=== PATIENT | male | born 1955 | race Caucasian/White ===

== ENCOUNTER 2018-02-20 18:46 | Inpatient (IN) | payer MEDICARE ==
[2018-02-20] MEDS ORDERED: PANTOPRAZOLE 40 MG/10 ML VIAL IVP STA (18:49)
[2018-02-20] MEDS ORDERED: MORPHINE SULFATE 4 MG/ML SYRINGE IV STA (18:49)
[2018-02-20] MEDS ORDERED: ONDANSETRON 4 MG/2 ML VIAL IVP STA (18:49)
[2018-02-20] MEDS ORDERED: SODIUM CHLORIDE 0.9% 1,000 ML IV STA ×2 (18:49)
--- NOTE | 2018-02-20 18:54 | ED ---
General Adult HPI - General Stated complaint: ABDOMINAL PAIN, NAUSEA, VOMITING Time Seen by Provider: 02/20/18 18:49 Source: RN notes reviewed, old records reviewed - History of Present Illness Initial comments: This is a 62-year-old male the ER for evasive nausea vomiting weakness, altered mental state. Patient states he has significant history of the same, history of severe colitis. Complaining of nausea vomiting diarrhea, generalized pain, body pain. No fevers or travel history no sick contacts. - Related Data Home Medications Medication Instructions Recorded Confirmed Lisinopril [Prinivil] 20 mg PO DAILY 10/02/14 07/18/16 L.acidoph,Paracasei, B.lactis 1 cap PO DAILY 06/24/16 07/18/16 [Probiotic] Mirtazapine 45 mg PO HS 06/24/16 07/18/16 Previous Rx's Medication Instructions Recorded Omeprazole [PriLOSEC] 40 mg PO DAILY #30 capsule. 07/07/16 Ondansetron [Zofran ODT] 8 mg PO Q8HR PRN #12 tab 07/07/16 traMADol HCl [Ultram] 50 - 100 mg PO Q6H PRN #15 tab 07/07/16 Allergies Allergy/AdvReac Type Severity Reaction Status Date / Time Penicillins Allergy Anaphylaxis Verified 02/20/18 18:59 Review of Systems ROS Statement: Those systems with pertinent positive or pertinent negative responses have been documented in the HPI. ROS Other: All systems not noted in ROS Statement are negative. Past Medical History Past Medical History: COPD, Hypertension Additional Past Medical History / Comment(s): diverticulitis, hypothyroidism, C- diff, brain aneurysm History of Any Multi-Drug Resistant Organisms: C-DIFF Date of last positivie culture/infection: 09/23/14 MDRO Source:: stool Past Surgical History: No Surgical Hx Reported Additional Past Surgical History / Comment(s): brain surgery 2004 Past Anesthesia/Blood Transfusion Reactions: No Reported Reaction Past Psychological History: No Psychological Hx Reported Smoking Status: Current every day smoker Past Alcohol Use History: None Reported Past Drug Use History: None Reported General Exam General appearance: alert, in no apparent distress, cachectic Head exam: Present: atraumatic, normocephalic, normal inspection Eye exam: Present: normal appearance, PERRL, EOMI. Absent: scleral icterus, conjunctival injection, periorbital swelling ENT exam: Present: normal exam, mucous membranes moist Neck exam: Present: normal inspection. Absent: tenderness, meningismus, lymphadenopathy Respiratory exam: Present: normal lung sounds bilaterally. Absent: respiratory distress, wheezes, rales, rhonchi, stridor Cardiovascular Exam: Present: regular rate, normal rhythm, normal heart sounds. Absent: systolic murmur, diastolic murmur, rubs, gallop, clicks GI/Abdominal exam: Present: soft, normal bowel sounds. Absent: distended, tenderness, guarding, rebound, rigid Extremities exam: Present: normal inspection, full ROM, normal capillary refill. Absent: tenderness, pedal edema, joint swelling, calf tenderness Back exam: Present: normal inspection Neurological exam: Present: alert, oriented X3, CN II-XII intact Psychiatric exam: Present: normal affect, normal mood Skin exam: Present: warm, dry, intact, normal color. Absent: rash Course Vital Signs 02/20/18 18:51 Temperature 97 F L Pulse Rate 105 H Respiratory 20 Rate Blood Pressure 97/58 O2 Sat by Pulse 95 Oximetry EKG Findings - EKG Comments: EKG Findings:: EKG shows normal sinus rhythm rate of 85, [place] 160, QRS 76, QTc 445 Medical Decision Making - Lab Data Result diagrams: 02/20/18 19:45 02/20/18 19:45 Lab Results 02/20/18 02/20/18 Range/Units 19:45 19:45 WBC 13.3 H (3.8-10.6) k/uL RBC 4.58 (4.30-5.90) m/uL Hgb 13.8 (13.0-17.5) gm/dL Hct 43.0 (39.0-53.0) % MCV 93.9 (80.0-100.0) fL MCH 30.1 (25.0-35.0) pg MCHC 32.0 (31.0-37.0) g/dL RDW 13.2 (11.5-15.5) % Plt Count 309 (150-450) k/uL Neutrophils % 82 % Lymphocytes % 8 % Monocytes % 7 % Eosinophils % 1 % Basophils % 0 % Neutrophils # 10.9 H (1.3-7.7) k/uL Lymphocytes # 1.1 (1.0-4.8) k/uL Monocytes # 0.9 (0-1.0) k/uL Eosinophils # 0.2 (0-0.7) k/uL Basophils # 0.0 (0-0.2) k/uL Sodium 145 (137-145) mmol/L Potassium 4.2 (3.5-5.1) mmol/L Chloride 108 H (98-107) mmol/L Carbon Dioxide 24 (22-30) mmol/L Anion Gap 13 mmol/L BUN 33 H (9-20) mg/dL Creatinine 0.80 (0.66-1.25) mg/dL Est GFR (CKD-EPI)AfAm >90 (>60 ml/min/1.73 sqM) Est GFR (CKD-EPI)NonAf >90 (>60 ml/min/1.73 sqM) Glucose 104 H (74-99) mg/dL Calcium 9.5 (8.4-10.2) mg/dL Total Bilirubin 0.1 L (0.2-1.3) mg/dL AST 21 (17-59) U/L ALT 22 (21-72) U/L Alkaline Phosphatase 106 (38-126) U/L Total Protein 6.1 L (6.3-8.2) g/dL Albumin 3.8 (3.5-5.0) g/dL Amylase 270 H (30-110) U/L Lipase 216 (23-300) U/L Disposition Clinical Impression: Abdominal pain, Dehydration, Intractable nausea and vomiting Disposition: ADMITTED IP TO THIS HOSP Condition: Fair Is patient prescribed a controlled substance at d/c from ED?: No Referrals: Sabrina Waters MD [Primary Care Provider] - 1-2 days
[2018-02-20 19:56] LABS: Basophils % (A) 0 %; Eosinophils # (A) 0.2 k/uL (0-0.7); Eosinophils % (A) 1 %; HGB 13.8 gm/dL (13.0-17.5); Lymphocytes # (A) 1.1 k/uL (1.0-4.8); Lymphocytes % (A) 8 %; MCH 30.1 pg (25.0-35.0); MCV 93.9 fL (80.0-100.0); Mean Platelet Volume 7.2; Monocytes # (A) 0.9 k/uL (0-1.0); Monocytes % (A) 7 %; Neutrophils # (A) 10.9 k/uL (1.3-7.7); Neutrophils % (A) 82 %; Platelet Count 309 k/uL (150-450); RBC 4.58 m/uL (4.30-5.90); RDW 13.2 % (11.5-15.5); WBC 13.3 k/uL (3.8-10.6)
[2018-02-20 20:20] LABS: ALT 22 U/L (21-72); AST 21 U/L (17-59); Albumin 3.8 g/dL (3.5-5.0); Alkaline Phosphatase 106 U/L (38-126); Amylase 270 U/L (30-110); Anion Gap 13 mmol/L; Blood Urea Nitrogen 33 mg/dL (9-20); Calcium 9.5 mg/dL (8.4-10.2); Carbon Dioxide 24 mmol/L (22-30); Chloride 108 mmol/L (98-107); Glucose 104 mg/dL (74-99); Lipase 216 U/L (23-300); Potassium 4.2 mmol/L (3.5-5.1); Sodium 145 mmol/L (137-145); Total Bilirubin 0.1 mg/dL (0.2-1.3); Total Protein 6.1 g/dL (6.3-8.2)
[2018-02-20] MEDS ORDERED: ONDANSETRON 4 MG/2 ML VIAL IVP PRN (20:29)
[2018-02-20 20:32] LABS: Creatine Kinase 59 U/L (55-170)
[2018-02-20 20:45] LABS: Creatine Kinase MB 1.2 ng/mL (0.0-2.4); Troponin I <0.012 ng/mL (0.000-0.034)
--- NOTE | 2018-02-20 21:48 | XR ---
EXAMINATION TYPE: XR abdomen acute w cxr DATE OF EXAM: 02/20/2018 COMPARISON: 07/07/2016 HISTORY: Pain TECHNIQUE: Acute abdominal series performed with a frontal chest upright and supine views of the abdo men. FINDINGS: There is hyperinflation and extensive emphysematous change present. No free air is under th e diaphragm. Nonspecific small bowel gas is present. There appears to be some colonic bowel gas in th e splenic flexure. IMPRESSION: 1. Nonspecific abdomen. Follow-up can be performed as clinically indicated. 2. Extensive emphysematous changes.
[2018-02-20] MEDS: MORPHINE SULFATE 4 MG/ML SYRINGE IVP PRN (22:33)
[2018-02-21 02:30] LABS: Appearance,Urine Clear (Clear); Bilirubin,Urine Negative (Negative); Blood,Urine Negative (Negative); Color,Urine Yellow; Glucose,Urine (UA) Negative (Negative); Ketones,Urine Negative (Negative); Leukocyte Esterase,Urine Negative (Negative); Nitrite,Urine Negative (Negative); Protein,Urine Negative (Negative); Specific Gravity,Urine 1.014 (1.001-1.035); Urobilinogen,Urine <2.0 mg/dL (<2.0)
[2018-02-21] MEDS: MORPHINE SULFATE 4 MG/ML SYRINGE IVP PRN ×5 (02:51→21:18)
[2018-02-21] MEDS ORDERED: ENOXAPARIN 40 MG/0.4 ML SYRINGE SQ SCH (09:00)
[2018-02-21 09:25] LABS: Basophils % (A) 0 %; Eosinophils % (A) 0 %; HCT 38.2 % (39.0-53.0); HGB 12.2 gm/dL (13.0-17.5); Lymphocytes # (A) 0.9 k/uL (1.0-4.8); Lymphocytes % (A) 9 %; MCH 30.1 pg (25.0-35.0); MCHC 31.9 g/dL (31.0-37.0); MCV 94.4 fL (80.0-100.0); Mean Platelet Volume 7.4; Monocytes # (A) 0.7 k/uL (0-1.0); Monocytes % (A) 7 %; Neutrophils # (A) 7.9 k/uL (1.3-7.7); Neutrophils % (A) 81 %; Platelet Count 238 k/uL (150-450); RBC 4.04 m/uL (4.30-5.90); RDW 13.2 % (11.5-15.5); WBC 9.7 k/uL (3.8-10.6)
[2018-02-21 09:43] LABS: ALT 21 U/L (21-72); AST 17 U/L (17-59); Albumin 3.3 g/dL (3.5-5.0); Alkaline Phosphatase 97 U/L (38-126); Anion Gap 10 mmol/L; Blood Urea Nitrogen 31 mg/dL (9-20); Calcium 8.5 mg/dL (8.4-10.2); Carbon Dioxide 26 mmol/L (22-30); Chloride 105 mmol/L (98-107); Glucose 145 mg/dL (74-99); Sodium 141 mmol/L (137-145); Total Bilirubin 0.3 mg/dL (0.2-1.3); Total Protein 5.2 g/dL (6.3-8.2)
[2018-02-21 10:18] VITALS: BMI 15.8
[2018-02-21] MEDS: PANTOPRAZOLE 40 MG/10 ML VIAL IVP SCH (10:38)
--- NOTE | 2018-02-21 11:00 | P.HPIM ---
History of Present Illness H&P Date: 02/21/18 Chief Complaint: Abdominal pain with vomiting and diarrhea This is a 62-year-old male with a known past medical history of ischemic colitis, C. diff, hypertension, COPD, brain aneurysm status post surgery and nicotine dependence. Patient presents to the emergency room with complaints of nausea, vomiting, diarrhea and abdominal pain. Patient reports that symptoms started suddenly around 6:00 last night. He had been feeling well earlier in the day and had been at a movie and eating popcorn. Patient reports when he came home later that evening is when the symptoms started. He reports multiple loose stools with blood present. He reports this is the same symptoms he always has. He's had previous hospitalizations at [facility] for the same symptoms. He's been treated for colitis. Patient reports he did have a syncopal episode after using the restroom and walking to the front room. He passed out for a few seconds. He did not injure herself. Family member was able to witness it. White count was 13.3 has normalized down to 9.7. Hemoglobin 13.8 his truck to 12.2. Nursing staff reporting very clear mucus-like stool this morning was pH. GI service has been consulted. Stool for occult blood and stool for C. diff has been ordered. Patient denies any fever, chills, sweats, shortness of breath. Denies any burning with urination. Patient did report some mild chest pain with the vomiting. Troponin on admission was normal and EKG shows a normal sinus rhythm. Abdominal and chest x -ray shows nonspecific abdomen. And extensive emphysematous changes. Patient reporting last colonoscopy done a year ago at [facility]. Report not available to me. However, patient reporting that it shows his usual colitis. Review of Systems Please refer to HPI otherwise unremarkable Past Medical History Past Medical History: COPD, Hypertension Additional Past Medical History / Comment(s): diverticulitis, hypothyroidism, C- diff, brain aneurysm History of Any Multi-Drug Resistant Organisms: C-DIFF Date of last positivie culture/infection: 09/23/14 MDRO Source:: stool Past Surgical History: No Surgical Hx Reported Additional Past Surgical History / Comment(s): brain surgery 2004 Past Anesthesia/Blood Transfusion Reactions: No Reported Reaction Past Psychological History: No Psychological Hx Reported Smoking Status: Current every day smoker Past Alcohol Use History: None Reported Additional Past Alcohol Use History / Comment(s): PT STATES HE USES A VAPE PEN INSTEAD OF SMOKING TRADITIONAL CIGARETTES AT THIS TIME. Past Drug Use History: None Reported - Past Family History Mother Additional Family Medical History / Comment(s): DIVERTICULITIS Medications and Allergies Home Medications Medication Instructions Recorded Confirmed Type Lisinopril [Prinivil] 20 mg PO DAILY 10/02/14 02/21/18 History Mirtazapine 45 mg PO HS 06/24/16 02/21/18 History Allergies Allergy/AdvReac Type Severity Reaction Status Date / Time Penicillins Allergy Anaphylaxis Verified 02/21/18 07:59 Physical Exam Vitals: Vital Signs Temp Pulse Pulse Resp BP BP Pulse Ox 02/21/18 06:55 98.5 F 86 16 106/72 95 02/20/18 22:10 97.8 F 88 16 105/72 99 02/20/18 21:33 80 20 93/55 98 02/20/18 20:00 84 20 91/61 98 02/20/18 18:51 97 F L 105 H 20 97/58 95 Intake and Output 02/20/18 02/21/18 02/21/18 22:59 06:59 14:59 Intake Total 1000 800 360 Balance 1000 800 360 Intake: Amount of Fluid Infused ( 1000 ml) Intake, IV Titration 800 Amount Sodium Chloride 0.9% 1, 800 000 ml @ 100 mls/hr IV . Q10H STA Rx#:[id number] Oral 360 Other: Voiding Method Toilet Toilet Weight 58.967 kg 58.967 kg Head normocephalic Neck supple Lungs clear to auscultation bilaterally no wheezing or crackles Heart regular rate and rhythm S1-S2, no rub or gallop Abdomen is soft nondistended positive bowel sounds lower abdominal tenderness with palpation Extremities no edema Neuro alert and orientated to 3 Results CBC & Chem 7: 02/21/18 09:07 02/21/18 09:07 Labs: Abnormal Lab Results - Last 24 Hours (Table) 02/20/18 02/20/18 02/21/18 Range/Units 19:45 19:45 09:07 WBC 13.3 H (3.8-10.6) k/uL RBC 4.04 L (4.30-5.90) m/uL Hgb 12.2 L (13.0-17.5) gm/dL Hct 38.2 L (39.0-53.0) % Neutrophils # 10.9 H 7.9 H (1.3-7.7) k/uL Lymphocytes # 0.9 L (1.0-4.8) k/uL Chloride 108 H (98-107) mmol/L BUN 33 H (9-20) mg/dL Glucose 104 H (74-99) mg/dL Total Bilirubin 0.1 L (0.2-1.3) mg/dL Total Protein 6.1 L (6.3-8.2) g/dL Albumin (3.5-5.0) g/dL Amylase 270 H (30-110) U/L 02/21/18 Range/Units 09:07 WBC (3.8-10.6) k/uL RBC (4.30-5.90) m/uL Hgb (13.0-17.5) gm/dL Hct (39.0-53.0) % Neutrophils # (1.3-7.7) k/uL Lymphocytes # (1.0-4.8) k/uL Chloride (98-107) mmol/L BUN 31 H (9-20) mg/dL Glucose 145 H (74-99) mg/dL Total Bilirubin (0.2-1.3) mg/dL Total Protein 5.2 L (6.3-8.2) g/dL Albumin 3.3 L (3.5-5.0) g/dL Amylase (30-110) U/L Microbiology - Last 24 Hours (Table) 02/21/18 02:20 Urine Culture - Preliminary Urine,Voided Thrombosis Risk Factor Assmnt - Choose All That Apply Any of the Below Risk Factors Present?: Yes Each Factor Represents 1 point: Abnormal pulmonary function (COPD), Age 41-60 years Other Risk Factors: No Other congenital or acquired thrombophilia - If yes, enter type in comment: No Thrombosis Risk Factor Assessment Total Risk Factor Score: 2 Thrombosis Risk Factor Assessment Level: Low Risk Assessment and Plan Assessment: 1. Abdominal pain with vomiting and bloody diarrhea: History of ischemic colitis and C. diff colitis. GI service consulted. Check stool for C. diff. Check stool for occult blood. He will come stable at 12.2. White count has normalized without antibiotics. Patient has received IV fluids continue morphine for pain control 2. Syncopal episode: Possibly a vasovagal response or orthostatic hypotension. Check orthostatic blood pressures. Continue with IV fluids. 3. Essential hypertension: Lisinopril currently on hold due to hypotension on admission. Continue IV fluids 4. History of COPD: Stable evidence of exacerbation 5. Nicotine dependence: Discussed smoking cessation for greater than 3 minutes. Patient is currently Vaps at home. 6. History of brain aneurysm requiring surgical intervention GI prophylaxis Protonix and DVT prophylaxis SCDs Time with Patient: Greater than 30 (Greater than 50% of the total time spent in counseling and coordination of care.I performed an examination of the patient and discussed their management with the physician Business Solutions Analyst. I have reviewed the Physician Business Solutions Analyst's notes and agree with the documented findings and plan of care)
[2018-02-21] MEDS ORDERED: RX INFO: IV CONTRAST WAS GIVEN 1 EACH MISC MISCELLANE PRN (14:10)
[2018-02-21] MEDS: IOPAMIDOL-300 CONTRAST 30 ML VIAL (ORAL USE) PO PRN ×2 (14:52→16:04)
--- NOTE | 2018-02-21 15:37 | CONS ---
CONSULTATION REQUESTING PHYSICIAN: Dr. Sabrina Waters. REASON FOR CONSULTATION: Intermittent episodes of nausea, vomiting, and diarrhea. HISTORY OF PRESENT ILLNESS: The patient is a 62-year-old pleasant white male who was admitted to the hospital with acute onset of abdominal pain associated with nausea, vomiting, diarrhea of 2 days duration. He has been having intermittent episodes requiring hospitalization for the last 3 days. It all started with multiple episodes of C diff colitis that was diagnosed 3 years ago. He was hospitalized and treated with antibiotics and finally the C diff colitis had resolved. However, since then he has been having these episodes when he presents with acute onset of abdominal pain followed by nausea, vomiting, diarrhea, night sweats that start suddenly and usually lasts for 2-3 days and resolve. In between episodes he is asymptomatic. The last episode was in November of 2017 and was admitted to [facility]. He was investigated by Dr. Rodríguez and he had an upper endoscopy as well as colonoscopy done by him in June of 2016, which was unremarkable. There was some questionable history of ischemic colitis in the past. He is feeling much better now. He is on a regular diet tolerating well. No further episodes of nausea, vomiting, or abdominal pain. He feels very weak and tired. PAST MEDICAL HISTORY: Significant for recurrent episodes of C diff colitis 3 years ago, history of COPD, hypertension, hypothyroidism. PAST SURGICAL HISTORY: Some kind of a brain surgery. MEDICATIONS: At home include Prinivil, mirtazapine. ALLERGIES: To PENICILLIN. SOCIAL HISTORY: Chronic smoker but no alcohol use. FAMILY HISTORY: Mother has diverticulosis. REVIEW OF SYSTEMS: CARDIOPULMONARY: No chest pain, shortness of breath. GENITOURINARY: No dysuria or hematuria. MUSCULOSKELETAL: Unremarkable. SKIN: Unremarkable. ENDOCRINE: Unremarkable. PSYCHIATRIC: Unremarkable. NEUROLOGY: Unremarkable. ENT/VISION: Unremarkable. CONSTITUTIONAL: No recent weight loss. No fever, chills, or night sweats. PHYSICAL EXAMINATION: Blood pressure is 105/72, pulse 88, temperature 98.7. HEENT examination is unremarkable. Conjunctivae pink. Sclerae anicteric. Oral cavity, no lesions. Chest was clear to auscultation. HEART: Regular rate and rhythm. ABDOMEN: Soft. Bowel sounds are positive. No organomegaly. EXTREMITIES: No pedal edema. SKIN: No rashes. NEUROLOGIC: Alert and oriented x3. No focal deficits. LAB: Done at the time of admission hospital: WBC 13.3, hemoglobin and platelets are normal. Basic metabolic panel is within normal limits. BUN was 33, creatinine 0.8. This morning, BUN is 31, creatinine 0.7. ALT, AST, T bilirubin, alkaline phosphatase are normal. Amylase was 270, lipase is 216. Abdominal x-rays were unremarkable. IMPRESSION: This is a patient who presents with intermittent episodes of abdominal pain associated with nausea, vomiting, diarrhea that happens once every 6 months for the last 3 years. This was preceded by recurrent episodes of C diff colitis 3 years ago, which was successfully treated with antibiotics at that time. 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 He did have an EGD and colonoscopy by Dr. Rodríguez in June of 2016, which was unremarkable. RECOMMENDATIONS: 1. Continue with symptomatic and supportive care. 2. Advance diet as tolerated. 3. Antiemetics as needed. 4. Once his symptoms improve, he can be discharged home with outpatient follow up in 2- 3 weeks. Thank you for this consultation. MMJYOTIL / RETAN: [id number] /
--- NOTE | 2018-02-21 18:24 | CT ---
EXAMINATION TYPE: CT abdomen pelvis w con DATE OF EXAM: 02/21/2018 COMPARISON: NONE HISTORY: Blood in stool CT DLP: 399.5 mGycm Automated exposure control for dose reduction was used. TECHNIQUE: Helical acquisition of images was performed from the lung bases through the pelvis. CONTRAST: Performed with Oral Contrast and with IV Contrast, patient injected with 100 mL of Isovue 300. FINDINGS: There is some patchy infiltrate at the right lung base. There is pulmonary emphysema. Heart size is n ormal. There is no pleural effusion. Liver shows no focal defect. Bile ducts are not dilated. Spleen appears normal. There is no evidence of a pancreatic mass. Gallbladder appears normal. There is no adrenal mass. The kidneys show satisfactory contrast opacification. There is no hydroneph rosis. There is a 2.5 cm right renal parapelvic cyst. Ureters are not dilated. Abdominal aorta is ath eromatous. There is no retroperitoneal adenopathy. There is no ascites. Small bowel appears normal. T here is lack of large bowel contrast. I see no intestinal wall thickening. There are no dilated loops . Bladder distends smoothly. Prostate is enlarged and measures almost 6 cm. Appendix is not seen. The re is no sign of appendicitis. There is no evidence of free air. I see no bony destructive process. IMPRESSION: THERE IS RIGHT RENAL PARAPELVIC CYST THAT IS SLIGHTLY INCREASED COMPARED TO OLD EXAM. LARGE BOWEL ALYSON LUATION IS LIMITED SOMEWHAT BY LACK OF CONTRAST AND INTRAPERITONEAL FAT. I DO NOT SEE A CAUSE FOR REC DAYANA BLEEDING. ENLARGED PROSTATE. EMPHYSEMA. THERE IS CHRONIC INFILTRATE AT THE RIGHT POSTERIOR LUNG BASE THAT IS INCREASED SLIGHTLY CO MPARED TO OLD EXAM..
[2018-02-21] MEDS: MIRTAZAPINE 45 MG TABLET PO SCH (21:19)
[2018-02-22] MEDS: MORPHINE SULFATE 4 MG/ML SYRINGE IVP PRN ×2 (02:57→07:44)
[2018-02-22 07:30] LABS: Basophils % (A) 1 %; Eosinophils # (A) 0.2 k/uL (0-0.7); Eosinophils % (A) 3 %; HCT 32.8 % (39.0-53.0); HGB 10.8 gm/dL (13.0-17.5); Lymphocytes # (A) 0.9 k/uL (1.0-4.8); Lymphocytes % (A) 14 %; MCH 30.5 pg (25.0-35.0); MCV 92.5 fL (80.0-100.0); Monocytes # (A) 0.5 k/uL (0-1.0); Monocytes % (A) 8 %; Neutrophils # (A) 4.7 k/uL (1.3-7.7); Neutrophils % (A) 71 %; Platelet Count 196 k/uL (150-450); RBC 3.55 m/uL (4.30-5.90); WBC 6.7 k/uL (3.8-10.6)
[2018-02-22] MEDS: PANTOPRAZOLE 40 MG/10 ML VIAL IVP SCH (07:44)
[2018-02-22 08:06] LABS: ALT 22 U/L (21-72); AST 16 U/L (17-59); Albumin 2.7 g/dL (3.5-5.0); Alkaline Phosphatase 90 U/L (38-126); Anion Gap 7 mmol/L; Blood Urea Nitrogen 23 mg/dL (9-20); Calcium 8.1 mg/dL (8.4-10.2); Carbon Dioxide 27 mmol/L (22-30); Chloride 106 mmol/L (98-107); Glucose 76 mg/dL (74-99); Potassium 4.2 mmol/L (3.5-5.1); Sodium 140 mmol/L (137-145); Total Bilirubin 0.3 mg/dL (0.2-1.3); Total Protein 4.5 g/dL (6.3-8.2)
--- NOTE | 2018-02-22 09:44 | P.PN ---
Subjective Progress Note Date: 02/22/18 Principal diagnosis: Nausea vomiting diarrhea CT yesterday afternoon reported no cause for rectal bleeding. Still reports intermittent abdominal pain. No nausea or vomiting. No bloody bowel movements today. Hemoglobin 10.8. White count 6.7. Objective - Vital Signs Vital signs: Vital Signs Temp 97.3 F L 02/22/18 00:25 Pulse 58 L 02/22/18 00:25 Resp 15 02/22/18 00:25 BP 133/75 02/22/18 00:25 Pulse Ox 92 L 02/22/18 00:25 Intake & Output 02/21/18 02/22/18 02/22/18 18:59 06:59 18:59 Intake Total 1400 1270 Balance 1400 1270 Weight 58.967 kg Intake: IV 800 250 Sodium Chloride 0.9% 1, 800 250 000 ml @ 100 mls/hr IV . Q10H STA Rx#:[id number] Oral 600 1020 Other: Voiding Method Toilet # Voids 2 - Exam General appearance: The patient is alert, oriented, in no acute distress. HET: Head is normocephalic and atraumatic. Pupils are equal and reactive. Oropharynx is clear without lesions. Neck: Supple without lymphadenopathy. Trachea midline. Heart: S1 S2. Regular rate and rhythm. Lungs: No crackles or wheezes are heard. Abdomen: Soft, area mild generalized mid abdominal pain, nondistended with bowel sounds. No peritoneal signs. No palpable organomegaly or masses. Extremities: Normal skin color and turgor. No cyanosis, rash, ulceration, clubbing, or edema. Radial and pedal pulses are 2/4 bilaterally. Neurological: No focal deficits. Strength and sensation are grossly intact. - Labs CBC & Chem 7: 02/22/18 06:48 02/22/18 06:48 Labs: Abnormal Lab Results - Last 24 Hours (Table) 02/21/18 02/21/18 Range/Units 09:07 09:07 RBC 4.04 L (4.30-5.90) m/uL Hgb 12.2 L (13.0-17.5) gm/dL Hct 38.2 L (39.0-53.0) % Neutrophils # 7.9 H (1.3-7.7) k/uL Lymphocytes # 0.9 L (1.0-4.8) k/uL BUN 31 H (9-20) mg/dL Glucose 145 H (74-99) mg/dL Total Protein 5.2 L (6.3-8.2) g/dL Albumin 3.3 L (3.5-5.0) g/dL Microbiology - Last 24 Hours (Table) 02/21/18 02:20 Urine Culture - Preliminary Urine,Voided Assessment and Plan (1) Abdominal pain Current Visit: Yes Status: Acute Code(s): R10.9 - UNSPECIFIED ABDOMINAL PAIN SNOMED Code(s): 22032954 (2) Rectal bleeding Narrative/Plan: Component of acute blood loss anemia Current Visit: Yes Status: Acute Code(s): K62.5 - HEMORRHAGE OF ANUS AND RECTUM SNOMED Code(s): 65325403 (3) Intractable nausea and vomiting Current Visit: Yes Status: Acute Code(s): R11.2 - NAUSEA WITH VOMITING, UNSPECIFIED SNOMED Code(s): 273203365 (4) Cigarette nicotine dependence Current Visit: No Status: Acute Code(s): F17.210 - NICOTINE DEPENDENCE, CIGARETTES, UNCOMPLICATED SNOMED Code(s): 24432071 (5) Colitis Current Visit: No Status: Acute Code(s): K52.9 - NONINFECTIVE GASTROENTERITIS AND COLITIS, UNSPECIFIED SNOMED Code(s): 561492113 Plan: 1. Patient has reported multiple episodes of abdominal pain with intermittent rectal bleeding colitis type features over the last few years with a history of Clostridium difficile colitis and possible ischemic colitis. Patient reports additional history this morning that prior to the onset of his symptoms his blood pressure will decrease followed by intractable nausea vomiting intermittent blood tinged bowel movements that resolved within 1-3 days. EGD colonoscopy 2016 unremarkable. Etiology of his symptoms could be post infectious IBS related an underlying intermittent ischemic colitis also cannot be entirely excluded. 2. Continue with supportive measures soft diet. Discharge per medicine. Follow up in GI office in 2-3 weeks for reevaluation. Assessment and plan a care discussed with Dr. Rodriguez
--- NOTE | 2018-02-22 11:41 | P.PN ---
Subjective Progress Note Date: 02/22/18 This is a 62-year-old male with a known past medical history of ischemic colitis, C. diff, hypertension, COPD, brain aneurysm status post surgery and nicotine dependence. Patient presents to the emergency room with complaints of nausea, vomiting, diarrhea and abdominal pain. Patient reports that symptoms started suddenly around 6:00 last night. He had been feeling well earlier in the day and had been at a movie and eating popcorn. Patient reports when he came home later that evening is when the symptoms started. He reports multiple loose stools with blood present. He reports this is the same symptoms he always has. He's had previous hospitalizations at [facility] for the same symptoms. He's been treated for colitis. Patient reports he did have a syncopal episode after using the restroom and walking to the front room. He passed out for a few seconds. He did not injure herself. Family member was able to witness it. White count was 13.3 has normalized down to 9.7. Hemoglobin 13.8 his truck to 12.2. Nursing staff reporting very clear mucus-like stool this morning was pH. GI service has been consulted. Stool for occult blood and stool for C. diff has been ordered. Patient denies any fever, chills, sweats, shortness of breath. Denies any burning with urination. Patient did report some mild chest pain with the vomiting. Troponin on admission was normal and EKG shows a normal sinus rhythm. Abdominal and chest x -ray shows nonspecific abdomen. And extensive emphysematous changes. Patient reporting last colonoscopy done a year ago at [facility]. Report not available to me. However, patient reporting that it shows his usual colitis. 02/22/2018 patient did have a bloody BM yesterday evening. No further BMs this morning. No further vomiting. Some improvement in his abdominal pain. Patient does not feel ready for discharge yet. Hemoglobin has dropped from 12.2 -10.8. Stool for C. diff was negative. Patient denies any chest pain or shortness of breath. Denies any burning with urination. Patient is still been using IV morphine. Objective - Vital Signs Vital signs: Vital Signs Temp 97.7 F 02/22/18 07:00 Pulse 66 02/22/18 07:00 Resp 16 02/22/18 07:00 BP 109/59 02/22/18 07:00 Pulse Ox 92 L 02/22/18 07:00 Intake & Output 02/21/18 02/22/18 02/22/18 18:59 06:59 18:59 Intake Total 1400 1270 Balance 1400 1270 Weight 58.967 kg Intake: IV 800 250 Sodium Chloride 0.9% 1, 800 250 000 ml @ 100 mls/hr IV . Q10H STA Rx#:[id number] Oral 600 1020 Other: Voiding Method Toilet # Voids 2 - Exam Head normocephalic Neck supple Lungs clear to auscultation bilaterally no wheezing or crackles Heart regular rate and rhythm S1-S2, no rub or gallop Abdomen is soft mild tenderness of the lower abdomen nondistended positive bowel sounds no hepatosplenomegaly Extremities no edema Neuro alert and orientated to 3 - Labs CBC & Chem 7: 02/22/18 06:48 02/22/18 06:48 Labs: Abnormal Lab Results - Last 24 Hours (Table) 02/22/18 02/22/18 Range/Units 06:48 06:48 RBC 3.55 L (4.30-5.90) m/uL Hgb 10.8 L (13.0-17.5) gm/dL Hct 32.8 L (39.0-53.0) % Lymphocytes # 0.9 L (1.0-4.8) k/uL BUN 23 H (9-20) mg/dL Calcium 8.1 L (8.4-10.2) mg/dL AST 16 L (17-59) U/L Total Protein 4.5 L (6.3-8.2) g/dL Albumin 2.7 L (3.5-5.0) g/dL Microbiology - Last 24 Hours (Table) 02/21/18 02:20 Urine Culture - Preliminary Urine,Voided Assessment and Plan Assessment: 1. Abdominal pain with vomiting and bloody diarrhea: History of C. diff colitis and possible ischemic colitis. Stool for C. diff was negative. Computed tomography scan of the abdomen and pelvis did not reveal any cause for rectal bleeding. GI services recommending follow-up in office in 2-3 weeks for further workup. 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 Continue diet. Discontinue IV morphine and place patient on [place]. Continue to monitor hemoglobin. Hemoglobin is down to 10.8 2. Syncopal episode: Possibly a vasovagal response or orthostatic hypotension. Check orthostatic blood pressures. Continue with IV fluids. 3. Essential hypertension: Lisinopril currently on hold due to hypotension on admission. Continue IV fluids 4. History of COPD: Stable evidence of exacerbation 5. Nicotine dependence: Discussed smoking cessation for greater than 3 minutes. Patient is currently Vaps at home. 6. History of brain aneurysm requiring surgical intervention 7. Mild protein calorie malnutrition and underweight: BMI 15.8. Continue protein supplements GI prophylaxis Protonix and DVT prophylaxis SCDs Anticipate discharge possibly tomorrow I performed an examination of the patient and discussed their management with the physician Automatic Riveting Machine Operator. I have reviewed the Physician Automatic Riveting Machine Operator's notes and agree with the documented findings and plan of care
[2018-02-22] MEDS: HYDROcodone/APAP 5-325MG 1 EACH TAB PO PRN ×3 (13:11→23:01)
--- NOTE | 2018-02-22 16:19 | XR ---
EXAMINATION TYPE: XR chest 2V DATE OF EXAM: 02/20/2018 COMPARISON: 06/24/2016 TECHNIQUE: PA and lateral views submitted. HISTORY: Abnormal x-ray FINDINGS: The lungs are clear and there is no pneumothorax, pleural effusion, or focal pneumonia. Diffuse emph ysematous changes are noted. Curvature the spine with multilevel degenerative disc disease. IMPRESSION: 1. No acute process. Severe emphysema.
[2018-02-22] MEDS: MIRTAZAPINE 45 MG TABLET PO SCH (20:03)
[2018-02-23] MEDS: HYDROcodone/APAP 5-325MG 1 EACH TAB PO PRN ×2 (06:54→11:28)
[2018-02-23 07:39] LABS: ALT 25 U/L (21-72); AST 22 U/L (17-59); Albumin 3.3 g/dL (3.5-5.0); Alkaline Phosphatase 105 U/L (38-126); Anion Gap 10 mmol/L; Blood Urea Nitrogen 21 mg/dL (9-20); Calcium 8.7 mg/dL (8.4-10.2); Carbon Dioxide 25 mmol/L (22-30); Chloride 107 mmol/L (98-107); Glucose 77 mg/dL (74-99); Potassium 4.2 mmol/L (3.5-5.1); Sodium 142 mmol/L (137-145); Total Bilirubin 0.2 mg/dL (0.2-1.3); Total Protein 5.5 g/dL (6.3-8.2)
[2018-02-23] MEDS: PANTOPRAZOLE 40 MG/10 ML VIAL IVP SCH (07:44)
[2018-02-23 07:45] LABS: Basophils % (A) 1 %; Eosinophils # (A) 0.2 k/uL (0-0.7); Eosinophils % (A) 4 %; HGB 12.3 gm/dL (13.0-17.5); Hypochromasia Slight; Lymphocytes # (A) 1.5 k/uL (1.0-4.8); Lymphocytes % (A) 25 %; MCH 30.7 pg (25.0-35.0); MCHC 31.5 g/dL (31.0-37.0); MCV 97.4 fL (80.0-100.0); Mean Platelet Volume 7.6; Monocytes # (A) 0.5 k/uL (0-1.0); Monocytes % (A) 8 %; Neutrophils # (A) 3.7 k/uL (1.3-7.7); Neutrophils % (A) 60 %; Platelet Count 202 k/uL (150-450); RDW 13.1 % (11.5-15.5); WBC 6.2 k/uL (3.8-10.6)
[2018-02-23 09:58] VITALS: BP 138/87; PULSE 60; RESP 18; TEMP 97.9
[2018-02-23] MEDS ORDERED: ALBUTEROL NEBULIZED 2.5 MG/3 ML INHALATION PRN (10:31)
--- NOTE | 2018-02-23 10:33 | P.CNPUL ---
History of Present Illness Consult date: 02/23/18 Requesting physician: Olivier Pineda Reason for consult: COPD Chief complaint: abdominal pain vomiting diarrhea History of present illness: This is a 62-year-old male patient being seen examined and evaluated for consultation. This patient came into the emergency room on 02/21/2018 with complaints of nausea vomiting diarrhea and abdominal cramping. The patient states he had been eating previously at the movie theater and having popcorn when the symptoms started. The patient has had multiple bouts of loose stools that were bloody. The patient states he has been hospitalized multiple times in the past for ischemic colitis and previous bouts of community-acquired C. diff. Patient was also noted to have an episode of syncope while using the restroom before coming in. Upon examination in the emergency room the patient was found to have an elevated white count of 13.3. Hemoglobin of 13.8. And he was noted to have some bloody mucus light stools. GI services has been consult as well. This patient's C. diff has been negative. He did have an occult blood that was positive. The patient denies any shortness of breath cough or congestion at this time. We will put on consult initially after a CT of the abdomen and pelvis was obtained and did show COPD with chronic right lung base infiltrate that is slightly increased. Patient states he has known he has had this infiltrate/scarring in the right lung base for years. He states he has been told he has COPD in the past and was a 1 pack per day smoker for over 40 years. The patient quit smoking cigarettes 6 months ago increased resorted to date cigarettes. He does have a nebulizer at home which she uses albuterol and also has a Ventolin inhaler. He does have a past history of a pneumothorax approximately 10 years ago that did require a chest tube. Patient states he followed with a horticultural worker female many years ago however has not followed up with her stents. Patient states he would like to follow with someone local. Patient reports that he does wake up occasionally wheezing in the morning and has had a chronic cough. He denies any previous history of ALLERGIES. He has worked in the [employer] for many years and he also worked at [employer] and [employer]. He has a dog in the home. Upon examination patient is afebrile no further complaints. Review of Systems 14 point review of systems was completed and is negative unless noted in the HPI. Past Medical History Past Medical History: COPD, Hypertension Additional Past Medical History / Comment(s): diverticulitis, hypothyroidism, C- diff, brain aneurysm History of Any Multi-Drug Resistant Organisms: C-DIFF Date of last positivie culture/infection: 09/23/14 MDRO Source:: stool Past Surgical History: No Surgical Hx Reported Additional Past Surgical History / Comment(s): brain surgery 2004 Past Anesthesia/Blood Transfusion Reactions: No Reported Reaction Past Psychological History: No Psychological Hx Reported Smoking Status: Current every day smoker Past Alcohol Use History: None Reported Additional Past Alcohol Use History / Comment(s): PT STATES HE USES A VAPE PEN INSTEAD OF SMOKING TRADITIONAL CIGARETTES AT THIS TIME. Past Drug Use History: None Reported - Past Family History Mother Additional Family Medical History / Comment(s): DIVERTICULITIS Medications and Allergies Home Medications Medication Instructions Recorded Confirmed Type Lisinopril [Prinivil] 20 mg PO DAILY 10/02/14 02/21/18 History Mirtazapine 45 mg PO HS 06/24/16 02/21/18 History Allergies Allergy/AdvReac Type Severity Reaction Status Date / Time Penicillins Allergy Anaphylaxis Verified 02/21/18 07:59 Physical Exam Vitals: Vital Signs Temp Pulse Resp BP Pulse Ox 02/23/18 07:44 97.9 F 60 18 138/87 96 02/23/18 00:47 97.8 F 69 16 117/69 92 L 02/22/18 20:15 97.7 F 53 L 15 125/72 92 L 02/22/18 19:52 16 02/22/18 14:53 98.4 F 61 16 118/73 94 L Intake and Output 02/22/18 02/23/18 02/23/18 22:59 06:59 14:59 Intake Total 118 1620 Balance 118 1620 Intake: Oral 118 1620 Other: # Voids 1 3 # Bowel Movements 1 GENERAL EXAM: Alert, active, comfortable in no apparent distress. HEAD: Normocephalic. EYES: Normal reaction of pupils, equal size. NOSE: Clear with pink turbinates. THROAT: No erythema or exudates. NECK: No masses, no JVD. CHEST: No chest wall deformity. LUNGS: Equal air entry with no crackles, wheeze, rhonchi or dullness. CVS: S1 and S2 normal with no audible mumurs, regular rhythm. ABDOMEN: No hepatosplenomegaly, normal bowel sounds, no guarding or rigidity. EXTREMITIES: No edema noted, pedal pulses palpable. CENTRAL NERVOUS SYSTEM: No focal deficits, tone is normal in all 4 extremities. Results - Laboratory Findings CBC and BMP: 02/23/18 07:07 02/23/18 07:07 Abnormal lab findings: Abnormal Labs 02/20/18 02/20/18 02/21/18 19:45 19:45 09:07 WBC 13.3 H RBC 4.04 L Hgb 12.2 L Hct 38.2 L Neutrophils # 10.9 H 7.9 H Lymphocytes # 0.9 L Chloride 108 H BUN 33 H Glucose 104 H Calcium Total Bilirubin 0.1 L AST Total Protein 6.1 L Albumin Amylase 270 H 02/21/18 02/22/18 02/22/18 09:07 06:48 06:48 WBC RBC 3.55 L Hgb 10.8 L Hct 32.8 L Neutrophils # Lymphocytes # 0.9 L Chloride BUN 31 H 23 H Glucose 145 H Calcium 8.1 L Total Bilirubin AST 16 L Total Protein 5.2 L 4.5 L Albumin 3.3 L 2.7 L Amylase 02/23/18 02/23/18 07:07 07:07 WBC RBC 4.00 L Hgb 12.3 L Hct Neutrophils # Lymphocytes # Chloride BUN 21 H Glucose Calcium Total Bilirubin AST Total Protein 5.5 L Albumin 3.3 L Amylase - Diagnostic Findings Chest x-ray: report reviewed, image reviewed Assessment and Plan Assessment: Assessment Bullous lung disease/emphysema COPD Basilar scarring in the right lung base slightly increased could be residual from his previous pneumothorax with chest tube. We will continue to follow this with serial CTs versus PET scan in the outpatient setting. Syncope Abdominal pain with vomiting and bloody diarrhea Essential hypertension Nicotine dependence History of brain aneurysm requiring surgical interventions Plan Patient could be cleared for discharge from pulmonary standpoint and follow up with us in the outpatient setting. Medications have been reviewed and will be continued as ordered. Patient denies any shortness of breath at this time. We will add albuterol as needed. We will check the patient for over 1 antitrypsin deficiency as well as ALLERGIES. Obtain IgE level. Patient educated on the need for possible serial CTs versus PET scan in the outpatient setting. Continue with pulmonary hygiene, coughing and deep breathing exercises, and supportive care. Supplemental oxygen to maintain oxygen saturations of 92% or better. Continue nebulizer treatments. GI and DVT prophylaxis. We will continue to monitor labs/results and adjust treatment as necessary. Further recommendations pending. I performed an examination of the patient and discussed their management with the nurse practitioner. I have reviewed the nurse practitioner's note and agree with the documented findings and plan of care.
--- NOTE | 2018-02-23 10:49 | P.DS ---
Providers Date of admission: 02/20/18 20:30 Expected date of discharge: 02/23/18 Attending physician: Olivier Pineda Consults: 02/22/18 14:19 Consult Physician Routine Consulting Provider: Namita Flores Consult Reason/Comments: change in size of chronic infiltrate in right lung Do you want consulting provider notified?: Yes [facility] care [facility] Course: Diagnoses on discharge: 1. Abdominal pain with vomiting and bloody diarrhea: History of C. diff colitis and possible ischemic colitis. Stool for C. diff was negative. Computed tomography scan of the abdomen and pelvis did not reveal any cause for rectal bleeding. GI services recommending follow-up in office in 2-3 weeks for further workup. 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 Continue diet. Discontinue IV morphine and place patient on [place]. Continue to monitor hemoglobin. Hemoglobin is down to 10.8 2. Syncopal episode: Possibly a vasovagal response or orthostatic hypotension. Check orthostatic blood pressures. Continue with IV fluids. 3. Essential hypertension: Lisinopril currently on hold due to hypotension on admission. Continue IV fluids 4. History of COPD: Stable evidence of exacerbation 5. Nicotine dependence: Discussed smoking cessation for greater than 3 minutes. Patient is currently Vaps at home. 6. History of brain aneurysm requiring surgical intervention 7. Mild protein calorie malnutrition and underweight: BMI 15.8. Continue protein supplements 8. Chronic infiltrate on CXR seen by pulmonary, will be followed as outpatient GI prophylaxis Protonix and DVT prophylaxis [facility]: This is a 62-year-old male with a known past medical history of ischemic colitis, C. diff, hypertension, COPD, brain aneurysm status post surgery and nicotine dependence. Patient presents to the emergency room with complaints of nausea, vomiting, diarrhea and abdominal pain. Patient reports that symptoms started suddenly around 6:00 last night. He had been feeling well earlier in the day and had been at a movie and eating popcorn. Patient reports when he came home later that evening is when the symptoms started. He reports multiple loose stools with blood present. He reports this is the same symptoms he always has. He's had previous hospitalizations at [facility] for the same symptoms. He's been treated for colitis. Patient reports he did have a syncopal episode after using the restroom and walking to the front room. He passed out for a few seconds. He did not injure herself. Family member was able to witness it. White count was 13.3 has normalized down to 9.7. Hemoglobin 13.8 his truck to 12.2. Nursing staff reporting very clear mucus-like stool this morning was pH. GI service has been consulted. Stool for occult blood and stool for C. diff has been ordered. Patient denies any fever, chills, sweats, shortness of breath. Denies any burning with urination. Patient did report some mild chest pain with the vomiting. Troponin on admission was normal and EKG shows a normal sinus rhythm. Abdominal and chest x -ray shows nonspecific abdomen. And extensive emphysematous changes. Patient reporting last colonoscopy done a year ago at [facility]. Report not available to me. However, patient reporting that it shows his usual colitis. 02/22/2018 patient did have a bloody BM yesterday evening. No further BMs this morning. No further vomiting. Some improvement in his abdominal pain. Patient does not feel ready for discharge yet. Hemoglobin has dropped from 12.2 -10.8. Stool for C. diff was negative. Patient denies any chest pain or shortness of breath. Denies any burning with urination. Patient is still been using IV morphine. On 02/23/2018 Patient is alert and oriented in no distress, abdominal pain improved, no new episodes of rectal bleeding, able to tolerate diet well. Patient Condition at Discharge: Fair Plan - Discharge Summary Discharge Rx Participant: No New Discharge Prescriptions: Continue Lisinopril [Prinivil] 20 mg PO DAILY Mirtazapine 45 mg PO HS Discharge Medication List Lisinopril [Prinivil] 20 mg PO DAILY 10/02/14 [History] Mirtazapine 45 mg PO HS 06/24/16 [History] Follow up Appointment(s)/Referral(s): Debby Rodriguez MD [STAFF PHYSICIAN] - 03/24/18 4:15 pm Namita Flores DO [Doctor of Osteopathic Medicine] - 1-2 Days Sabrina Waters MD [Primary Care Provider] - 1-2 days
[2018-02-24 12:49] LABS: Alt. alternata IgE Class CLASS 0; Alternaria alternata IgE <0.35 kU/L (<0.35); Asperg. fumagatus IgE <0.35 kU/L (<0.35); Asperg. fumagatus IgE Class CLASS 0; Bermuda Grass IgE <0.35 kU/L (<0.35); Birch(Com.Silvr) IgE <0.35 kU/L (<0.35); Birch(Com.Silvr) IgE Class CLASS 0; Cat Epith & Dander IgE <0.35 kU/L (<0.35); Cat Epith & Dander IgE Class CLASS 0; Clad herbarum IgE <0.35 kU/L (<0.35); Cockroach IgE <0.35 kU/L (<0.35); Cottonwood IgE <0.35 kU/L (<0.35); Dermato. Pteronyssinus IgE <0.35 kU/L (<0.35); Dermato. farinae IgE <0.35 kU/L (<0.35); Dermato. farinae IgE Class CLASS 0; Dog Dander IgE <0.35 kU/L (<0.35); Elm IgE <0.35 kU/L (<0.35); Maple (Box Elder) IgE <0.35 kU/L (<0.35); Maple (Box Elder) IgE Class CLASS 0; Mountain Cedar IgE <0.35 kU/L (<0.35); Mountain Cedar IgE Class CLASS 0; Mouse Urine IgE Class CLASS 0; Nettle IgE <0.35 kU/L (<0.35); Nettle IgE Class CLASS 0; Oak IgE <0.35 kU/L (<0.35); Penicillium notatum IgE Class CLASS 0; Rough Marshelder IgE <0.35 kU/L (<0.35); Rough Marshelder IgE Class CLASS 0; Timothy Grass IgE <0.35 kU/L (<0.35); White Ash IgE Class CLASS 0
[2018-02-24 12:54] LABS: Alpha 1 Anti-Trypsin 97 mg/dL (90 - 200); Alpha-1-Antitrypsin Phenotype SZ
== END 2018-02-23 13:28 | disposition home or self-care (01) | DRG 394 ==
LOC: EC 18:46 → 3SUR 20:30
PROVIDERS: ADMIT Internal Medicine; ATTEND Internal Medicine
DX: K55.9 Vascular disorder of intestine, unspecified (principal); D62 Acute posthemorrhagic anemia; E44.1 Mild protein-calorie malnutrition; Z68.1 Body mass index [BMI] 19.9 or less, adult; K58.9 Irritable bowel syndrome, unspecified; E03.9 Hypothyroidism, unspecified; E86.0 Dehydration; F17.210 Nicotine dependence, cigarettes, uncomplicated; F17.290 Nicotine dependence, other tobacco product, uncomplicated; I10 Essential (primary) hypertension; J43.9 Emphysema, unspecified; J98.4 Other disorders of lung; I67.1 Cerebral aneurysm, nonruptured; I95.9 Hypotension, unspecified; R07.9 Chest pain, unspecified; I95.1 Orthostatic hypotension; K57.90 Diverticulosis of intestine, part unspecified, without perforation or abscess without bleeding; Z79.899 Other long term (current) drug therapy; Z87.19 Personal history of other diseases of the digestive system; Z86.19 Personal history of other infectious and parasitic diseases; Z88.0 Allergy status to penicillin; Z83.79 Family history of other diseases of the digestive system
CPT/HCPCS: 36415; 71046; 74022; 74177; 80053; 81003; 82103; 82104; 82150; 82272; 82550; 82553; 82785; 83690; 84484; 85025; 86001; 86003; 86606; 86609; 87086; 87324; 93005; 96361; 96374; 96375; 99285

== ENCOUNTER 2020-06-14 16:52 | Inpatient (IN) | payer MEDICARE ==
[2020-06-14] MEDS ORDERED: SODIUM CHLORIDE 0.9% 500 ML 500 ML IV STA (17:02)
[2020-06-14] MEDS ORDERED: fentaNYL (PF) 50 MCG/ML 2 ML AMP IVP STA ×2 (17:30→19:54)
[2020-06-14] MEDS ORDERED: PANTOPRAZOLE 40 MG/10 ML VIAL IVP STA (17:30)
[2020-06-14] MEDS ORDERED: ONDANSETRON 4 MG/2 ML VIAL IVP STA (17:30)
[2020-06-14 17:36] LABS: Glucose,Whole Blood 116 mg/dL (75-99)
[2020-06-14 17:58] LABS: ALT 13 U/L (4-49); AST 28 U/L (17-59); African American GFR (CKD) >90 (>60 ml/min/1.73 sqM); Albumin 3.5 g/dL (3.5-5.0); Alkaline Phosphatase 251 U/L (38-126); Anion Gap 7 mmol/L; Blood Urea Nitrogen 55 mg/dL (9-20); Calcium 9.5 mg/dL (8.4-10.2); Carbon Dioxide 22 mmol/L (22-30); Chloride 108 mmol/L (98-107); Glucose 113 mg/dL (74-99); HCT 42.3 % (39.0-53.0); HGB 13.7 gm/dL (13.0-17.5); MCH 31.6 pg (25.0-35.0); MCHC 32.5 g/dL (31.0-37.0); MCV 97.1 fL (80.0-100.0); Magnesium 2.2 mg/dL (1.6-2.3); Mean Platelet Volume 7.9; Non-African American GFR(CKD) 85 (>60 ml/min/1.73 sqM); Platelet Count 198 k/uL (150-450); Potassium 4.9 mmol/L (3.5-5.1); RBC 4.35 m/uL (4.30-5.90); RDW 13.1 % (11.5-15.5); Sodium 137 mmol/L (137-145); Total Bilirubin 0.5 mg/dL (0.2-1.3); Total Protein 5.7 g/dL (6.3-8.2); WBC 19.7 k/uL (3.8-10.6)
[2020-06-14 18:03] LABS: INR 0.9 (<1.2); Prothrombin Time 9.5 sec (9.0-12.0)
[2020-06-14 18:14] LABS: Band Neutrophils % 17 %; Lymphocytes # (M) 0.99 k/uL (1.0-4.8); Metamyelocytes # (M) 0.39 k/uL (0); Metamyelocytes % 2 %; Monocytes # (M) 1.97 k/uL (0-1.0); Neutrophils % (M) 68 %; Nucleated Red Blood Cells 0 /100 WBC (0-0); Total Cells Counted 200
[2020-06-14] MEDS ORDERED: SODIUM CHLORIDE 0.9% 1,000 ML IV ONE (18:16)
[2020-06-14 18:19] LABS: Partial Thromboplastin Time 21.8 sec (22.0-30.0)
--- NOTE | 2020-06-14 18:48 | ED ---
Abdominal Pain HPI - General Chief Complaint: Abdominal Pain Stated Complaint: Abd pain Time Seen by Provider: 06/14/20 17:00 Source: patient Mode of arrival: ambulatory Limitations: no limitations - History of Present Illness Initial Comments: Patient is a 64-year-old male with past history of diverticulitis, hypothyroidism who presents to the emergency department with reported abdominal pain. Patient states the pain started yesterday. It was diffuse in nature and severe. He was having bright red blood per rectum. He followed up with [facility] yesterday. Laboratory studies and a CT were performed. The patient was told he is constipated. He was given an enema and sent home. Reports that his pain persisted today and his son talked him into going to the emergency room. Blood pressures were noted to be low by EMS. Continues to have bright red blood per rectum. He was given 50 g of fentanyl. Reports to nausea without vomiting. No history of rectal bleeding in the past. No ulcer disease. Denies alcohol use or NSAID use. No recent EGDs or colonoscopies. No other alleviating, precipitating or modifying factors - Related Data Home Medications Medication Instructions Recorded Confirmed Mirtazapine 45 mg PO HS 06/24/06/14/20 Albuterol Inhaler [Ventolin Hfa 2 puff INHALATION RT-Q6H PRN 06/14/20 06/14/20 Inhaler] Docusate [Colace] 100 mg PO DAILY 06/14/20 06/14/20 Previous Rx's Medication Instructions Recorded Ciprofloxacin HCl [Cipro] 500 mg PO BID 7 Days #14 tab 06/20/20 HYDROcodone/APAP 7.5-325MG [[place] 1 each PO Q6H PRN 7 Days #28 tab 06/20/20 7.5-325] lisinopriL [Zestril] 5 mg PO DAILY 30 Days #30 tab 06/20/20 metroNIDAZOLE [Flagyl] 500 mg PO QID 7 Days #28 tab 06/20/20 Allergies Allergy/AdvReac Type Severity Reaction Status Date / Time Penicillins Allergy Anaphylaxis Verified 06/14/20 17:44 Review of Systems ROS Statement: Those systems with pertinent positive or pertinent negative responses have been documented in the HPI. ROS Other: All systems not noted in ROS Statement are negative. Past Medical History Past Medical History: COPD, Hypertension Additional Past Medical History / Comment(s): diverticulitis, hypothyroidism, C- diff, brain aneurysm History of Any Multi-Drug Resistant Organisms: C-DIFF Date of last positivie culture/infection: 09/23/14 MDRO Source:: stool Past Surgical History: No Surgical Hx Reported Additional Past Surgical History / Comment(s): brain surgery 2004 Past Anesthesia/Blood Transfusion Reactions: No Reported Reaction Past Psychological History: No Psychological Hx Reported Smoking Status: Current every day smoker Past Alcohol Use History: None Reported Past Drug Use History: None Reported - Past Family History Mother Additional Family Medical History / Comment(s): DIVERTICULITIS General Exam Limitations: no limitations General appearance: alert, in distress Eye exam: Present: normal appearance, PERRL, EOMI. Absent: scleral icterus, conjunctival injection, periorbital swelling ENT exam: Present: mucous membranes dry Neck exam: Present: normal inspection. Absent: tenderness, meningismus, lymphadenopathy Respiratory exam: Present: normal lung sounds bilaterally Cardiovascular Exam: Present: regular rate, normal rhythm, normal heart sounds. Absent: systolic murmur, diastolic murmur, rubs, gallop, clicks GI/Abdominal exam: Present: tenderness, guarding (diffuse. pain appears out of proportion) Rectal exam: Present: normal inspection, heme (+) stool. Absent: black stool, bloody stool Extremities exam: Present: normal inspection, full ROM, normal capillary refill. Absent: tenderness, pedal edema, joint swelling, calf tenderness Back exam: Present: normal inspection Neurological exam: Present: alert, oriented X3, CN II-XII intact Psychiatric exam: Present: flat affect Skin exam: Present: diaphoretic, pallor Course Vital Signs 06/14/20 06/14/20 06/14/20 16:57 17:01 17:15 Temperature 97.6 F Pulse Rate 95 Respiratory 17 Rate Blood Pressure 81/58 79/58 68/46 O2 Sat by Pulse 98 95 Oximetry 06/14/20 06/14/20 06/14/20 17:18 17:35 17:43 Temperature Pulse Rate 98 102 H Respiratory 18 18 Rate Blood Pressure 59/36 110/73 92/70 O2 Sat by Pulse 98 96 Oximetry 06/14/20 06/14/20 06/14/20 18:20 19:15 20:03 Temperature Pulse Rate 114 H 105 H 92 Respiratory 18 18 18 Rate Blood Pressure 92/54 84/53 79/55 O2 Sat by Pulse 99 96 98 Oximetry 06/14/20 06/14/20 06/14/20 20:19 21:24 22:10 Temperature 97.8 F Pulse Rate 94 110 H 96 Respiratory 18 18 20 Rate Blood Pressure 100/59 103/68 108/70 O2 Sat by Pulse 96 97 99 Oximetry 06/14/20 06/14/20 23:00 23:41 Temperature 98.3 F Pulse Rate 96 72 Respiratory 18 18 Rate Blood Pressure 108/73 113/75 O2 Sat by Pulse 98 98 Oximetry Procedures - Central Line Placement Right IJ Consent Obtained: verbal consent, written consent Patient Placed on Monitor/Pulse Ox: Yes MD Prep: mask, gown, gloves Central Line Prep: Chlorhexidine scrub, sterile drapes applied Local Anesthesia Used: Lidocaine 1% Amount of Anesthesia Used (mls): 10 Ultrasound Used for Placement: Yes Bloods Obtained for Lab: No Central Line Position: good blood return, all ports aspirated, flushed, capped, sutured in place with nylon Dressing Applied: Tegaderm Post Procedure X-Ray: tip of catheter in good position Patient Tolerated Procedure: well, no complications Medical Decision Making - Medical Decision Making Upon arrival the patient is placed into room 19. A thorough history and physical exam is performed. Patient is notably hypotensive with a systolic of 50. Because of this the patient is immediately placed into the trauma bay. Labs are obtained. The patient was given a dose of Protonix and sent and all. Laboratory studies are remarkable for white count of 19.7. Lactic acid 3.4. Troponin 0.051. Fecal occult is positive. Patient went for a chest x-ray which demonstrates no definite acute bony process. Emphysematous changes. CT the abdomen and pelvis demonstrates dilated fluid-filled small bowel loops suggestive for small bowel obstruction. His only transitioned not identified. Thickening of the small bowel loops. The cultures were obtained and the patient was given a dose of Cipro and Flagyl. I discussed the case with Dr. Marrufo at 7:55 PM as I am concerned for ischemic colitis. The patient remains persistently hypotensive after 2 L of fluid and therefore central line is placed. I discussed the case with Dr. Nash at 8 PM who accepted patient in the ICU. I also discussed the case with Dr. Coombs at 8:05 PM who took the admission for the patient. Central line was placed by myself. Repeat chest x- ray demonstrates tip in the distal superior vena cava. No pneumothorax. Levothroid is ordered however patient's blood pressures do improve after line placement and therefore we will hold off on initiating them at this time. Patient is awaiting a bed in the ICU - Lab Data Result diagrams: 06/19/20 06:37 06/19/20 06:37 Lab Results 06/14/20 06/14/20 06/14/20 Range/Units 17:31 17:31 17:31 WBC 19.7 H (3.8-10.6) k/uL RBC 4.35 (4.30-5.90) m/uL Hgb 13.7 (13.0-17.5) gm/dL Hct 42.3 (39.0-53.0) % MCV 97.1 (80.0-100.0) fL MCH 31.6 (25.0-35.0) pg MCHC 32.5 (31.0-37.0) g/dL RDW 13.1 (11.5-15.5) % Plt Count 198 (150-450) k/uL Neutrophils % (Manual) 68 % Band Neutrophils % 17 % Lymphocytes % (Manual) 5 % Monocytes % (Manual) 10 % Metamyelocytes % 2 % Neutrophils # (Manual) 16.70 H (1.3-7.7) k/uL Lymphocytes # (Manual) 0.99 L (1.0-4.8) k/uL Monocytes # (Manual) 1.97 H (0-1.0) k/uL Metamyelocytes # (Man) 0.39 H (0) k/uL Nucleated RBCs 0 (0-0) /100 WBC Manual Slide Review Performed PT 9.5 (9.0-12.0) sec INR 0.9 (<1.2) APTT 21.8 L (22.0-30.0) sec Sodium 137 (137-145) mmol/L Potassium 4.9 (3.5-5.1) mmol/L Chloride 108 H (98-107) mmol/L Carbon Dioxide 22 (22-30) mmol/L Anion Gap 7 mmol/L BUN 55 H (9-20) mg/dL Creatinine 0.96 (0.66-1.25) mg/dL Est GFR (CKD-EPI)AfAm >90 (>60 ml/min/1.73 sqM) Est GFR (CKD-EPI)NonAf 85 (>60 ml/min/1.73 sqM) Glucose 113 H (74-99) mg/dL POC Glucose (mg/dL) (75-99) mg/dL POC Glu Senior Project Coordinator ID Lactic Ac Sepsis Rflx Plasma Lactic Acid Gamal (0.7-2.0) mmol/L Calcium 9.5 (8.4-10.2) mg/dL Magnesium 2.2 (1.6-2.3) mg/dL Total Bilirubin 0.5 (0.2-1.3) mg/dL AST 28 (17-59) U/L ALT 13 (4-49) U/L Alkaline Phosphatase 251 H (38-126) U/L Troponin I (0.000-0.034) ng/mL Total Protein 5.7 L (6.3-8.2) g/dL Albumin 3.5 (3.5-5.0) g/dL Lipase 13 L (23-300) U/L Urine Color Urine Appearance (Clear) Urine pH (5.0-8.0) Ur Specific [place] (1.001-1.035) Urine Protein (Negative) Urine Glucose (UA) (Negative) Urine Ketones (Negative) Urine Blood (Negative) Urine Nitrite (Negative) Urine Bilirubin (Negative) Urine Urobilinogen (<2.0) mg/dL Ur Leukocyte Esterase (Negative) Stool Occult Blood (Negative) Blood Type Blood Type Confirm Blood Type Recheck Bld Type Recheck Status Antibody Screen Spec Expiration Date 06/14/20 06/14/20 06/14/20 Range/Units 17:31 17:33 17:33 WBC (3.8-10.6) k/uL RBC (4.30-5.90) m/uL Hgb (13.0-17.5) gm/dL Hct (39.0-53.0) % MCV (80.0-100.0) fL MCH (25.0-35.0) pg MCHC (31.0-37.0) g/dL RDW (11.5-15.5) % Plt Count (150-450) k/uL Neutrophils % (Manual) % Band Neutrophils % % Lymphocytes % (Manual) % Monocytes % (Manual) % Metamyelocytes % % Neutrophils # (Manual) (1.3-7.7) k/uL Lymphocytes # (Manual) (1.0-4.8) k/uL Monocytes # (Manual) (0-1.0) k/uL Metamyelocytes # (Man) (0) k/uL Nucleated RBCs (0-0) /100 WBC Manual Slide Review PT (9.0-12.0) sec INR (<1.2) APTT (22.0-30.0) sec Sodium (137-145) mmol/L Potassium (3.5-5.1) mmol/L Chloride (98-107) mmol/L Carbon Dioxide (22-30) mmol/L Anion Gap mmol/L BUN (9-20) mg/dL Creatinine (0.66-1.25) mg/dL Est GFR (CKD-EPI)AfAm (>60 ml/min/1.73 sqM) Est GFR (CKD-EPI)NonAf (>60 ml/min/1.73 sqM) Glucose (74-99) mg/dL POC Glucose (mg/dL) (75-99) mg/dL POC Glu Senior Project Coordinator ID Lactic Ac Sepsis Rflx Plasma Lactic Acid Gamal 3.4 H* (0.7-2.0) mmol/L Calcium (8.4-10.2) mg/dL Magnesium (1.6-2.3) mg/dL Total Bilirubin (0.2-1.3) mg/dL AST (17-59) U/L ALT (4-49) U/L Alkaline Phosphatase (38-126) U/L Troponin I 0.051 H* (0.000-0.034) ng/mL Total Protein (6.3-8.2) g/dL Albumin (3.5-5.0) g/dL Lipase (23-300) U/L Urine Color Urine Appearance (Clear) Urine pH (5.0-8.0) Ur Specific [place] (1.001-1.035) Urine Protein (Negative) Urine Glucose (UA) (Negative) Urine Ketones (Negative) Urine Blood (Negative) Urine Nitrite (Negative) Urine Bilirubin (Negative) Urine Urobilinogen (<2.0) mg/dL Ur Leukocyte Esterase (Negative) Stool Occult Blood Positive (Negative) Blood Type Blood Type Confirm Blood Type Recheck Bld Type Recheck Status Antibody Screen Spec Expiration Date 06/14/20 06/14/20 06/14/20 Range/Units 17:33 17:34 18:11 WBC (3.8-10.6) k/uL RBC (4.30-5.90) m/uL Hgb (13.0-17.5) gm/dL Hct (39.0-53.0) % MCV (80.0-100.0) fL MCH (25.0-35.0) pg MCHC (31.0-37.0) g/dL RDW (11.5-15.5) % Plt Count (150-450) k/uL Neutrophils % (Manual) % Band Neutrophils % % Lymphocytes % (Manual) % Monocytes % (Manual) % Metamyelocytes % % Neutrophils # (Manual) (1.3-7.7) k/uL Lymphocytes # (Manual) (1.0-4.8) k/uL Monocytes # (Manual) (0-1.0) k/uL Metamyelocytes # (Man) (0) k/uL Nucleated RBCs (0-0) /100 WBC Manual Slide Review PT (9.0-12.0) sec INR (<1.2) APTT (22.0-30.0) sec Sodium (137-145) mmol/L Potassium (3.5-5.1) mmol/L Chloride (98-107) mmol/L Carbon Dioxide (22-30) mmol/L Anion Gap mmol/L BUN (9-20) mg/dL Creatinine (0.66-1.25) mg/dL Est GFR (CKD-EPI)AfAm (>60 ml/min/1.73 sqM) Est GFR (CKD-EPI)NonAf (>60 ml/min/1.73 sqM) Glucose (74-99) mg/dL POC Glucose (mg/dL) 116 H (75-99) mg/dL POC Glu Senior Project Coordinator ID Rui Cornejo Lactic Ac Sepsis Rflx Y Plasma Lactic Acid Gamal (0.7-2.0) mmol/L Calcium (8.4-10.2) mg/dL Magnesium (1.6-2.3) mg/dL Total Bilirubin (0.2-1.3) mg/dL AST (17-59) U/L ALT (4-49) U/L Alkaline Phosphatase (38-126) U/L Troponin I (0.000-0.034) ng/mL Total Protein (6.3-8.2) g/dL Albumin (3.5-5.0) g/dL Lipase (23-300) U/L Urine Color Urine Appearance (Clear) Urine pH (5.0-8.0) Ur Specific [place] (1.001-1.035) Urine Protein (Negative) Urine Glucose (UA) (Negative) Urine Ketones (Negative) Urine Blood (Negative) Urine Nitrite (Negative) Urine Bilirubin (Negative) Urine Urobilinogen (<2.0) mg/dL Ur Leukocyte Esterase (Negative) Stool Occult Blood (Negative) Blood Type B Positive Blood Type Confirm Blood Type Recheck No Previous Record Bld Type Recheck Status CABO Indicated Antibody Screen NEGATIVE Spec Expiration Date 06/17/2020 - 233206/14/20 06/14/20 Range/Units 18:21 19:33 WBC (3.8-10.6) k/uL RBC (4.30-5.90) m/uL Hgb (13.0-17.5) gm/dL Hct (39.0-53.0) % MCV (80.0-100.0) fL MCH (25.0-35.0) pg MCHC (31.0-37.0) g/dL RDW (11.5-15.5) % Plt Count (150-450) k/uL Neutrophils % (Manual) % Band Neutrophils % % Lymphocytes % (Manual) % Monocytes % (Manual) % Metamyelocytes % % Neutrophils # (Manual) (1.3-7.7) k/uL Lymphocytes # (Manual) (1.0-4.8) k/uL Monocytes # (Manual) (0-1.0) k/uL Metamyelocytes # (Man) (0) k/uL Nucleated RBCs (0-0) /100 WBC Manual Slide Review PT (9.0-12.0) sec INR (<1.2) APTT (22.0-30.0) sec Sodium (137-145) mmol/L Potassium (3.5-5.1) mmol/L Chloride (98-107) mmol/L Carbon Dioxide (22-30) mmol/L Anion Gap mmol/L BUN (9-20) mg/dL Creatinine (0.66-1.25) mg/dL Est GFR (CKD-EPI)AfAm (>60 ml/min/1.73 sqM) Est GFR (CKD-EPI)NonAf (>60 ml/min/1.73 sqM) Glucose (74-99) mg/dL POC Glucose (mg/dL) (75-99) mg/dL POC Glu Senior Project Coordinator ID Lactic Ac Sepsis Rflx Plasma Lactic Acid Gamal (0.7-2.0) mmol/L Calcium (8.4-10.2) mg/dL Magnesium (1.6-2.3) mg/dL Total Bilirubin (0.2-1.3) mg/dL AST (17-59) U/L ALT (4-49) U/L Alkaline Phosphatase (38-126) U/L Troponin I (0.000-0.034) ng/mL Total Protein (6.3-8.2) g/dL Albumin (3.5-5.0) g/dL Lipase (23-300) U/L Urine Color Yellow Urine Appearance Clear (Clear) Urine pH 5.5 (5.0-8.0) Ur Specific [place] 1.044 H (1.001-1.035) Urine Protein Trace H (Negative) Urine Glucose (UA) Negative (Negative) Urine Ketones Negative (Negative) Urine Blood Negative (Negative) Urine Nitrite Negative (Negative) Urine Bilirubin Negative (Negative) Urine Urobilinogen <2.0 (<2.0) mg/dL Ur Leukocyte Esterase Negative (Negative) Stool Occult Blood (Negative) Blood Type Blood Type Confirm B Positive Blood Type Recheck Bld Type Recheck Status Antibody Screen Spec Expiration Date - EKG Data EKG Comments: EKG demonstrates sinus tachycardia with a ventricular rate of 111. [place] interval 162. QRS 104. QTC of 456. Wandering baseline artifact. No acute ST segment elevations or depressions. Critical Care Time Critical Care Time: Yes Critical Care Time: 40 minutes Disposition Clinical Impression: Small bowel obstruction, Dehydration, Lower GI bleeding, Hypotension, Tachycardia Disposition: ADMITTED IP TO THIS HOSP Condition: Fair Is patient prescribed a controlled substance at d/c from ED?: No Decision to Admit Reason: Admit from EC Decision Date: 06/14/20 Decision Time: 19:51
--- NOTE | 2020-06-14 18:51 | XR ---
EXAMINATION TYPE: XR chest 2V DATE OF EXAM: 06/14/2020 COMPARISON: 02/22/2018 INDICATION: Chest pain TECHNIQUE: Frontal and lateral views of the chest are obtained. FINDINGS: The heart size is normal. The pulmonary vasculature is normal. There is advanced emphysematous changes present especially on the right. Slight increased lung markin gs may be at the lung bases. This is nonspecific and could be related to some prominence of pulmonary vascular markings from volume overload or some subtle developing atelectasis. No suspicious focal in filtrates are evident. Findings are similar to previous exam.. IMPRESSION: 1. No definite acute pulmonary process. Subtle increased lung markings at the lung bases could reflec t some volume changes or atelectasis. 2. There are advanced emphysematous changes
[2020-06-14] MEDS ORDERED: LEVOFLOXACIN 750MG-D5W PMX 750 MG in DEXTROSE/WATER 1 150ML.BAG IVPB STA (19:30)
[2020-06-14] MEDS ORDERED: metroNIDAZOLE-NS PMX 500 MG in SALINE 1 100ML.BAG IVPB STA (19:36)
--- NOTE | 2020-06-14 19:42 | CT ---
EXAMINATION TYPE: CT abdomen pelvis w con DATE OF EXAM: 06/14/2020 COMPARISON: 02/21/2018 INDICATION: Nausea, vomiting, rectal bleeding. DLP: 615.3 mGycm, Automated exposure control for dose reduction was used. CONTRAST: 100 mL of Isovue 300. Study performed without Oral Contrast TECHNIQUE: Axial images were obtained from above the diaphragm to the pubic rami in the axial plane a t 5 mm thick sections. Reconstructed images are reviewed on the computer in the coronal plane. FINDINGS: Limited CT sections are obtained the lung bases. The lung bases are clear. Emphysematous changes ar e evident. Some streak atelectasis is likely at the right lung base. CT ABDOMEN: Liver: Normal Spleen: Normal Pancreas: Normal Adrenal glands: The adrenal glands are normal. Gallbladder: Appears to be some secondary excretion of contrast through the gallbladder. Kidneys: No masses are evident. No hydronephrosis is present. Tiny cortical renal cysts present on the superior medial left kidney. Small anterior cortical renal cysts on the right kidney. Delayed im ages were obtained through the kidneys. Peripelvic cyst in the inferior pole right kidney is present Aorta: Vascular calcification is within the aorta. Inferior vena cava: Normal. CT PELVIS: There are multiple dilated small bowel loops containing fluid.: Where visualized appears decompressed . Small bowel obstruction may be present. This would extend to the distal pelvis. A zone of transitio n is not identified .Sstudy is without oral contrast limiting bowel evaluation. Appendix: Not identified Urinary bladder: Normal. Genitourinary structures: Prostate has slight prominence Osseous structures: No suspicious lytic or sclerotic lesions. Facet hypertrophy is present. IMPRESSIONS: 1. Dilated fluid-filled small bowel loops suggestive for small bowel obstruction. A zone of transiti on is not identified but appears to be distal small bowel. Small bowel obstruction is favored. Ileus could be considered. There are some thickened small bowel loops in the distal abdomen. Consider the p ossibility of ischemic change. Report was called to Dr. Wong by Dr. Disla by telephone at time of interpretation. Case was discussed.
[2020-06-14] MEDS ORDERED: NALOXONE 0.4 MG/ML 1 ML VIAL IV PRN (19:51)
[2020-06-14 20:01] LABS: Appearance,Urine Clear (Clear); Bilirubin,Urine Negative (Negative); Blood,Urine Negative (Negative); Color,Urine Yellow; Glucose,Urine (UA) Negative (Negative); Ketones,Urine Negative (Negative); Leukocyte Esterase,Urine Negative (Negative); Nitrite,Urine Negative (Negative); PH, Urine 5.5 (5.0-8.0); Protein,Urine Trace (Negative); Specific Gravity,Urine 1.044 (1.001-1.035); Urobilinogen,Urine <2.0 mg/dL (<2.0)
[2020-06-14] MEDS: SODIUM CHLORIDE 0.9% 1,000 ML IV SCH (20:18)
[2020-06-14] MEDS ORDERED: HYDROmorphone 1 MG/ML 1 ML SYRINGE IVP STA (21:18)
[2020-06-14] MEDS: NOREPINEPHRINE 32 MG in SODIUM CHLORIDE 0.9% 218 ML IV SCH (21:28)
--- NOTE | 2020-06-14 21:38 | P.HPIM ---
History of Present Illness H&P Date: 06/14/20 The patient is a 64-year-old male with a PMH of recurrent colitis (possibly ischemic), tobacco abuse, COPD, and hypertension who presented to the ED with complaints of 2 days of gradually worsening abdominal pain. The patient reports that his pain initially started on Wednesday morning, located in the lower abdomen, came on suddenly, was 10 out of 10, intermittent, sharp in nature, nonradiating. With the onset of pain, he also had bright red bloody stools without noticeable mucus. He reported that his pain would peak to 10 out of 10, after which he would have a bloody bowel movement with subsequent improvement in his pain to 4-5 out of 10. He reports that his episodes have become more fr equent over the past 2 days and now continues to be a 10 out of 10 constantly. He was seen at [facility] yesterday and notes that he was given an enema and was discharged home with a diagnosis of constipation. Reports that when he woke up this morning and tried to walk to the bathroom, he became lightheaded and had to sit down, after which his son advised him to come to the emergency room. At time of interview, he reported continued 10 out of 10 lower abdominal pain. Notes that it gets worse with any movement or if he lays on his back. Denied associated nausea or vomiting. Denied fever, chills, cough, chest pain, or shortness of breath. In the emergency room, most recent vitals were BPH 4/53, pulse 105, T 97.6, with SpO2 96% on [address] abdomen and pelvis revealed dilated fluid-filled small bowel loops suggestive for small bowel obstruction with no clear zone of transition identified with the possibility of ischemic changes. Laboratory evaluation revealed a lactate of 3.4, WBC count 19.7, troponin 0.051, stool occult blood positive, BUN 55, creatinine 0.96, chloride 108, alkaline phosphatase 251, with UA unremarkable. EKG revealed sinus tachycardia at 111 bpm with poor baseline and motion artifact. Chest x- ray revealed emphysematous changes with atelectasis. Review of Systems Pertinent positives and negatives as discussed in HPI, a complete review of systems was performed and all other systems are negative. Past Medical History Past Medical History: COPD, Hypertension Additional Past Medical History / Comment(s): diverticulitis, hypothyroidism, C-diff, brain aneurysm History of Any Multi-Drug Resistant Organisms: C-DIFF Date of last positivie culture/infection: 09/23/14 MDRO Source:: stool Past Surgical History: No Surgical Hx Reported Additional Past Surgical History / Comment(s): brain surgery 2004 Past Anesthesia/Blood Transfusion Reactions: No Reported Reaction Past Psychological History: No Psychological Hx Reported Smoking Status: Current every day smoker Past Alcohol Use History: None Reported Past Drug Use History: None Reported - Past Family History Mother Additional Family Medical History / Comment(s): DIVERTICULITIS Medications and Allergies Home Medications Medication Instructions Recorded Confirmed Type lisinopriL [Prinivil] 20 mg PO DAILY 10/02/14 06/14/20 History Mirtazapine 45 mg PO HS 06/24/16 06/14/20 History Albuterol Inhaler [Ventolin Hfa 2 puff INHALATION RT-Q6H PRN 06/14/20 06/14/20 History Inhaler] Docusate [Colace] 100 mg PO DAILY 06/14/20 06/14/20 History Allergies Allergy/AdvReac Type Severity Reaction Status Date / Time Penicillins Allergy Anaphylaxis Verified 06/14/20 17:44 Physical Exam Vitals: Vital Signs Temp Pulse Resp BP Pulse Ox 06/14/20 20:19 94 18 100/59 96 06/14/20 20:03 92 18 79/55 98 06/14/20 19:15 105 H 18 84/53 96 06/14/20 18:20 114 H 18 92/54 99 06/14/20 17:43 102 H 18 92/70 96 06/14/20 17:35 98 18 110/73 98 06/14/20 17:18 59/36 06/14/20 17:15 68/46 06/14/20 17:01 79/58 95 06/14/20 16:57 97.6 F 95 17 81/58 98 Intake and Output 06/14/20 06/14/20 06/14/20 06:59 14:59 22:59 Other: Weight 58.06 kg General: Ill-appearing thin male, in mild to moderate amount of distress from pain during the interview, appears at stated age Derm: no unusual rashes/lesions no unusual ecchymoses, warm, dry Head: atraumatic, normocephalic, symmetric Eyes: EOMI, no lid lag, anicteric sclera, pupils equal round reactive to light ENT: Nose and ears atraumatic, no thrush, no pharyngeal erythema Neck: No thyromegaly, no cervical lymphadenopathy, trachea midline, supple Mouth: no lip lesion, mucus membranes dry Cardiovascular: S1S2 reg, a cardiac, no murmur, positive posterior tibial pulse bilateral, no edema, capillary refill less than 2 seconds Lungs: CTA bilateral, no rhonchi, no rales , no accessory muscle use Abdominal: Diffuse tenderness to palpation with some guarding, no appreciable organomegaly Ext: no gross muscle atrophy, muscle strength 5 out of 5 in all 4 extremities grossly, no contractures, Neuro: CN II-XI grossly intact, light touch intact all 4 extremities, finger to nose within normal limits Psych: Alert, oriented, appropriate affect Results CBC & Chem 7: 06/14/20 17:31 06/14/20 17:31 Labs: Abnormal Lab Results - Last 24 Hours (Table) 06/14/20 06/14/20 06/14/20 Range/Units 17:31 17:31 17:31 WBC 19.7 H (3.8-10.6) k/uL Neutrophils # (Manual) 16.70 H (1.3-7.7) k/uL Lymphocytes # (Manual) 0.99 L (1.0-4.8) k/uL Monocytes # (Manual) 1.97 H (0-1.0) k/uL Metamyelocytes # (Man) 0.39 H (0) k/uL APTT 21.8 L (22.0-30.0) sec Chloride 108 H (98-107) mmol/L BUN 55 H (9-20) mg/dL Glucose 113 H (74-99) mg/dL POC Glucose (mg/dL) (75-99) mg/dL Plasma Lactic Acid Gamal (0.7-2.0) mmol/L Alkaline Phosphatase 251 H (38-126) U/L Troponin I (0.000-0.034) ng/mL Total Protein 5.7 L (6.3-8.2) g/dL Lipase 13 L (23-300) U/L Ur Specific [place] (1.001-1.035) Urine Protein (Negative) 06/14/20 06/14/20 06/14/20 Range/Units 17:31 17:33 17:34 WBC (3.8-10.6) k/uL Neutrophils # (Manual) (1.3-7.7) k/uL Lymphocytes # (Manual) (1.0-4.8) k/uL Monocytes # (Manual) (0-1.0) k/uL Metamyelocytes # (Man) (0) k/uL APTT (22.0-30.0) sec Chloride (98-107) mmol/L BUN (9-20) mg/dL Glucose (74-99) mg/dL POC Glucose (mg/dL) 116 H (75-99) mg/dL Plasma Lactic Acid Gamal 3.4 H* (0.7-2.0) mmol/L Alkaline Phosphatase (38-126) U/L Troponin I 0.051 H* (0.000-0.034) ng/mL Total Protein (6.3-8.2) g/dL Lipase (23-300) U/L Ur Specific [place] (1.001-1.035) Urine Protein (Negative) 06/14/20 Range/Units 19:33 WBC (3.8-10.6) k/uL Neutrophils # (Manual) (1.3-7.7) k/uL Lymphocytes # (Manual) (1.0-4.8) k/uL Monocytes # (Manual) (0-1.0) k/uL Metamyelocytes # (Man) (0) k/uL APTT (22.0-30.0) sec Chloride (98-107) mmol/L BUN (9-20) mg/dL Glucose (74-99) mg/dL POC Glucose (mg/dL) (75-99) mg/dL Plasma Lactic Acid Gamal (0.7-2.0) mmol/L Alkaline Phosphatase (38-126) U/L Troponin I (0.000-0.034) ng/mL Total Protein (6.3-8.2) g/dL Lipase (23-300) U/L Ur Specific [place] 1.044 H (1.001-1.035) Urine Protein Trace H (Negative) Assessment and Plan Plan: Abdominal pain with hematochezia, suspected ischemic colitis with partial SBO -Discussed the case in great detail with the radiologist Dr. Disla and surgeon Dr. Dozier -Dr. Disla notes that he does not see any obvious signs of a vaso-occlusive process. No hx of Afib noted -The patient's chart was reviewed in detail and noted multiple presentations with complaints of abdominal pain and bloody bowel movements -Patient had a colonoscopy in 2014 which revealed sigmoid colitis. Repeat colonoscopy in 2016 after presenting with above symptoms was unremarkable -Continue with pain control and broad-spectrum antibiotics -Continue with Protonix and IV fluids -Await further recommendations by GI and surgery services -Consider NGT for decompression -Nothing by mouth for now Lactic acidosis -Patient previously had increased lactate on similar presentations -Continue with IV fluids -Monitor to resolution Prerenal azotemia, due to dehydration -Monitor BMP Troponin elevation, likely demand ischemia from dehydration and hypotension -Trend troponin -Cardiac monitoring Chronic conditions: COPD, hypertension -DuoNeb's when necessary -Hold off on antihypertensives DVT prophylaxis -Heparin subq The patient is admitted with an anticipated greater than 2 midnight stay for evaluation of abdominal pain CODE STATUS: Full Code Discussed with: Patient Anticipated discharge date: 4-[address]: Home A total of 60 minutes was spent on the care of this complex patient more than 50% of the time was spent in counseling and care coordination.
--- NOTE | 2020-06-14 21:39 | XR ---
EXAMINATION TYPE: XR chest 1V confirm line [facility] DATE OF EXAM: 06/14/2020 COMPARISON: Earlier exam INDICATION: Line placement TECHNIQUE: Single frontal view of the chest is obtained upright view. FINDINGS: The heart size is normal. The pulmonary vasculature is normal. Extensive emphysematous changes are present. Small nodule may be in the right midlung. This could be a nipple shadow. There is placement of a right central venous catheter. The tip is in the region of the mid to distal superior vena cava. No pneumothorax is evident. IMPRESSION: 1. Right central venous catheter placement with the tip in the distal superior vena cava. No pneumoth orax is evident. 2. Extensive emphysematous changes.
[2020-06-14 23:44] LABS: Glucose,Whole Blood 96 mg/dL (75-99)
[2020-06-14] MEDS: HYDROmorphone 1 MG/ML 1 ML SYRINGE IVP PRN (23:47)
[2020-06-15] MEDS ORDERED: metroNIDAZOLE-NS PMX 500 MG in SALINE 1 100ML.BAG IVPB SCH
[2020-06-15 00:47] LABS: HCT 40.1 % (39.0-53.0); HGB 12.7 gm/dL (13.0-17.5); MCH 31.5 pg (25.0-35.0); MCHC 31.6 g/dL (31.0-37.0); MCV 99.5 fL (80.0-100.0); Mean Platelet Volume 8.1; Platelet Count 189 k/uL (150-450); RBC 4.03 m/uL (4.30-5.90); WBC 16.3 k/uL (3.8-10.6)
[2020-06-15 01:16] LABS: Band Neutrophils % 9 %; Monocytes # (M) 0.65 k/uL (0-1.0); Myelocytes # (M) 0.16 k/uL (0); Myelocytes % 1 %; Neutrophils % (M) 78 %; Nucleated Red Blood Cells 0 /100 WBC (0-0); Total Cells Counted 200
[2020-06-15] MEDS: HYDROmorphone 1 MG/ML 1 ML SYRINGE IVP PRN ×11 (02:05→23:06)
[2020-06-15] MEDS: NOREPINEPHRINE 32 MG in SODIUM CHLORIDE 0.9% 218 ML IV SCH (03:55)
[2020-06-15] MEDS: metroNIDAZOLE-NS PMX 500 MG in SALINE 1 100ML.BAG IVPB SCH ×3 (04:12→18:48)
[2020-06-15 06:00] LABS: Basophils % (A) 0 %; Eosinophils % (A) 0 %; HCT 37.3 % (39.0-53.0); HGB 11.8 gm/dL (13.0-17.5); Lymphocytes # (A) 0.4 k/uL (1.0-4.8); Lymphocytes % (A) 4 %; MCH 30.8 pg (25.0-35.0); MCHC 31.7 g/dL (31.0-37.0); Mean Platelet Volume 7.8; Monocytes # (A) 1.1 k/uL (0-1.0); Monocytes % (A) 9 %; Neutrophils # (A) 10.2 k/uL (1.3-7.7); Neutrophils % (A) 84 %; Platelet Count 177 k/uL (150-450); RBC 3.85 m/uL (4.30-5.90); WBC 12.1 k/uL (3.8-10.6)
[2020-06-15 06:07] LABS: African American GFR (CKD) >90 (>60 ml/min/1.73 sqM); Anion Gap 4 mmol/L; Blood Urea Nitrogen 43 mg/dL (9-20); Calcium 8.3 mg/dL (8.4-10.2); Carbon Dioxide 23 mmol/L (22-30); Chloride 112 mmol/L (98-107); Glucose 91 mg/dL (74-99); Non-African American GFR(CKD) >90 (>60 ml/min/1.73 sqM); Potassium 4.1 mmol/L (3.5-5.1); Sodium 139 mmol/L (137-145)
[2020-06-15] MEDS: SODIUM CHLORIDE 0.9% 1,000 ML IV SCH ×2 (10:22→23:56)
--- NOTE | 2020-06-15 11:12 | P.CNPUL ---
History of Present Illness Consult date: 06/15/20 Chief complaint: Abdominal pain, GI bleed History of present illness: 65-year-old male patient with history of recurrent abdominal pain that was worked up extensively over the past 5 years and this included several CAT scans of the abdomen and pelvis in addition to EGD and colonoscopy and there was no clear understanding of this patient intermittent abdominal pain. One possibility was intermittent ischemia or small bowel ischemia. Previous CAT scan of the abdomen showed extensive calcification of the eye workup. The patient states that he was doing well until yesterday when he started having some mid abdominal pain which gradually got worse and was 10 out of 10 severity without any significant radiation. He was nauseated and subsequently started having bright red blood stool without any mucus. No fever. No chills. No history of any atrial fibrillation. Most of alcoholism. No step pancreatitis. He did have around 4-5 bloody bowel movement and he continued to have abdominal pain for that reason he presented to the hospital for further evaluation. No reported shortness of breath. He was hypotensive the time of admission. He was given a total of 2 L of IV fluid in the triple-lumen catheter was established. Nevertheless the patient did not require any pressors. CAT scan of the abdomen and pelvis was done and showed dilated fluid filled small bowel loops suggestive of small bowel obstruction without any clear zone of transition and the possibility of ischemic changes involving the small bowel cannot be completely excluded. Initial lactic acid level was at 3.4 and improved and the patient's white cell count was at 19.7 and it improved and is down to 12.1. Hemoglobin was at 13.7 and dropped down to 11.8 and the patient did not require any blood transfusion. The troponins were slightly elevated at 0.053 respectively. UA was negative. Stool for occult blood was positive. Abdominal pain has subsided this morning and the patient will be seen by gastroenterology. Review of Systems Constitutional: Reports poor appetite, Reports weight loss Eyes: denies as per HPI, denies blurred vision, denies bulging eye, denies decreased vision, denies diplopia, denies discharge, denies dry eye, denies irritation, denies itching, denies pain, denies photophobia, denies loss of peripheral vision, denies loss of vision, denies tunnel vision/blind spots Ears: deny: decreased hearing, ear discharge, earache, tinnitus Breasts: absent: as per HPI, gynecomastia Cardiovascular: Reports dyspnea on exertion Respiratory: Reports dyspnea Gastrointestinal: Reports abdominal pain, Reports BRBPR, Reports loss of appetite, Reports nausea Genitourinary: Reports as per HPI Musculoskeletal: Reports as per HPI Musculoskeletal: absent: ankle pain, ankle stiffness, ankle swelling, as per HPI, elbow pain, elbow stiffness, elbow swelling, foot pain, foot stiffness, foot swelling, hand pain, hand stiffness, hand swelling, hip pain, hip stiffness, hip swelling, knee pain, knee stiffness, knee swelling, shoulder pain, shoulder stiffness, shoulder swelling, wrist pain, wrist stiffness, wrist swelling Integumentary: Reports as per HPI Neurological: Reports as per HPI Psychiatric: Reports as per HPI Hematologic/Lymphatic: Reports as per HPI Allergic/Immunologic: Reports as per HPI Past Medical History Past Medical History: COPD, Hypertension Additional Past Medical History / Comment(s): Diverticulosis, hypothyroidism, C- diff, brain aneurysm 2007 History of Any Multi-Drug Resistant Organisms: C-DIFF Date of last positivie culture/infection: 09/23/14 MDRO Source:: stool Past Surgical History: No Surgical Hx Reported Additional Past Surgical History / Comment(s): brain surgery 2005: stent, glass removed from stomach Past Anesthesia/Blood Transfusion Reactions: No Reported Reaction Past Psychological History: No Psychological Hx Reported Smoking Status: Current every day smoker Past Alcohol Use History: None Reported Past Drug Use History: None Reported - Past Family History Mother Additional Family Medical History / Comment(s): DIVERTICULITIS Medications and Allergies Home Medications Medication Instructions Recorded Confirmed Type lisinopriL [Prinivil] 20 mg PO DAILY 10/02/14 06/14/20 History Mirtazapine 45 mg PO HS 06/24/16 06/14/20 History Albuterol Inhaler [Ventolin Hfa 2 puff INHALATION RT-Q6H PRN 06/14/20 06/14/20 History Inhaler] Docusate [Colace] 100 mg PO DAILY 06/14/20 06/14/20 History Allergies Allergy/AdvReac Type Severity Reaction Status Date / Time Penicillins Allergy Anaphylaxis Verified 06/14/20 17:44 Physical Exam Vitals: Vital Signs Temp Pulse Resp BP Pulse Ox 06/15/20 10:00 82 14 114/81 95 06/15/20 09:00 86 15 119/79 94 L 06/15/20 08:00 98.3 F 86 14 99/78 95 06/15/20 07:00 82 15 108/76 94 L 06/15/20 06:00 82 15 113/75 93 L 06/15/20 05:00 90 15 119/75 94 L 06/15/20 04:00 99.6 F 88 19 109/74 96 06/15/20 03:00 96 18 112/73 95 06/15/20 02:00 97 15 116/85 95 06/15/20 01:00 91 16 116/77 95 06/15/20 00:00 93 15 120/80 97 06/14/20 23:41 72 18 113/75 98 06/14/20 23:00 98.3 F 96 18 108/73 98 06/14/20 22:10 96 20 108/70 99 06/14/20 21:24 97.8 F 110 H 18 103/68 97 06/14/20 20:19 94 18 100/59 96 06/14/20 20:03 92 18 79/55 98 06/14/20 19:15 105 H 18 84/53 96 06/14/20 18:20 114 H 18 92/54 99 06/14/20 17:43 102 H 18 92/70 96 06/14/20 17:35 98 18 110/73 98 06/14/20 17:18 59/36 06/14/20 17:15 68/46 06/14/20 17:01 79/58 95 06/14/20 16:57 97.6 F 95 17 81/58 98 Intake and Output 06/14/20 06/15/20 06/15/20 22:59 06:59 14:59 Intake Total 700 300 Output Total 910 365 Balance -210 Intake: IV 600 300 Sodium Chloride 0.9% 1, 600 300 000 ml @ 75 mls/hr IV . [id number] [id number] Rx#:[id number] Intake, IV Titration 100 Amount metroNIDAZOLE-NS PMX 500 100 mg In Saline 1 100ml.bag @ 100 mls/hr IVPB Q8H [facility] Rx#:[id number] Output: Urine 910 365 Other: Voiding Method Indwelling Catheter Indwelling Catheter Weight 58.06 kg 54.5 kg 54.5 kg The patient appeared well nourished and normally developed. Vital signs as documented. Head exam is unremarkable. No scleral icterus or corneal arcus noted. Neck is without jugular venous distension, thyromegaly, or carotid bruits. Carotid upstrokes are brisk bilaterally. Lungs are clear to auscultation and percussion. Cardiac exam reveals the PMI to be normally sized and situated. Rhythm is regular. First and second heart sounds normal. No murmurs, rubs or gallops. Abdominal exam reveals normal bowel sounds, no masses, no organomegaly and no aortic enlargement. Extremities are nonedematous and both femoral and pedal pulses are normal. Examination of the skin revealed no evidence of significant rashes, suspicious appearing nevi or other concerning lesions.Neurologically, the patient is awake and alert and the patient does not have any focal neurological deficit. Cranial nerves are essentially intact. Results - Laboratory Findings CBC and BMP: 06/15/20 05:25 06/15/20 05:25 PT/INR, D-dimer PT 9.5 sec (9.0-12.0) 06/14/20 17:31 INR 0.9 (<1.2) 06/14/20 17:31 Abnormal lab findings: Abnormal Labs 06/14/20 06/14/20 06/14/20 17:31 17:31 17:31 WBC 19.7 H RBC Hgb Hct Neutrophils # Neutrophils # (Manual) 16.70 H Lymphocytes # Lymphocytes # (Manual) 0.99 L Monocytes # Monocytes # (Manual) 1.97 H Metamyelocytes # (Man) 0.39 H Myelocytes # (Manual) APTT 21.8 L Chloride 108 H BUN 55 H Glucose 113 H POC Glucose (mg/dL) Plasma Lactic Acid Gamal Calcium Alkaline Phosphatase 251 H Troponin I Total Protein 5.7 L Lipase 13 L Ur Specific [place] Urine Protein 06/14/20 06/14/20 06/14/20 17:31 17:33 17:34 WBC RBC Hgb Hct Neutrophils # Neutrophils # (Manual) Lymphocytes # Lymphocytes # (Manual) Monocytes # Monocytes # (Manual) Metamyelocytes # (Man) Myelocytes # (Manual) APTT Chloride BUN Glucose POC Glucose (mg/dL) 116 H Plasma Lactic Acid Gamal 3.4 H* Calcium Alkaline Phosphatase Troponin I 0.051 H* Total Protein Lipase Ur Specific [place] Urine Protein 06/14/20 06/14/20 06/15/20 19:33 20:37 00:33 WBC RBC Hgb Hct Neutrophils # Neutrophils # (Manual) Lymphocytes # Lymphocytes # (Manual) Monocytes # Monocytes # (Manual) Metamyelocytes # (Man) Myelocytes # (Manual) APTT Chloride BUN Glucose POC Glucose (mg/dL) Plasma Lactic Acid Gamal Calcium Alkaline Phosphatase Troponin I 0.054 H* 0.051 H* Total Protein Lipase Ur Specific [place] 1.044 H Urine Protein Trace H 06/15/20 06/15/20 06/15/20 00:33 05:25 05:25 WBC 16.3 H 12.1 H RBC 4.03 L 3.85 L Hgb 12.7 L 11.8 L Hct 37.3 L Neutrophils # 10.2 H Neutrophils # (Manual) 14.10 H Lymphocytes # 0.4 L Lymphocytes # (Manual) Monocytes # 1.1 H Monocytes # (Manual) Metamyelocytes # (Man) Myelocytes # (Manual) 0.16 H APTT Chloride 112 H BUN 43 H Glucose POC Glucose (mg/dL) Plasma Lactic Acid Gamal Calcium 8.3 L Alkaline Phosphatase Troponin I Total Protein Lipase Ur Specific [place] Urine Protein Assessment and Plan Plan: 1 abdominal pain, acute onset with possibility of an ischemic bowel/ischemic small bowel with a possibility of a partial small bowel obstruction. 2 chronic abdominal pain has been worked up extensively the past without any clear diagnosis 3 remote history of C. 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 It's likely the patient may have an underlying chronic mesenteric ischemia. I worked and the iliacs on the CAT scan of the abdomen are heavily calcified. Adequate visualization of the mesenteric artery was not possible because of lack of contrast. This was discussed with general surgery. Patient's overall condition is stable for now. Monitor hemoglobin. Monitor hemodynamics. Keep nothing by mouth for another 24 hours.
[2020-06-15 11:50] LABS: Glucose,Whole Blood 88 mg/dL (75-99)
--- NOTE | 2020-06-15 12:00 | CT ---
EXAMINATION TYPE: CT angio abdomen DATE OF EXAM: 06/15/2020 COMPARISON: 06/14/2020 HISTORY: 64-year-old male Abdominal pain CT DLP: 707.4 mGycm, Automated Exposure Control for Dose Reduction was Utilized. CONTRAST: CT scan of the abdomen and pelvis is performed with oral and without and with IV Contrast, patient in jected with 100 ml mL of Isovue 370. Coronal and sagittal reconstructions performed. FINDINGS: Heart normal size without pericardial effusion. Emphysematous change in the visualized lower lungs wi th strandy areas of probable scarring or atelectasis. No pleural effusion. Arterial imaging of the liver, adrenal glands, left kidney, spleen, and pancreas show no gross abnorm ality. Limited assessment due to arterial phase imaging and some motion artifact as well. 3.1 cm parapelvic cyst right kidney. In the interval, there is been partial improvement in the degree of dilated small bowel loops. Scatte red air-filled small bowel loops measure up to 3.1 cm in caliber. Progressive disease moderate to severe circumferential wall thickening of the colon, severe at the di stal transverse colon and portions of the sigmoid colon and moderate along the descending and other p ortions of the sigmoid colon. The degree of inflammation seems to narrow the lumen within portions of the sigmoid colon. No free fluid or free air though there is prominent edematous change throughout the fat within the pe lvis. Moderate atherosclerotic calcifications throughout the infrarenal abdominal aorta and more moderate w ithin the iliac arteries. Severe stenosis at the origin of the right internal iliac artery and segmental moderate narrowing rig ht external iliac artery. Moderate to severe focal narrowing origin of the left external iliac artery. Celiac axis and SMA are patent. Bilateral renal arteries are patent. There appears to be mild narrowi ng of the origin of the inferior mesenteric artery. Aviles catheter within the bladder. Intraluminal bladder air likely from instrumentation. Prostate gla nd enlargement 6.0 cm wide. Bone: Degenerative changes of the hips. Grade 1 retrolisthesis from L1 through L5 levels with hypertr ophic facet arthropathy. IMPRESSION: 1. Mild atherosclerotic changes infrarenal abdominal aorta and moderate within the iliac arteries. Mo derate to severe stenoses at the origin of the right greater than left internal iliac arteries. Mild narrowing at the origin of the LUI. No visualized visceral artery occlusion. 2. Some improvement in the degree of small bowel dilatation. Small bowel loops show residual dilatati on of the 3.1 cm. 3. Progressive moderate to severe colonic wall thickening extending from the distal transverse colon down to the rectum. Correlate for a nonspecific moderate to severe colitis. No convincing findings of pneumatosis or free air.
--- NOTE | 2020-06-15 12:41 | P.GSCN ---
History of Present Illness Consult date: 06/15/20 History of present illness: CHIEF COMPLAINT: Abdominal pain HISTORY OF PRESENT ILLNESS: The patient is a 64 year old male seen and evaluated for abdominal pain. Medical records over 6+ years reviewed. Patient reports chronic intermittent abdominal pain for over 6+ years. Multiple GI work-up with EGDs and colonoscope done in the past by workforce management coordinator. He presents with 3- day history of acute on chronic abdominal pain. He also reports diffuse abdominal pain with eating solid foods. "I am very thirst." He has pre-existing peripheral vascular occlusive disease. He had presented with elevated lactate now improved. He presents with severe dehydration secondary to diarrhea and vomiting. After multiple boluses, lactic acid improved. Troponins are elevated. PAST MEDICAL HISTORY: See list and reviewed PAST SURGICAL HISTORY: See list and reviewed MEDICATIONS: See list and reviewed ALLERGIES: See list and reviewed SOCIAL HISTORY: See list and reviewed FAMILY HISTORY: See list and reviewed REVIEW OF ORGAN SYSTEMS: CONSTITUTIONAL: No fevers or chills. EYES: Denies any trouble with vision. No glasses. HEENT: No difficulties with hearing. No nosebleeds. No difficulty swallowing. RESPIRATORY: Has COPD. CARDIOVASCULAR: Denies any chest pain, palpitations, or recent heart attacks. GASTROINTESTINAL: Reports intolerance to normal fluid. Has change in bowel habits and gas bloat. Past history of C. diff colitis GENITOURINARY: Denies any blood in urine or increased urinary frequency. NEUROLOGICAL: Denies any numbness or tingling along the distal extremities. No seizure disorders or headaches. History of brain aneurysm MUSCULOSKELETAL: Denies any back pain, stiffness or joint arthritis. SKIN: No current skin cancer. No rash. PSYCHIATRIC: Denies current depression or suicidal thoughts. ENDOCRINE: Has thyroid disorders. Denies any blood sugar glucose intolerance. HEME/LYMPHATIC: Denies any lumps and bumps around the neck. No recent deep venous thrombosis. ALLERGY/IMMUNOLOGY: No immunoglobulin therapy. No immune deficiencies. BREAST: Denies current breast lumps, pain or nipple discharge. PHYSICAL EXAM: VITALS: Reviewed CONSTITUTIONAL: Well developed cachetic male and in mild distress. EYES: Conjuctivae without sclera icterus. Pupils are equally round and reactive to light. Extraocular movements grossly intact. HEAD, EARS, NOSE, THROAT: Moist buccal mucosa. Head is atraumatic, normocephalic. Hears conversational speech. No nasal drainage. NECK: Supple. No JV distention. No thyroidomegaly. RESPIRATORY: Non-labored respirations and equal bilateral excursions. No gross wheezes. Barrel chested. CARDIOVASCULAR: Palpable 2+ radial pulses. ABDOMEN: Generalized tenderness. No diffuse peritionitis. Scaphoid. LYMPH: No neck lymphadenopathy. MUSCULOSKELETAL: Nail and fingers with good capillary refill. Pulses palpable along popliteals bilateral 2+. Minimal hair along the lower extremities. SKIN: Warm and well perfused with good skin turgor. NEUROLOGIC: Cranial nerves II through XII grossly intact. Sensation upper and extremities intact. No focal or lateralizing signs. PSYCH: Appropriate affect. Alert and oriented to person, place and time. Displays appropriate insight. CLINCAL LABS: Reviewed and WBC improved from 19.7 on admission to 12.1. Lactate improved from 3.4-1.4. IMAGING: Independently reviewed. CT of abdomen and pelvis reviewed without free air. Discussion with hospitalist regarding patient's history done last night. RADIOLOGY: Report reviewed. CT of the abdomen demonstrated multiple dilated loops of small bowel with questionable transition point. RECORDS: previous old records reviewed ASSESSMENT: 1. Acute on chronic abdominal pain likely secondary to chronic ischemia with history of PVOD 2. Hypovolemic shock due to dehydration, severe PLAN: 1. Recommend vascular consultation for likely chronic intestinal ischemia 2. GI consultation as patient has pre-existing gastrointestinal disease 3. Continue supportive care 4. Continue IV antibiotics 4. May need abdominal angiogram to evaluate for chronic intestinal ischemia Thank you for this kind consultation. Past Medical History Past Medical History: COPD, Hypertension Additional Past Medical History / Comment(s): Diverticulosis, hypothyroidism, C- diff, brain aneurysm 2007 History of Any Multi-Drug Resistant Organisms: C-DIFF Year Discovered:: 09/23/14 MDRO Source:: stool Past Surgical History: No Surgical Hx Reported Additional Past Surgical History / Comment(s): brain surgery 2004: stent, glass removed from stomach Past Anesthesia/Blood Transfusion Reactions: No Reported Reaction Past Psychological History: No Psychological Hx Reported Smoking Status: Current every day smoker Past Alcohol Use History: None Reported Past Drug Use History: None Reported - Past Family History Mother Additional Family Medical History / Comment(s): DIVERTICULITIS Medications and Allergies Home Medications Medication Instructions Recorded Confirmed Type lisinopriL [Prinivil] 20 mg PO DAILY 10/02/14 06/14/20 History Mirtazapine 45 mg PO HS 06/24/16 06/14/20 History Albuterol Inhaler [Ventolin Hfa 2 puff INHALATION RT-Q6H PRN 06/14/20 06/14/20 History Inhaler] Docusate [Colace] 100 mg PO DAILY 06/14/20 06/14/20 History Allergies Allergy/AdvReac Type Severity Reaction Status Date / Time Penicillins Allergy Anaphylaxis Verified 06/14/20 17:44 Surgical - Exam Vital Signs Temp Pulse Resp BP Pulse Ox 97.6 F 95 17 81/58 98 06/14/20 16:57 06/14/20 16:57 06/14/20 16:57 06/14/20 16:57 06/14/20 16:57 Results - Labs 06/16/20 05:48 06/16/20 05:48 Abnormal Lab Results - Last 24 Hours (Table) 06/14/20 06/14/20 06/14/20 Range/Units 17:31 17:31 17:31 WBC 19.7 H (3.8-10.6) k/uL RBC (4.30-5.90) m/uL Hgb (13.0-17.5) gm/dL Hct (39.0-53.0) % Neutrophils # (1.3-7.7) k/uL Neutrophils # (Manual) 16.70 H (1.3-7.7) k/uL Lymphocytes # (1.0-4.8) k/uL Lymphocytes # (Manual) 0.99 L (1.0-4.8) k/uL Monocytes # (0-1.0) k/uL Monocytes # (Manual) 1.97 H (0-1.0) k/uL Metamyelocytes # (Man) 0.39 H (0) k/uL Myelocytes # (Manual) (0) k/uL APTT 21.8 L (22.0-30.0) sec Chloride 108 H (98-107) mmol/L BUN 55 H (9-20) mg/dL Glucose 113 H (74-99) mg/dL POC Glucose (mg/dL) (75-99) mg/dL Plasma Lactic Acid Gamal (0.7-2.0) mmol/L Calcium (8.4-10.2) mg/dL Alkaline Phosphatase 251 H (38-126) U/L Troponin I (0.000-0.034) ng/mL Total Protein 5.7 L (6.3-8.2) g/dL Lipase 13 L (23-300) U/L Ur Specific [place] (1.001-1.035) Urine Protein (Negative) 06/14/20 06/14/20 06/14/20 Range/Units 17:31 17:33 17:34 WBC (3.8-10.6) k/uL RBC (4.30-5.90) m/uL Hgb (13.0-17.5) gm/dL Hct (39.0-53.0) % Neutrophils # (1.3-7.7) k/uL Neutrophils # (Manual) (1.3-7.7) k/uL Lymphocytes # (1.0-4.8) k/uL Lymphocytes # (Manual) (1.0-4.8) k/uL Monocytes # (0-1.0) k/uL Monocytes # (Manual) (0-1.0) k/uL Metamyelocytes # (Man) (0) k/uL Myelocytes # (Manual) (0) k/uL APTT (22.0-30.0) sec Chloride (98-107) mmol/L BUN (9-20) mg/dL Glucose (74-99) mg/dL POC Glucose (mg/dL) 116 H (75-99) mg/dL Plasma Lactic Acid Gamal 3.4 H* (0.7-2.0) mmol/L Calcium (8.4-10.2) mg/dL Alkaline Phosphatase (38-126) U/L Troponin I 0.051 H* (0.000-0.034) ng/mL Total Protein (6.3-8.2) g/dL Lipase (23-300) U/L Ur Specific [place] (1.001-1.035) Urine Protein (Negative) 06/14/20 06/14/20 06/15/20 Range/Units 19:33 20:37 00:33 WBC (3.8-10.6) k/uL RBC (4.30-5.90) m/uL Hgb (13.0-17.5) gm/dL Hct (39.0-53.0) % Neutrophils # (1.3-7.7) k/uL Neutrophils # (Manual) (1.3-7.7) k/uL Lymphocytes # (1.0-4.8) k/uL Lymphocytes # (Manual) (1.0-4.8) k/uL Monocytes # (0-1.0) k/uL Monocytes # (Manual) (0-1.0) k/uL Metamyelocytes # (Man) (0) k/uL Myelocytes # (Manual) (0) k/uL APTT (22.0-30.0) sec Chloride (98-107) mmol/L BUN (9-20) mg/dL Glucose (74-99) mg/dL POC Glucose (mg/dL) (75-99) mg/dL Plasma Lactic Acid [place] (0.7-2.0) mmol/L Calcium (8.4-10.2) mg/dL Alkaline Phosphatase (38-126) U/L Troponin I 0.054 H* 0.051 H* (0.000-0.034) ng/mL Total Protein (6.3-8.2) g/dL Lipase (23-300) U/L Ur Specific [place] 1.044 H (1.001-1.035) Urine Protein Trace H (Negative) 06/15/20 06/15/20 06/15/20 Range/Units 00:33 05:25 05:25 WBC 16.3 H 12.1 H (3.8-10.6) k/uL RBC 4.03 L 3.85 L (4.30-5.90) m/uL Hgb 12.7 L 11.8 L (13.0-17.5) gm/dL Hct 37.3 L (39.0-53.0) % Neutrophils # 10.2 H (1.3-7.7) k/uL Neutrophils # (Manual) 14.10 H (1.3-7.7) k/uL Lymphocytes # 0.4 L (1.0-4.8) k/uL Lymphocytes # (Manual) (1.0-4.8) k/uL Monocytes # 1.1 H (0-1.0) k/uL Monocytes # (Manual) (0-1.0) k/uL Metamyelocytes # (Man) (0) k/uL Myelocytes # (Manual) 0.16 H (0) k/uL APTT (22.0-30.0) sec Chloride 112 H (98-107) mmol/L BUN 43 H (9-20) mg/dL Glucose (74-99) mg/dL POC Glucose (mg/dL) (75-99) mg/dL Plasma Lactic Acid [place] (0.7-2.0) mmol/L Calcium 8.3 L (8.4-10.2) mg/dL Alkaline Phosphatase (38-126) U/L Troponin I (0.000-0.034) ng/mL Total Protein (6.3-8.2) g/dL Lipase (23-300) U/L Ur Specific [place] (1.001-1.035) Urine Protein (Negative) Diabetes panel 06/14/20 06/15/20 Range/Units 17:31 05:25 Sodium 137 139 (137-145) mmol/L Potassium 4.9 4.1 (3.5-5.1) mmol/L Chloride 108 H 112 H (98-107) mmol/L Carbon Dioxide 22 23 (22-30) mmol/L BUN 55 H 43 H (9-20) mg/dL Creatinine 0.96 0.66 (0.66-1.25) mg/dL Glucose 113 H 91 (74-99) mg/dL Calcium 9.5 8.3 L (8.4-10.2) mg/dL AST 28 (17-59) U/L ALT 13 (4-49) U/L Alkaline Phosphatase 251 H (38-126) U/L Total Protein 5.7 L (6.3-8.2) g/dL Albumin 3.5 (3.5-5.0) g/dL Calcium panel 06/14/20 06/15/20 Range/Units 17:31 05:25 Calcium 9.5 8.3 L (8.4-10.2) mg/dL Albumin 3.5 (3.5-5.0) g/dL Pituitary panel 06/14/20 06/15/20 Range/Units 17:31 05:25 Sodium 137 139 (137-145) mmol/L Potassium 4.9 4.1 (3.5-5.1) mmol/L Chloride 108 H 112 H (98-107) mmol/L Carbon Dioxide 22 23 (22-30) mmol/L BUN 55 H 43 H (9-20) mg/dL Creatinine 0.96 0.66 (0.66-1.25) mg/dL Glucose 113 H 91 (74-99) mg/dL Calcium 9.5 8.3 L (8.4-10.2) mg/dL Adrenal panel 06/14/20 06/15/20 Range/Units 17:31 05:25 Sodium 137 139 (137-145) mmol/L Potassium 4.9 4.1 (3.5-5.1) mmol/L Chloride 108 H 112 H (98-107) mmol/L Carbon Dioxide 22 23 (22-30) mmol/L BUN 55 H 43 H (9-20) mg/dL Creatinine 0.96 0.66 (0.66-1.25) mg/dL Glucose 113 H 91 (74-99) mg/dL Calcium 9.5 8.3 L (8.4-10.2) mg/dL Total Bilirubin 0.5 (0.2-1.3) mg/dL AST 28 (17-59) U/L ALT 13 (4-49) U/L Alkaline Phosphatase 251 H (38-126) U/L Total Protein 5.7 L (6.3-8.2) g/dL Albumin 3.5 (3.5-5.0) g/dL Assessment and Plan (1) Hypovolemic shock Current Visit: Yes Status: Acute Code(s): R57.1 - HYPOVOLEMIC SHOCK SNOMED Code(s): 20159936 (2) Diarrhea Current Visit: Yes Status: Acute Code(s): R19.7 - DIARRHEA, UNSPECIFIED SNOMED Code(s): 31637544 (3) Underweight due to inadequate caloric intake Current Visit: Yes Status: Acute Code(s): R63.6 - UNDERWEIGHT SNOMED Code(s): 644297076 (4) Peripheral vascular disease Current Visit: Yes Status: Acute Code(s): I73.9 - PERIPHERAL VASCULAR DISEASE, UNSPECIFIED SNOMED Code(s): 642437580 (5) Dehydration Current Visit: Yes Status: Acute Code(s): E86.0 - DEHYDRATION SNOMED Code(s): 85699934 (6) Tachycardia Current Visit: Yes Status: Acute Code(s): R00.0 - TACHYCARDIA, UNSPECIFIED SNOMED Code(s): 3823144 (7) Abdominal pain Current Visit: No Status: Acute Code(s): R10.9 - UNSPECIFIED ABDOMINAL PAIN SNOMED Code(s): 44894640 (8) Intractable nausea and vomiting Current Visit: No Status: Acute Code(s): R11.2 - NAUSEA WITH VOMITING, UNSPECIFIED SNOMED Code(s): 613965801 (9) COPD (chronic obstructive pulmonary disease) Current Visit: Yes Status: Acute Code(s): J44.9 - CHRONIC OBSTRUCTIVE PULMONARY DISEASE, UNSPECIFIED SNOMED Code(s): 82212939
[2020-06-15] MEDS ORDERED: ALBUTEROL NEBULIZED 2.5 MG/3 ML INHALATION PRN (13:14)
[2020-06-15] MEDS ORDERED: ACETAMINOPHEN TAB 325 MG TAB PO PRN (13:14)
--- NOTE | 2020-06-15 13:22 | P.PN ---
Subjective Progress Note Date: 06/15/20 Principal diagnosis: abdominal pain Patient is a 64-year-old male with a history of recurrent colitis (possibly ischemic), tobacco abuse, COPD, and hypertension who presented with abdominal pain and hematochezia. In the ER he underwent an extensive evaluation. On arri isabella he was hypotensive with a blood pressure of 81/58. Initial laboratory analysis showed a white blood cell count of 19.7, hemoglobin 13.7, troponin of 0.054, urinalysis negative, fecal occult blood positive. He underwent a CT abdomen and pelvis which demonstrated dilated fluid-filled small bowel loops suggestive of obstruction with possible ileus, pneumatosis, intestinalis cannot be confirmed. He had a central line placed. He was started on IVF and admitted to the ICU. He was given Rocephin and flagly and kept NPO. He continued to have abdominal pain overnight, but did not have any adiditional episode of bright red blood in his stool or from his rectum. 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 GI and general surgery were consulted. Patient seen and examined at bedside. He reports continued abdominal pain which is severe, no nausea, vomiting, no additional bright red blood per rectum. He reports that he has not had any significant weight loss or weight gain. He reports no change in his diet or known precipitant factors. He states that he is no longer following with gastroenterology as they could not find out what was wrong with him. He denies any chest pain, shortness of breath. General: ill appearing, moderate distress, appears older stated age, cacexia, temporal wasting Derm: warm, dry Head: atraumatic, normocephalic, symmetric Eyes: EOMI, no lid lag, anicteric sclera Mouth: no lip lesion, mucus membranes moist Cardiovascular: S1S2 reg, no murmur, positive posterior tibial pulse bilateral, Lungs: CTA bilateral, no rhonchi, no rales , no accessory muscle use Abdominal: soft, +tender to palpation diffusely, no guarding, no appreciable organomegaly Ext: no gross muscle atrophy, no edema, no contractures Neuro: CN II-XI grossly intact, no focal neuro deficits Psych: Alert, oriented, appropriate affect Acute transvers and descending colon with sepsis - ischemic Vs infectious - flagyl and rocephin - IV fluids - NPO - Pain control - antiemetics - CTA abdomen and pelvis moderate atherosclerotic calcification infrarental aorta, severe stenosis right internal iliac, moderate right external, moderate to severe left external iliac artery - GI and gen surgery recs - Likely needs repeat Colonoscopy in 4-6 weeks:had Colonoscopy in 2014 and 2015 with path that was normal with no signs of colitis Acute blood loess anemia - follow CBC - Check Iron studies - no idications for transfusion at this time Elevated troponin - due to demand ischemia - flat and not reflective of acute coronary syndrome COPD without exacerabtion - prn bronchodilators Hx HTN - was hypotensive - hold lisinopril - follow blood presssures Severe cachexia BMI 14.6 - consult dietitation - supplements once able to eat PAD - vascular recs; likely outpatient follow-up DVT prophylaxis: SCDs Discussed with: Patient, nursing, Dr. Aviles Anticipated discharge: 3-[address]: home A total of 45 minutes was spent on the care of this complex patient more than 50% of the time was spent in counseling and care coordination. Objective - Vital Signs Vital signs: Vital Signs Temp 98.2 F 06/15/20 12:00 Pulse 66 06/15/20 12:00 Resp 13 06/15/20 12:00 BP 114/81 06/15/20 10:00 Pulse Ox 95 06/15/20 12:00 Intake & Output 06/14/20 06/15/20 06/15/20 18:59 06:59 18:59 Intake Total 700 450 Output Total 910 740 Balance -210 -290 Weight 58.06 kg 54.5 kg 54.5 kg Intake: IV 600 450 Sodium Chloride 0.9% 1, 600 450 000 ml @ 75 mls/hr IV . [id number] [facility] Rx#:[id number] Intake, IV Titration 100 Amount metroNIDAZOLE-NS PMX 500 100 mg In Saline 1 100ml.bag @ 100 mls/hr IVPB Q8H [facility] Rx#:[id number] Output: Urine 910 740 Other: Voiding Method Indwelling Catheter Indwelling Catheter - Labs CBC & Chem 7: 06/15/20 05:25 06/15/20 05:25 Labs: Abnormal Lab Results - Last 24 Hours (Table) 0806/14/20 06/14/20 Range/Units 17:31 17:31 17:31 WBC 19.7 H (3.8-10.6) k/uL RBC (4.30-5.90) m/uL Hgb (13.0-17.5) gm/dL Hct (39.0-53.0) % Neutrophils # (1.3-7.7) k/uL Neutrophils # (Manual) 16.70 H (1.3-7.7) k/uL Lymphocytes # (1.0-4.8) k/uL Lymphocytes # (Manual) 0.99 L (1.0-4.8) k/uL Monocytes # (0-1.0) k/uL Monocytes # (Manual) 1.97 H (0-1.0) k/uL Metamyelocytes # (Man) 0.39 H (0) k/uL Myelocytes # (Manual) (0) k/uL APTT 21.8 L (22.0-30.0) sec Chloride 108 H (98-107) mmol/L BUN 55 H (9-20) mg/dL Glucose 113 H (74-99) mg/dL POC Glucose (mg/dL) (75-99) mg/dL Plasma Lactic Acid [place] (0.7-2.0) mmol/L Calcium (8.4-10.2) mg/dL Alkaline Phosphatase 251 H (38-126) U/L Troponin I (0.000-0.034) ng/mL Total Protein 5.7 L (6.3-8.2) g/dL Lipase 13 L (23-300) U/L Ur Specific [place] (1.001-1.035) Urine Protein (Negative) 06/14/20 06/14/20 06/14/20 Range/Units 17:31 17:33 17:34 WBC (3.8-10.6) k/uL RBC (4.30-5.90) m/uL Hgb (13.0-17.5) gm/dL Hct (39.0-53.0) % Neutrophils # (1.3-7.7) k/uL Neutrophils # (Manual) (1.3-7.7) k/uL Lymphocytes # (1.0-4.8) k/uL Lymphocytes # (Manual) (1.0-4.8) k/uL Monocytes # (0-1.0) k/uL Monocytes # (Manual) (0-1.0) k/uL Metamyelocytes # (Man) (0) k/uL Myelocytes # (Manual) (0) k/uL APTT (22.0-30.0) sec Chloride (98-107) mmol/L BUN (9-20) mg/dL Glucose (74-99) mg/dL POC Glucose (mg/dL) 116 H (75-99) mg/dL Plasma Lactic Acid [place] 3.4 H* (0.7-2.0) mmol/L Calcium (8.4-10.2) mg/dL Alkaline Phosphatase (38-126) U/L Troponin I 0.051 H* (0.000-0.034) ng/mL Total Protein (6.3-8.2) g/dL Lipase (23-300) U/L Ur Specific [place] (1.001-1.035) Urine Protein (Negative) 06/14/20 06/14/20 06/15/20 Range/Units 19:33 20:37 00:33 WBC (3.8-10.6) k/uL RBC (4.30-5.90) m/uL Hgb (13.0-17.5) gm/dL Hct (39.0-53.0) % Neutrophils # (1.3-7.7) k/uL Neutrophils # (Manual) (1.3-7.7) k/uL Lymphocytes # (1.0-4.8) k/uL Lymphocytes # (Manual) (1.0-4.8) k/uL Monocytes # (0-1.0) k/uL Monocytes # (Manual) (0-1.0) k/uL Metamyelocytes # (Man) (0) k/uL Myelocytes # (Manual) (0) k/uL APTT (22.0-30.0) sec Chloride (98-107) mmol/L BUN (9-20) mg/dL Glucose (74-99) mg/dL POC Glucose (mg/dL) (75-99) mg/dL Plasma Lactic Acid [place] (0.7-2.0) mmol/L Calcium (8.4-10.2) mg/dL Alkaline Phosphatase (38-126) U/L Troponin I 0.054 H* 0.051 H* (0.000-0.034) ng/mL Total Protein (6.3-8.2) g/dL Lipase (23-300) U/L Ur Specific [place] 1.044 H (1.001-1.035) Urine Protein Trace H (Negative) 06/15/20 06/15/20 06/15/20 Range/Units 00:33 05:25 05:25 WBC 16.3 H 12.1 H (3.8-10.6) k/uL RBC 4.03 L 3.85 L (4.30-5.90) m/uL Hgb 12.7 L 11.8 L (13.0-17.5) gm/dL Hct 37.3 L (39.0-53.0) % Neutrophils # 10.2 H (1.3-7.7) k/uL Neutrophils # (Manual) 14.10 H (1.3-7.7) k/uL Lymphocytes # 0.4 L (1.0-4.8) k/uL Lymphocytes # (Manual) (1.0-4.8) k/uL Monocytes # 1.1 H (0-1.0) k/uL Monocytes # (Manual) (0-1.0) k/uL Metamyelocytes # (Man) (0) k/uL Myelocytes # (Manual) 0.16 H (0) k/uL APTT (22.0-30.0) sec Chloride 112 H (98-107) mmol/L BUN 43 H (9-20) mg/dL Glucose (74-99) mg/dL POC Glucose (mg/dL) (75-99) mg/dL Plasma Lactic Acid [place] (0.7-2.0) mmol/L Calcium 8.3 L (8.4-10.2) mg/dL Alkaline Phosphatase (38-126) U/L Troponin I (0.000-0.034) ng/mL Total Protein (6.3-8.2) g/dL Lipase (23-300) U/L Ur Specific [place] (1.001-1.035) Urine Protein (Negative)
[2020-06-15 17:16] LABS: Glucose,Whole Blood 100 mg/dL (75-99)
--- NOTE | 2020-06-15 19:26 | P.GSCN ---
History of Present Illness Consult date: 06/15/20 History of present illness: Uvaldo is a 64-year-old male with a previous history of COPD, tobacco abuse, hypertension and colitis who presented to the ER with complaints of worsening abdominal pain. He states that when it came on he began having nausea vomiting and diarrhea with a significant amount of pain. He had bright red blood per rectum at that time as well. In discussion with him, in looking back, he denies any postprandial pain. He denies any food fears. He denies any weight loss due to abdominal pains. He is a relatively thin guide states this is normal for him. He has not had any significant weight loss recently. He denies any chest pains, shortness of breath. He denies any arterial disease that he is aware of. He denies any claudication type symptoms or pain in his legs and he ambulates. Past Medical History Past Medical History: COPD, Hypertension Additional Past Medical History / Comment(s): Diverticulosis, hypothyroidism, C- diff, brain aneurysm 2007 History of Any Multi-Drug Resistant Organisms: C-DIFF Year Discovered:: 09/23/14 MDRO Source:: stool Past Surgical History: No Surgical Hx Reported Additional Past Surgical History / Comment(s): brain surgery 2004: stent, glass removed from stomach Past Anesthesia/Blood Transfusion Reactions: No Reported Reaction Past Psychological History: No Psychological Hx Reported Smoking Status: Current every day smoker Past Alcohol Use History: None Reported Past Drug Use History: None Reported - Past Family History Mother Additional Family Medical History / Comment(s): DIVERTICULITIS Medications and Allergies Home Medications Medication Instructions Recorded Confirmed Type lisinopriL [Prinivil] 20 mg PO DAILY 10/02/14 06/14/20 History Mirtazapine 45 mg PO HS 06/24/16 06/14/20 History Albuterol Inhaler [Ventolin Hfa 2 puff INHALATION RT-Q6H PRN 06/14/20 06/14/20 History Inhaler] Docusate [Colace] 100 mg PO DAILY 06/14/20 06/14/20 History Allergies Allergy/AdvReac Type Severity Reaction Status Date / Time Penicillins Allergy Anaphylaxis Verified 06/14/20 17:44 Surgical - Exam Vital Signs Temp Pulse Resp BP Pulse Ox 97.6 F 95 17 81/58 98 06/14/20 16:57 06/14/20 16:57 06/14/20 16:57 06/14/20 16:57 06/14/20 16:57 Genitals a pleasant cooperative male, cachectic. Obvious abdominal pain, controlled on his side HEENT is normocephalic, atraumatic, excellent motion intact. Heart regular in rate and rhythm at this time. Lungs are clear bi laterally. Abdomen is nondistended. Tender to palpation. He does some voluntary guarding. No rebound. Extremities no clubbing, cyanosis or edema. He has trouble radial, femoral, dorsalis pedis and posterior tibial pulses bilaterally. Normal mood and affect. Cranial nerves II through XII grossly intact. Results CT angiogram as well as computed tomography scan are reviewed. Mesenteric vessels appear widely patent without evidence of atherosclerotic disease. There is mild to moderate calcific disease of the external iliacs as well as the internal iliac arteries. - Labs 06/15/20 05:25 06/15/20 05:25 Abnormal Lab Results - Last 24 Hours (Table) 06/14/20 06/14/20 06/15/20 Range/Units 19:33 20:37 00:33 WBC (3.8-10.6) k/uL RBC (4.30-5.90) m/uL Hgb (13.0-17.5) gm/dL Hct (39.0-53.0) % Neutrophils # (1.3-7.7) k/uL Neutrophils # (Manual) (1.3-7.7) k/uL Lymphocytes # (1.0-4.8) k/uL Monocytes # (0-1.0) k/uL Myelocytes # (Manual) (0) k/uL Chloride (98-107) mmol/L BUN (9-20) mg/dL POC Glucose (mg/dL) (75-99) mg/dL Calcium (8.4-10.2) mg/dL Troponin I 0.054 H* 0.051 H* (0.000-0.034) ng/mL Ur Specific [place] 1.044 H (1.001-1.035) Urine Protein Trace H (Negative) 06/15/20 06/15/20 06/15/20 Range/Units 00:33 05:25 05:25 WBC 16.3 H 12.1 H (3.8-10.6) k/uL RBC 4.03 L 3.85 L (4.30-5.90) m/uL Hgb 12.7 L 11.8 L (13.0-17.5) gm/dL Hct 37.3 L (39.0-53.0) % Neutrophils # 10.2 H (1.3-7.7) k/uL Neutrophils # (Manual) 14.10 H (1.3-7.7) k/uL Lymphocytes # 0.4 L (1.0-4.8) k/uL Monocytes # 1.1 H (0-1.0) k/uL Myelocytes # (Manual) 0.16 H (0) k/uL Chloride 112 H (98-107) mmol/L BUN 43 H (9-20) mg/dL POC Glucose (mg/dL) (75-99) mg/dL Calcium 8.3 L (8.4-10.2) mg/dL Troponin I (0.000-0.034) ng/mL Ur Specific [place] (1.001-1.035) Urine Protein (Negative) 06/15/20 Range/Units 17:15 WBC (3.8-10.6) k/uL RBC (4.30-5.90) m/uL Hgb (13.0-17.5) gm/dL Hct (39.0-53.0) % Neutrophils # (1.3-7.7) k/uL Neutrophils # (Manual) (1.3-7.7) k/uL Lymphocytes # (1.0-4.8) k/uL Monocytes # (0-1.0) k/uL Myelocytes # (Manual) (0) k/uL Chloride (98-107) mmol/L BUN (9-20) mg/dL POC Glucose (mg/dL) 100 H (75-99) mg/dL Calcium (8.4-10.2) mg/dL Troponin I (0.000-0.034) ng/mL Ur Specific [place] (1.001-1.035) Urine Protein (Negative) Diabetes panel 06/15/20 Range/Units 05:25 Sodium 139 (137-145) mmol/L Potassium 4.1 (3.5-5.1) mmol/L Chloride 112 H (98-107) mmol/L Carbon Dioxide 23 (22-30) mmol/L BUN 43 H (9-20) mg/dL Creatinine 0.66 (0.66-1.25) mg/dL Glucose 91 (74-99) mg/dL Calcium 8.3 L (8.4-10.2) mg/dL Calcium panel 06/15/20 Range/Units 05:25 Calcium 8.3 L (8.4-10.2) mg/dL Pituitary panel 06/15/20 Range/Units 05:25 Sodium 139 (137-145) mmol/L Potassium 4.1 (3.5-5.1) mmol/L Chloride 112 H (98-107) mmol/L Carbon Dioxide 23 (22-30) mmol/L BUN 43 H (9-20) mg/dL Creatinine 0.66 (0.66-1.25) mg/dL Glucose 91 (74-99) mg/dL Calcium 8.3 L (8.4-10.2) mg/dL Adrenal panel 06/15/20 Range/Units 05:25 Sodium 139 (137-145) mmol/L Potassium 4.1 (3.5-5.1) mmol/L Chloride 112 H (98-107) mmol/L Carbon Dioxide 23 (22-30) mmol/L BUN 43 H (9-20) mg/dL Creatinine 0.66 (0.66-1.25) mg/dL Glucose 91 (74-99) mg/dL Calcium 8.3 L (8.4-10.2) mg/dL Assessment and Plan Assessment: #1 abdominal pain #2 colitis, likely ischemic #3 no evidence of mesenteric ischemia acute or chronic Plan: At this time along discussion was had with the patient regarding his findings on imaging. I do not believe he has any significant vascular compromise to his intestines from the mesenteric arteries. His celiac and superior mesenteric artery are widely patent. The direct origin of the inferior mesenteric artery is not visualized on the scan but there is adequate contrast flow through the proximal inferior mesenteric artery. There is some degree of iliac calcifications in both the external and internal iliacs, he does not have any issues with his lower extremities nor does he have any decrease in pulses in his lower extremities. At this time I do believe his hypotension and dehydration likely caused ischemic colitis in the watershed zone of the splenic flexure. Would defer to Gen. surgery and GI regarding further therapy and workup. I do not believe any further invasive imaging would benefit him given the adequate imaging are obtained.
[2020-06-15 20:29] LABS: Glucose,Whole Blood 97 mg/dL (75-99)
[2020-06-15] MEDS: MIRTAZAPINE 45 MG TABLET PO SCH (21:50)
[2020-06-16] MEDS: HYDROmorphone 1 MG/ML 1 ML SYRINGE IVP PRN ×5 (01:07→09:09)
[2020-06-16] MEDS: metroNIDAZOLE-NS PMX 500 MG in SALINE 1 100ML.BAG IVPB SCH ×3 (03:09→17:54)
[2020-06-16 06:11] LABS: HCT 33.3 % (39.0-53.0); HGB 10.9 gm/dL (13.0-17.5); MCH 31.3 pg (25.0-35.0); MCHC 32.7 g/dL (31.0-37.0); MCV 95.9 fL (80.0-100.0); Mean Platelet Volume 7.9; Platelet Count 149 k/uL (150-450); RBC 3.48 m/uL (4.30-5.90); WBC 10.3 k/uL (3.8-10.6)
[2020-06-16 06:21] LABS: ALT 12 U/L (4-49); AST 26 U/L (17-59); African American GFR (CKD) >90 (>60 ml/min/1.73 sqM); Albumin 2.6 g/dL (3.5-5.0); Alkaline Phosphatase 206 U/L (38-126); Anion Gap 3 mmol/L; Blood Urea Nitrogen 24 mg/dL (9-20); Calcium 7.9 mg/dL (8.4-10.2); Carbon Dioxide 26 mmol/L (22-30); Chloride 109 mmol/L (98-107); Cholesterol 70 mg/dL (<200); Glucose 88 mg/dL (74-99); HDL Cholesterol 29 mg/dL (40-60); LDL Cholesterol,Calculated 26 mg/dL (0-99); Non-African American GFR(CKD) >90 (>60 ml/min/1.73 sqM); Phosphorus 1.9 mg/dL (2.5-4.5); Potassium 3.5 mmol/L (3.5-5.1); Sodium 138 mmol/L (137-145); Total Bilirubin 0.4 mg/dL (0.2-1.3); Total Protein 4.6 g/dL (6.3-8.2); Triglycerides 77 mg/dL (<150)
[2020-06-16] MEDS: PANTOPRAZOLE 40 MG/10 ML VIAL IVP SCH (09:01)
--- NOTE | 2020-06-16 10:53 | P.PN ---
Subjective Progress Note Date: 06/16/20 Principal diagnosis: Abdominal pain, GI bleed 65-year-old male patient with history of recurrent abdominal pain that was worked up extensively over the past 5 years and this included several CAT scans of the abdomen and pelvis in addition to EGD and colonoscopy and there was no clear understanding of this patient intermittent abdominal pain. One possibility was intermittent ischemia or small bowel ischemia. Previous CAT scan of the abdomen showed extensive calcification of the eye workup. The patient states that he was doing well until yesterday when he started having s ome mid abdominal pain which gradually got worse and was 10 out of 10 severity without any significant radiation. He was nauseated and subsequently started having bright red blood stool without any mucus. No fever. No chills. No history of any atrial fibrillation. Most of alcoholism. No step pancreatitis. He did have around 4-5 bloody bowel movement and he continued to have abdominal pain for that reason he presented to the hospital for further evaluation. No reported shortness of breath. He was hypotensive the time of admission. He was given a total of 2 L of IV fluid in the triple-lumen catheter was established. Nevertheless the patient did not require any pressors. CAT scan of the abdomen and pelvis was done and showed dilated fluid filled small bowel loops suggestive of small bowel obstruction without any clear zone of transition and the possibility of ischemic changes involving the small bowel cannot be completely excluded. Initial lactic acid level was at 3.4 and improved and the patient's white cell count was at 19.7 and it improved and is down to 12.1. Hemoglobin was at 13.7 and dropped down to 11.8 and the patient did not require any blood transfusion. The troponins were slightly elevated at 0.053 respectively. UA was negative. Stool for occult blood was positive. Abdominal pain has subsided this morning and the patient will be seen by gastroenterology. The patient is seen today 06/16/2020 follow-up on the regular medical floor. He is awake and alert in no acute distress. Resting fairly comfortably in bed. Still having some ongoing abdominal discomfort. No shortness of breath, cough or congestion. Maintaining O2 saturations in the mid 90s on 2 L/m per nasal cannula. She's been afebrile. Hemodynamically stable. Blood culture reveals no growth to date. White count 10.3. Hemoglobin 10.9. Platelets 149. Sodium 1:30. Potassium 3.5. Creatinine 0.52. Alk phos 206. He is continued on antibiotics in form of ceftriaxone along with Flagyl. 0.9 normal saline at 75 ML's per hour. He remains on IV Protonix. CT angiogram revealed mild atherosclerotic changes and infrarenal abdominal aorta and moderate within the iliac arteries. Moderate to severe stenosis at the origin of the right greater than left internal iliac arteries. Mild narrowing at the origin of the LUI. No visualized visceral artery occlusion. Some improvement in the degree of small bowel dilatation. Small bowel loops show residual dilatation of 3.1 cm. Pro gressive moderate to severe colonic wall thickening extending from the distal transverse colon down to the rectum. Correlate for nonspecific moderate to severe colitis. No convincing findings of pneumatosis or free air. Objective - Vital Signs Vital signs: Vital Signs Temp 97.8 F 06/16/20 08:30 Pulse 65 06/16/20 08:30 Resp 18 06/16/20 08:30 BP 107/52 06/16/20 08:30 Pulse Ox 95 06/16/20 08:30 Intake & Output 06/15/20 06/16/20 06/16/20 18:59 06:59 18:59 Intake Total 870 600 Output Total 1015 1150 Balance -145 -550 Weight 54.5 kg 52 kg Intake: IV 750 Sodium Chloride 0.9% 1, 750 000 ml @ 75 mls/hr IV . [id number] [facility] Rx#:[id number] Oral 120 600 Output: Urine 1015 1150 Other: Voiding Method Indwelling Catheter Indwelling Catheter Indwelling Catheter # Bowel Movements 0 1 - Exam The patient is a 64-year-old gentleman, appears older than stated age, somewhat cachectic. Vital signs as documented. Head exam is unremarkable. No scleral icterus or corneal arcus noted. Neck is without jugular venous distension, thyromegaly, or carotid bruits. Carotid upstrokes are brisk bilaterally. Lungs are clear to auscultation and percussion. Cardiac exam reveals the PMI to be normally sized and situated. Rhythm is regular. First and second heart sounds normal. No murmurs, rubs or gallops. Abdominal exam reveals normal bowel sounds, no masses, no organomegaly and no aortic enlargement. Extremities are nonedematous and both femoral and pedal pulses are normal. Examination of the skin revealed no evidence of significant rashes, suspicious appearing nevi or other concerning lesions.Neurologically, the patient is awake and alert and the patient does not have any focal neurological deficit. Cranial nerves are essentially intact. - Labs CBC & Chem 7: 06/16/20 05:48 06/16/20 05:48 Labs: Abnormal Lab Results - Last 24 Hours (Table) 06/15/20 06/16/20 06/16/20 Range/Units 17:15 05:48 05:48 RBC 3.48 L (4.30-5.90) m/uL Hgb 10.9 L (13.0-17.5) gm/dL Hct 33.3 L (39.0-53.0) % Plt Count 149 L (150-450) k/uL Chloride 109 H (98-107) mmol/L BUN 24 H (9-20) mg/dL Creatinine 0.52 L (0.66-1.25) mg/dL POC Glucose (mg/dL) 100 H (75-99) mg/dL Calcium 7.9 L (8.4-10.2) mg/dL Phosphorus 1.9 L (2.5-4.5) mg/dL Alkaline Phosphatase 206 H (38-126) U/L Total Protein 4.6 L (6.3-8.2) g/dL Albumin 2.6 L (3.5-5.0) g/dL HDL Cholesterol 29 L (40-60) mg/dL Microbiology - Last 24 Hours (Table) 06/14/20 20:17 Blood Culture - Preliminary Blood No Growth after 24 hours Assessment and Plan Assessment: 1 abdominal pain, acute onset with possibility of an ischemic bowel/ischemic small bowel with a possibility of a partial small bowel obstruction. CT angio gram revealed mild atherosclerotic changes and infrarenal abdominal aorta and moderate within the iliac arteries. Moderate to severe stenosis at the origin of the right greater than left internal iliac arteries. Mild narrowing at the origin of the LUI. No visualized visceral artery occlusion. Some improvement in the degree of small bowel dilatation. Small bowel loops show residual dilatation of 3.1 cm. Progressive moderate to severe colonic wall thickening extending from the distal transverse colon down to the rectum. Correlate for nonspecific moderate to severe colitis. No convincing findings of pneumatosis or free air. 2 chronic abdominal pain has been worked up extensively the past without any clear diagnosis 3 remote history of C. diff colitis 4 acute lactic acidosis, improving 5 leukocytosis, improving 6 GI bleeding, likely secondary to ischemic bowel without any major drop in hemoglobin 7 hypovolemic shock, improved with fluid resuscitation and the patient has not r equired any pressors 8 minimal troponin leak 9 hypertension 10 COPD 11 history of diverticulosis 12 history of [employer] aneurysm post-coiling 13 history of hypothyroidism Plan The patient was seen and evaluated by Dr. Richard He is stable from the pulmonary standpoint CT angiogram of the abdomen reviewed We will continue to follow I, the cosigning physician, performed a history & physical examination of the patient. Lungs sounds are clear, diminished. Maintaining good O2 saturations in the 90s on 2 L/m per nasal cannula. I discussed the assessment and plan of care with my nurse practitioner, Chelsey Haddad. I attest to the above note as dictated by her.
--- NOTE | 2020-06-16 11:31 | P.CONS ---
History of Present Illness - Reason for Consult Consult date: 06/15/20 Abdominal pain, ischemic colitis Requesting physician: Gildardo Montemayor - Chief Complaint Abdominal pain - History of Present Illness 64-year-old male with a medical history significant for multiple episodes of colitis presumed to be ischemic in nature (however biopsies have been negative for findings consistent with ischemic colitis), tobacco abuse, COPD and hypertension who presented to the hospital due to complaints of abdominal pain. The patient reports severe abdominal pain, waxing and waning in nature and predominantly in the lower abdomen below the umbilicus and particularly on the left side of his abdomen. The pain started a few days prior to presentation con tinued. The patient reports some episodes of bright red blood with the episodes. Previously he is been seen for similar complaints in the past and underwent colonoscopy in 2014 with findings suggestive of possible sigmoid colitis, however biopsies were negative at that time. He also underwent col onoscopy in 06/29/2016 which was grossly normal and with biopsies of the terminal ileum and random colon also negative for any findings suggestive of ischemic colitis. Patient had a leukocytosis of 19.7 on presentation which trended to 12.1 with a hemoglobin of 11.8, platelet count 177,000, lactic acid of 3.4 with stool testing positive for occult blood. No nausea or vomiting reported. The patient was seen in the ICU where he was on antibiotic therapy and receiving supportive care. Computed tomography scan performed in evaluation was significant for a dilated fluid-filled small bowel with suggestion of possible ileus versus small bowel obstruction. Review of Systems REVIEW OF SYSTEMS: CONSTITUTIONAL: Denies any fevers, chills, weight change or fatigue. CARDIOVASCULAR: Denies any chest pain, palpitations high or low blood pressures RESPIRATORY: Denies any shortness of breath, hemoptysis or cough. GENITOURINARY: No dysuria or hematuria. MUSCULOSKELETAL: No weakness reported. SKIN: Denies any new rashes or lesions, jaundice or pallor. PSYCHIATRIC: Denies any depression or anxiety, tobacco abuse. NEUROLOGY: Denies headache, denies any new focal deficits. EARS/NOSE/THROAT: No recent hearing change, congestion, nasal discharge or sore throat. EYES: No pain in eyes, discharge or change in vision. GASTROINTESTINAL: As per HPI. Past Medical History Past Medical History: COPD, Hypertension Additional Past Medical History / Comment(s): diverticulitis, hypothyroidism, C- diff, brain aneurysm 2008 History of Any Multi-Drug Resistant Organisms: C-DIFF Year Discovered:: 09/23/14 MDRO Source:: stool Past Surgical History: No Surgical Hx Reported Additional Past Surgical History / Comment(s): brain surgery 2004: stent, glass removed from stomach Past Anesthesia/Blood Transfusion Reactions: No Reported Reaction Past Psychological History: No Psychological Hx Reported Smoking Status: Current every day smoker Past Alcohol Use History: None Reported Past Drug Use History: None Reported - Past Family History Mother Additional Family Medical History / Comment(s): DIVERTICULITIS Medications and Allergies Home Medications Medication Instructions Recorded Confirmed Type lisinopriL [Prinivil] 20 mg PO DAILY 10/02/14 06/14/20 History Mirtazapine 45 mg PO HS 06/24/16 06/14/20 History Albuterol Inhaler [Ventolin Hfa 2 puff INHALATION RT-Q6H PRN 06/14/20 06/14/20 History Inhaler] Docusate [Colace] 100 mg PO DAILY 06/14/20 06/14/20 History Allergies Allergy/AdvReac Type Severity Reaction Status Date / Time Penicillins Allergy Anaphylaxis Verified 06/14/20 17:44 Physical Exam Vitals: Vital Signs Temp Pulse Resp BP Pulse Ox 06/15/20 09:00 86 15 119/79 94 L 06/15/20 08:00 98.3 F 86 14 99/78 95 06/15/20 07:00 82 15 108/76 94 L 06/15/20 06:00 82 15 113/75 93 L 06/15/20 05:00 90 15 119/75 94 L 06/15/20 04:00 99.6 F 88 19 109/74 96 06/15/20 03:00 96 18 112/73 95 06/15/20 02:00 97 15 116/85 95 06/15/20 01:00 91 16 116/77 95 06/15/20 00:00 93 15 120/80 97 06/14/20 23:41 72 18 113/75 98 06/14/20 23:00 98.3 F 96 18 108/73 98 06/14/20 22:10 96 20 108/70 99 06/14/20 21:24 97.8 F 110 H 18 103/68 97 06/14/20 20:19 94 18 100/59 96 06/14/20 20:03 92 18 79/55 98 06/14/20 19:15 105 H 18 84/53 96 06/14/20 18:20 114 H 18 92/54 99 06/14/20 17:43 102 H 18 92/70 96 06/14/20 17:35 98 18 110/73 98 06/14/20 17:18 59/36 06/14/20 17:15 68/46 06/14/20 17:01 79/58 95 06/14/20 16:57 97.6 F 95 17 81/58 98 Intake and Output 06/14/20 06/15/20 06/15/20 22:59 06:59 14:59 Intake Total 700 225 Output Total 910 305 Balance -210 -80 Intake: IV 600 225 Sodium Chloride 0.9% 1, 600 225 000 ml @ 75 mls/hr IV . [id number] [facility] Rx#:[id number] Intake, IV Titration 100 Amount metroNIDAZOLE-NS PMX 500 100 mg In Saline 1 100ml.bag @ 100 mls/hr IVPB Q8H [facility] Rx#:[id number] Output: Urine 910 305 Other: Voiding Method Indwelling Catheter Weight 58.06 kg 54.5 kg On physical examination, patient appears comfortable in no apparent distress. HEAD: Normocephalic, atraumatic. EYES: No scleral icterus. No conjunctival injection. MOUTH: No lesions, tongue midline. NECK: Trachea midline, no gross abnormalities. CHEST: Clear to auscultation with no wheezing or rhonchi appreciated. HEART: Regular rate and rhythm. ABDOMEN: Soft, thin and moderately tender to palpation. Bowel sounds are positive. No organomegaly. No guarding or rigidity. EXTREMITIES: No pedal edema. SKIN: No rashes, no jaundice. NEUROLOGIC: Alert and oriented x3. No focal deficits. Results CBC & Chem 7: 06/16/20 05:48 06/16/20 05:48 Labs: Abnormal Lab Results - Last 24 Hours (Table) 06/14/20 06/14/20 06/14/20 Range/Units 17:31 17:31 17:31 WBC 19.7 H (3.8-10.6) k/uL RBC (4.30-5.90) m/uL Hgb (13.0-17.5) gm/dL Hct (39.0-53.0) % Neutrophils # (1.3-7.7) k/uL Neutrophils # (Manual) 16.70 H (1.3-7.7) k/uL Lymphocytes # (1.0-4.8) k/uL Lymphocytes # (Manual) 0.99 L (1.0-4.8) k/uL Monocytes # (0-1.0) k/uL Monocytes # (Manual) 1.97 H (0-1.0) k/uL Metamyelocytes # (Man) 0.39 H (0) k/uL Myelocytes # (Manual) (0) k/uL APTT 21.8 L (22.0-30.0) sec Chloride 108 H (98-107) mmol/L BUN 55 H (9-20) mg/dL Glucose 113 H (74-99) mg/dL POC Glucose (mg/dL) (75-99) mg/dL Plasma Lactic Acid Gamal (0.7-2.0) mmol/L Calcium (8.4-10.2) mg/dL Alkaline Phosphatase 251 H (38-126) U/L Troponin I (0.000-0.034) ng/mL Total Protein 5.7 L (6.3-8.2) g/dL Lipase 13 L (23-300) U/L Ur Specific Mazon (1.001-1.035) Urine Protein (Negative) 06/14/20 06/14/20 06/14/20 Range/Units 17:31 17:33 17:34 WBC (3.8-10.6) k/uL RBC (4.30-5.90) m/uL Hgb (13.0-17.5) gm/dL Hct (39.0-53.0) % Neutrophils # (1.3-7.7) k/uL Neutrophils # (Manual) (1.3-7.7) k/uL Lymphocytes # (1.0-4.8) k/uL Lymphocytes # (Manual) (1.0-4.8) k/uL Monocytes # (0-1.0) k/uL Monocytes # (Manual) (0-1.0) k/uL Metamyelocytes # (Man) (0) k/uL Myelocytes # (Manual) (0) k/uL APTT (22.0-30.0) sec Chloride (98-107) mmol/L BUN (9-20) mg/dL Glucose (74-99) mg/dL POC Glucose (mg/dL) 116 H (75-99) mg/dL Plasma Lactic Acid Gamal 3.4 H* (0.7-2.0) mmol/L Calcium (8.4-10.2) mg/dL Alkaline Phosphatase (38-126) U/L Troponin I 0.051 H* (0.000-0.034) ng/mL Total Protein (6.3-8.2) g/dL Lipase (23-300) U/L Ur Specific Mazon (1.001-1.035) Urine Protein (Negative) 06/14/20 06/14/20 06/15/20 Range/Units 19:33 20:37 00:33 WBC (3.8-10.6) k/uL RBC (4.30-5.90) m/uL Hgb (13.0-17.5) gm/dL Hct (39.0-53.0) % Neutrophils # (1.3-7.7) k/uL Neutrophils # (Manual) (1.3-7.7) k/uL Lymphocytes # (1.0-4.8) k/uL Lymphocytes # (Manual) (1.0-4.8) k/uL Monocytes # (0-1.0) k/uL Monocytes # (Manual) (0-1.0) k/uL Metamyelocytes # (Man) (0) k/uL Myelocytes # (Manual) (0) k/uL APTT (22.0-30.0) sec Chloride (98-107) mmol/L BUN (9-20) mg/dL Glucose (74-99) mg/dL POC Glucose (mg/dL) (75-99) mg/dL Plasma Lactic Acid Gamal (0.7-2.0) mmol/L Calcium (8.4-10.2) mg/dL Alkaline Phosphatase (38-126) U/L Troponin I 0.054 H* 0.051 H* (0.000-0.034) ng/mL Total Protein (6.3-8.2) g/dL Lipase (23-300) U/L Ur Specific Mazon 1.044 H (1.001-1.035) Urine Protein Trace H (Negative) 06/15/20 06/15/20 06/15/20 Range/Units 00:33 05:25 05:25 WBC 16.3 H 12.1 H (3.8-10.6) k/uL RBC 4.03 L 3.85 L (4.30-5.90) m/uL Hgb 12.7 L 11.8 L (13.0-17.5) gm/dL Hct 37.3 L (39.0-53.0) % Neutrophils # 10.2 H (1.3-7.7) k/uL Neutrophils # (Manual) 14.10 H (1.3-7.7) k/uL Lymphocytes # 0.4 L (1.0-4.8) k/uL Lymphocytes # (Manual) (1.0-4.8) k/uL Monocytes # 1.1 H (0-1.0) k/uL Monocytes # (Manual) (0-1.0) k/uL Metamyelocytes # (Man) (0) k/uL Myelocytes # (Manual) 0.16 H (0) k/uL APTT (22.0-30.0) sec Chloride 112 H (98-107) mmol/L BUN 43 H (9-20) mg/dL Glucose (74-99) mg/dL POC Glucose (mg/dL) (75-99) mg/dL Plasma Lactic Acid Gamal (0.7-2.0) mmol/L Calcium 8.3 L (8.4-10.2) mg/dL Alkaline Phosphatase (38-126) U/L Troponin I (0.000-0.034) ng/mL Total Protein (6.3-8.2) g/dL Lipase (23-300) U/L Ur Specific Mazon (1.001-1.035) Urine Protein (Negative) CT scan - abdomen: report reviewed (Computed tomography scan of the abdomen with findings of a dilated fluid-filled small bowel suggestive of possible ileus versus small bowel obstruction. ) Assessment and Plan (1) Lower GI bleeding Narrative/Plan: 64-year-old male with multiple medical comorbidities including recurrent episodes of abdominal pain with rectal bleeding treated for presumed ischemic colitis (although biopsies taken at those times negative for findings consistent with ischemic colitis) presented back to the hospital with abdominal pain in the lower abdomen and blood per rectum. Computed tomography scan performed in evaluation showed a dilated fluid-filled small bowel with suggestion of possible ileus versus small bowel obstruction. No nausea or vomiting at this time and the patient has been seen by the surgical service. Patient currently on antibiotic therapy and did have a leukocytosis of 19.7 on presentation with a lactic acidosis of 3.4. Stool testing was positive for occult blood. Evaluation of the colon in 2014 was suggestive of possible sigmoid colitis however biopsies were negative at that time, he had a further episode in 06/2016 with a normal-appearing colon and terminal ileum with biopsies also negative at that time. In spite of this, given patient's presentation and history of tobacco abuse concern is for ischemic colitis, currently patient may have ileus versus bowel obstruction secondary to the colitis and is being treated conservatively at this time. Current Visit: Yes Status: Acute Code(s): K92.2 - GASTROINTESTINAL HEMORRHAGE, UNSPECIFIED SNOMED Code(s): 86072175 (2) Small bowel obstruction Current Visit: Yes Status: Acute Code(s): K56.609 - UNSP INTESTNL OBST, UNSP TO PARTIAL VERSUS COMPLETE OBST SNOMED Code(s): 287493638 (3) Abdominal pain Current Visit: No Status: Acute Code(s): R10.9 - UNSPECIFIED ABDOMINAL PAIN SNOMED Code(s): 94341609 Plan: Supportive care Nothing by mouth Continue broad-spectrum antibiotic therapy Surgical service consult in If patient develops symptoms concerning for obstruction would recommend nasogastric tube on low intermittent suction at No plans for endoscopic evaluation at this time Continue optimization of blood pressure CT angiography of the abdomen ordered Extensive discussion with the patient and have recommended complete abstinence of tobacco products Thank you for allowing us to participate in the care of the patient we will continue to follow
[2020-06-16] MEDS: DEXTROSE 5%-0.45% NACL 1,000 ML IV SCH (12:06)
[2020-06-16] MEDS: HYDROmorphone PCA 10 MG/50 ML BAG IV PRN (12:28)
[2020-06-16] MEDS: SODIUM PHOSPHATE 10 MMOL in SODIUM CHLORIDE 0.9% 250 ML IVPB SCH ×2 (13:10→15:31)
--- NOTE | 2020-06-16 13:20 | P.PN ---
Subjective Progress Note Date: 06/16/20 CHIEF COMPLAINT: Abdominal pain HISTORY OF PRESENT ILLNESS: The patient is a 64 year old male admitted with diffuse abdominal pain including lactic acidosis and edges severe nausea and vomiting including diarrhea. He has history of intermittent chronic abdominal. Patient is transferred from ICU to floor. He reports moderate improvement of his abdominal pain. He is tolerating clear liquid diet. Additional studies obtained by vascular surgery and appreciated recommendations. Patient reports primarily lower abdominal pain. His nurse is at bedside and reports he has also been seen by GI. REVIEW OF ORGAN SYSTEMS: No fevers or chills. No vomiting. No productive sputum. PHYSICAL EXAM: VITALS: Reviewed CONSTITUTIONAL: Well developed cachetic male and in mild distress. EYES: Conjuctivae without sclera icterus. Pupils are equally round and reactive to light. Extraocular movements grossly intact. HEAD, EARS, NOSE, THROAT: Moist buccal mucosa. Head is atraumatic, normocephalic. Hears conversational speech. No nasal drainage. RESPIRATORY: Non-labored respirations and equal bilateral excursions. No gross wheezes. Barrel chested. CARDIOVASCULAR: Palpable 2+ radial pulses. ABDOMEN: No diffuse peritonitis. Lower abominal pain improved. Scaphoid. MUSCULOSKELETAL: Nail and fingers with good capillary refill. Pulses palpable along popliteals bilateral 2+. Minimal hair along the lower extremities. SKIN: Warm and well perfused with good skin turgor. NEUROLOGIC: Cranial nerves II through XII grossly intact. Sensation upper and extremities intact. No focal or lateralizing signs. PSYCH: Appropriate affect. Alert and oriented to person, place and time. Displays appropriate insight. CLINCAL LABS: Reviewed and WBC improved from 19.7 on admission to 10.3. Hgb down from 13.7 to 10.9 following multiple fluid boluses. RADIOLOGY: CTA results of abdomen demonstrates patent abdominal arterial vessels including SMA, celiac and tributaries of LUI. ASSESSMENT: 1. Acute on chronic abdominal pain likely secondary to chronic ischemia with history of PVOD 2. Hypovolemic shock due to dehydration, severe PLAN: 1. Continue conservative management 2. No acute surgical intervention needed at this time 3. Will differ any need for scopes to GI as patient has pre-existing relationship including scopes in past. 4. Advance diet as tolerated Objective - Vital Signs Vital signs: Vital Signs Temp 97.8 F 06/16/20 08:30 Pulse 65 06/16/20 08:30 Resp 18 06/16/20 08:30 BP 107/52 06/16/20 08:30 Pulse Ox 95 06/16/20 08:30 Intake & Output 06/15/20 06/16/20 06/16/20 18:59 06:59 18:59 Intake Total 870 600 Output Total 1015 1150 Balance -145 -550 Weight 54.5 kg 52 kg Intake: IV 750 Sodium Chloride 0.9% 1, 750 000 ml @ 75 mls/hr IV . [id number] [facility] Rx#:[id number] Oral 120 600 Output: Urine 1015 1150 Other: Voiding Method Indwelling Catheter Indwelling Catheter Indwelling Catheter # Bowel Movements 0 1 - Labs CBC & Chem 7: 06/16/20 05:48 06/16/20 05:48 Labs: Abnormal Lab Results - Last 24 Hours (Table) 06/15/20 06/16/20 06/16/20 Range/Units 17:15 05:48 05:48 RBC 3.48 L (4.30-5.90) m/uL Hgb 10.9 L (13.0-17.5) gm/dL Hct 33.3 L (39.0-53.0) % Plt Count 149 L (150-450) k/uL Chloride 109 H (98-107) mmol/L BUN 24 H (9-20) mg/dL Creatinine 0.52 L (0.66-1.25) mg/dL POC Glucose (mg/dL) 100 H (75-99) mg/dL Calcium 7.9 L (8.4-10.2) mg/dL Phosphorus 1.9 L (2.5-4.5) mg/dL Alkaline Phosphatase 206 H (38-126) U/L Total Protein 4.6 L (6.3-8.2) g/dL Albumin 2.6 L (3.5-5.0) g/dL HDL Cholesterol 29 L (40-60) mg/dL Microbiology - Last 24 Hours (Table) 06/14/20 20:17 Blood Culture - Preliminary Blood No Growth after 24 hours Assessment and Plan (1) COPD (chronic obstructive pulmonary disease) Current Visit: Yes Status: Acute Code(s): J44.9 - CHRONIC OBSTRUCTIVE PULMONARY DISEASE, UNSPECIFIED SNOMED Code(s): 86119312 (2) Dehydration Current Visit: Yes Status: Acute Code(s): E86.0 - DEHYDRATION SNOMED Code(s): 60828529 (3) Diarrhea Current Visit: Yes Status: Acute Code(s): R19.7 - DIARRHEA, UNSPECIFIED SNOMED Code(s): 90435832 (4) Hypovolemic shock Current Visit: Yes Status: Acute Code(s): R57.1 - HYPOVOLEMIC SHOCK SNOMED Code(s): 05414747 (5) Peripheral vascular disease Current Visit: Yes Status: Acute Code(s): I73.9 - PERIPHERAL VASCULAR DISEASE, UNSPECIFIED SNOMED Code(s): 664435089 (6) Underweight due to inadequate caloric intake Current Visit: Yes Status: Acute Code(s): R63.6 - UNDERWEIGHT SNOMED Code(s): 980762589 (7) Intractable nausea and vomiting Current Visit: No Status: Acute Code(s): R11.2 - NAUSEA WITH VOMITING, UNSPECIFIED SNOMED Code(s): 078993271
--- NOTE | 2020-06-16 15:02 | P.PN ---
Subjective Progress Note Date: 06/16/20 (delayed charting seen at 1200) Principal diagnosis: abdominal pain Patient is a 64-year-old male with a history of recurrent colitis (possibly ischemic), tobacco abuse, COPD, and hypertension who presented with abdominal pain and hematochezia. In the ER he underwent an extensive evaluation. On arrival he was hypotensive with a blood pressure of 81/58. Initial laboratory analysis showed a white blood cell count of 19.7, hemoglobin 13.7, troponin of 0.054, urinalysis negative, fecal occult blood positive. He underwent a CT abdomen and pelvis which demonstrated dilated fluid-filled small bowel loops suggestive of obstruction with possible ileus, pneumatosis, intestinalis cannot be confirmed. He had a central line placed. He was started on IVF and admitted to the ICU. He was given Rocephin and flagly and kept NPO. He continued to have abdominal pain overnight, but did not have any adiditional episode of bright red blood in his stool or from his rectum. 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 GI and general surgery were consulted. General surgery recommended IV antibiotics, supportive care, vascular consult. Vascular felt as though there was no need for urgent vascular intervention and this episode likely with combination of hypotension and dehydration. GI felt this was likely retail account representative of ischemic colitis and agreed with current plan of care. Patient seen and examined at bedside. He reports continued abdominal pain. He states that his pain hurts worse when he is eating and I asked him to not try to eat or drink as much. He denies any overt nausea until he takes a sip. No chest pain, shortness of breath. I asked about his buprenorphine prescription that I can review in [facility] which is prescribed by Dr. Shaikh. He reports that Dr. Waters is his primary physician but Dr. Shaikh provides buprenorphine for him. He has been using this for quite some time. He stopped using it last Wednesday secondary to his abdominal pain and inability to tolerate oral medications. He does state he was lightheaded and dizzy before his abdominal pain started. We discussed that he should not stop his buprenorphine quickly. We also discussed the importance of being honest with his treating physician team about buprenorphine use. Ideally I would've kept his buprenorphine going and added Dilaudid CARRIAGE FEEDER to tolerance during an acute pain episode as recommended by current pain literature. However he is now aware that he will likely have a precipitated withdrawal when he restarts his buprenorphine as he has had exposure to Dilaudid. I've asked him to have at least a 2 day washout before restarting his buprenorphine at home. General: ill appearing, moderate distress, appears older stated age, cacexia, temporal wasting Derm: warm, dry Head: atraumatic, normocephalic, symmetric Eyes: EOMI, no lid lag, anicteric sclera Mouth: no lip lesion, mucus membranes moist Cardiovascular: S1S2 reg, no murmur, positive posterior tibial pulse bilateral, Lungs: CTA bilateral, no rhonchi, no rales , no accessory muscle use Abdominal: soft, +tender to palpation diffusely, no guarding, no appreciable organomegaly Ext: no gross muscle atrophy, no edema, no contractures Neuro: CN II-XI grossly intact, no focal neuro deficits Psych: Alert, oriented, appropriate affect Acute transvers and descending colon likely ischemic with sepsis - flagyl and rocephin - IV fluids - clear liquids - Pain control, transition to CARRIAGE FEEDER to limit bolus dosing of dilaudid with hx of opiate dependency - antiemetics - CTA abdomen and pelvis moderate atherosclerotic calcification infrarental aorta, severe stenosis right internal iliac, moderate right external, moderate to severe left external iliac artery - GI and gen surgery recs appreciated - vascular recs appreciated - Likely needs repeat Colonoscopy in 4-6 weeks:had Colonoscopy in 2014 and 2016 with path that was normal with no signs of colitis Opiate dependency in recovery We discussed that he should not stop his buprenorphine quickly. We also discussed the importance of being honest with his treating physician team about buprenorphine use. Ideally I would've kept his buprenorphine going and added Dilaudid CARRIAGE FEEDER to tolerance during an acute pain episode as recommended by current pain literature. However he is now aware that he will likely have a precipitated withdrawal when he restarts his buprenorphine as he has had exposure to Dilaudid. I've asked him to have at least a 2 day washout before restarting his buprenorphine at home. Acute blood loess anemia - follow CBC - Check Iron studies - no indications for transfusion at this time Elevated troponin - due to demand ischemia - flat and not reflective of acute coronary syndrome COPD without exacerabtion - prn bronchodilators Hx HTN - was hypotensive - hold lisinopril - follow blood presssures Severe cachexia BMI 14.6 - consult dietitation - supplements once able to eat Mild PAD - vascular recs appreciated DVT prophylaxis: SCDs Discussed with: Patient, nursing, Dr. Aviles Anticipated discharge: 3-[address]: home A total of 45 minutes was spent on the care of this complex patient more than 50% of the time was spent in counseling and care coordination. Objective - Vital Signs Vital signs: Vital Signs Temp 97.8 F 06/16/20 08:30 Pulse 61 06/16/20 12:30 Resp 18 06/16/20 12:30 BP 126/76 06/16/20 12:30 Pulse Ox 94 L 06/16/20 12:30 Intake & Output 06/15/20 06/16/20 06/16/20 18:59 06:59 18:59 Intake Total 870 1080 Output Total 1015 1150 Balance -145 -70 Weight 54.5 kg 52 kg Intake: IV 750 Sodium Chloride 0.9% 1, 750 000 ml @ 75 mls/hr IV . [id number] [facility] Rx#:[id number] Oral 120 1080 Output: Urine 1015 1150 Other: Voiding Method Indwelling Catheter Indwelling Catheter Indwelling Catheter # Bowel Movements 0 1 - Labs CBC & Chem 7: 06/16/20 05:48 06/16/20 05:48 Labs: Abnormal Lab Results - Last 24 Hours (Table) 06/15/20 06/16/20 06/16/20 Range/Units 17:15 05:48 05:48 RBC 3.48 L (4.30-5.90) m/uL Hgb 10.9 L (13.0-17.5) gm/dL Hct 33.3 L (39.0-53.0) % Plt Count 149 L (150-450) k/uL Chloride 109 H (98-107) mmol/L BUN 24 H (9-20) mg/dL Creatinine 0.52 L (0.66-1.25) mg/dL POC Glucose (mg/dL) 100 H (75-99) mg/dL Calcium 7.9 L (8.4-10.2) mg/dL Phosphorus 1.9 L (2.5-4.5) mg/dL Alkaline Phosphatase 206 H (38-126) U/L Total Protein 4.6 L (6.3-8.2) g/dL Albumin 2.6 L (3.5-5.0) g/dL HDL Cholesterol 29 L (40-60) mg/dL Microbiology - Last 24 Hours (Table) 06/14/20 20:17 Blood Culture - Preliminary Blood No Growth after 24 hours
[2020-06-16] MEDS: MIRTAZAPINE 45 MG TABLET PO SCH (21:08)
[2020-06-16] MEDS: SENNOSIDES-DOCUSATE SODIUM 1 EACH TAB PO SCH (21:08)
--- NOTE | 2020-06-16 22:48 | P.PN ---
Subjective Progress Note Date: 06/16/20 Principal diagnosis: abdominal pain, colitis The patient seen lying in bed reporting some improvement in abdominal pain, however still present. Tolerating liquid diet. No nausea vomiting reported. Objective - Vital Signs Vital signs: Vital Signs Temp 97.8 F 06/16/20 08:30 Pulse 65 06/16/20 08:30 Resp 18 06/16/20 08:30 BP 107/52 06/16/20 08:30 Pulse Ox 95 06/16/20 08:30 Intake & Output 06/15/20 06/16/20 06/16/20 18:59 06:59 18:59 Intake Total 870 600 Output Total 1015 1150 Balance -145 -550 Weight 54.5 kg 52 kg Intake: IV 750 Sodium Chloride 0.9% 1, 750 000 ml @ 75 mls/hr IV . [id number] [facility] Rx#:[id number] Oral 120 600 Output: Urine 1015 1150 Other: Voiding Method Indwelling Catheter Indwelling Catheter Indwelling Catheter # Bowel Movements 0 1 - Exam On physical examination, patient appears comfortable in no apparent distress. HEAD: Normocephalic, atraumatic. EYES: No scleral icterus. No conjunctival injection. MOUTH: No lesions, tongue midline. NECK: Trachea midline, no gross abnormalities. ABDOMEN: Soft, thin, mildly tender to palpation. Bowel sounds are positive. No organomegaly. No guarding or rigidity. EXTREMITIES: No pedal edema. SKIN: No rashes, no jaundice. NEUROLOGIC: Alert and oriented x3. No focal deficits. - Labs CBC & Chem 7: 06/16/20 05:48 06/16/20 05:48 Labs: Abnormal Lab Results - Last 24 Hours (Table) 06/15/20 06/16/20 06/16/20 Range/Units 17:15 05:48 05:48 RBC 3.48 L (4.30-5.90) m/uL Hgb 10.9 L (13.0-17.5) gm/dL Hct 33.3 L (39.0-53.0) % Plt Count 149 L (150-450) k/uL Chloride 109 H (98-107) mmol/L BUN 24 H (9-20) mg/dL Creatinine 0.52 L (0.66-1.25) mg/dL POC Glucose (mg/dL) 100 H (75-99) mg/dL Calcium 7.9 L (8.4-10.2) mg/dL Phosphorus 1.9 L (2.5-4.5) mg/dL Alkaline Phosphatase 206 H (38-126) U/L Total Protein 4.6 L (6.3-8.2) g/dL Albumin 2.6 L (3.5-5.0) g/dL HDL Cholesterol 29 L (40-60) mg/dL Microbiology - Last 24 Hours (Table) 06/14/20 20:17 Blood Culture - Preliminary Blood No Growth after 24 hours Assessment and Plan (1) Lower GI bleeding Narrative/Plan: 64-year-old male with multiple medical comorbidities including recurrent episode s of abdominal pain with rectal bleeding treated for presumed ischemic colitis (although biopsies taken at those times negative for findings consistent with ischemic colitis) presented back to the hospital with abdominal pain in the lower abdomen and blood per rectum. Computed tomography scan performed in evaluation showed a dilated fluid-filled small bowel with suggestion of possible ileus versus small bowel obstruction. No nausea or vomiting at this time and the patient has been seen by the surgical service. Patient currently on antibiotic therapy and did have a leukocytosis of 19.7 on presentation with a lactic acidosis of 3.4. Stool testing was positive for occult blood. Evaluation of the colon in 2014 was suggestive of possible sigmoid colitis however biopsies were negative at that time, he had a further episode in 06/2016 with a normal-appearing colon and terminal ileum with biopsies also negative at that time. In spite of this, given patient's presentation and history of t obacco abuse concern is for ischemic colitis, currently patient may have ileus versus bowel obstruction secondary to the colitis and is being treated conservatively at this time. CT angiography of the abdomen significant for improving small bowel dilated dictation, mild to moderate atherosclerosisand colitis from the transverse to rectum Current Visit: Yes Status: Acute Code(s): K92.2 - GASTROINTESTINAL HEMORRHAGE, UNSPECIFIED SNOMED Code(s): 20467081 (2) Small bowel obstruction Current Visit: Yes Status: Acute Code(s): K56.609 - UNSP INTESTNL OBST, UNSP TO PARTIAL VERSUS COMPLETE OBST SNOMED Code(s): 120319069 (3) Abdominal pain Current Visit: No Status: Acute Code(s): R10.9 - UNSPECIFIED ABDOMINAL PAIN SNOMED Code(s): 70347434 Plan: Supportive care okay for liquid diet Continue broad-spectrum antibiotic therapy, currently on ceftriaxone and Flagyl Surgical service consulted vascular surgery has seen the patient with no plans for intervention at this time No plans for endoscopic evaluation at this time Continue optimization of blood pressure CT angiography of the abdomen reviewed Extensive discussion with the patient and have recommended complete abstinence of tobacco products Thank you for allowing us to participate in the care of the patient we will continue to follow
[2020-06-17] MEDS: metroNIDAZOLE-NS PMX 500 MG in SALINE 1 100ML.BAG IVPB SCH ×3 (02:39→20:30)
[2020-06-17] MEDS: HYDROmorphone PCA 10 MG/50 ML BAG IV PRN ×2 (02:40→09:44)
[2020-06-17] MEDS: DEXTROSE 5%-0.45% NACL 1,000 ML IV SCH ×2 (04:53→18:03)
[2020-06-17 07:40] LABS: HCT 34.5 % (39.0-53.0); HGB 11.4 gm/dL (13.0-17.5); MCH 31.5 pg (25.0-35.0); MCHC 32.9 g/dL (31.0-37.0); MCV 95.6 fL (80.0-100.0); Mean Platelet Volume 7.9; Platelet Count 179 k/uL (150-450); RBC 3.61 m/uL (4.30-5.90); RDW 12.9 % (11.5-15.5); WBC 9.7 k/uL (3.8-10.6)
[2020-06-17 07:46] LABS: ALT 12 U/L (4-49); AST 26 U/L (17-59); African American GFR (CKD) >90 (>60 ml/min/1.73 sqM); Albumin 2.6 g/dL (3.5-5.0); Alkaline Phosphatase 171 U/L (38-126); Anion Gap 4 mmol/L; Blood Urea Nitrogen 16 mg/dL (9-20); Calcium 7.6 mg/dL (8.4-10.2); Carbon Dioxide 29 mmol/L (22-30); Chloride 106 mmol/L (98-107); Glucose 101 mg/dL (74-99); Magnesium 2.2 mg/dL (1.6-2.3); Non-African American GFR(CKD) >90 (>60 ml/min/1.73 sqM); Phosphorus 1.6 mg/dL (2.5-4.5); Potassium 3.1 mmol/L (3.5-5.1); Sodium 139 mmol/L (137-145); Total Bilirubin 0.4 mg/dL (0.2-1.3); Total Protein 4.4 g/dL (6.3-8.2)
[2020-06-17] MEDS: POTASSIUM CHLORIDE ER 20 MEQ TAB.ER PO SCH ×2 (09:43→13:36)
[2020-06-17] MEDS: PANTOPRAZOLE 40 MG/10 ML VIAL IVP SCH (09:46)
--- NOTE | 2020-06-17 11:38 | P.PN ---
Subjective Progress Note Date: 06/17/20 Principal diagnosis: abdominal pain Patient is a 64-year-old male with a history of recurrent colitis (possibly ischemic), tobacco abuse, COPD, and hypertension who presented with abdominal pain and hematochezia. In the ER he underwent an extensive evaluation. On arri isabella he was hypotensive with a blood pressure of 81/58. Initial laboratory analysis showed a white blood cell count of 19.7, hemoglobin 13.7, troponin of 0.054, urinalysis negative, fecal occult blood positive. He underwent a CT abdomen and pelvis which demonstrated dilated fluid-filled small bowel loops suggestive of obstruction with possible ileus, pneumatosis, intestinalis cannot be confirmed. He had a central line placed. He was started on IVF and admitted to the ICU. He was given Rocephin and flagly and kept NPO. He continued to have abdominal pain overnight, but did not have any adiditional episode of bright red blood in his stool or from his rectum. 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 GI and general surgery were consulted. General surgery recommended IV antibiotics, supportive care, vascular consult. Vascular felt as though there was no need for urgent vascular intervention and this episode likely with combination of hypotension and dehydration. GI felt this was likely medical billing representative of ischemic colitis and agreed with current plan of care. He was continued on IVF, ABX, and NPO status. He was started on a dilaudid [employer] to help optimize pain control, he has been on buprenorphine at home but stopped 3 days prior to admission. Patient seen and examined at bedside. Pain is slightly better today, no nausea but does have some when he eats. had BM all liquid but no blood. No chest pain or shortness of breath. General: non toxic, mild distress, appears older stated age, cacexia, temporal wasting Derm: warm, dry Head: atraumatic, normocephalic, symmetric Eyes: EOMI, no lid lag, anicteric sclera Mouth: no lip lesion, mucus membranes moist Cardiovascular: S1S2 reg, no murmur, positive posterior tibial pulse bilateral, Lungs: CTA bilateral, no rhonchi, no rales , no accessory muscle use Abdominal: soft, +tender to palpation LLQ, no guarding, no appreciable organo megaly Ext: no gross muscle atrophy, no edema, no contractures Neuro: CN II-XI grossly intact, no focal neuro deficits Psych: Alert, oriented, appropriate affect Acute transvers and descending colon likely ischemic with sepsis - CTA abdomen and pelvis moderate atherosclerotic calcification infrarental aorta, severe stenosis right internal iliac, moderate right external, moderate to severe left external iliac artery - GI and gen surgery recs appreciated - vascular recs appreciated - flagyl and rocephin - IV fluids - clear liquids advance to full liquid as tolerated - Pain control, continue [employer] to limit bolus dosing of dilaudid with hx of opiate dependency - antiemetics - needs complete cessation of tobacco products 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 Acute blood loess anemia - follow CBC - Await Iron studies - no indications for transfusion at this time Elevated troponin - due to demand ischemia - flat and not reflective of acute coronary syndrome COPD without exacerabtion - prn bronchodilators Hx HTN - was hypotensive - hold lisinopril - follow blood presssures, had one elevated but all other low normal off meds Severe cachexia BMI 14.6 - dietitation recs - start ensure Mild PAD - vascular recs appreciated Hypokalemia and hypophosphatemia - replace and recheck in AM Tobacco abuse - cessation Lactic acidosis, resolved DVT prophylaxis: SCDs Discussed with: Patient, nursing, Anticipated discharge: 2-[address]: home A total of 45 minutes was spent on the care of this complex patient more than 50% of the time was spent in counseling and care coordination. Objective - Vital Signs Vital signs: Vital Signs Temp 97.6 F 06/17/20 08:00 Pulse 55 L 06/17/20 08:00 Resp 18 06/17/20 03:50 BP 151/78 06/17/20 08:00 Pulse Ox 96 06/17/20 08:00 Intake & Output 06/16/20 06/17/20 06/17/20 18:59 06:59 18:59 Intake Total 1925 650 50 Output Total 1550 200 Balance 375 450 50 Weight 54.4 kg Intake: Intake, IV Titration 995 650 50 Amount Dextrose 5%-0.45% NaCl 1, 300 450 000 ml @ 75 mls/hr IV . [id number] [facility] Rx#:[id number] Sodium Phosphate 10 mmol 125 In Sodium Chloride 0.9% 250 ml @ 125 mls/hr IVPB Q2H [facility] Rx#:[id number] cefTRIAXone 1 gm In 100 100 50 Sodium Chloride 0.9% 50 ml @ 100 mls/hr IVPB Q24HR [facility] Rx#:[id number] metroNIDAZOLE-NS PMX 500 100 100 mg In Saline 1 100ml.bag @ 100 mls/hr IVPB Q8H [facility] Rx#:[id number] Oral 1300 Output: Urine 1550 200 Other: Voiding Method Indwelling Catheter Urinal # Voids 1 # Bowel Movements 1 1 - Labs CBC & Chem 7: 06/17/20 05:52 06/17/20 05:52 Labs: Abnormal Lab Results - Last 24 Hours (Table) 06/17/20 06/17/20 Range/Units 05:52 05:52 RBC 3.61 L (4.30-5.90) m/uL Hgb 11.4 L (13.0-17.5) gm/dL Hct 34.5 L (39.0-53.0) % Potassium 3.1 L (3.5-5.1) mmol/L Creatinine 0.53 L (0.66-1.25) mg/dL Glucose 101 H (74-99) mg/dL Calcium 7.6 L (8.4-10.2) mg/dL Phosphorus 1.6 L (2.5-4.5) mg/dL Alkaline Phosphatase 171 H (38-126) U/L Total Protein 4.4 L (6.3-8.2) g/dL Albumin 2.6 L (3.5-5.0) g/dL Microbiology - Last 24 Hours (Table) 06/14/20 20:17 Blood Culture - Preliminary Blood No Growth after 48 hours
--- NOTE | 2020-06-17 12:29 | P.PN ---
Subjective Progress Note Date: 06/17/20 Principal diagnosis: Abdominal pain, colitis The patient was seen and examined at the bedside. He reports his pain has improved. Denies any chest pain or shortness of breathing. Denies any leg pain or difficulty with walking. Still having some nausea, but no vomiting. He did have a bowel movement today which he denies any blood in stool. He is tolerating small amounts of food. Objective - Vital Signs Vital signs: Vital Signs Temp 97.6 F 06/17/20 08:00 Pulse 55 L 06/17/20 08:00 Resp 18 06/17/20 03:50 BP 151/78 06/17/20 08:00 Pulse Ox 96 06/17/20 08:00 Intake & Output 06/16/20 06/17/20 06/17/20 18:59 06:59 18:59 Intake Total 1925 650 100 Output Total 1550 200 Balance 375 450 100 Weight 54.4 kg Intake: Intake, IV Titration 625 650 50 Amount Dextrose 5%-0.45% NaCl 1, 300 450 000 ml @ 75 mls/hr IV . [id number] [facility] Rx#:[id number] Sodium Phosphate 10 mmol 125 In Sodium Chloride 0.9% 250 ml @ 125 mls/hr IVPB Q2H [facility] Rx#:[id number] cefTRIAXone 1 gm In 100 100 50 Sodium Chloride 0.9% 50 ml @ 100 mls/hr IVPB Q24HR [facility] Rx#:[id number] metroNIDAZOLE-NS PMX 500 100 100 mg In Saline 1 100ml.bag @ 100 mls/hr IVPB Q8H [facility] Rx#:[id number] Oral 1300 50 Output: Urine 1550 200 Other: Voiding Method Indwelling Catheter Urinal # Voids 1 # Bowel Movements 1 1 - Exam General appearance: The patient is alert, oriented, in no acute distress. HET: Head is normocephalic and atraumatic. Neck: Supple without lymphadenopathy. Trachea midline. Heart: S1 S2. Regular rate and rhythm. Lungs: No crackles or wheezes are heard. Abdomen: Soft, nontender, nondistended with bowel sounds. No rigidity or guarding. Extremities: Normal skin color and turgor. No cyanosis, rash, ulceration, clubbing, or edema. Neurological: No focal deficits. Strength and sensation are grossly intact. - Labs CBC & Chem 7: 06/17/20 05:52 06/17/20 05:52 Labs: Abnormal Lab Results - Last 24 Hours (Table) 06/17/20 06/17/20 Range/Units 05:52 05:52 RBC 3.61 L (4.30-5.90) m/uL Hgb 11.4 L (13.0-17.5) gm/dL Hct 34.5 L (39.0-53.0) % Potassium 3.1 L (3.5-5.1) mmol/L Creatinine 0.53 L (0.66-1.25) mg/dL Glucose 101 H (74-99) mg/dL Calcium 7.6 L (8.4-10.2) mg/dL Phosphorus 1.6 L (2.5-4.5) mg/dL Alkaline Phosphatase 171 H (38-126) U/L Total Protein 4.4 L (6.3-8.2) g/dL Albumin 2.6 L (3.5-5.0) g/dL Microbiology - Last 24 Hours (Table) 06/14/20 20:17 Blood Culture - Preliminary Blood No Growth after 48 hours Assessment and Plan Assessment: #1 abdominal pain #2 colitis, likely ischemic #3 no evidence of mesenteric ischemia acute or chronic Plan: Given the likelihood that his hypotension and dehydration likely cause ischemic colitis, we will sign off at this time. There are no indications for any vascular surgical intervention at this time. Please don't hesitate to contact us with any questions. The above dictated assessment and findings were discussed with Dr. Aviles. The impression and plan of care have been directed as dictated.
[2020-06-17 12:46] LABS: Iron 32 ug/dL (65-175); Total Iron Binding Capacity 237 ug/dL (228-460)
[2020-06-17 12:54] LABS: Ferritin 123.6 ng/mL (22.0-322.0)
[2020-06-17] MEDS: SODIUM PHOSPHATE 10 MMOL in SODIUM CHLORIDE 0.9% 100 ML IVPB SCH ×3 (13:33→18:03)
--- NOTE | 2020-06-17 16:10 | P.PN ---
Subjective Progress Note Date: 06/17/20 Principal diagnosis: Abdominal pain, colitis Patient was seen and examined at bedside. He appears comfortable, denies any acute changes through the night. He states he had a bowel movement today without any blood, becoming more formed. He states his abdominal pain has improved however still having some nausea, no vomiting. Objective - Vital Signs Vital signs: Vital Signs Temp 97.6 F 06/17/20 08:00 Pulse 55 L 06/17/20 08:00 Resp 18 06/17/20 03:50 BP 151/78 06/17/20 08:00 Pulse Ox 96 06/17/20 08:00 Intake & Output 06/16/20 06/17/20 06/17/20 18:59 06:59 18:59 Intake Total 1925 650 100 Output Total 1550 200 Balance 375 450 100 Weight 54.4 kg Intake: Intake, IV Titration 625 650 50 Amount Dextrose 5%-0.45% NaCl 1, 300 450 000 ml @ 75 mls/hr IV . [id number] [facility] Rx#:[id number] Sodium Phosphate 10 mmol 125 In Sodium Chloride 0.9% 250 ml @ 125 mls/hr IVPB Q2H [facility] Rx#:[id number] cefTRIAXone 1 gm In 100 100 50 Sodium Chloride 0.9% 50 ml @ 100 mls/hr IVPB Q24HR [facility] Rx#:[id number] metroNIDAZOLE-NS PMX 500 100 100 mg In Saline 1 100ml.bag @ 100 mls/hr IVPB Q8H [facility] Rx#:[id number] Oral 1300 50 Output: Urine 1550 200 Other: Voiding Method Indwelling Catheter Urinal # Voids 1 # Bowel Movements 1 1 - Exam General appearance: The patient is alert, oriented, in no acute distress. HET: Head is normocephalic and atraumatic. Neck: Supple without lymphadenopathy. Trachea midline. Heart: S1 S2. Regular rate and rhythm. Lungs: No crackles or wheezes are heard. Abdomen: Soft, mild TTP, nondistended with bowel sounds. No rigidity or guarding. Extremities: Normal skin color and turgor. No cyanosis, rash, ulceration, clubbing, or edema. Neurological: No focal deficits. Strength and sensation are grossly intact. - Labs CBC & Chem 7: 06/17/20 05:52 06/17/20 05:52 Labs: Abnormal Lab Results - Last 24 Hours (Table) 06/17/20 06/17/20 Range/Units 05:52 05:52 RBC 3.61 L (4.30-5.90) m/uL Hgb 11.4 L (13.0-17.5) gm/dL Hct 34.5 L (39.0-53.0) % Potassium 3.1 L (3.5-5.1) mmol/L Creatinine 0.53 L (0.66-1.25) mg/dL Glucose 101 H (74-99) mg/dL Calcium 7.6 L (8.4-10.2) mg/dL Phosphorus 1.6 L (2.5-4.5) mg/dL Iron 32 L (65-175) ug/dL % Saturation 13.50 L (15.00-50.00) Alkaline Phosphatase 171 H (38-126) U/L Total Protein 4.4 L (6.3-8.2) g/dL Albumin 2.6 L (3.5-5.0) g/dL Microbiology - Last 24 Hours (Table) 06/14/20 20:17 Blood Culture - Preliminary Blood No Growth after 48 hours Assessment and Plan Assessment: (1) Lower GI bleeding Narrative/Plan: 64-year-old male with multiple medical comorbidities including recurrent episodes of abdominal pain with rectal bleeding treated for presumed ischemic colitis (although biopsies taken at those times negative for findings consistent with ischemic colitis) presented back to the hospital with abdominal pain in the lower abdomen and blood per rectum. Computed tomography scan performed in evaluation showed a dilated fluid-filled small bowel with suggestion of possible ileus versus small bowel obstruction. No nausea or vomiting at this time and the patient has been seen by the surgical service. Patient currently on antibiotic therapy and did have a leukocytosis of 19.7 on presentation with a lactic acidosis of 3.4. Stool testing was positive for occult blood. Evaluation of the colon in 2014 was suggestive of possible sigmoid colitis however biopsies were negative at that time, he had a further episode in 06/2016 with a normal-appearing colon and terminal ileum with biopsies also negative at that time. In spite of this, given patient's presentation and history of tobacco abuse concern is for ischemic colitis, currently patient may have ileus versus bowel obstruction secondary to the colitis and is being treated conservatively at this time. CT angiography of the abdomen significant for improving small bowel dilated dictation, mild to moderate atherosclerosisand colitis from the transverse to rectum Current Visit: Yes Status: Acute Code(s): K92.2 - GASTROINTESTINAL HEMORRHAGE, UNSPECIFIED SNOMED Code(s): 68680616 (2) Small bowel obstruction Current Visit: Yes Status: Acute Code(s): K56.609 - UNSP INTESTNL OBST, UNSP TO PARTIAL VERSUS COMPLETE OBST SNOMED Code(s): 838205554 (3) Abdominal pain Current Visit: No Status: Acute Code(s): R10.9 - UNSPECIFIED ABDOMINAL PAIN SNOMED Code(s): 49146362 Plan: Supportive care okay for liquid diet Continue broad-spectrum antibiotic therapy, currently on ceftriaxone and Flagyl Surgical service consulted vascular surgery has seen the patient with no plans for intervention at this time No plans for endoscopic evaluation at this time, will follow up outpatient and consider repeat colonoscopy Continue optimization of blood pressure CT angiography of the abdomen reviewed Extensive discussion with the patient and have recommended complete abstinence of tobacco products Thank you for allowing us to participate in the care of the patient we will continue to follow The impression and plan of care has been dictated as directed. Dr. Tita Rodriguez I performed a history and examination of this patient, discussed the same with the dictator. I agree with the dictator's note ,documented as a scribe. Any additional findings or plans will be noted.
[2020-06-17] MEDS: MIRTAZAPINE 45 MG TABLET PO SCH (20:30)
[2020-06-17] MEDS: SENNOSIDES-DOCUSATE SODIUM 1 EACH TAB PO SCH (20:31)
[2020-06-18] MEDS: metroNIDAZOLE-NS PMX 500 MG in SALINE 1 100ML.BAG IVPB SCH ×3 (03:26→19:57)
[2020-06-18] MEDS: DEXTROSE 5%-0.45% NACL 1,000 ML IV SCH ×2 (04:27→17:40)
[2020-06-18 07:07] LABS: HCT 34.6 % (39.0-53.0); HGB 11.4 gm/dL (13.0-17.5); MCH 31.6 pg (25.0-35.0); MCHC 32.9 g/dL (31.0-37.0); Mean Platelet Volume 8.1; Platelet Count 174 k/uL (150-450); RBC 3.61 m/uL (4.30-5.90); WBC 7.6 k/uL (3.8-10.6)
[2020-06-18 07:26] LABS: African American GFR (CKD) >90 (>60 ml/min/1.73 sqM); Anion Gap 3 mmol/L; Blood Urea Nitrogen 10 mg/dL (9-20); Calcium 7.5 mg/dL (8.4-10.2); Carbon Dioxide 31 mmol/L (22-30); Chloride 104 mmol/L (98-107); Glucose 100 mg/dL (74-99); Magnesium 2.1 mg/dL (1.6-2.3); Non-African American GFR(CKD) >90 (>60 ml/min/1.73 sqM); Phosphorus 2.2 mg/dL (2.5-4.5); Potassium 3.1 mmol/L (3.5-5.1); Sodium 138 mmol/L (137-145)
--- NOTE | 2020-06-18 09:07 | P.PN ---
Subjective Progress Note Date: 06/17/20 Principal diagnosis: Patient seen and evaluated. Abdominal pain improved. No acute surgical management. Recommendations per GI. Objective - Vital Signs Vital signs: Vital Signs Temp 97.9 F 06/18/20 04:00 Pulse 60 06/18/20 04:00 Resp 17 06/18/20 04:00 BP 119/78 06/18/20 04:00 Pulse Ox 98 06/18/20 07:35 Intake & Output 06/17/20 06/18/20 06/18/20 18:59 06:59 18:59 Intake Total 460 Output Total 400 Balance 460 -400 Intake: Intake, IV Titration 50 Amount cefTRIAXone 1 gm In 50 Sodium Chloride 0.9% 50 ml @ 100 mls/hr IVPB Q24HR [facility] Rx#:[id number] Oral 410 Output: Urine 400 Other: Voiding Method Urinal # Bowel Movements 3 - Labs CBC & Chem 7: 06/18/20 06:07 06/18/20 06:07 Labs: Abnormal Lab Results - Last 24 Hours (Table) 06/17/20 06/18/20 06/18/20 Range/Units 05:52 06:07 06:07 RBC 3.61 L (4.30-5.90) m/uL Hgb 11.4 L (13.0-17.5) gm/dL Hct 34.6 L (39.0-53.0) % Potassium 3.1 L (3.5-5.1) mmol/L Carbon Dioxide 31 H (22-30) mmol/L Creatinine 0.52 L (0.66-1.25) mg/dL Glucose 100 H (74-99) mg/dL Calcium 7.5 L (8.4-10.2) mg/dL Phosphorus 2.2 L (2.5-4.5) mg/dL Iron 32 L (65-175) ug/dL % Saturation 13.50 L (15.00-50.00) Microbiology - Last 24 Hours (Table) 06/14/20 20:17 Blood Culture - Preliminary Blood No Growth after 72 hours Assessment and Plan (1) COPD (chronic obstructive pulmonary disease) Current Visit: Yes Status: Acute Code(s): J44.9 - CHRONIC OBSTRUCTIVE PULMO NARY DISEASE, UNSPECIFIED SNOMED Code(s): 00057355 (2) Dehydration Current Visit: Yes Status: Acute Code(s): E86.0 - DEHYDRATION SNOMED Code(s): 44581704 (3) Diarrhea Current Visit: Yes Status: Acute Code(s): R19.7 - DIARRHEA, UNSPECIFIED SNOMED Code(s): 25272993 (4) Hypovolemic shock Current Visit: Yes Status: Acute Code(s): R57.1 - HYPOVOLEMIC SHOCK SNOMED Code(s): 32467325 (5) Peripheral vascular disease Current Visit: Yes Status: Acute Code(s): I73.9 - PERIPHERAL VASCULAR DISEASE, UNSPECIFIED SNOMED Code(s): 775862912 (6) Underweight due to inadequate caloric intake Current Visit: Yes Status: Acute Code(s): R63.6 - UNDERWEIGHT SNOMED Code(s): 848139203 (7) Intractable nausea and vomiting Current Visit: No Status: Acute Code(s): R11.2 - NAUSEA WITH VOMITING, UNSPECIFIED SNOMED Code(s): 468155495
--- NOTE | 2020-06-18 10:15 | XR ---
EXAMINATION TYPE: XR abdomen 1V DATE OF EXAM: 06/18/2020 10:08 AM CLINICAL HISTORY: Abdominal pain. TECHNIQUE: Two Upright KUB images of the abdomen are obtained. COMPARISON: CTA abdomen 3 days ago. FINDINGS: Persistent scattered gas prominent small and large bowel loops with scattered air-fluid lev els. In some nondistended gas-filled bowel loops in the left lower quadrant and pelvis redemonstrated . Lung bases remain clear. No pneumoperitoneum. Mild to moderate narrowing of both hip joints redemon strated. IMPRESSION: Overall nonspecific bowel gas pattern remains present. No significant interval change
[2020-06-18] MEDS: PANTOPRAZOLE 40 MG/10 ML VIAL IVP SCH (10:56)
[2020-06-18] MEDS: POTASSIUM CHLORIDE 10 MEQ in WATER FOR INJECTION 1 100ML.BAG IVPB SCH ×4 (10:57→17:41)
--- NOTE | 2020-06-18 13:52 | P.PN ---
Subjective Progress Note Date: 06/18/20 Principal diagnosis: Abdominal pain Patient seen and examined at chair side. She continues to have abdominal discomfort, nausea, and vomiting. Patient denies chest pain shortness of breath Patient is a 64-year-old male with a history of recurrent colitis (possibly i schemic), tobacco abuse, COPD, and hypertension who presented with abdominal pain and hematochezia. In the ER he underwent an extensive evaluation. On arrival he was hypotensive with a blood pressure of 81/58. Initial laboratory analysis showed a white blood cell count of 19.7, hemoglobin 13.7, troponin of 0.054, urinalysis negative, fecal occult blood positive. He underwent a CT abdomen and pelvis which demonstrated dilated fluid-filled small bowel loops suggestive of obstruction with possible ileus, pneumatosis, intestinalis cannot be confirmed. He had a central line placed. He was started on IVF and admitted to the ICU. He was given Rocephin and flagly and kept NPO. He continued to have abdominal pain overnight, but did not have any adiditional episode of bright red blood in his stool or from his rectum. 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 GI and general surgery were consulted. General surgery recommended IV antibiotics, supportive care, vascular consult. Vascular felt as though there was no need for urgent vascular intervention and this episode likely with combination of hypotension and dehydration. GI felt this was likely service support representative of ischemic colitis and agreed with current plan of care. He was continued on IVF, ABX, and NPO status. He was started on a dilaudid ENTRY SPECIALIST to help optimize pain control, he has been on buprenorphine at home but stopped 3 days prior to admission. Objective - Vital Signs Vital signs: Vital Signs Temp 98.0 F 06/18/20 08:00 Pulse 67 06/18/20 08:00 Resp 17 06/18/20 04:00 BP 144/91 06/18/20 08:00 Pulse Ox 97 06/18/20 08:00 Intake & Output 06/17/20 06/18/20 06/18/20 18:59 06:59 18:59 Intake Total 460 Output Total 400 Balance 460 -400 Intake: Intake, IV Titration 50 Amount cefTRIAXone 1 gm In 50 Sodium Chloride 0.9% 50 ml @ 100 mls/hr IVPB Q24HR [facility] Rx#:[id number] Oral 410 Output: Urine 400 Other: Voiding Method Urinal # Bowel Movements 3 - Exam General: [non toxic], [no distress], [appears at stated age] Derm: [warm], [dry] Head: [atraumatic], [normocephalic], [symmetric] Eyes: [EOMI], [no lid lag], [anicteric sclera] Mouth: [no lip lesion], [mucus membranes moist] Cardiovascular: [S1S2 reg], [no murmur], [positive posterior tibial pulse bilateral], Lungs: [CTA bilateral], [no rhonchi, no rales] , [no accessory muscle use] Abdominal: [soft], [ tender to palpation], [no guarding], [no appreciable organomegaly] Ext: [no gross muscle atrophy], [no edema], [no contractures] Neuro: [ CN II-XI grossly intact], [no focal neuro deficits] Psych: [Alert], [oriented], [appropriate affect] - Labs CBC & Chem 7: 06/18/20 06:07 06/18/20 06:07 Labs: Abnormal Lab Results - Last 24 Hours (Table) 06/18/20 06/18/20 Range/Units 06:07 06:07 RBC 3.61 L (4.30-5.90) m/uL Hgb 11.4 L (13.0-17.5) gm/dL Hct 34.6 L (39.0-53.0) % Potassium 3.1 L (3.5-5.1) mmol/L Carbon Dioxide 31 H (22-30) mmol/L Creatinine 0.52 L (0.66-1.25) mg/dL Glucose 100 H (74-99) mg/dL Calcium 7.5 L (8.4-10.2) mg/dL Phosphorus 2.2 L (2.5-4.5) mg/dL Microbiology - Last 24 Hours (Table) 06/14/20 20:17 Blood Culture - Preliminary Blood No Growth after 72 hours Assessment and Plan Assessment: Acute transverse and descending colon likely ischemic with sepsis - CTA abdomen and pelvis moderate atherosclerotic calcification infrarental aorta, severe stenosis right internal iliac, moderate right external, moderate to severe left external iliac artery - GI and gen surgery recs appreciated - vascular recs appreciated - flagyl and rocephin - IV fluids - clear liquids advance to full liquid as tolerated - Pain control, continue ENTRY SPECIALIST to limit bolus dosing of dilaudid with hx of opiate dependency - antiemetics - needs complete cessation of tobacco products Hypokalemia -KCl IV piggyback 40 mEq given Opiate dependency in recovery - continue ENTRY SPECIALIST for pain control - plan on resuming buprenorphine at home, is aware he will need a time period between dilaudid and restarting buprenorpine or he will have a participated withdrawal. Acute blood loess anemia - follow CBC - Await Iron studies - no indications for transfusion at this time Elevated troponin - due to demand ischemia - flat and not reflective of acute coronary syndrome COPD without exacerabtion - prn bronchodilators Hx HTN - was hypotensive - hold lisinopril - follow blood presssures, had one elevated but all other low normal off meds Severe cachexia BMI 14.6 - dietitation recs - start ensure Mild PAD - vascular recs appreciated Tobacco abuse - cessation Lactic acidosis, resolved A.m. labs DVT prophylaxis: SCDs Discussed with: Patient, nursing, Anticipated discharge: 2-[address]: home Time with Patient: Greater than 30
[2020-06-18] MEDS: lisinopriL 5 MG TAB PO SCH (14:48)
[2020-06-18 14:56] VITALS: BMI 32.9
--- NOTE | 2020-06-18 15:14 | P.PN ---
Subjective Progress Note Date: 06/18/20 CHIEF COMPLAINT: Abdominal pain HISTORY OF PRESENT ILLNESS: Patient seen and examined with Dr. Dozier. Patient is still reporting abdominal discomfort with nausea. He's currently on a clear liquid diet which will be advanced to full speed. He is still reporting diarrhea. Abdominal x-ray reviewed by Dr. Dozier. Abdominal x-ray report states overall nonspecific bowel gas pattern remains present. No significant interval change. Patient is afebrile. WBC 7.6 PHYSICAL EXAM: VITAL SIGNS: Reviewed GENERAL: Well-developed in no acute distress. HEENT: No sclera icterus. Extraocular movements grossly intact. Moist buccal mucosa. Head is atraumatic, normocephalic. Hears conversational speech. No nasal drainage. NECK: Supple without lymphadenopathy. CHEST: Non-labored respirations and equal bilateral excursions. CARDIOVASCULAR: Palpable 2+ radial pulses. ABDOMEN: Soft. Nondistended. MUSCULOSKELETAL: No clubbing or cyanosis. NEUROLOGIC: No focal or lateralizing signs. Cranial nerves II through XII grossly intact. PSYCH: Appropriate affect. Alert and oriented to person, place and time. SKIN: Well perfused. Good skin turgor. ASSESSMENT: 1. Acute on chronic abdominal pain likely secondary to chronic ischemia with history of PVOD 2. Hypovolemic shock due to dehydration, severe PLAN: 1. Continue conservative management 2. No acute surgical intervention needed at this time 3. Advance diet to full liquid diet and then as tolerated 4. Check COVID testing due to patient's diarrhea 5. Okay from surgical standpoint for discharge. 6. Recommend that patient follows up outpatient with GI service for outpatient management of abdominal pain Physician Accountant Bookkeeper note has been reviewed by physician. Signing provider agrees with the documented findings, assessment, and plan of care. Objective - Vital Signs Vital signs: Vital Signs Temp 98.0 F 06/18/20 08:00 Pulse 67 06/18/20 08:00 Resp 17 06/18/20 04:00 BP 144/91 06/18/20 08:00 Pulse Ox 97 06/18/20 08:00 Intake & Output 06/17/20 06/18/20 06/18/20 18:59 06:59 18:59 Intake Total 460 200 Output Total 400 Balance 460 -400 200 Weight 122.8 kg Intake: Intake, IV Titration 50 Amount cefTRIAXone 1 gm In 50 Sodium Chloride 0.9% 50 ml @ 100 mls/hr IVPB Q24HR [facility] Rx#:[id number] Oral 410 200 Output: Urine 400 Other: Voiding Method Urinal # Bowel Movements 3 - Labs CBC & Chem 7: 06/18/20 06:07 06/18/20 06:07 Labs: Abnormal Lab Results - Last 24 Hours (Table) 06/18/20 06/18/20 Range/Units 06:07 06:07 RBC 3.61 L (4.30-5.90) m/uL Hgb 11.4 L (13.0-17.5) gm/dL Hct 34.6 L (39.0-53.0) % Potassium 3.1 L (3.5-5.1) mmol/L Carbon Dioxide 31 H (22-30) mmol/L Creatinine 0.52 L (0.66-1.25) mg/dL Glucose 100 H (74-99) mg/dL Calcium 7.5 L (8.4-10.2) mg/dL Phosphorus 2.2 L (2.5-4.5) mg/dL Microbiology - Last 24 Hours (Table) 06/14/20 20:17 Blood Culture - Preliminary Blood No Growth after 72 hours
--- NOTE | 2020-06-18 15:41 | CDI ---
Documentation Clarification Form Date: 06/17/2020 01:40:00 PM From: Lillian Pino RN, CCDS Admit Date: 06/14/2020 07:51:00 PM Patient Name: Uvaldo Bone Visit Number: [id number] Discharge Date: ATTENTION: The Clinical Documentation Specialists (CDI) and [facility] Coding Staff appreciate your assistance in clarifying documentation. Please respond to the clarification below the line at the bottom and electronically sign. The CDI & [facility] Coding staff will review the response and follow-up if needed. Please note: Queries are made part of the Legal Health Record. If you have any questions, please contact the author of this message via ITS. Dr. Tita Hunter Severe cachexia BMI 14.6 is documented in the progress notes on 06/15 and continues in your subsequent progress notes. 06/15 Surgery progress note: Underweight due to inadequate calorie intake History/Risk Factors: Recurrent colitis, Hypertension, COPD, Current every day smoker Clinical Indicators: 38-[id number]-male who present on 06/14 with complaints of abdominal discomfort, nausea, and vomiting. He has a history of recurrent colitis (possibly ischemic) He had a CTA of abdomen and pelvis done on 06/15 which shows severe stenosis of the left internal iliac arteries, but no verified occlusion. Progressive moderate to severe colonic wall thickening consistent with moderate to severe colitis. General appearance: Well developed cachetic (severe per on going progress notes) Labs 06/17 Total Protein 4.4, Albumin 2.6, Calcium 7.6 Phosphorus 1.6, iron 32 Current BMI: 14.6 (<18.5 per dietary consult Insufficient energy intake: Poor 25-50 % likely weight loss associated with decreased caloric intake. 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 Mild Protein-Calorie Malnutrition Moderate Protein-Calorie Malnutrition Severe Protein-Calorie Malnutrition Other condition, please specify Unable to determine (Last Revision: April 2019) Other condition- low intake this hospital stay due to colitis, no recent weight loss or diet intolerance at home. MTDD
--- NOTE | 2020-06-18 16:38 | P.PN ---
Subjective Progress Note Date: 06/18/20 Principal diagnosis: Abdominal pain, colitis The patient seen and examined at the bedside. He is sitting up and appears comfortable. He states his abdominal pain is a little better today. His oral intake appears to be somewhat poor as the majority of his breakfast tray has be en untouched. Patient states he has a decreased appetite. He states he had another small bowel movement today and is passing flatus. He does state he still has some mild nausea, however no vomiting. Objective - Vital Signs Vital signs: Vital Signs Temp 97.9 F 06/18/20 04:00 Pulse 60 06/18/20 04:00 Resp 17 06/18/20 04:00 BP 119/78 06/18/20 04:00 Pulse Ox 98 06/18/20 07:35 Intake & Output 06/17/20 06/18/20 06/18/20 18:59 06:59 18:59 Intake Total 460 Output Total 400 Balance 460 -400 Intake: Intake, IV Titration 50 Amount cefTRIAXone 1 gm In 50 Sodium Chloride 0.9% 50 ml @ 100 mls/hr IVPB Q24HR [facility] Rx#:[id number] Oral 410 Output: Urine 400 Other: Voiding Method Urinal # Bowel Movements 3 - Exam General appearance: The patient is alert, oriented, in no acute distress. HET: Head is normocephalic and atraumatic. Neck: Supple without lymphadenopathy. Trachea midline. Heart: S1 S2. Regular rate and rhythm. Lungs: No crackles or wheezes are heard. Abdomen: Soft, mild TTP, nondistended with bowel sounds. No rigidity or guarding. Extremities: Normal skin color and turgor. No cyanosis, rash, ulceration, clubbing, or edema. Neurological: No focal deficits. Strength and sensation are grossly intact. - Labs CBC & Chem 7: 06/18/20 06:07 06/18/20 06:07 Labs: Abnormal Lab Results - Last 24 Hours (Table) 06/17/20 06/18/20 06/18/20 Range/Units 05:52 06:07 06:07 RBC 3.61 L (4.30-5.90) m/uL Hgb 11.4 L (13.0-17.5) gm/dL Hct 34.6 L (39.0-53.0) % Potassium 3.1 L (3.5-5.1) mmol/L Carbon Dioxide 31 H (22-30) mmol/L Creatinine 0.52 L (0.66-1.25) mg/dL Glucose 100 H (74-99) mg/dL Calcium 7.5 L (8.4-10.2) mg/dL Phosphorus 2.2 L (2.5-4.5) mg/dL Iron 32 L (65-175) ug/dL % Saturation 13.50 L (15.00-50.00) Microbiology - Last 24 Hours (Table) 06/14/20 20:17 Blood Culture - Preliminary Blood No Growth after 72 hours Assessment and Plan Assessment: (1) Lower GI bleeding Narrative/Plan: 64-year-old male with multiple medical comorbidities including recurrent episodes of abdominal pain with rectal bleeding treated for presumed ischemic colitis (although biopsies taken at those times negative for findings consistent with ischemic colitis) presented back to the hospital with abdominal pain in the lower abdomen and blood per rectum. Computed tomography scan performed in evaluation showed a dilated fluid-filled small bowel with suggestion of possible ileus versus small bowel obstruction. No nausea or vomiting at this time and the patient has been seen by the surgical service. Patient currently on antibiotic therapy and did have a leukocytosis of 19.7 on presentation with a lactic acidosis of 3.4. Stool testing was positive for occult blood. Evaluation of the colon in 2014 was suggestive of possible sigmoid colitis however biopsies were negative at that time, he had a further episode in 06/2016 with a normal-appearing colon and terminal ileum with biopsies also negative at that time. In spite of this, given patient's presentation and history of tobacco abuse concern is for ischemic colitis, currently patient may have ileus versus bowel obstruction secondary to the colitis and is being treated conservatively at this time. CT angiography of the abdomen significant for improving small bowel dilated dictation, mild to moderate atherosclerosisand colitis from the transverse to rectum Current Visit: Yes Status: Acute Code(s): K92.2 - GASTROINTESTINAL HEMORRHAGE, UNSPECIFIED SNOMED Code(s): 11360311 (2) Small bowel obstruction Current Visit: Yes Status: Acute Code(s): K56.609 - UNSP INTESTNL OBST, UNSP TO PARTIAL VERSUS COMPLETE OBST SNOMED Code(s): 339824116 (3) Abdominal pain Current Visit: No Status: Acute Code(s): R10.9 - UNSPECIFIED ABDOMINAL PAIN SNOMED Code(s): 47960722 Plan: Supportive care okay for liquid diet, consider advancing him to a full liquid diet if okay with surgical services Continue broad-spectrum antibiotic therapy, currently on ceftriaxone and Flagyl Surgical service consulted vascular surgery has seen the patient with no plans for intervention at this time No plans for endoscopic evaluation at this time, will follow up outpatient and consider repeat colonoscopy Continue optimization of blood pressure CT angiography of the abdomen reviewed Extensive discussion with the patient and have recommended complete abstinence of tobacco products Thank you for allowing us to participate in the care of the patient we will continue to follow The impression and plan of care has been dictated as directed. Dr. Tita Rodriguez I performed a history and examination of this patient, discussed the same with the dictator. I agree with the dictator's note ,documented as a scribe. Any additional findings or plans will be noted.
[2020-06-18 18:52] LABS: African American GFR (CKD) >90 (>60 ml/min/1.73 sqM); Anion Gap 4 mmol/L; Blood Urea Nitrogen 10 mg/dL (9-20); Calcium 7.5 mg/dL (8.4-10.2); Carbon Dioxide 29 mmol/L (22-30); Chloride 102 mmol/L (98-107); Glucose 118 mg/dL (74-99); Non-African American GFR(CKD) >90 (>60 ml/min/1.73 sqM); Potassium 2.8 mmol/L (3.5-5.1); Sodium 135 mmol/L (137-145)
[2020-06-18] MEDS: SENNOSIDES-DOCUSATE SODIUM 1 EACH TAB PO SCH (19:53)
[2020-06-18] MEDS: MIRTAZAPINE 45 MG TABLET PO SCH (19:57)
[2020-06-18] MEDS: POTASSIUM CHLORIDE ER 20 MEQ TAB.ER PO SCH ×2 (19:57→23:58)
[2020-06-18] MEDS: HYDROmorphone PCA 10 MG/50 ML BAG IV PRN (23:50)
[2020-06-19] MEDS: metroNIDAZOLE-NS PMX 500 MG in SALINE 1 100ML.BAG IVPB SCH ×3 (03:15→18:17)
[2020-06-19] MEDS: DEXTROSE 5%-0.45% NACL 1,000 ML IV SCH ×3 (06:55→18:25)
[2020-06-19 07:31] LABS: ALT 15 U/L (4-49); AST 34 U/L (17-59); African American GFR (CKD) >90 (>60 ml/min/1.73 sqM); Albumin 2.6 g/dL (3.5-5.0); Alkaline Phosphatase 138 U/L (38-126); Anion Gap 3 mmol/L; Blood Urea Nitrogen 7 mg/dL (9-20); Calcium 7.6 mg/dL (8.4-10.2); Carbon Dioxide 29 mmol/L (22-30); Chloride 105 mmol/L (98-107); Glucose 101 mg/dL (74-99); Magnesium 2.1 mg/dL (1.6-2.3); Non-African American GFR(CKD) >90 (>60 ml/min/1.73 sqM); Potassium 3.7 mmol/L (3.5-5.1); Sodium 137 mmol/L (137-145); Total Bilirubin 0.5 mg/dL (0.2-1.3); Total Protein 4.5 g/dL (6.3-8.2)
[2020-06-19 07:58] LABS: HCT 39.2 % (39.0-53.0); HGB 12.5 gm/dL (13.0-17.5); MCH 30.3 pg (25.0-35.0); MCHC 31.8 g/dL (31.0-37.0); MCV 95.2 fL (80.0-100.0); Platelet Count 207 k/uL (150-450); RBC 4.12 m/uL (4.30-5.90); RDW 12.9 % (11.5-15.5); WBC 10.6 k/uL (3.8-10.6)
[2020-06-19] MEDS ORDERED: POTASSIUM CHLORIDE 20 MEQ in WATER FOR INJECTION 1 100ML.BAG IVPB SCH (08:00)
[2020-06-19 08:49] LABS: Band Neutrophils % 1 %; Eosinophils # (M) 0.53 k/uL (0-0.7); Lymphocytes # (M) 0.85 k/uL (1.0-4.8); Monocytes # (M) 1.91 k/uL (0-1.0); Neutrophils % (M) 68 %; Nucleated Red Blood Cells 0 /100 WBC (0-0); Total Cells Counted 100
[2020-06-19 08:50] LABS: Anisocytosis (M) Present; Poikilocytosis (M) Present
[2020-06-19] MEDS: lisinopriL 5 MG TAB PO SCH (09:47)
[2020-06-19] MEDS: PANTOPRAZOLE 40 MG/10 ML VIAL IVP SCH (09:47)
--- NOTE | 2020-06-19 10:11 | P.PN ---
Subjective Progress Note Date: 06/19/20 Principal diagnosis: Abdominal pain Patient seen and examined at bedside. Patient's abdominal pain has improved but he admits it still feels sore. Patient is tolerating a soft diet. There will be no surgical intervention during hospital stay. Will plan for discharge once patient is transitioned to regular diet and pain is controlled on oral medications. Dilaudid pump will be discontinued today. Hemoglobin is stable at 12.5 white blood cell count 10.6 hematocrit 39.2 platelets 207 sodium 137 potassium 3.7 chloride 105 CO2 29 BUN 7 creatinine 0.45 Patient is a 64-year-old male with a history of recurrent colitis (possibly ischemic), tobacco abuse, COPD, and hypertension who presented with abdominal pain and hematochezia. In the ER he underwent an extensive evaluation. On arrival he was hypotensive with a blood pressure of 81/58. Initial laboratory a nalysis showed a white blood cell count of 19.7, hemoglobin 13.7, troponin of 0.054, urinalysis negative, fecal occult blood positive. He underwent a CT abdomen and pelvis which demonstrated dilated fluid-filled small bowel loops suggestive of obstruction with possible ileus, pneumatosis, intestinalis cannot be confirmed. He had a central line placed. He was started on IVF and admitted to the ICU. He was given Rocephin and flagly and kept NPO. He continued to have abdominal pain overnight, but did not have any adiditional episode of bright red blood in his stool or from his rectum. 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 GI and general surgery were consulted. General surgery recommended IV antibiotics, supportive care, vascular consult. Vascular felt as though there was no need for urgent vascular intervention and this episode likely with combination of hypotension and dehydration. GI felt this was likely representative phlebotomy services of ischemic colitis and agreed with current plan of care. He was continued on IVF, ABX, and NPO status. He was started on a dilaudid ELECTRIC GOLF CART REPAIRERS to help optimize pain control, he has been on buprenorphine at home but stopped 3 days prior to admission. Objective - Vital Signs Vital signs: Vital Signs Temp 98.4 F 06/19/20 04:00 Pulse 85 06/19/20 04:00 Resp 16 06/19/20 04:00 BP 143/94 06/19/20 04:00 Pulse Ox 93 L 06/19/20 04:00 Intake & Output 06/18/20 06/19/20 06/19/20 18:59 06:59 18:59 Intake Total 200 0 Output Total 800 Balance 200 -800 Weight 122.8 kg Intake: Oral 200 0 Output: Urine 800 Other: Voiding Method Urinal - Exam General: [non toxic], [no distress], [appears at stated age] Derm: [warm], [dry] Head: [atraumatic], [normocephalic], [symmetric] Eyes: [EOMI], [no lid lag], [anicteric sclera] Mouth: [no lip lesion], [mucus membranes moist] Cardiovascular: [S1S2 reg], [no murmur], [positive posterior tibial pulse bilateral], Lungs: [CTA bilateral], [no rhonchi, no rales] , [no accessory muscle use] Abdominal: [soft], [ tender to palpation], [no guarding], [no appreciable organomegaly] Ext: [no gross muscle atrophy], [no edema], [no contractures] Neuro: [ CN II-XI grossly intact], [no focal neuro deficits] Psych: [Alert], [oriented], [appropriate affect.] - Labs CBC & Chem 7: 06/19/20 06:37 06/19/20 06:37 Labs: Abnormal Lab Results - Last 24 Hours (Table) 06/18/20 06/19/20 06/19/20 Range/Units 18:09 06:37 06:37 RBC 4.12 L (4.30-5.90) m/uL Hgb 12.5 L (13.0-17.5) gm/dL Lymphocytes # (Manual) 0.85 L (1.0-4.8) k/uL Monocytes # (Manual) 1.91 H (0-1.0) k/uL Sodium 135 L (137-145) mmol/L Potassium 2.8 L (3.5-5.1) mmol/L BUN 7 L (9-20) mg/dL Creatinine 0.45 L 0.45 L (0.66-1.25) mg/dL Glucose 118 H 101 H (74-99) mg/dL Calcium 7.5 L 7.6 L (8.4-10.2) mg/dL Alkaline Phosphatase 138 H (38-126) U/L Total Protein 4.5 L (6.3-8.2) g/dL Albumin 2.6 L (3.5-5.0) g/dL Microbiology - Last 24 Hours (Table) 06/14/20 20:17 Blood Culture - Preliminary Blood No Growth after 96 hours Assessment and Plan Assessment: Acute transverse and descending colon likely ischemic with sepsis improving - CTA abdomen and pelvis moderate atherosclerotic calcification infrarental aorta, severe stenosis right internal iliac, moderate right external, moderate to severe left external iliac artery - GI and gen surgery recs appreciated: No surgical intervention at this time noted - vascular recs appreciated: No surgical intervention at this time noted - flagyl and rocephin - IV fluids - clear liquids advance to full liquid as tolerated - Pain control, discontinue ELECTRIC GOLF CART REPAIRERS will change to oral pain control - antiemetics - needs complete cessation of tobacco products Opiate dependency in recovery -Change to oral pain medication discontinue ELECTRIC GOLF CART REPAIRERS - plan on resuming buprenorphine at home, is aware he will need a time period between dilaudid and restarting buprenorpine or he will have a participated withdrawal. Acute blood loess anemia improved and stable - follow CBC Elevated troponin - due to demand ischemia - flat and not reflective of acute coronary syndrome COPD without exacerabtion - prn bronchodilators Hx HTN - Lisinopril 5 mg daily Severe cachexia BMI 14.6 - dietitation recs - start ensure Mild PAD - vascular recs appreciated Tobacco abuse - cessation Lactic acidosis, resolved DVT prophylaxis: SCDs Discussed with: Patient, nursing, Anticipated discharge: Today or tomorrow once tolerating regular diet and oral pain medications Anticipated discharge place: home
[2020-06-19] MEDS: HYDROcodone/APAP 7.5-325MG 1 EACH TAB PO PRN ×3 (12:56→23:41)
--- NOTE | 2020-06-19 14:03 | P.PN ---
Subjective Progress Note Date: 06/19/20 CHIEF COMPLAINT: Abdominal pain HISTORY OF PRESENT ILLNESS: Patient seen and examined with Dr. Dozier. Patient still having some abdominal discomfort. He is interested in eating more than a full liquid diet. He is afebrile. White count 10.6 PHYSICAL EXAM: VITAL SIGNS: Reviewed GENERAL: Well-developed in no acute distress. HEENT: No sclera icterus. Extraocular movements grossly intact. Moist buccal mucosa. Head is atraumatic, normocephalic. Hears conversational speech. No nasal drainage. NECK: Supple without lymphadenopathy. CHEST: Non-labored respirations and equal bilateral excursions. CARDIOVASCULAR: Palpable 2+ radial pulses. ABDOMEN: Soft. Nondistended. MUSCULOSKELETAL: No clubbing or cyanosis. NEUROLOGIC: No focal or lateralizing signs. Cranial nerves II through XII grossly intact. PSYCH: Appropriate affect. Alert and oriented to person, place and time. SKIN: Well perfused. Good skin turgor. ASSESSMENT: 1. Acute on chronic abdominal pain likely secondary to chronic ischemia with history of PVOD 2. Hypovolemic shock due to dehydration, severe PLAN: 1. Continue conservative management 2. No acute surgical intervention needed 3. Recommend regular diet 4. COVID testing ordered due to patient's diarrhea. Results are pending 5. Okay from surgical standpoint for discharge. 6. Recommend that patient follows up outpatient with GI service for outpatient management of abdominal pain Physician Table Games Floor Supervisor note has been reviewed by physician. Signing provider agrees with the documented findings, assessment, and plan of care. Objective - Vital Signs Vital signs: Vital Signs Temp 98.3 F 06/19/20 08:00 Pulse 92 06/19/20 08:00 Resp 18 06/19/20 08:00 BP 124/93 06/19/20 08:00 Pulse Ox 95 06/19/20 08:00 Intake & Output 06/18/20 06/19/20 06/19/20 18:59 06:59 18:59 Intake Total 200 0 440 Output Total 800 Balance 200 -800 440 Weight 122.8 kg Intake: Oral 200 0 440 Output: Urine 800 Other: Voiding Method Urinal Bedside Commode Urinal - Labs CBC & Chem 7: 06/19/20 06:37 06/19/20 06:37 Labs: Abnormal Lab Results - Last 24 Hours (Table) 06/18/20 06/19/2020 Range/Units 18:09 06:37 06:37 RBC 4.12 L (4.30-5.90) m/uL Hgb 12.5 L (13.0-17.5) gm/dL Lymphocytes # (Manual) 0.85 L (1.0-4.8) k/uL Monocytes # (Manual) 1.91 H (0-1.0) k/uL Sodium 135 L (137-145) mmol/L Potassium 2.8 L (3.5-5.1) mmol/L BUN 7 L (9-20) mg/dL Creatinine 0.45 L 0.45 L (0.66-1.25) mg/dL Glucose 118 H 101 H (74-99) mg/dL Calcium 7.5 L 7.6 L (8.4-10.2) mg/dL Alkaline Phosphatase 138 H (38-126) U/L Total Protein 4.5 L (6.3-8.2) g/dL Albumin 2.6 L (3.5-5.0) g/dL Microbiology - Last 24 Hours (Table) 06/14/20 20:17 Blood Culture - Preliminary Blood No Growth after 96 hours
[2020-06-19] MEDS: MORPHINE SULFATE 2 MG/ML SYRINGE IVP PRN ×2 (15:01→21:01)
--- NOTE | 2020-06-19 16:39 | P.PN ---
Subjective Progress Note Date: 06/19/20 Principal diagnosis: Abdominal pain, colitis The patient seen and examined at the bedside. He is sitting up and appears comfortable. He states his abdominal pain is a little better today. Patient states he has a decreased appetite. He states he had another small bowel moveme nt today and is passing flatus. He does state he still has some mild nausea, however no vomiting. Objective - Vital Signs Vital signs: Vital Signs Temp 98.3 F 06/19/20 08:00 Pulse 92 06/19/20 08:00 Resp 18 06/19/20 08:00 BP 124/93 06/19/20 08:00 Pulse Ox 95 06/19/20 08:00 Intake & Output 06/18/20 06/19/20 06/19/20 18:59 06:59 18:59 Intake Total 200 0 440 Output Total 800 Balance 200 -800 440 Weight 122.8 kg Intake: Oral 200 0 440 Output: Urine 800 Other: Voiding Method Urinal Bedside Commode Urinal - Exam General appearance: The patient is alert, oriented, in no acute distress. HET: Head is normocephalic and atraumatic. Neck: Supple without lymphadenopathy. Trachea midline. Heart: S1 S2. Regular rate and rhythm. Lungs: No crackles or wheezes are heard. Abdomen: Soft, mild TTP, nondistended with bowel sounds. No rigidity or guarding. Extremities: Normal skin color and turgor. No cyanosis, rash, ulceration, clubbing, or edema. Neurological: No focal deficits. Strength and sensation are grossly intact. - Labs CBC & Chem 7: 06/19/20 06:37 06/19/20 06:37 Labs: Abnormal Lab Results - Last 24 Hours (Table) 06/18/20 06/19/20 06/19/20 Range/Units 18:09 06:37 06:37 RBC 4.12 L (4.30-5.90) m/uL Hgb 12.5 L (13.0-17.5) gm/dL Lymphocytes # (Manual) 0.85 L (1.0-4.8) k/uL Monocytes # (Manual) 1.91 H (0-1.0) k/uL Sodium 135 L (137-145) mmol/L Potassium 2.8 L (3.5-5.1) mmol/L BUN 7 L (9-20) mg/dL Creatinine 0.45 L 0.45 L (0.66-1.25) mg/dL Glucose 118 H 101 H (74-99) mg/dL Calcium 7.5 L 7.6 L (8.4-10.2) mg/dL Alkaline Phosphatase 138 H (38-126) U/L Total Protein 4.5 L (6.3-8.2) g/dL Albumin 2.6 L (3.5-5.0) g/dL Microbiology - Last 24 Hours (Table) 06/14/20 20:17 Blood Culture - Preliminary Blood No Growth after 96 hours Assessment and Plan Assessment: (1) Lower GI bleeding Narrative/Plan: 64-year-old male with multiple medical comorbidities including recurrent episodes of abdominal pain with rectal bleeding treated for presumed ischemic colitis (although biopsies taken at those times negative for findings consistent with ischemic colitis) presented back to the hospital with abdominal pain in the lower abdomen and blood per rectum. Computed tomography scan performed in evaluation showed a dilated fluid-filled small bowel with suggestion of possible ileus versus small bowel obstruction. No nausea or vomiting at this time and the patient has been seen by the surgical service. Patient currently on an tibiotic therapy and did have a leukocytosis of 19.7 on presentation with a lactic acidosis of 3.4. Stool testing was positive for occult blood. Evaluation of the colon in 2014 was suggestive of possible sigmoid colitis however biopsies were negative at that time, he had a further episode in 06/2016 with a normal-appearing colon and terminal ileum with biopsies also negative at that time. In spite of this, given patient's presentation and history of tobacco abuse concern is for ischemic colitis, currently patient may have ileus versus bowel obstruction secondary to the colitis and is being treated conservatively at this time. CT angiography of the abdomen significant for improving small bowel dilated dictation, mild to moderate atherosclerosisand colitis from the transverse to rectum Current Visit: Yes Status: Acute Code(s): K92.2 - GASTROINTESTINAL HEMORRHAGE, UNSPECIFIED SNOMED Code(s): 24252152 (2) Small bowel obstruction Current Visit: Yes Status: Acute Code(s): K56.609 - UNSP INTESTNL OBST, UNSP TO PARTIAL VERSUS COMPLETE OBST SNOMED Code(s): 380762901 (3) Abdominal pain Current Visit: No Status: Acute Code(s): R10.9 - UNSPECIFIED ABDOMINAL PAIN SNOMED Code(s): 10980627 Plan: Supportive care Advance to a soft diet Continue broad-spectrum antibiotic therapy, currently on ceftriaxone and Flagyl Surgical service consulted vascular surgery has seen the patient with no plans for intervention at this time No plans for endoscopic evaluation at this time, will follow up outpatient and consider repeat colonoscopy Continue optimization of blood pressure CT angiography of the abdomen reviewed Extensive discussion with the patient and have recommended complete abstinence of tobacco products Thank you for allowing us to participate in the care of the patient we will continue to follow The impression and plan of care has been dictated as directed. Dr. Tita Rodriguez I performed a history and examination of this patient, discussed the same with the dictator. I agree with the dictator's note ,documented as a scribe. Any additional findings or plans will be noted.
[2020-06-19] MEDS: SENNOSIDES-DOCUSATE SODIUM 1 EACH TAB PO SCH (20:20)
[2020-06-19] MEDS: MIRTAZAPINE 45 MG TABLET PO SCH (20:20)
[2020-06-20] MEDS: metroNIDAZOLE-NS PMX 500 MG in SALINE 1 100ML.BAG IVPB SCH (03:06)
[2020-06-20] MEDS: MORPHINE SULFATE 2 MG/ML SYRINGE IVP PRN ×2 (03:08→09:39)
[2020-06-20 03:45] VITALS: RESP 18
[2020-06-20] MEDS: HYDROcodone/APAP 7.5-325MG 1 EACH TAB PO PRN (06:09)
--- NOTE | 2020-06-20 08:06 | P.DS ---
Providers Date of admission: 06/14/20 19:51 Expected date of discharge: 06/20/20 Attending physician: Gildardo Montemayor MD Consults: 06/14/20 21:31 Consult Physician Urgent Consulting Provider: Debby Rodriguez Consult Reason/Comments: SBO, suspected ischemic colitis Do you want consulting provider notified?: Yes 06/15/20 09:04 Consult Physician Stat Consulting Provider: Riki Richard Consult Reason/Comments: ICU management Do you want consulting provider notified?: Already Contacted Primary care physician: Sabrina Waters [facility] Course: Admitting diagnoses: Abdominal pain Hematochezia Ischemic colitis Partial small bowel obstruction Lactic acidosis Prerenal azotemia Elevated troponin COPD Hypertension Discharge diagnoses: Sepsis resolved Acute transverse and descending colitis likely ischemic stable no surgical intervention Moderate atherosclerotic calcification infrarenal aorta Severe stenosis right internal iliac Moderate right external moderate to severe left external iliac artery stenosis Opiate dependency and recovery Acute blood loss anemia improved Elevated troponin secondary to ischemic demand COPD without exacerbation Hypertension controlled Tobacco abuse Smoking cessation counseling Lactic acidosis resolved Patient seen and examined at bedside. Abdominal pain is improved. Patient is tolerating diet. Patient denies chest pain, shortness of breath, nausea, vomiting, shortness, fevers, or chills. Vitals: Temperature 98.7 orally heart rate 63 respiratory rate 18 blood pressure 124/75 oxygen saturation 92% on room air patient has COPD General: [non toxic], [no distress], [appears older than stated age] cachectic Derm: [warm], [dry] Head: [atraumatic], [normocephalic], [symmetric] Eyes: [EOMI], [no lid lag], [anicteric sclera] Mouth: [no lip lesion], [mucus membranes moist] Cardiovascular: [S1S2 reg], [no murmur], [positive posterior tibial pulse bilateral], Lungs: [CTA bilateral], [no rhonchi, no rales] , [no accessory muscle use] Abdominal: [soft], [ nontender to palpation], [no guarding], [no appreciable organomegaly] Ext: [no gross muscle atrophy], [no edema], [no contractures] Neuro: [ CN II-XI grossly intact], [no focal neuro deficits] Psych: [Alert], [oriented], [appropriate affect] Patient is a 64-year-old male with a history of recurrent colitis (possibly ischemic), tobacco abuse, COPD, and hypertension who presented with abdominal pain and hematochezia. In the ER he underwent an extensive evaluation. On arrival he was hypotensive with a blood pressure of 81/58. Initial laboratory analysis showed a white blood cell count of 19.7, hemoglobin 13.7, troponin of 0.054, urinalysis negative, fecal occult blood positive. He underwent a CT abdomen and pelvis which demonstrated dilated fluid-filled small bowel loops suggestive of obstruction with possible ileus, pneumatosis, intestinalis cannot be confirmed. He had a central line placed. He was started on IVF and admitted to the ICU. He was given Rocephin and flagly and kept NPO. He continued to have abdominal pain overnight, but did not have any adiditional episode of bright red blood in his stool or from his rectum. He had a CTA abdomen and pelvis done on 06/15 which showe severe stenosis of the left internal iliac arteris, but no verified occlusion, Progressive moderate to severe colonic wall thickening co nsistent with moderate to severe colitis. GI and general surgery were consulted. General surgery recommended IV antibiotics, supportive care, vascular consult. Vascular felt as though there was no need for urgent vascular intervention and this episode likely with combination of hypotension and dehydration. GI felt this was likely client support representative of ischemic colitis and agreed with current plan of care. He was continued on IVF, ABX, and NPO status. He was started on a dilaudid STAFF PSYCHOLOGIST to help optimize pain control, he has been on buprenorphine at home but stopped 3 days prior to admission. It was determined that there will be no surgical intervention during hospital stay. Patient is to follow-up with general surgery and vascular surgery as an outpatient. Smoking cessation was highly counseled by all specialists and primary care team. Patient will be transitioned to oral antibiotics short course of pain medication will be given. Follow-up with PCP in 2-7 days Follow-up with vascular surgery in 2-4 weeks Follow-up with GI in 1-2 weeks Condition fair Activity as tolerated Diet cardiac Smoking cessation counseling given Patient Condition at Discharge: Fair Plan - Discharge Summary New Discharge Prescriptions: New Ciprofloxacin HCl [Cipro] 500 mg PO BID 7 Days #14 tab metroNIDAZOLE [Flagyl] 500 mg PO QID 7 Days #28 tab HYDROcodone/APAP 7.5-325MG [[place] 7.5-325] 1 each PO Q6H PRN 7 Days #28 tab PRN Reason: Pain lisinopriL [Zestril] 5 mg PO DAILY 30 Days #30 tab Continue Docusate [Colace] 100 mg PO DAILY Albuterol Inhaler [Ventolin Hfa Inhaler] 2 puff INHALATION RT-Q6H PRN PRN Reason: Shortness Of Breath Discontinued lisinopriL [Prinivil] 20 mg PO DAILY No Action Mirtazapine 45 mg PO HS Discharge Medication List Mirtazapine 45 mg PO HS 06/24/16 [History] Albuterol Inhaler [Ventolin Hfa Inhaler] 2 puff INHALATION RT-Q6H PRN 06/14/20 [History] Docusate [Colace] 100 mg PO DAILY 06/14/20 [History] Ciprofloxacin HCl [Cipro] 500 mg PO BID 7 Days #14 tab 06/20/20 [Rx] HYDROcodone/APAP 7.5-325MG [[place] 7.5-325] 1 each PO Q6H PRN 7 Days #28 tab 06/20/20 [Rx] lisinopriL [Zestril] 5 mg PO DAILY 30 Days #30 tab 06/20/20 [Rx] metroNIDAZOLE [Flagyl] 500 mg PO QID 7 Days #28 tab 06/20/20 [Rx] Follow up Appointment(s)/Referral(s): Jenna Aviles DO [STAFF PHYSICIAN] - 2 Weeks Debby Rodriguez MD [STAFF PHYSICIAN] - 2 Weeks Discharge Disposition: HOME WITH HOME HEALTH SERVICES
[2020-06-20] MEDS ORDERED: metroNIDAZOLE 500 MG TAB PO SCH (09:00)
[2020-06-20] MEDS ORDERED: CIPROFLOXACIN HCL 500 MG TAB PO SCH (09:00)
[2020-06-20 09:10] VITALS: BP 126/76; PULSE 50; TEMP 97.6
[2020-06-20] MEDS: PANTOPRAZOLE 40 MG/10 ML VIAL IVP SCH (09:39)
[2020-06-20] MEDS: lisinopriL 5 MG TAB PO SCH (09:39)
== END 2020-06-20 11:26 | disposition home or self-care (01) | DRG 871 ==
LOC: EC 16:52 → 2SICU 19:51 → 3SCARD 06-15 16:41
PROVIDERS: ADMIT Internal Medicine; ATTEND Internal Medicine
PROC: 02HV33Z Insertion of Infusion Device into Superior Vena Cava, Percutaneous Approach (ICD-10-PCS; principal; 2020-06-14)
DX: A41.9 Sepsis, unspecified organism (principal); K55.039 Acute (reversible) ischemia of large intestine, extent unspecified; R57.1 Hypovolemic shock; K56.600 Partial intestinal obstruction, unspecified as to cause; E87.2 Acidosis; I24.8 Other forms of acute ischemic heart disease; J98.11 Atelectasis; R64 Cachexia; Z68.1 Body mass index [BMI] 19.9 or less, adult; D62 Acute posthemorrhagic anemia; E83.39 Other disorders of phosphorus metabolism; J44.9 Chronic obstructive pulmonary disease, unspecified; I73.9 Peripheral vascular disease, unspecified; F11.21 Opioid dependence, in remission; I70.0 Atherosclerosis of aorta; R63.6 Underweight; Z20.828 Contact with and (suspected) exposure to other viral communicable diseases; G89.29 Other chronic pain; E03.9 Hypothyroidism, unspecified; I70.8 Atherosclerosis of other arteries; I10 Essential (primary) hypertension; N40.0 Benign prostatic hyperplasia without lower urinary tract symptoms; E87.6 Hypokalemia; F17.200 Nicotine dependence, unspecified, uncomplicated; Z71.6 Tobacco abuse counseling; Z79.899 Other long term (current) drug therapy; Z86.19 Personal history of other infectious and parasitic diseases; Z86.79 Personal history of other diseases of the circulatory system; Z88.0 Allergy status to penicillin; Z83.79 Family history of other diseases of the digestive system
CPT/HCPCS: 36415; 36556; 71046; 74018; 74175; 74177; 80048; 80053; 80061; 81003; 82272; 82728; 82746; 83540; 83550; 83605; 83690; 83735; 84100; 84484; 85025; 85027; 85610; 85730; 86850; 86900; 86901; 87040; 93005; 94760; 96361; 96365; 96366; 96367; 96375; 96376; 99291

== ENCOUNTER 2021-06-22 03:31 | Inpatient (IN) | payer MEDICARE ==
[2021-06-22] MEDS ORDERED: SODIUM CHLORIDE 0.9% 1,000 ML IV STA ×2 (04:05)
[2021-06-22] MEDS ORDERED: IBUPROFEN IV 800 MG in SODIUM CHLORIDE 0.9% 250 ML IV ONE (04:05)
[2021-06-22] MEDS ORDERED: SODIUM CHLORIDE 0.9% 500 ML 500 ML IV STA (04:05)
[2021-06-22] MEDS ORDERED: ONDANSETRON 4 MG/2 ML VIAL IVP STA (04:06)
[2021-06-22] MEDS ORDERED: PANTOPRAZOLE 40 MG/10 ML VIAL IVP STA (04:06)
[2021-06-22] MEDS ORDERED: HYDROmorphone 1 MG/ML 1 ML SYRINGE IVP STA (04:06)
--- NOTE | 2021-06-22 04:06 | ED ---
Abdominal Pain HPI - General Chief Complaint: Abdominal Pain Stated Complaint: Upper Abd Pain, Vomiting Time Seen by Provider: 06/22/21 03:34 Source: patient, RN notes reviewed, old records reviewed Mode of arrival: wheelchair Limitations: no limitations - History of Present Illness MD Complaint: abdominal pain, other (chest pain) Location: epigastric Radiation: epigastric Migration to: epigastric Severity: moderate Severity scale (1-10): 6 Quality: cramping, aching Consistency: constant Improves With: nothing Worsens With: nothing Associated Symptoms: nausea Treatments Prior to Arrival: other (none) - Related Data Home Medications Medication Instructions Recorded Confirmed Mirtazapine 45 mg PO HS 06/24/16 06/14/20 Albuterol Inhaler [Ventolin Hfa 2 puff INHALATION RT-Q6H PRN 06/14/20 06/14/20 Inhaler] Docusate [Colace] 100 mg PO DAILY 06/14/20 06/14/20 Previous Rx's Medication Instructions Recorded Ciprofloxacin HCl [Cipro] 500 mg PO BID 7 Days #14 tab 06/20/20 HYDROcodone/APAP 7.5-325MG [[place] 1 each PO Q6H PRN 7 Days #28 tab 06/20/20 7.5-325] lisinopriL [Zestril] 5 mg PO DAILY 30 Days #30 tab 06/20/20 metroNIDAZOLE [Flagyl] 500 mg PO QID 7 Days #28 tab 06/20/20 Allergies Allergy/AdvReac Type Severity Reaction Status Date / Time Penicillins Allergy Anaphylaxis Verified 06/22/21 03:44 Review of Systems ROS Statement: Those systems with pertinent positive or pertinent negative responses have been documented in the HPI. ROS Other: All systems not noted in ROS Statement are negative. Past Medical History Past Medical History: COPD, Hypertension Additional Past Medical History / Comment(s): diverticulitis, hypothyroidism, C- diff, brain aneurysm History of Any Multi-Drug Resistant Organisms: C-DIFF Date of last positivie culture/infection: 09/23/14 MDRO Source:: stool Past Surgical History: No Surgical Hx Reported Additional Past Surgical History / Comment(s): brain surgery 2004 Past Anesthesia/Blood Transfusion Reactions: No Reported Reaction Past Psychological History: No Psychological Hx Reported Smoking Status: Current every day smoker Past Alcohol Use History: None Reported Past Drug Use History: None Reported - Past Family History Mother Additional Family Medical History / Comment(s): DIVERTICULITIS General Exam General appearance: alert, anxious, lethargic, in distress, cachectic Head exam: Present: atraumatic, normocephalic, normal inspection Eye exam: Present: normal appearance, PERRL, EOMI. Absent: scleral icterus, conjunctival injection, periorbital swelling ENT exam: Present: normal exam, mucous membranes moist Neck exam: Present: normal inspection. Absent: tenderness, meningismus, lymphadenopathy Respiratory exam: Present: normal lung sounds bilaterally. Absent: respiratory distress, wheezes, rales, rhonchi, stridor Cardiovascular Exam: Present: regular rate, normal rhythm, normal heart sounds. Absent: systolic murmur, diastolic murmur, rubs, gallop, clicks GI/Abdominal exam: Present: soft, normal bowel sounds. Absent: distended, tende rness, guarding, rebound, rigid Extremities exam: Present: normal inspection, full ROM, normal capillary refill. Absent: tenderness, pedal edema, joint swelling, calf tenderness Back exam: Present: normal inspection Neurological exam: Present: alert, oriented X3, CN II-XII intact Psychiatric exam: Present: normal affect, normal mood Skin exam: Present: warm, dry, intact, normal color. 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 ] Respiratory 16 20 Rate Blood Pressure 96/59 94/67 O2 Sat by Pulse 95 94 L Oximetry 06/22/21 04:30 Temperature Pulse Rate 124 H Pulse Rate [ Drilling Rig Operator ] Respiratory 18 Rate Blood Pressure 115/89 O2 Sat by Pulse 99 Oximetry Procedures - Sepsis Sepsis Focused Exam #1 Time Sepsis Criteria Met: 04:43 Sepsis Focused Exam Date: 06/22/21 Sepsis Focused Exam Time: 07:00 Sepsis Focused Exam Complete: Yes Vital Signs & RN Notes Reviewed: Yes Capillary Refill: < 2 Seconds: Fingers, Toes Peripheral Pulses: Normal: Radial (R), Radial (L), Posterior Tibialis (R), Posterior Tibialis (L), Dorsalis Pedis (R), Dorsalis Pedis (L) Skin Color: Normal for Patient Respiratory Exam: rhonchi, decreased breath sounds Cardiovascular Exam: regular rate Medical Decision Making - Lab Data Result diagrams: 06/22/21 04:10 06/22/21 04:10 Lab Results 06/22/21 06/22/21 06/22/21 Range/Units 04:10 04:10 04:10 WBC 23.3 H (3.8-10.6) k/uL RBC 4.56 (4.30-5.90) m/uL Hgb 14.7 (13.0-17.5) gm/dL Hct 43.7 (39.0-53.0) % MCV 95.9 (80.0-100.0) fL MCH 32.1 (25.0-35.0) pg MCHC 33.5 (31.0-37.0) g/dL RDW 13.0 (11.5-15.5) % Plt Count 410 (150-450) k/uL MPV 7.5 Neutrophils % 88 % Lymphocytes % 3 % Monocytes % 6 % Eosinophils % 0 % Basophils % 0 % Neutrophils # 20.5 H (1.3-7.7) k/uL Lymphocytes # 0.7 L (1.0-4.8) k/uL Monocytes # 1.3 H (0-1.0) k/uL Eosinophils # 0.0 (0-0.7) k/uL Basophils # 0.1 (0-0.2) k/uL Sodium 134 L (137-145) mmol/L Potassium 4.8 (3.5-5.1) mmol/L Chloride 99 (98-107) mmol/L Carbon Dioxide 24 (22-30) mmol/L Anion Gap 11 mmol/L BUN 40 H (9-20) mg/dL Creatinine 0.68 (0.66-1.25) mg/dL Est GFR (CKD-EPI)AfAm >90 (>60 ml/min/1.73 sqM) Est GFR (CKD-EPI)NonAf >90 (>60 ml/min/1.73 sqM) Glucose 142 H (74-99) mg/dL Plasma Lactic Acid [place] 3.4 H* (0.7-2.0) mmol/L Calcium 9.4 (8.4-10.2) mg/dL Magnesium 2.2 (1.6-2.3) mg/dL Total Bilirubin 0.7 (0.2-1.3) mg/dL AST 25 (17-59) U/L ALT 13 (4-49) U/L Alkaline Phosphatase 118 (38-126) U/L Lactate Dehydrogenase 727 H (313-618) U/L Total Protein 6.7 (6.3-8.2) g/dL Albumin 3.9 (3.5-5.0) g/dL - EKG Data -: EKG Interpreted by Me (EKG is sinus tach 1:30 MA 150 QRS 102 QTC 438) - Radiology Data Radiology results: report reviewed (CXR is positive for pneumonia), image reviewed Disposition Referrals: Sabrina Waters MD [Primary Care Provider] - 1-2 days
[2021-06-22 04:34] LABS: Basophils # (A) 0.1 k/uL (0-0.2); Basophils % (A) 0 %; Eosinophils % (A) 0 %; HCT 43.7 % (39.0-53.0); HGB 14.7 gm/dL (13.0-17.5); Lymphocytes # (A) 0.7 k/uL (1.0-4.8); Lymphocytes % (A) 3 %; MCH 32.1 pg (25.0-35.0); MCHC 33.5 g/dL (31.0-37.0); MCV 95.9 fL (80.0-100.0); Mean Platelet Volume 7.5; Monocytes # (A) 1.3 k/uL (0-1.0); Monocytes % (A) 6 %; Neutrophils # (A) 20.5 k/uL (1.3-7.7); Neutrophils % (A) 88 %; Platelet Count 410 k/uL (150-450); RBC 4.56 m/uL (4.30-5.90); WBC 23.3 k/uL (3.8-10.6)
[2021-06-22] MEDS: ACETAMINOPHEN SUPPOSITORY 650 MG SUPP RECTAL STA ×2 (04:36→04:37)
[2021-06-22 04:37] LABS: ALT 13 U/L (4-49); AST 25 U/L (17-59); African American GFR (CKD) >90 (>60 ml/min/1.73 sqM); Albumin 3.9 g/dL (3.5-5.0); Alkaline Phosphatase 118 U/L (38-126); Anion Gap 11 mmol/L; Blood Urea Nitrogen 40 mg/dL (9-20); Calcium 9.4 mg/dL (8.4-10.2); Carbon Dioxide 24 mmol/L (22-30); Chloride 99 mmol/L (98-107); Glucose 142 mg/dL (74-99); LDH 727 U/L (313-618); Magnesium 2.2 mg/dL (1.6-2.3); Non-African American GFR(CKD) >90 (>60 ml/min/1.73 sqM); Potassium 4.8 mmol/L (3.5-5.1); Sodium 134 mmol/L (137-145); Total Bilirubin 0.7 mg/dL (0.2-1.3); Total Protein 6.7 g/dL (6.3-8.2)
--- NOTE | 2021-06-22 04:37 | XR ---
EXAMINATION TYPE: XR chest 1V portable DATE OF EXAM: 06/22/2021 COMPARISON: 06/14/2020 HISTORY: Pneumonia. Chest pain TECHNIQUE: 2 views FINDINGS: 2 AP views portable obtained. There is some airspace infiltrate and atelectasis in both low er lung lyon. This is worse on the left side. There is emphysema. There is bullous disease in the u pper lobes. There is no gross heart failure. There is no pleural effusion. IMPRESSION: There is new left lower lobe pneumonia compared to old exam. There is stable density righ t lower lobe consistent with scarring and atelectasis. 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
[2021-06-22] MEDS ORDERED: IPRATROPIUM-ALBUTEROL 3 ML NEB INHALATION PRN (04:40)
[2021-06-22] MEDS ORDERED: PNEUMONIA PROTOCOL UTILIZED 1 EACH MISC PO PRN (04:40)
[2021-06-22] MEDS ORDERED: CEFEPIME 2 GM in SODIUM CHLORIDE 0.9% 100 ML IVPB STA (04:40)
[2021-06-22] MEDS ORDERED: MORPHINE SULFATE 4 MG/ML SYRINGE IV PRN (04:41)
[2021-06-22] MEDS ORDERED: NALOXONE 0.4 MG/ML 1 ML VIAL IV PRN (04:41)
[2021-06-22] MEDS ORDERED: ACETAMINOPHEN TAB 325 MG TAB PO PRN (04:41)
[2021-06-22] MEDS ORDERED: ONDANSETRON 4 MG/2 ML VIAL IVP PRN (04:41)
[2021-06-22] MEDS ORDERED: CEFEPIME 2 GM in SODIUM CHLORIDE 0.9% 100 ML IVPB ONE (04:45)
[2021-06-22 04:55] LABS: INR 0.9 (<1.2); Prothrombin Time 10.2 sec (9.0-12.0)
[2021-06-22] MEDS ORDERED: AZITHROMYCIN 500 MG in SODIUM CHLORIDE 0.9% 250 ML IVPB ONE ×2 (05:00→06:30)
[2021-06-22 05:24] LABS: C Reactive Protein 23.2 mg/dL (<1.0)
[2021-06-22] MEDS: PANTOPRAZOLE 40 MG/10 ML VIAL IV SCH (09:01)
[2021-06-22] MEDS: HYDROcodone/APAP 5-325MG 1 EACH TAB PO PRN ×3 (10:07→21:10)
[2021-06-22] MEDS ORDERED: CEFEPIME 2 GM in SODIUM CHLORIDE 0.9% 100 ML IVPB SCH (13:00)
[2021-06-22] MEDS ORDERED: methylPREDNISolone SOD SUCCI 125 MG/2 ML VIAL IV STA (14:17)
[2021-06-22] MEDS ORDERED: BENZONATATE 100 MG CAP PO PRN (14:25)
--- NOTE | 2021-06-22 14:27 | P.HPIM ---
<Hernán Sahu - Last Filed: 06/22/21 14:03> History of Present Illness H&P Date: 06/22/21 History of Presenting Illness: Patient is a very pleasant 65-year-old male with a past medical history of hypertension, COPD, and previous brain aneurysm with repair in 2004. Patient presented to the emergency department with a chief complaint of chest pain and productive cough. In the emergency department, an EKG was completed showing sinus tachycardia with frequent PVCs at 130 bpm. Chest x-ray significant for left lower lobe pneumonia accompanied by scarring and atelectasis resulting from pulmonary emphysema. Patient positive for sepsis with temp of 101.4F, heart rate 134, respiratory rate of 22, WBC count of 23.3, and lactate of 3.4. LDH elevated at 727 with CRP of 23.2. Covid 19 PCR was negative. Patient was given bolus of IV fluids along with IV antibiotics followed by admission under our services. Upon physical examination at bedside, patient reports his symptoms of chest pain and productive cough began on and have been accompanied by body aches, chills, fever, shortness of breath, epigastric pain, and nausea. Patient reports receiving his Covid 19 vaccinations and denies being on any home oxygen. Patient denies anyone else being sick in the home or being exposed to any known ill contacts. Patient denies having any headache, lightheadedness, dizziness, changes in vision or hearing, palpitations, episodes of vomiting, diarrhea, noted skin rashes, or experiencing any numbness/tingling/weakness/swelling in his extremities. Review of systems: Pertinent positives and negatives as discussed in HPI, a complete review of systems was performed and all other systems are negative. Physical exam: Vital signs reviewed and stable. General: Nontoxic, no distress and appears stated age. Thin build. Derm: Skin warm and dry, normal coloration for ethnicity. Head: Atraumatic, normocephalic and symmetric. Eyes: EOMs intact, no lid lag, and anicteric sclera Mouth: no lip lesions, mucus membranes moist Cardiovascular: regular rate and rhythm with normal S1S2, no murmur, positive posterior tibial pulses bilaterally, and cap refill < 2 seconds. Lungs: Respirations even, regular, and unlabored on 2 L O2 via nasal cannula. Lungs significantly diminished throughout with diffuse soft expiratory wheezes. No rhonchi or rales noted. Abdominal: soft, nontender to palpation, no guarding, no appreciable organomegaly Ext: ROM intact. No gross muscle atrophy, no edema, no contractures Neuro: Speech clear, face symmetrical and CN II-XII grossly intact with no noted focal neuro deficits Psych: Alert and oriented to person, place, time, and situation. Appropriate and pleasant affect. Assessment and Plan of Care: Left lower lobe pneumonia with severe sepsis -Chest x-ray significant for left lower lobe pneumonia accompanied by scarring and atelectasis resulting from pulmonary emphysema. -Patient positive for sepsis with temp of 101.4F, heart rate 134, respiratory rate of 22, WBC count of 23.3, and lactate of 3.4. Repeat lactate 1.1 status post sepsis bolus. -LDH elevated at 727 with CRP of 23.2. -Covid 19 PCR was negative. -Oxygenation to be continued and titrated as needed to maintain SPO2 equal to or greater than 92%, wean once patient tolerates. -Telemetry monitoring. -Duonebs scheduled and as needed for SOB and/or wheezing -Incentive Spirometry -Steroids: Prednisone 40 mg daily -Antibiotics: Rocephin and azithromycin -Continued hydration with IV fluids. -Symptomatic care and pain management. Tessalon Perles as needed for cough. Tylenol as needed for mild pain/fever. Hyponatremia -Hyponatremia with sodium of 134, likely secondary to dehydration. -Patient given bolus of IV fluids in the ED and we will continue hydration with IV fluids. -We will continue to monitor with repeat a.m. labs. Prerenal azotemia -BUN elevated to 48, likely secondary to dehydration. -Patient given bolus of IV fluids in the ED and we will continue hydration with IV fluids. -We will continue to monitor with repeat a.m. labs. The patient is admitted with an anticipated greater than 2 midnight stay for evaluation of lower lobe pneumonia with severe sepsis. CODE STATUS: Full code DVT prophylaxis: Heparin Discussed with: Patient and RN Anticipated discharge date: Clinical course to determine Anticipated discharge place: Home A total of 45 minutes was spent on the care of this complex patient more than 50% of the time was spent in counseling and care coordination. Past Medical History Past Medical History: COPD, Hypertension Additional Past Medical History / Comment(s): diverticulitis, hypothyroidism, C- diff, brain aneurysm History of Any Multi-Drug Resistant Organisms: C-DIFF Date of last positivie culture/infection: 09/23/14 MDRO Source:: stool Past Surgical History: No Surgical Hx Reported Additional Past Surgical History / Comment(s): brain surgery 2004 Past Anesthesia/Blood Transfusion Reactions: No Reported Reaction Past Psychological History: No Psychological Hx Reported Smoking Status: Former smoker Past Alcohol Use History: None Reported Additional Past Alcohol Use History / Comment(s): Pt states he quit smoking a year ago Past Drug Use History: None Reported - Past Family History Mother Additional Family Medical History / Comment(s): DIVERTICULITIS Medications and Allergies Home Medications Medication Instructions Recorded Confirmed Type Albuterol Inhaler [Ventolin Hfa 2 puff INHALATION QID 06/14/20 06/22/21 History Inhaler] Docusate [Colace] 100 mg PO DAILY 06/14/20 06/22/21 History L.acidoph,Paracasei, B.lactis 1 cap PO DAILY 06/22/21 06/22/21 History [Probiotic] Mirtazapine [Remeron] 15 mg PO HS 06/22/21 06/22/21 History buprenorphine HCL [Subutex] 8 mg SUBLINGUAL BID 06/22/21 06/22/21 History lisinopriL 20 mg PO DAILY 06/22/21 06/22/21 History Allergies Allergy/AdvReac Type Severity Reaction Status Date / Time Penicillins Allergy Anaphylaxis Verified 06/22/21 12:12 Physical Exam Vitals: Vital Signs Temp Pulse Pulse Resp BP BP Pulse Ox 06/22/21 05:40 98.4 F 103 H 22 110/68 94 L 06/22/21 05:14 98.6 F 86 16 06/22/21 04:40 120/87 06/22/21 04:30 124 H 18 115/89 99 06/22/21 04:02 134 H 06/22/21 03:59 101.4 F H 137 H 20 94/67 94 L 06/22/21 03:39 98.6 F 71 16 96/59 95 Intake and Output 06/21/21 06/22/21 06/22/21 22:59 06:59 14:59 Intake Total 0 Output Total 0 Balance 0 Intake: Oral 0 Output: Urine 0 Other: Voiding Method Urinal Weight 54.431 kg Results CBC & Chem 7: 06/22/21 04:10 06/22/21 04:10 Labs: Abnormal Lab Results - Last 24 Hours (Table) 06/22/21 06/22/21 06/22/21 Range/Units 04:10 04:10 04:10 WBC 23.3 H (3.8-10.6) k/uL Neutrophils # 20.5 H (1.3-7.7) k/uL Lymphocytes # 0.7 L (1.0-4.8) k/uL Monocytes # 1.3 H (0-1.0) k/uL Sodium 134 L (137-145) mmol/L BUN 40 H (9-20) mg/dL Glucose 142 H (74-99) mg/dL Plasma Lactic Acid Gamal 3.4 H* (0.7-2.0) mmol/L Lactate Dehydrogenase 727 H (313-618) U/L C-Reactive Protein 23.2 H (<1.0) mg/dL Thrombosis Risk Factor Assmnt - Choose All That Apply Each Factor Represents 1 point: Abnormal pulmonary function (COPD), Age 41-60 years Thrombosis Risk Factor Assessment Total Risk Factor Score: 2 Thrombosis Risk Factor Assessment Level: Low Risk <Tita Hunter - Last Filed: 06/22/21 17:18> Physical Exam Osteopathic Statement: *. No significant issues noted on an osteopathic structural exam other than those noted in the History and Physical/Consult. Vitals: Vital Signs Temp Pulse Pulse Resp BP BP Pulse Ox 06/22/21 16:00 97.5 F L 74 16 117/81 94 L 06/22/21 12:25 66 18 121/75 96 06/22/21 08:59 97.8 F 69 16 96/58 94 L 06/22/21 05:40 98.4 F 103 H 22 110/68 94 L 06/22/21 05:14 98.6 F 86 16 06/22/21 04:40 120/87 06/22/21 04:30 124 H 18 115/89 99 06/22/21 04:02 134 H 06/22/21 03:59 101.4 F H 137 H 20 94/67 94 L 06/22/21 03:39 98.6 F 71 16 96/59 95 Intake and Output 06/22/21 06/22/21 06/22/21 06:59 14:59 22:59 Intake Total 0 600 Output Total 0 Balance 0 600 Intake: IV 360 Sodium Chloride 0.9% 1, 260 000 ml @ 130 mls/hr IV . Q7H42M [facility] Rx#:[id number] cefTRIAXone 1 gm In 100 Sodium Chloride 0.9% 50 ml @ 100 mls/hr IVPB Q24HR [facility] Rx#:[id number] Oral 0 240 Output: Urine 0 Other: Voiding Method Urinal # Voids 1 # Bowel Movements 1 Weight 54.431 kg Results CBC & Chem 7: 06/22/21 04:10 06/22/21 04:10 Labs: Abnormal Lab Results - Last 24 Hours (Table) 06/22/21 06/22/21 06/22/21 Range/Units 04:10 04:10 04:10 WBC 23.3 H (3.8-10.6) k/uL Neutrophils # 20.5 H (1.3-7.7) k/uL Lymphocytes # 0.7 L (1.0-4.8) k/uL Monocytes # 1.3 H (0-1.0) k/uL Sodium 134 L (137-145) mmol/L BUN 40 H (9-20) mg/dL Glucose 142 H (74-99) mg/dL Plasma Lactic Acid Gamal 3.4 H* (0.7-2.0) mmol/L Lactate Dehydrogenase 727 H (313-618) U/L C-Reactive Protein 23.2 H (<1.0) mg/dL Assessment and Plan Assessment: Patient seen and examined independently. Patient was also seen by Hernán Sahu NP and case was discussed. I am in agreement with subjective, physical exam, assessment and plan as written above and amended below. No chest pain, Mild shortness of breath, no nausea General: non toxic, no distress, appears at stated age Derm: warm, dry Head: atraumatic, normocephalic, symmetric Eyes: EOMI, no lid lag, anicteric sclera Mouth: no lip lesion, mucus membranes moist Cardiovascular: S1S2 reg, no murmur, positive posterior tibial pulse bilateral, Lungs: diffuse wheezing bilateral, no accessory muscle use Abdominal: soft, nontender to palpation, no guarding, no appreciable o rganomegaly Ext: no gross muscle atrophy, no edema, no contractures Neuro: CN II-XI grossly intact, no focal neuro deficits Psych: Alert, oriented, appropriate affect
[2021-06-22] MEDS: HEPARIN SODIUM,PORCINE/PF 5,000 UNIT/0.5 ML SYRINGE SQ SCH ×2 (16:05→23:40)
[2021-06-22] MEDS: IPRATROPIUM-ALBUTEROL 3 ML NEB INHALATION SCH ×3 (16:25→23:55)
[2021-06-22] MEDS: MIRTAZAPINE 15 MG TAB PO SCH (21:11)
[2021-06-23] MEDS: HYDROcodone/APAP 5-325MG 1 EACH TAB PO PRN ×4 (03:44→21:31)
[2021-06-23] MEDS: IPRATROPIUM-ALBUTEROL 3 ML NEB INHALATION SCH ×5 (03:48→20:11)
[2021-06-23 07:45] LABS: ALT 10 U/L (4-49); AST 20 U/L (17-59); African American GFR (CKD) >90 (>60 ml/min/1.73 sqM); Albumin 2.6 g/dL (3.5-5.0); Alkaline Phosphatase 98 U/L (38-126); Anion Gap 5 mmol/L; Blood Urea Nitrogen 36 mg/dL (9-20); Calcium 8.4 mg/dL (8.4-10.2); Carbon Dioxide 24 mmol/L (22-30); Chloride 107 mmol/L (98-107); Glucose 119 mg/dL (74-99); Lipase 72 U/L (23-300); Magnesium 2.4 mg/dL (1.6-2.3); Non-African American GFR(CKD) >90 (>60 ml/min/1.73 sqM); Phosphorus 2.6 mg/dL (2.5-4.5); Potassium 4.3 mmol/L (3.5-5.1); Sodium 136 mmol/L (137-145); Total Bilirubin 0.2 mg/dL (0.2-1.3); Total Protein 5.1 g/dL (6.3-8.2)
--- NOTE | 2021-06-23 07:45 | XR ---
EXAMINATION TYPE: XR chest 1V DATE OF EXAM: 06/23/2021 COMPARISON: 06/22/2021 INDICATION: Pneumonia TECHNIQUE: Single frontal view of the chest is obtained. FINDINGS: The heart size is normal. The pulmonary vasculature is normal. There is hyperinflation compatible severe COPD. Consolidation is in the left mid lung. Some mild righ t lower lobe infiltrate may be present. This could be related to atelectasis. There is a suggestion o f a pleural margin along the lateral right lung base suggesting an underlying pneumothorax. This may be small, however accurate evaluation of the size is difficult due to the extensive COPD on the right , since CT could better evaluate the extent of the pneumothorax. IMPRESSION: 1. There appears to be interval development of a small right-sided pneumothorax. Pneumothorax size is somewhat difficult to ascertain given the extensive COPD on the right. CT may be more accurate for s ize evaluation. 2. Left infrahilar infiltrate suspicious for pneumonia. 3. Some minimal atelectasis or early pneumonia may be at the right infrahilar region. A Red level critical message alert has been initiated for Unruly Louie MD via the [employer] Critical Results System on 06/23/2021 7:42 AM. This message alert has been sent to Unruly Louie MD via the preferences provided by the clinician for the receipt of Radiology Critical Findings. [facility] ID [id number].
[2021-06-23 07:49] LABS: Basophils % (A) 0 %; Eosinophils % (A) 0 %; HCT 36.1 % (39.0-53.0); HGB 11.9 gm/dL (13.0-17.5); Lymphocytes # (A) 0.7 k/uL (1.0-4.8); Lymphocytes % (A) 5 %; MCH 32.1 pg (25.0-35.0); MCV 97.4 fL (80.0-100.0); Mean Platelet Volume 7.1; Monocytes # (A) 0.5 k/uL (0-1.0); Monocytes % (A) 4 %; Neutrophils # (A) 12.1 k/uL (1.3-7.7); Neutrophils % (A) 90 %; Platelet Count 328 k/uL (150-450); RDW 13.1 % (11.5-15.5); WBC 13.5 k/uL (3.8-10.6)
--- NOTE | 2021-06-23 08:23 | P.PN ---
<Hernán Sahu - Last Filed: 06/23/21 08:06> Subjective Progress Note Date: 06/23/21 History of Presenting Illness: Patient is a very pleasant 65-year-old male with a past medical history of hypertension, COPD, previous pneumothorax and brain aneurysm with repair in 2004. Patient presented to the emergency department with a chief complaint of chest pain and productive cough. He reports his symptoms of chest pain and productive cough began on and have been accompanied by body aches, chills, fever, shortness of breath, epigastric pain, and nausea. Patient reports receiving his Covid 19 vaccinations and denies being on any home oxygen. In the emergency department, an EKG was completed showing sinus tachycardia with frequent PVCs at 130 bpm. Chest x-ray significant for left lower lobe pneumonia accompanied by scarring and atelectasis resulting from pulmonary emphysema. Patient positive for sepsis with temp of 101.4F, heart rate 134, respiratory rate of 22, WBC count of 23.3, and lactate of 3.4. LDH elevated at 727 with CRP of 23.2. Covid 19 PCR was negative. Patient was given bolus of IV fluids along with IV antibiotics followed by admission under our services. 06/23/21: Received critical message stating that morning CXR is concerning for development of small right-sided pneumothorax with left infrahilar infiltrate suspicious for pneumonia, right infrahilar atelectasis or early pneumonia and significant hyperinflation compatible with severe COPD. Went to bedside to assess, patient resting comfortably on 2L O2. He reports mild chest pain/tightness with shortness of breath continues but states he feels much better than yesterday. Called and notified Dr. [facility] of critical report and pt's stable condition at this time. Dr. Gruber to review imaging and further evaluate, consult order placed. Pt's condition is currently stable. His lungs significantly diminished throughout/very tight with diffuse soft expiratory wheezes. oral prednisone discontinued and pt placed on IV Solu-Medrol at this time. Patient to continue scheduled to go labs along with as needed for shortness of breath and wheezing. He remains on IV antibiotics azithromycin and Rocephin. Patient denies having any headache, lightheadedness, dizziness, palpitations, abdominal pain, nausea, vomiting, or experiencing any numbness/tingling/weakness in his extremities. Patient was able to eat most of his breakfast. Morning labs revealed leukocytosis with WBC count of 13.5 and normocytic normochromic anemia with hemoglobin of 11.9. Troponins were trended resulting in less then 0.0122 draws. Patient did have reported episode of arrhythmia overnight with brief episodes of idioventricular rhythm during sleep, this was concerning for possible 3rd degree AV block and cardiology was consult ed. Physical exam: Vital signs reviewed and stable. General: Nontoxic, no distress and appears stated age. Thin build. Derm: Skin warm and dry, normal coloration for ethnicity. Head: Atraumatic, normocephalic and symmetric. Eyes: EOMs intact, no lid lag, and anicteric sclera Mouth: no lip lesions, mucus membranes moist Cardiovascular: regular rate and rhythm with normal S1S2, no murmur, positive posterior tibial pulses bilaterally, and cap refill < 2 seconds. Lungs: Respirations even, regular, and unlabored on 2 L O2 via nasal cannula. Lungs significantly diminished throughout/very tight with diffuse soft expiratory wheezes. No rhonchi or rales noted. Abdominal: soft, nontender to palpation, no guarding, no appreciable organomegaly Ext: ROM intact. No gross muscle atrophy, no edema, no contractures Neuro: Speech clear, face symmetrical and CN II-XII grossly intact with no noted focal neuro deficits Psych: Alert and oriented to person, place, time, and situation. Appropriate and pleasant affect. Assessment and Plan of Care: Left lower lobe pneumonia with severe sepsis -Chest x-ray significant for left lower lobe pneumonia accompanied by scarring and atelectasis resulting from pulmonary emphysema. -Patient positive for sepsis with temp of 101.4F, heart rate 134, respiratory rate of 22, WBC count of 23.3, and lactate of 3.4. Repeat lactate 1.1 status post sepsis bolus. -LDH elevated at 727 with CRP of 23.2. -Covid 19 PCR was negative. -Oxygenation to be continued and titrated as needed to maintain SPO2 equal to or greater than 92%, wean once patient tolerates. -Telemetry monitoring. -Duonebs scheduled and as needed for SOB and/or wheezing -Incentive Spirometry -Steroids: Solu-Medrol -Antibiotics: Rocephin and azithromycin -Symptomatic care and pain management. Tessalon Perles as needed for cough. Tylenol as needed for mild pain/fever. Hyponatremia, resolved after fluids -We will continue to monitor with repeat a.m. labs. Prerenal azotemia, improving -BUN initially elevated to 48, likely secondary to dehydration. Repeat morning labs reveal BUN of 36. -Patient given bolus of IV fluids in the ED and we will continue hydration with IV fluids. -We will continue to monitor with repeat a.m. labs. Hypertension -Monitor vital signs and continue daily medication regimen with lisinopril. CODE STATUS: Full code DVT prophylaxis: Heparin Discussed with: Patient and RN Anticipated discharge date: Clinical course to determine Anticipated discharge place: Home A total of 45 minutes was spent on the care of this complex patient more than 50% of the time was spent in counseling and care coordination. Objective - Vital Signs Vital signs: Vital Signs Temp 97.5 F L 06/23/21 03:55 Pulse 50 L 06/23/21 03:55 Resp 16 06/23/21 03:55 BP 138/91 06/23/21 03:55 Pulse Ox 95 06/23/21 03:55 Intake & Output 06/22/21 06/23/21 06/23/21 18:59 06:59 18:59 Intake Total 780 10 Output Total 550 Balance 780 10 -550 Weight 55 kg Intake: IV 360 10 Invasive Line 2 10 Sodium Chloride 0.9% 1, 260 000 ml @ 130 mls/hr IV . Q7H42M [facility] Rx#:[id number] cefTRIAXone 1 gm In 100 Sodium Chloride 0.9% 50 ml @ 100 mls/hr IVPB Q24HR [facility] Rx#:[id number] Oral 420 Output: Urine 550 Other: Voiding Method Urinal # Voids 0 1 # Bowel Movements 0 - Labs CBC & Chem 7: 06/23/21 06:57 06/23/21 06:57 Labs: Abnormal Lab Results - Last 24 Hours (Table) 06/23/21 06/23/21 Range/Units 06:57 06:57 WBC 13.5 H (3.8-10.6) k/uL RBC 3.70 L (4.30-5.90) m/uL Hgb 11.9 L (13.0-17.5) gm/dL Hct 36.1 L (39.0-53.0) % Neutrophils # 12.1 H (1.3-7.7) k/uL Lymphocytes # 0.7 L (1.0-4.8) k/uL Sodium 136 L (137-145) mmol/L BUN 36 H (9-20) mg/dL Creatinine 0.54 L (0.66-1.25) mg/dL Glucose 119 H (74-99) mg/dL Magnesium 2.4 H (1.6-2.3) mg/dL Total Protein 5.1 L (6.3-8.2) g/dL Albumin 2.6 L (3.5-5.0) g/dL Microbiology - Last 24 Hours (Table) 06/22/21 05:00 Blood Culture - Preliminary Blood No Growth after 24 hours 06/22/21 04:45 Blood Culture - Preliminary Blood No Growth after 24 hours <Tita Hunter - Last Filed: 06/23/21 15:37> Subjective Patient seen and examined independently. Patient was also seen by Hernán Sahu NP and case was discussed. I am in agreement with subjective, physical exam, assessment and plan as written above and amended below. General: non toxic, no distress, appears older than stated age, cachectic, temporal and buccal wasting Derm: warm, dry Head: atraumatic, normocephalic, symmetric Eyes: EOMI, no lid lag, anicteric sclera Mouth: no lip lesion, mucus membranes moist Cardiovascular: S1S2 reg, no murmur, positive posterior tibial pulse bilateral, Lungs: Decreased bs bilateral , no accessory muscle use Ext: no gross muscle atrophy, no edema, no contractures Neuro: CN II-XI grossly intact, no focal neuro deficits Psych: Alert, oriented, appropriate affect Additional diagnosis: Acute exacerbation of COPD patient is on steroids and bronchodilators. Pneumothorax ruled out with CT with no evidence of pneumothorax. Objective - Vital Signs Vital signs: Vital Signs Temp 97.6 F 06/23/21 08:00 Pulse 74 06/23/21 14:00 Resp 20 06/23/21 14:00 BP 134/87 06/23/21 12:00 Pulse Ox 98 06/23/21 12:00 Intake & Output 06/22/21 06/23/21 06/23/21 18:59 06:59 18:59 Intake Total 780 10 420 Output Total 550 Balance 780 10 -130 Weight 55 kg 55 kg Intake: IV 360 10 Invasive Line 2 10 Sodium Chloride 0.9% 1, 260 000 ml @ 130 mls/hr IV . Q7H42M [facility] Rx#:[id number] cefTRIAXone 1 gm In 100 Sodium Chloride 0.9% 50 ml @ 100 mls/hr IVPB Q24HR [facility] Rx#:[id number] Oral 420 420 Output: Urine 550 Other: Voiding Method Urinal Urinal # Voids 0 1 # Bowel Movements 0 - Labs CBC & Chem 7: 06/23/21 06:57 06/23/21 06:57 Labs: Abnormal Lab Results - Last 24 Hours (Table) 06/23/21 06/23/21 Range/Units 06:57 06:57 WBC 13.5 H (3.8-10.6) k/uL RBC 3.70 L (4.30-5.90) m/uL Hgb 11.9 L (13.0-17.5) gm/dL Hct 36.1 L (39.0-53.0) % Neutrophils # 12.1 H (1.3-7.7) k/uL Lymphocytes # 0.7 L (1.0-4.8) k/uL Sodium 136 L (137-145) mmol/L BUN 36 H (9-20) mg/dL Creatinine 0.54 L (0.66-1.25) mg/dL Glucose 119 H (74-99) mg/dL Magnesium 2.4 H (1.6-2.3) mg/dL Total Protein 5.1 L (6.3-8.2) g/dL Albumin 2.6 L (3.5-5.0) g/dL Microbiology - Last 24 Hours (Table) 06/23/21 09:07 Sputum Culture - Preliminary Sputum 06/22/21 05:00 Blood Culture - Preliminary Blood No Growth after 24 hours 06/22/21 04:45 Blood Culture - Preliminary Blood No Growth after 24 hours
[2021-06-23] MEDS: lisinopriL 20 MG TAB PO SCH (08:50)
[2021-06-23] MEDS: HEPARIN SODIUM,PORCINE/PF 5,000 UNIT/0.5 ML SYRINGE SQ SCH ×2 (08:51→16:53)
[2021-06-23] MEDS: PANTOPRAZOLE 40 MG/10 ML VIAL IV SCH (08:52)
[2021-06-23] MEDS: AZITHROMYCIN 500 MG in SODIUM CHLORIDE 0.9% 250 ML IVPB SCH (08:52)
[2021-06-23] MEDS ORDERED: methylPREDNISolone SOD SUCCI 40 MG/ML 1 ML VIAL IV SCH (09:00)
[2021-06-23] MEDS ORDERED: predniSONE 20 MG TAB PO SCH (09:00)
--- NOTE | 2021-06-23 09:05 | P.CRDCN ---
History of Present Illness Consult date: 06/23/21 Chief complaint: Shortness of breath History of present illness: This is a very pleasant 64-year-old gentleman who requested to see as a consult for further evaluation of cardiac arrhythmia. The patient does have history of chronic obstructive pulmonary disease as well as history of hypertension and prior history of smoking and also history of intracranial and. He presented to the hospital complaining of fever associated with cough productive of sputum. He was diagnosed with a pneumonia. The chest x-ray showed findings consistent with pneumonia as well as chronic obstructive pulmonary disease. As a matter of fact temperature was 104 Fahrenheit. WBC was 23,000 when he came in. The patient subsequently was admitted to the hospital and started on IV antibiotic. We consulted to see the patient mailing because of cardiac arrhythmia. The patient did have multiple episodes of narrow complex tachycardia seems to be consistent with atrial tachycardia with a differential diagnosis of multifocal atrial tachycardia versus atrial fibrillation but these episodes are of short duration. Beside that he did have an episode only one time off wide-complex tachycardia consistent with idioventricular rhythm. During these episodes the patient is completely asymptomatic. No prior history of cardiac arrhythmia. No history of coronary artery disease or congestive heart failure. The patient never seen any applications packager before. He denies any symptoms of chest pain or chest discomfort. Before he was diagnosed with pneumonia he does have chronic shortness of breath likely related to chronic obstructive pulmonary disease. He denies any dizziness or lightheadedness or any presyncope or syncope. Past Medical History Past Medical History: COPD, Hypertension Additional Past Medical History / Comment(s): diverticulitis, hypothyroidism, C- diff, brain aneurysm History of Any Multi-Drug Resistant Organisms: C-DIFF Date of last positivie culture/infection: 09/23/14 MDRO Source:: stool Past Surgical History: No Surgical Hx Reported Additional Past Surgical History / Comment(s): brain surgery 2004 Past Anesthesia/Blood Transfusion Reactions: No Reported Reaction Past Psychological History: No Psychological Hx Reported Smoking Status: Former smoker Past Alcohol Use History: None Reported Additional Past Alcohol Use History / Comment(s): Pt states he quit smoking a year ago Past Drug Use History: None Reported - Past Family History Mother Additional Family Medical History / Comment(s): DIVERTICULITIS Medications and Allergies Home Medications Medication Instructions Recorded Confirmed Type Albuterol Inhaler [Ventolin Hfa 2 puff INHALATION QID 06/14/20 06/22/21 History Inhaler] Docusate [Colace] 100 mg PO DAILY 06/14/20 06/22/21 History L.acidoph,Paracasei, B.lactis 1 cap PO DAILY 06/22/21 06/22/21 History [Probiotic] Mirtazapine [Remeron] 15 mg PO HS 06/22/21 06/22/21 History buprenorphine HCL [Subutex] 8 mg SUBLINGUAL BID 06/22/21 06/22/21 History lisinopriL 20 mg PO DAILY 06/22/21 06/22/21 History Allergies Allergy/AdvReac Type Severity Reaction Status Date / Time Penicillins Allergy Anaphylaxis Verified 06/22/21 12:12 Physical Exam Vitals: Vital Signs Temp Pulse Pulse Resp BP Pulse Ox 06/23/21 03:55 97.5 F L 50 L 16 138/91 95 06/23/21 03:11 95 06/22/21 23:50 97.7 F 64 16 108/64 93 L 06/22/21 20:00 97.6 F 64 16 105/66 95 06/22/21 16:00 97.5 F L 74 16 117/81 94 L 06/22/21 12:25 66 18 121/75 96 Intake and Output 06/22/21 06/23/21 06/23/21 22:59 06:59 14:59 Intake Total 190 240 Output Total 550 Balance 190 -310 Intake: IV 10 Invasive Line 2 10 Oral 180 240 Output: Urine 550 Other: Voiding Method Urinal Urinal # Voids 0 1 # Bowel Movements 0 Weight 55 kg - Constitutional General appearance: no acute distress - Respiratory Respiratory: bilateral: rales - Cardiovascular Rhythm: regular Heart sounds: normal: S1 Results 06/23/21 06:57 06/23/21 06:57 Cardiac Enzymes 06/23/21 06/23/21 06/23/21 Range/Units 03:32 06:57 06:57 AST 20 (17-59) U/L Troponin I <0.012 <0.012 (0.000-0.034) ng/mL CBC 06/23/21 Range/Units 06:57 WBC 13.5 H (3.8-10.6) k/uL RBC 3.70 L (4.30-5.90) m/uL Hgb 11.9 L (13.0-17.5) gm/dL Hct 36.1 L (39.0-53.0) % Plt Count 328 (150-450) k/uL Comprehensive Metabolic Panel 06/23/21 Range/Units 06:57 Sodium 136 L (137-145) mmol/L Potassium 4.3 (3.5-5.1) mmol/L Chloride 107 (98-107) mmol/L Carbon Dioxide 24 (22-30) mmol/L BUN 36 H (9-20) mg/dL Creatinine 0.54 L (0.66-1.25) mg/dL Glucose 119 H (74-99) mg/dL Calcium 8.4 (8.4-10.2) mg/dL AST 20 (17-59) U/L ALT 10 (4-49) U/L Alkaline Phosphatase 98 (38-126) U/L Total Protein 5.1 L (6.3-8.2) g/dL Albumin 2.6 L (3.5-5.0) g/dL Current Medications Generic Name Dose Route Start Last Admin Trade Name Freq PRN Reason Stop Dose Admin Acetaminophen 650 mg 06/22/21 04:41 Acetaminophen Tab 325 Mg Tab PO Q6HR PRN Mild Pain or Fever > 100.5 Hydrocodone Bitart/Acetaminophen 1 each 06/22/21 09:25 06/23/21 08:50 Hydrocodone/Apap 5-325mg 1 Each Tab PO 1 each Q4HR PRN Administration Moderate Pain Albuterol/Ipratropium 3 ml 06/22/21 04:40 Ipratropium-Albuterol 3 Ml Neb INHALATION RT-Q4H PRN shortness of breath Albuterol/Ipratropium 3 ml 06/22/21 16:00 06/23/21 03:48 Ipratropium-Albuterol 3 Ml Neb INHALATION Not Given RT-Q4H SAFIA Benzonatate 200 mg 06/22/21 14:25 Benzonatate 100 Mg Cap PO TID PRN Cough Heparin Sodium (Porcine) 5,000 unit 06/22/21 16:00 06/23/21 08:51 Heparin Sodium,Porcine/Pf 5,000 Unit/0.5 Ml Syringe SQ 5,000 unit Q8HR SAFIA Administration Azithromycin 500 mg/ Sodium 250 mls @ 250 mls/hr 06/23/21 09:00 06/23/21 08:52 Chloride IVPB 06/27/21 09:01 250 mls/hr DAILY SAFIA Administration Ceftriaxone Sodium 1 gm/ 50 mls @ 100 mls/hr 06/22/21 13:00 06/23/21 08:51 Sodium Chloride IVPB 100 mls/hr Q24HR SAFIA Administration Lisinopril 20 mg 06/23/21 09:00 06/23/21 08:50 Lisinopril 20 Mg Tab PO 20 mg DAILY SAFIA Administration Methylprednisolone Sodium Succinate 40 mg 06/23/21 09:00 06/23/21 08:51 Methylprednisolone Sod Succi 40 Mg/Ml 1 Ml Vial IV 40 mg Q12HR SAFIA Administration Mirtazapine 15 mg 06/22/21 21:00 06/22/21 21:11 Mirtazapine 15 Mg Tab PO 15 mg HS SAFIA Administration Miscellaneous Information 1 each 06/22/21 04:40 Pneumonia Protocol Utilized 1 Each Misc PO ONCE PRN Per Protocol Morphine Sulfate 4 mg 06/22/21 04:41 Morphine Sulfate 4 Mg/Ml Syringe IV Q4HR PRN Severe Pain Naloxone HCl 0.2 mg 06/22/21 04:41 Naloxone 0.4 Mg/Ml 1 Ml Vial IV Q2M PRN Opioid Reversal Ondansetron HCl 4 mg 06/22/21 04:41 Ondansetron 4 Mg/2 Ml Vial IVP Q8HR PRN Nausea And Vomiting Pantoprazole Sodium 40 mg 06/22/21 09:00 06/23/21 08:52 Pantoprazole 40 Mg/10 Ml Vial IV 40 mg DAILY SAFIA Administration Intake and Output 06/22/21 06/23/21 06/23/21 22:59 06:59 14:59 Intake Total 190 240 Output Total 550 Balance 190 -310 Intake: IV 10 Invasive Line 2 10 Oral 180 240 Output: Urine 550 Other: Voiding Method Urinal Urinal # Voids 0 1 # Bowel Movements 0 Weight 55 kg 06/23/21 06:57 06/23/21 06:57 Assessment and Plan Assessment: Assessment #1 pneumonia #2 cardiac arrhythmia #3 intermittent episodes of narrow complex tachycardia #4 one episode of idioventricular rhythm #5 hypertension Plan #1 the patient was asymptomatic during these episodes #2 continue monitor the heart rhythm at this point. Rule out atrial fibrillation #3 obtain a TSH and free T4 #4 obtain an echocardiogram was Doppler #5 follow-up with the patient
[2021-06-23] MEDS ORDERED: RX INFO: IV CONTRAST WAS GIVEN 1 EACH MISC MISCELLANE PRN (10:19)
[2021-06-23 10:20] LABS: T4, Free (Free Thyroxine) 1.17 ng/dL (0.78-2.19)
--- NOTE | 2021-06-23 11:18 | CT ---
EXAMINATION TYPE: CT chest w con DATE OF EXAM: 06/23/2021 COMPARISON: 11/15/2010 HISTORY: Left pneumothorax, pneumonia CT DLP: 266 mGycm Automated exposure control for dose reduction was used. CONTRAST: CT scan of the chest is performed with IV Contrast, patient injected with 100 ml mL of Isovue 300. FINDINGS: LUNGS: Severe changes of emphysema noted greatest within the upper lobes particularly on the right. T here is no evidence for sizable pneumothorax at this time. There is airspace consolidation with early cavitation seen in the region of the lingula. Nodule left lower lobe image 59 measures 9 mm. Basilar parenchymal scarring noted bilaterally. MEDIASTINUM: There are no greater than 1 cm hilar or mediastinal lymph nodes. No pericardial effusi on is seen. Thoracic aorta is of normal caliber. The heart is not enlarged. UPPER ABDOMEN: No significant abnormality appreciated. OTHER: No additional significant abnormality is seen. IMPRESSION: 1. Severe changes of emphysema is noted. No evidence for pneumothorax at this time. 2. Lingular infiltrate with early cavitation suggested. 3. 9 mm nodule left lower lobe requires follow-up in 3-4 months.
--- NOTE | 2021-06-23 12:17 | P.CNPUL ---
History of Present Illness Consult date: 06/23/21 Requesting physician: Unruly Louie Reason for consult: dyspnea, cough, COPD, hypoxemia, pneumothorax, pulmonary hypertension, abnormal CXR/CT Chief complaint: Shortness of breath. History of present illness: Pulmonary consult dated 06/23/2021. 65-year-old male who presents to the hospital with complaints of abdominal pain, vomiting, and shortness of breath. The patient has a history of smoking for about 50 years. Based on his chest x-ray, it appears that he has pretty significant emphysema. In addition to COPD, the patient apparently carries with him a diagnosis of hypertension, hypothyroidism, reticular disease, brain aneurysm, and C. difficile colitis. The patient was smoking up until the time he came into the hospital. The patient complains of shortness of breath, cough which is mostly nonproductive, and tightness in his chest. He was no fever or chills. There was no chest pain or chest discomfort. A subsequent x-ray may show a small right-sided pneumothorax. A CAT scan was ordered. His home medications included mirtazapine, albuterol inhaler, Colace, Cipro, [place], lisinopril, and Flagyl. White count is 13.5, hemoglobin 0.9, hematocrit 36.1, platelet count 328,000. Sodium 136, potassium 4.3, chlorides 107, CO2 24, anion gap 5, BUN 36, and creatinine 0.54. Albumin is 2.6. Lipase 72. TSH was normal. The most recent x-ray suggests a small right-sided pneumothorax. In addition, the patient has a infiltrate in the left infrahilar region. There is either atelectasis or pneumonia at the right lung base as well. Computed tomography scan showed changes of severe emphysema. There is a lingular infiltrate with early cavitation, and a 9 mm nodule in the left lower lobe. Review of Systems REVIEW OF SYSTEMS: CONSTITUTIONAL: [Negative.] NEUROLOGIC: [ Negative.] HEENT: [ Negative.] CARDIAC: [Negative.] PULMONARY: Shortness of breath and dry cough. GI: Nausea, vomiting, and abdominal pain. : [Negative.] RHEUMATOLOGIC: [ Negative.] IMMUNOLOGIC: [ Negative.] ENDOCRINE: [Negative. ] DERMATOLOGIC: [Negative.] Past Medical History Past Medical History: COPD, Hypertension Additional Past Medical History / Comment(s): diverticulitis, hypothyroidism, C- diff, brain aneurysm History of Any Multi-Drug Resistant Organisms: C-DIFF Date of last positivie culture/infection: 09/23/14 MDRO Source:: stool Past Surgical History: No Surgical Hx Reported Additional Past Surgical History / Comment(s): brain surgery 2004 Past Anesthesia/Blood Transfusion Reactions: No Reported Reaction Past Psychological History: No Psychological Hx Reported Smoking Status: Former smoker Past Alcohol Use History: None Reported Additional Past Alcohol Use History / Comment(s): Pt states he quit smoking a year ago Past Drug Use History: None Reported - Past Family History Mother Additional Family Medical History / Comment(s): DIVERTICULITIS Medications and Allergies Home Medications Medication Instructions Recorded Confirmed Type Albuterol Inhaler [Ventolin Hfa 2 puff INHALATION QID 06/14/20 06/22/21 History Inhaler] Docusate [Colace] 100 mg PO DAILY 06/14/20 06/22/21 History L.acidoph,Paracasei, B.lactis 1 cap PO DAILY 06/22/21 06/22/21 History [Probiotic] Mirtazapine [Remeron] 15 mg PO HS 06/22/21 06/22/21 History buprenorphine HCL [Subutex] 8 mg SUBLINGUAL BID 06/22/21 06/22/21 History lisinopriL 20 mg PO DAILY 06/22/21 06/22/21 History Allergies Allergy/AdvReac Type Severity Reaction Status Date / Time Penicillins Allergy Anaphylaxis Verified 06/22/21 12:12 Physical Exam Osteopathic Statement: *. No significant issues noted on an osteopathic structural exam other than those noted in the History and Physical/Consult. Vitals: Vital Signs Temp Pulse Pulse Resp BP Pulse Ox 06/23/21 08:00 97.6 F 76 16 115/77 92 L 06/23/21 03:55 97.5 F L 50 L 16 138/91 95 06/23/21 03:11 95 06/22/21 23:50 97.7 F 64 16 108/64 93 L 06/22/21 20:00 97.6 F 64 16 105/66 95 06/22/21 16:00 97.5 F L 74 16 117/81 94 L 06/22/21 12:25 66 18 121/75 96 Intake and Output 06/22/21 06/23/21 06/23/21 22:59 06:59 14:59 Intake Total 190 240 Output Total 550 Balance 190 -310 Intake: IV 10 Invasive Line 2 10 Oral 180 240 Output: Urine 550 Other: Voiding Method Urinal Urinal Urinal # Voids 0 1 # Bowel Movements 0 Weight 55 kg No acute distress, oriented 3. No audible wheezing or use of accessory muscles. His 2 L saturations 95%. HEENT examination is grossly unremarkable. Neck supple. Full range of motion. No adenopathy thyromegaly or neck vein distention. Cardiovascular examination reveals regular rhythm rate. S1-S2 normal. No S3 or S4. No discernible murmur noted. Heart sounds are distant. Heart rate 76 bpm. Lungs reveal severely diminished breath sounds bilaterally. Mild high-pitched expiratory wheezes are noted. Few scattered rhonchi are noted. There are no crackles. Abdomen soft bowel sounds are heard. No masses or tenderness. Extremities are intact. No cyanosis clubbing or edema. Skin is without rash or lesion. Neurologic examination is brief but nonfocal. Results - Laboratory Findings CBC and BMP: 06/23/21 06:57 06/23/21 06:57 PT/INR, D-dimer PT 10.2 sec (9.0-12.0) 06/22/21 04:10 INR 0.9 (<1.2) 06/22/21 04:10 Abnormal lab findings: Abnormal Labs 06/22/21 06/22/21 06/22/21 04:10 04:10 04:10 WBC 23.3 H RBC Hgb Hct Neutrophils # 20.5 H Lymphocytes # 0.7 L Monocytes # 1.3 H Sodium 134 L BUN 40 H Creatinine Glucose 142 H Plasma Lactic Acid Gamal 3.4 H* Magnesium Lactate Dehydrogenase 727 H C-Reactive Protein 23.2 H Total Protein Albumin 06/23/21 06/23/21 06:57 06:57 WBC 13.5 H RBC 3.70 L Hgb 11.9 L Hct 36.1 L Neutrophils # 12.1 H Lymphocytes # 0.7 L Monocytes # Sodium 136 L BUN 36 H Creatinine 0.54 L Glucose 119 H Plasma Lactic Acid Gamal Magnesium 2.4 H Lactate Dehydrogenase C-Reactive Protein Total Protein 5.1 L Albumin 2.6 L - Diagnostic Findings Chest x-ray: image reviewed CT scan - chest: image reviewed Assessment and Plan Assessment: Acute exacerbation of severe emphysema. History of ongoing tobacco use and nicotine addiction for about 50 years. No evidence of pneumothorax on CT scan. Bilateral pneumonia, left greater than right. History of diverticular disease. History of hypertension. History of C. difficile colitis. History of brain aneurysm, status post surgery, 2004. History of hypothyroidism. Plan: Plan dated 06/23/2021. The patient is currently on Rocephin and Zithromax. We also the patient on albuterol sulfate and ipratropium bromide, as well as Solu-Medrol. In addition, we added Pulmicort, and formoterol. No evidence of pneumothorax on computed tomography scan. Additional recommendations and suggestions are forthcoming. T he patient is counseled about the importance of smoking cessation. Time with Patient: Greater than 30
[2021-06-23 12:57] VITALS: BMI 14.7
[2021-06-23] MEDS ORDERED: ALBUTEROL NEBULIZED 2.5 MG/3 ML INHALATION PRN (15:05)
[2021-06-23 16:36] LABS: Glucose,Whole Blood 121 mg/dL (75-99)
[2021-06-23] MEDS: methylPREDNISolone SOD SUCCI 40 MG/ML 1 ML VIAL IV SCH ×2 (16:51→21:30)
[2021-06-23] MEDS: FORMOTEROL FUMARATE 20 MCG/2 ML NEBU INHALATION SCH (20:10)
[2021-06-23] MEDS: BUDESONIDE 1 MG/2 ML NEBU INHALATION SCH (20:10)
[2021-06-23 20:30] LABS: Glucose,Whole Blood 132 mg/dL (75-99)
[2021-06-23] MEDS: MIRTAZAPINE 15 MG TAB PO SCH (21:31)
[2021-06-24] MEDS: HEPARIN SODIUM,PORCINE/PF 5,000 UNIT/0.5 ML SYRINGE SQ SCH ×4 (00:27→20:03)
[2021-06-24] MEDS: HYDROcodone/APAP 5-325MG 1 EACH TAB PO PRN ×4 (03:01→20:03)
[2021-06-24] MEDS: methylPREDNISolone SOD SUCCI 40 MG/ML 1 ML VIAL IV SCH ×4 (03:02→20:04)
[2021-06-24 03:21] VITALS: RESP 18
[2021-06-24 06:13] LABS: Glucose,Whole Blood 119 mg/dL (75-99)
[2021-06-24] MEDS: FORMOTEROL FUMARATE 20 MCG/2 ML NEBU INHALATION SCH ×2 (07:55→19:56)
[2021-06-24] MEDS: IPRATROPIUM-ALBUTEROL 3 ML NEB INHALATION SCH ×4 (07:55→19:56)
[2021-06-24] MEDS: BUDESONIDE 1 MG/2 ML NEBU INHALATION SCH ×2 (07:55→19:55)
[2021-06-24] MEDS: PANTOPRAZOLE 40 MG TABLET PO SCH (08:42)
[2021-06-24] MEDS: lisinopriL 20 MG TAB PO SCH (08:42)
[2021-06-24] MEDS: AZITHROMYCIN 500 MG in SODIUM CHLORIDE 0.9% 250 ML IVPB SCH (08:43)
[2021-06-24 09:10] LABS: HCT 35.5 % (39.0-53.0); HGB 11.8 gm/dL (13.0-17.5); MCH 32.9 pg (25.0-35.0); MCHC 33.2 g/dL (31.0-37.0); MCV 99.2 fL (80.0-100.0); Mean Platelet Volume 7.2; Platelet Count 360 k/uL (150-450); RBC 3.58 m/uL (4.30-5.90); RDW 13.2 % (11.5-15.5); WBC 13.9 k/uL (3.8-10.6)
[2021-06-24 09:28] LABS: African American GFR (CKD) >90 (>60 ml/min/1.73 sqM); Anion Gap 6 mmol/L; Blood Urea Nitrogen 37 mg/dL (9-20); Calcium 8.7 mg/dL (8.4-10.2); Carbon Dioxide 26 mmol/L (22-30); Chloride 105 mmol/L (98-107); Glucose 134 mg/dL (74-99); Magnesium 2.5 mg/dL (1.6-2.3); Non-African American GFR(CKD) >90 (>60 ml/min/1.73 sqM); Potassium 4.4 mmol/L (3.5-5.1); Sodium 137 mmol/L (137-145)
--- NOTE | 2021-06-24 10:31 | P.PN ---
Subjective This is a pleasant 65-year-old male past medical history significant for COPD, chronic nicotine dependence and hypertension. 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 He is seen and examined resting comfortably lying flat in bed in no acute distress. He continues to complain of cough with chest discomfort across his upper chest when he coughs. He denies any worsening shortness of breath. Blood pressure 111/64 heart rate 58 afebrile maintaining oxygen saturation on room air. Laboratory data reviewed, WBC 13.9, hemoglobin 11.8, platelets 137, sodium 4.4, creatinine 0.68 and magnesium 2.5. Currently maintained on IV antibiotics and lisinopril 20 mg daily. Telemetry tracings reviewed. He continues to have intermittent episodes of intraventricular conduction delay. GENERAL: Well-appearing, well-nourished and in no acute distress. Frail. NECK: Supple without JVD or thyromegaly. LUNGS: Breath sounds clear to auscultation bilaterally. Respiration equal and unlabored. No wheezes, rales or rhonchi. Diminished bilaterally. HEART: Regular rate and rhythm without murmurs, rubs or gallops. S1 and S2 heard. EXTREMITIES: Normal range of motion, no edema. No clubbing or cyanosis. Peripheral pulses intact. ASSESSMENT Pneumonia Leukocytosis COPD Intermittent episodes of narrow complex tachycardia with idioventricular rhythm Hypertension Chronic nicotine dependence, quit last year PLAN Echocardiogram has been obtained and will be reviewed. No evidence of atrial fibrillation on telemetry tracings. Intraventricular conduction delay likely related to underlying pulmonary disease. Ongoing medical management and treatment of underlying pneumonia. Follow-up upon discharge with Dr. Lacey. Nurse Practitioner note has been reviewed, I agree with a documented findings and plan of care. Patient was seen and examined. Objective - Vital Signs Vital signs: Vital Signs Temp 97.6 F 06/24/21 03:20 Pulse 50 L 06/24/21 03:20 Resp 18 06/24/21 03:20 BP 111/64 06/24/21 03:20 Pulse Ox 91 L 06/24/21 03:20 Intake & Output 06/23/21 06/24/21 06/24/21 18:59 06:59 18:59 Intake Total 840 240 Output Total 550 Balance 290 240 Weight 55 kg 55.2 kg Intake: Oral 840 240 Output: Urine 550 Other: Voiding Method Urinal Toilet Urinal # Voids 1 2 - Labs CBC & Chem 7: 06/24/21 08:48 06/24/21 08:48 Labs: Abnormal Lab Results - Last 24 Hours (Table) 06/23/21 06/23/21 06/24/21 Range/Units 16:31 20:00 05:55 WBC (3.8-10.6) k/uL RBC (4.30-5.90) m/uL Hgb (13.0-17.5) gm/dL Hct (39.0-53.0) % BUN (9-20) mg/dL Glucose (74-99) mg/dL POC Glucose (mg/dL) 121 H 132 H 119 H (75-99) mg/dL Magnesium (1.6-2.3) mg/dL 06/24/21 06/24/21 Range/Units 08:48 08:48 WBC 13.9 H (3.8-10.6) k/uL RBC 3.58 L (4.30-5.90) m/uL Hgb 11.8 L (13.0-17.5) gm/dL Hct 35.5 L (39.0-53.0) % BUN 37 H (9-20) mg/dL Glucose 134 H (74-99) mg/dL POC Glucose (mg/dL) (75-99) mg/dL Magnesium 2.5 H (1.6-2.3) mg/dL Microbiology - Last 24 Hours (Table) 06/23/21 09:07 Gram Stain - Preliminary Sputum Sputum Culture - Preliminary 06/22/21 05:00 Blood Culture - Preliminary Blood No Growth after 48 hours 06/22/21 04:45 Blood Culture - Preliminary Blood No Growth after 48 hours
--- NOTE | 2021-06-24 11:08 | P.PN ---
Subjective Progress Note Date: 06/24/21 History of Presenting Illness: Patient is a very pleasant 65-year-old male with a past medical history of hypertension, COPD, previous pneumothorax and brain aneurysm with repair in 2004. Patient presented to the emergency department with a chief complaint of chest pain and productive cough. He reports his symptoms of chest pain and productive cough began on and have been accompanied by body aches, chills, fever, shortness of breath, epigastric pain, and nausea. Patient reports receiving his Covid 19 vaccinations and denies being on any home oxygen. In the emergency department, an EKG was completed showing sinus tachycardia with frequent PVCs at 130 bpm. Chest x-ray significant for left lower lobe pneumonia accompanied by scarring and atelectasis resulting from pulmonary emphysema. Patient positive for sepsis with temp of 101.4F, heart rate 134, respiratory rate of 22, WBC count of 23.3, and lactate of 3.4. LDH elevated at 727 with CRP of 23.2. Covid 19 PCR was negative. Patient was given bolus of IV fluids along with IV antibiotics followed by admission under our services. 06/23/21: Received critical message stating that morning CXR is concerning for development of small right-sided pneumothorax with left infrahilar infiltrate suspicious for pneumonia, right infrahilar atelectasis or early pneumonia and significant hyperinflation compatible with severe COPD. Went to bedside to assess, patient resting comfortably on 2L O2. He reports mild chest pain/tightness with shortness of breath continues but states he feels much better than yesterday. Called and notified Dr. Gruber-Forensic Manager of critical report and pt's stable condition at this time. Dr. Gruber to review imaging and further evaluate, consult order placed. Pt's condition is currently stable. His lungs significantly diminished throughout/very tight with diffuse soft expiratory wheezes. oral prednisone discontinued and pt placed on IV Solu-Medrol at this time. Patient to continue scheduled to go labs along with as needed for shortness of breath and wheezing. He remains on IV antibiotics azithromycin and Rocephin. Patient denies having any headache, lightheadedness, dizziness, palpitations, abdominal pain, nausea, vomiting, or experiencing any numbness/tingling/weakness in his extremities. Patient was able to eat most of his breakfast. Morning labs revealed leukocytosis with WBC count of 13.5 and normocytic normochromic anemia with hemoglobin of 11.9. Troponins were trended resulting in less then 0.0122 draws. Patient did have reported episode of arrhythmia overnight with brief episodes of idioventricular rhythm during sleep, this was concerning for possible 3rd degree AV block and cardiology was consulted. 06/24/21: Patient seen and evaluated at bedside this morning. He appears to be doing well. Patient reports that he continues to have slight tightness in his chest along with significant dyspnea with exertion, but states his breathing is definitely improved at rest and this only increases with exertion. Morning labs revealed leukocytosis with WBC count of 13.9 and normocytic normochromic anemia with hemoglobin of 11.8 otherwise showing no significant abnormalities. TSH 3.260 and free T4 was 1.17. CT ruled out pneumothorax and revealed severe changes of emphysema with lingular infiltrate with early cavitation suggested in the 9 mm nodule in left lower lobe. RN reports patient has not had further episodes reported by telemetry with runs of idioventricular rhythms, patient has had episodes of bradycardia with heart rate of 50. Awaiting completion of echocardiogram and further recommendations by cardiology. Patient to continue receiving antibiotics azithromycin and Rocephin, scheduled DuoNeb's along with w hen necessary for shortness of breath/wheezing, Solu-Medrol for treatment of pneumonia with COPD exacerbation. Pulmonology also placed patient on formoterol and Pulmicort. Will obtain a home oxygen evaluation as there is a strong possibility patient may need oxygen upon discharge secondary to severe COPD. Physical exam: Vital signs reviewed and stable. General: Nontoxic, no distress and appears stated age. Thin build. Derm: Skin warm and dry, normal coloration for ethnicity. Head: Atraumatic, normocephalic and symmetric. Eyes: EOMs intact, no lid lag, and anicteric sclera Mouth: no lip lesions, mucus membranes moist Cardiovascular: regular rate and rhythm with normal S1S2, no murmur, positive posterior tibial pulses bilaterally, and cap refill < 2 seconds. Lungs: Respirations even, regular, and unlabored on 3 L O2 via nasal cannula with SPO2 95%. Lungs significantly diminished throughout/very tight this morning. No wheezes rhonchi or rales noted. Abdominal: soft, nontender to palpation, no guarding, no appreciable organomegaly Ext: ROM intact. No gross muscle atrophy, no edema, no contractures Neuro: Speech clear, face symmetrical and CN II-XII grossly intact with no noted focal neuro deficits Psych: Alert and oriented to person, place, time, and situation. Appropriate and pleasant affect. Assessment and Plan of Care: Left lower lobe pneumonia with severe sepsis -Chest x-ray significant for left lower lobe pneumonia accompanied by scarring and atelectasis resulting from pulmonary emphysema. CT ruled out pneumothorax and revealed severe changes of emphysema with lingular infiltrate with early cavitation suggested in the 9 mm nodule in left lower lobe -Covid 19 PCR was negative. -Oxygenation to be continued and titrated as needed to maintain SPO2 equal to or greater than 92%, wean once patient tolerates. -Telemetry monitoring. -Duonebs scheduled and as needed for SOB and/or wheezing -Incentive Spirometry -Steroids: Solu-Medrol -Antibiotics: Rocephin and azithromycin -Symptomatic care and pain management. Tessalon Perles as needed for cough. Tylenol as needed for mild pain/fever. -Continue formoterol and Pulmicort. -Home O2 eval to be completed Hyponatremia, resolved after fluids -We will continue to monitor with repeat a.m. labs. Prerenal azotemia -Patient given bolus of IV fluids in the ED and we will continue hydration with IV fluids. -We will continue to monitor with repeat a.m. labs. Hypertension -Monitor vital signs and continue daily medication regimen with lisinopril. Incidental finding on imaging, 9 mm lung nodule left lower lobe -Patient will need follow-up imaging in 3-4 months CODE STATUS: Full code DVT prophylaxis: Heparin Discussed with: Patient and RN Anticipated discharge date: Clinical course to determine Anticipated discharge place: Home A total of 45 minutes was spent on the care of this complex patient more than 5 0% of the time was spent in counseling and care coordination. Objective - Vital Signs Vital signs: Vital Signs Temp 97.6 F 06/24/21 03:20 Pulse 50 L 06/24/21 03:20 Resp 18 06/24/21 03:20 BP 111/64 06/24/21 03:20 Pulse Ox 91 L 06/24/21 03:20 Intake & Output 06/23/21 06/24/21 06/24/21 18:59 06:59 18:59 Intake Total 840 Output Total 550 Balance 290 Weight 55 kg 55.2 kg Intake: Oral 840 Output: Urine 550 Other: Voiding Method Urinal Toilet Urinal # Voids 1 2 - Labs CBC & Chem 7: 06/24/21 08:48 06/24/21 08:48 Labs: Abnormal Lab Results - Last 24 Hours (Table) 06/23/21 06/23/21 06/24/21 Range/Units 16:31 20:00 05:55 POC Glucose (mg/dL) 121 H 132 H 119 H (75-99) mg/dL Microbiology - Last 24 Hours (Table) 06/22/21 05:00 Blood Culture - Preliminary Blood No Growth after 48 hours 06/22/21 04:45 Blood Culture - Preliminary Blood No Growth after 48 hours 06/23/21 09:07 Sputum Culture - Preliminary Sputum
--- NOTE | 2021-06-24 11:17 | ECHOF ---
Referral Reason:idioventricular rhythm, evaluate EF MEASUREMENTS -------- HEIGHT: 193.0 cm WEIGHT: 54.9 kg BP: 111/64 RVIDd: 3.8 cm (< 3.3) IVSd: 1.0 cm (0.6 - 1.1) LVIDd: 4.6 cm (3.9 - 5.3) LVPWd: 1.0 cm (0.6 - 1.1) IVSs: 1.7 cm LVIDs: 2.7 cm LVPWs: 1.7 cm LA Diam: 3.5 cm (2.7 - 3.8) Ao Diam: 4.1 cm (2.0 - 3.7) AV Cusp: 2.8 cm (1.5 - 2.6) MV EXCURSION: 22.907 mm (> 18.000) MV EF SLOPE: 57 mm/s (70 - 150) EPSS: 0.3 cm MV E Cliff: 0.69 m/s MV DecT: 265 ms MV A Cliff: 0.77 m/s MV E/A Ratio: 0.89 RAP: 5.00 mmHg RVSP: 24.79 mmHg FINDINGS -------- Sinus rhythm. This was a technically adequate study. The left ventricular size is normal. Left ventricular wall thickness is normal. Overall left vent ricular systolic function is low-normal with, an EF between 50 - 55 %. The right ventricle is mild to moderately enlarged. The left atrium is normal in size. The right atrium is normal in size. Interatrial and interventricular septum intact. The aortic valve is trileaflet, and appears structurally normal. No aortic stenosis or regurgitation. The mitral valve is normal. Mild tricuspid regurgitation present. Right ventricular systolic pressure is normal at < 35 mmHg. Trace/mild (physiologic) pulmonic regurgitation. The aortic root is dilated measuring 4.1cm. Normal inferior vena cava with normal inspiratory collapse consistent with estimated right atrial pre ssure of 5 mmHg. There is no pericardial effusion. CONCLUSIONS -------- 1. The left ventricular size is normal. 2. Left ventricular wall thickness is normal. 3. Overall left ventricular systolic function is low-normal with, an EF between 50 - 55 %. 4. The right ventricle is mild to moderately enlarged. 5. The aortic valve is trileaflet, and appears structurally normal. No aortic stenosis or regurgitati on. 6. Mild tricuspid regurgitation present. 7. Trace/mild (physiologic) pulmonic regurgitation. 8. The aortic root is dilated measuring 4.1cm. 9. There is no pericardial effusion. SILK WEAVER: Hillary Chen RDCS
[2021-06-24 11:37] LABS: Glucose,Whole Blood 163 mg/dL (75-99)
--- NOTE | 2021-06-24 14:13 | P.PN ---
Subjective Progress Note Date: 06/24/21 Principal diagnosis: shortness of breath, pneumonia 65-year-old male who presents to the hospital with complaints of abdominal pain, vomiting, and shortness of breath. The patient has a history of smoking for about 50 years. Based on his chest x-ray, it appears that he has pretty significant emphysema. In addition to COPD, the patient apparently carries with him a diagnosis of hypertension, hypothyroidism, reticular disease, brain aneurysm, and C. difficile colitis. The patient was smoking up until the time he came into the hospital. The patient complains of shortness of breath, cough which is mostly nonproductive, and tightness in his chest. He was no fever or chills. There was no chest pain or chest discomfort. A subsequent x-ray may show a small right-sided pneumothorax. A CAT scan was ordered. His home medications included mirtazapine, albuterol inhaler, Colace, Cipro, [place], lisinopril, and Flagyl. White count is 13.5, hemoglobin 0.9, hematocrit 36.1, platelet count 328,000. Sodium 136, potassium 4.3, chlorides 107, CO2 24, anion gap 5, BUN 36, and creatinine 0.54. Albumin is 2.6. Lipase 72. TSH was normal. The most recent x-ray suggests a small right-sided pneumothorax. In addition, the patient has a infiltrate in the left infrahilar region. There is either atelectasis or pneumonia at the right lung base as well. Computed tomography scan showed changes of severe emphysema. There is a lingular infiltrate with early cavitation, and a 9 mm nodule in the left lower lobe. On 06/24/2021 patient seen in follow-up on selective care unit, he states he is feeling better today, he is still coughing, at times he is able to produce phlegm, sputum culture is pending, preliminary Gram stain is showing many PMNs, rare gram-positive cocci, rare gram-positive bacilli. Final culture is pending, patient is currently on a combination of azithromycin and Rocephin, he continues on IV Solu-Medrol and nebulized bronchodilators. No fever or chills overnight, he is currently on 3 L of oxygen pulse ox is 96%, lung sounds are diminished. Denies any hemoptysis, denies any chest discomfort. Patient is tolerating ambulation in the room. His labs have been reviewed, white blood cell count of 13.9, hemoglobin is 11.8, electrolytes are within normal limits, B1 is 37 creatinine 0.68. Objective - Vital Signs Vital signs: Vital Signs Temp 97.6 F 06/24/21 03:20 Pulse 74 06/24/21 08:00 Resp 18 06/24/21 08:00 BP 124/81 06/24/21 08:00 Pulse Ox 96 06/24/21 08:00 Intake & Output 06/23/21 06/24/21 06/24/21 18:59 06:59 18:59 Intake Total 840 480 Output Total 550 Balance 290 480 Weight 55 kg 55.2 kg Intake: Oral 840 480 Output: Urine 550 Other: Voiding Method Urinal Toilet Toilet Urinal Urinal # Voids 1 2 1 - Exam GENERAL EXAM: Alert, very pleasant, 65-year-old cachectic looking white male, on 3 L of oxygen with pulse ox of 96%, comfortable in no apparent distress. HEAD: Normocephalic/atraumatic. EYES: Normal reaction of pupils, equal size. Conjunctiva pink, sclera white. NOSE: Clear with pink turbinates. THROAT: No erythema or exudates. NECK: No masses, no JVD, no thyroid enlargement, no adenopathy. CHEST: No chest wall deformity. Symmetrical expansion. LUNGS: Equal air entry with no crackles, wheeze, rhonchi or dullness. CVS: Regular rate and rhythm, normal S1 and S2, no gallops, no murmurs, no rubs ABDOMEN: Soft, nontender. No hepatosplenomegaly, normal bowel sounds, no guarding or rigidity. EXTREMITIES: No clubbing, no edema, no cyanosis, 2+ pulses and upper and lower extremities. MUSCULOSKELETAL: Muscle strength and tone normal. SPINE: No scoliosis or deformity SKIN: No rashes CENTRAL NERVOUS SYSTEM: Alert and oriented -3. No focal deficits, tone is normal in all 4 extremities. PSYCHIATRIC: Alert and oriented -3. Appropriate affect. Intact judgment and insight. - Labs CBC & Chem 7: 06/24/21 08:48 06/24/21 08:48 Labs: Abnormal Lab Results - Last 24 Hours (Table) 06/23/21 06/23/21 06/24/21 Range/Units 16:31 20:00 05:55 WBC (3.8-10.6) k/uL RBC (4.30-5.90) m/uL Hgb (13.0-17.5) gm/dL Hct (39.0-53.0) % BUN (9-20) mg/dL Glucose (74-99) mg/dL POC Glucose (mg/dL) 121 H 132 H 119 H (75-99) mg/dL Magnesium (1.6-2.3) mg/dL 06/24/21 06/24/21 06/24/21 Range/Units 08:48 08:48 11:35 WBC 13.9 H (3.8-10.6) k/uL RBC 3.58 L (4.30-5.90) m/uL Hgb 11.8 L (13.0-17.5) gm/dL Hct 35.5 L (39.0-53.0) % BUN 37 H (9-20) mg/dL Glucose 134 H (74-99) mg/dL POC Glucose (mg/dL) 163 H (75-99) mg/dL Magnesium 2.5 H (1.6-2.3) mg/dL Microbiology - Last 24 Hours (Table) 06/23/21 09:07 Gram Stain - Preliminary Sputum Sputum Culture - Preliminary 06/22/21 05:00 Blood Culture - Preliminary Blood No Growth after 48 hours 06/22/21 04:45 Blood Culture - Preliminary Blood No Growth after 48 hours Assessment and Plan Plan: Assessment: #1. Acute hypoxic respiratory failure related to bilateral pneumonia, left greater than right. 19 PCR was negative #2. Acute exacerbation of severe emphysema #3. History of ongoing tobacco use and nicotine addiction for about 50 years #4. History of diverticular disease #5. History of hypertension #6. History of brain aneurysm status post surgery in 2004 #7. History of hypothyroidism Plan: Continue current antibiotics Continue breathing treatments and IV steroids Patient is feeling better, stable overnight, vital signs are stable Patient is likely to require home oxygen to go home on We'll obtain home oxygen assessment before discharge If remains stable continues to improve possible discharge in next 24 hours I performed a history & physical examination of the patient and discussed their management with my nurse practitioner, Smita Ding. I reviewed the nurse practitioner's note and agree with the documented findings and plan of care. Lung sounds are positive for diminished breath sounds throughout the lung lyon. The findings and the impression was discussed with the patient. I attest to the documentation by the nurse practitioner. Time with Patient: Less than 30
[2021-06-24] MEDS: SODIUM CHLORIDE 0.9% 1,000 ML IV SCH (15:52)
[2021-06-24 16:44] LABS: Glucose,Whole Blood 147 mg/dL (75-99)
[2021-06-24] MEDS: MIRTAZAPINE 15 MG TAB PO SCH (20:03)
[2021-06-24 20:15] LABS: Glucose,Whole Blood 103 mg/dL (75-99)
[2021-06-25] MEDS: HYDROcodone/APAP 5-325MG 1 EACH TAB PO PRN ×2 (03:39→07:51)
[2021-06-25] MEDS: methylPREDNISolone SOD SUCCI 40 MG/ML 1 ML VIAL IV SCH ×2 (03:40→07:42)
[2021-06-25] MEDS: SODIUM CHLORIDE 0.9% 1,000 ML IV SCH ×2 (03:40→07:41)
[2021-06-25 06:17] LABS: Glucose,Whole Blood 113 mg/dL (75-99)
[2021-06-25] MEDS: PANTOPRAZOLE 40 MG TABLET PO SCH (07:42)
[2021-06-25] MEDS: lisinopriL 20 MG TAB PO SCH (07:42)
[2021-06-25] MEDS: HEPARIN SODIUM,PORCINE/PF 5,000 UNIT/0.5 ML SYRINGE SQ SCH (07:43)
[2021-06-25] MEDS: FORMOTEROL FUMARATE 20 MCG/2 ML NEBU INHALATION SCH (08:44)
[2021-06-25] MEDS: IPRATROPIUM-ALBUTEROL 3 ML NEB INHALATION SCH (08:44)
[2021-06-25] MEDS: BUDESONIDE 1 MG/2 ML NEBU INHALATION SCH (08:44)
[2021-06-25 08:49] LABS: HCT 34.2 % (39.0-53.0); HGB 11.1 gm/dL (13.0-17.5); MCH 32.2 pg (25.0-35.0); MCHC 32.6 g/dL (31.0-37.0); MCV 98.8 fL (80.0-100.0); Mean Platelet Volume 8.1; Platelet Count 326 k/uL (150-450); RBC 3.46 m/uL (4.30-5.90); RDW 12.7 % (11.5-15.5); WBC 13.1 k/uL (3.8-10.6)
[2021-06-25] MEDS ORDERED: AZITHROMYCIN 500 MG TAB PO SCH (09:00)
[2021-06-25 09:02] LABS: African American GFR (CKD) >90 (>60 ml/min/1.73 sqM); Anion Gap 5 mmol/L; Blood Urea Nitrogen 33 mg/dL (9-20); Carbon Dioxide 25 mmol/L (22-30); Chloride 108 mmol/L (98-107); Glucose 98 mg/dL (74-99); Magnesium 2.5 mg/dL (1.6-2.3); Non-African American GFR(CKD) >90 (>60 ml/min/1.73 sqM); Potassium 4.7 mmol/L (3.5-5.1); Sodium 138 mmol/L (137-145)
--- NOTE | 2021-06-25 09:41 | P.PN ---
Subjective Progress Note Date: 06/25/21 Principal diagnosis: shortness of breath, pneumonia 65-year-old male who presents to the hospital with complaints of abdominal pain, vomiting, and shortness of breath. The patient has a history of smoking for about 50 years. Based on his chest x-ray, it appears that he has pretty significant emphysema. In addition to COPD, the patient apparently carries with him a diagnosis of hypertension, hypothyroidism, reticular disease, brain aneurysm, and C. difficile colitis. The patient was smoking up until the time he came into the hospital. The patient complains of shortness of breath, cough which is mostly nonproductive, and tightness in his chest. He was no fever or chills. There was no chest pain or chest discomfort. A subsequent x-ray may show a small right-sided pneumothorax. A CAT scan was ordered. His home medications included mirtazapine, albuterol inhaler, Colace, Cipro, [place], lisinopril, and Flagyl. White count is 13.5, hemoglobin 0.9, hematocrit 36.1, platelet count 328,000. Sodium 136, potassium 4.3, chlorides 107, CO2 24, anion gap 5, BUN 36, and creatinine 0.54. Albumin is 2.6. Lipase 72. TSH was normal. The most recent x-ray suggests a small right-sided pneumothorax. In addition, the patient has a infiltrate in the left infrahilar region. There is either atelectasis or pneumonia at the right lung base as well. Computed tomography scan showed changes of severe emphysema. There is a lingular infiltrate with early cavitation, and a 9 mm nodule in the left lower lobe. On 06/24/2021 patient seen in follow-up on selective care unit, he states he is feeling better today, he is still coughing, at times he is able to produce phlegm, sputum culture is pending, preliminary Gram stain is showing many PMNs, rare gram-positive cocci, rare gram-positive bacilli. Final culture is pending, patient is currently on a combination of azithromycin and Rocephin, he continues on IV Solu-Medrol and nebulized bronchodilators. No fever or chills overnight, he is currently on 3 L of oxygen pulse ox is 96%, lung sounds are diminished. Denies any hemoptysis, denies any chest discomfort. Patient is tolerating ambulation in the room. His labs have been reviewed, white blood cell count of 13.9, hemoglobin is 11.8, electrolytes are within normal limits, B1 is 37 creatinine 0.68. On today's evaluation of June 2021 patient seen in follow-up on selective care unit, he is awake and alert, oriented 3, breathing comfortably, no fever or chills, vital signs have been stable, patient is on 2 L of oxygen, with pulse ox of 94%, lung sounds are diminished, no rhonchi or wheezing, his cough is nonproductive, it has improved since admission, no hemoptysis, no chest discomfort, patient remains on examination of Rocephin and azithromycin. His blood and sputum cultures have shown no growth. His labs have been noted. Objective - Vital Signs Vital signs: Vital Signs Temp 97.8 F 06/25/21 07:40 Pulse 59 L 06/25/21 07:40 Resp 18 06/25/21 07:51 BP 131/60 06/25/21 07:40 Pulse Ox 94 L 06/25/21 07:51 Intake & Output 06/24/21 06/25/21 06/25/21 18:59 06:59 18:59 Intake Total 720 600 180 Output Total 400 Balance 720 200 180 Weight 57.4 kg Intake: Oral 720 600 180 Output: Urine 400 Other: Voiding Method Toilet Toilet Urinal Urinal # Voids 1 # Bowel Movements 0 - Exam GENERAL EXAM: Alert, very pleasant, 65-year-old cachectic looking white male, on 3 L of oxygen with pulse ox of 96%, comfortable in no apparent distress. HEAD: Normocephalic/atraumatic. EYES: Normal reaction of pupils, equal size. Conjunctiva pink, sclera white. NOSE: Clear with pink turbinates. THROAT: No erythema or exudates. NECK: No masses, no JVD, no thyroid enlargement, no adenopathy. CHEST: No chest wall deformity. Symmetrical expansion. LUNGS: Equal air entry with no crackles, wheeze, rhonchi or dullness. CVS: Regular rate and rhythm, normal S1 and S2, no gallops, no murmurs, no rubs ABDOMEN: Soft, nontender. No hepatosplenomegaly, normal bowel sounds, no guar ding or rigidity. EXTREMITIES: No clubbing, no edema, no cyanosis, 2+ pulses and upper and lower extremities. MUSCULOSKELETAL: Muscle strength and tone normal. SPINE: No scoliosis or deformity SKIN: No rashes CENTRAL NERVOUS SYSTEM: Alert and oriented -3. No focal deficits, tone is normal in all 4 extremities. PSYCHIATRIC: Alert and oriented -3. Appropriate affect. Intact judgment and insight. - Labs CBC & Chem 7: 06/25/21 06:55 06/25/21 06:55 Labs: Abnormal Lab Results - Last 24 Hours (Table) 06/24/21 06/24/21 06/24/21 Range/Units 11:35 16:42 20:07 WBC (3.8-10.6) k/uL RBC (4.30-5.90) m/uL Hgb (13.0-17.5) gm/dL Hct (39.0-53.0) % Chloride (98-107) mmol/L BUN (9-20) mg/dL POC Glucose (mg/dL) 163 H 147 H 103 H (75-99) mg/dL Calcium (8.4-10.2) mg/dL Magnesium (1.6-2.3) mg/dL 06/25/21 06/25/21 06/25/21 Range/Units 06:01 06:55 06:55 WBC 13.1 H (3.8-10.6) k/uL RBC 3.46 L (4.30-5.90) m/uL Hgb 11.1 L (13.0-17.5) gm/dL Hct 34.2 L (39.0-53.0) % Chloride 108 H (98-107) mmol/L BUN 33 H (9-20) mg/dL POC Glucose (mg/dL) 113 H (75-99) mg/dL Calcium 8.0 L (8.4-10.2) mg/dL Magnesium 2.5 H (1.6-2.3) mg/dL Microbiology - Last 24 Hours (Table) 06/23/21 09:07 Gram Stain - Final Sputum Sputum Culture - Final 06/22/21 05:00 Blood Culture - Preliminary Blood No Growth after 72 hours 06/22/21 04:45 Blood Culture - Preliminary Blood No Growth after 72 hours Assessment and Plan Plan: Assessment: #1. Acute hypoxic respiratory failure related to bilateral pneumonia, left greater than right. COVID 19 PCR was negative #2. Acute exacerbation of severe emphysema #3. History of ongoing tobacco use and nicotine addiction for about 50 years #4. History of diverticular disease #5. History of hypertension #6. History of brain aneurysm status post surgery in 2004 #7. History of hypothyroidism Plan: Patient is feeling better, stable overnight, vital signs are stable Patient is likely to require home oxygen to go home on We'll obtain home oxygen assessment The nebulizer machine which is quite old, and may need to be replaced, he states he has updraft medications and the rescue inhaler His labs have been reviewed, vital signs have been reviewed, patient was examined From pulmonary stable for discharge home today to complete a seven-day course of Levaquin 500 mg daily, and a prednisone taper. If remains stable continues to improve possible discharge in next 24 hours I performed a history & physical examination of the patient and discussed their management with my nurse practitioner, Smita Ding. I reviewed the nurse practitioner's note and agree with the documented findings and plan of care. Lung sounds are positive for diminished breath sounds throughout the lung lyon. The findings and the impression was discussed with the patient. I attest to the documentation by the nurse practitioner. Time with Patient: Less than 30
--- NOTE | 2021-06-25 11:18 | P.PN ---
Subjective This is a pleasant 65-year-old male past medical history significant for COPD, chronic nicotine dependence and hypertension. 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 He is seen and examined resting comfortably lying flat in bed in no acute distress. He continues to complain of cough with chest discomfort across his upper chest when he coughs. He denies any worsening shortness of breath. Blood pressure 111/64 heart rate 58 afebrile maintaining oxygen saturation on room air. Laboratory data reviewed, WBC 13.9, hemoglobin 11.8, platelets 137, sodium 4.4, creatinine 0.68 and magnesium 2.5. Currently maintained on IV antibiotics and lisinopril 20 mg daily. Telemetry tracings reviewed. He continues to have intermittent episodes of intraventricular conduction delay. 06/25/2021 Patient seen and examined sitting up at the edge of the bed in no acute distress. He continues to complain of shortness of breath and cough. He continues to have chest discomfort when he coughs. Telemetry tracings reveal sinus mechanism with sinus bradycardia overnight. Blood pressure 131/60 heart rate 59 afebrile maintaining oxygen saturation on nasal cannula. Laboratory data reviewed, WBC 13, hemoglobin 11, platelets 326, sodium 138, potassium 4.7, creatinine 0.66 and magnesium 2.5. Echocardiogram obtained reveals preserved LV systolic function with ejection fraction 50-55% with mild to moderate enlargement of the right ventricle. GENERAL: Well-appearing, well-nourished and in no acute distress. Frail. NECK: Supple without JVD or thyromegaly. LUNGS: Breath sounds clear to auscultation bilaterally. Respiration equal and unlabored. No wheezes, rales or rhonchi. Diminished bilaterally. HEART: Regular rate and rhythm without murmurs, rubs or gallops. S1 and S2 heard. EXTREMITIES: Normal range of motion, no edema. No clubbing or cyanosis. Peripheral pulses intact. ASSESSMENT Pneumonia Leukocytosis COPD Intermittent episodes of narrow complex tachycardia with idioventricular rhythm Hypertension Chronic nicotine dependence, quit last year PLAN No evidence of atrial fibrillation on telemetry tracings. Intraventricular conduction delay likely related to underlying pulmonary disease. Ongoing medical management and treatment of underlying pneumonia. Recommend outpatient sleep study, discussed with patient. We will follow along as needed. Follow-up upon discharge with Dr. Lacey. Nurse Practitioner note has been reviewed, I agree with a documented findings and plan of care. Patient was seen and examined. Objective - Vital Signs Vital signs: Vital Signs Temp 97.8 F 06/25/21 07:40 Pulse 59 L 06/25/21 07:40 Resp 18 06/25/21 07:51 BP 131/60 06/25/21 07:40 Pulse Ox 94 L 06/25/21 07:51 Intake & Output 06/24/21 06/25/21 06/25/21 18:59 06:59 18:59 Intake Total 720 600 180 Output Total 400 Balance 720 200 180 Weight 57.4 kg Intake: Oral 720 600 180 Output: Urine 400 Other: Voiding Method Toilet Toilet Urinal Urinal # Voids 1 # Bowel Movements 0 - Labs CBC & Chem 7: 06/25/21 06:55 06/25/21 06:55 Labs: Abnormal Lab Results - Last 24 Hours (Table) 06/24/21 06/24/21 06/24/21 Range/Units 11:35 16:42 20:07 WBC (3.8-10.6) k/uL RBC (4.30-5.90) m/uL Hgb (13.0-17.5) gm/dL Hct (39.0-53.0) % Chloride (98-107) mmol/L BUN (9-20) mg/dL POC Glucose (mg/dL) 163 H 147 H 103 H (75-99) mg/dL Calcium (8.4-10.2) mg/dL Magnesium (1.6-2.3) mg/dL 06/25/21 06/25/21 06/25/21 Range/Units 06:01 06:55 06:55 WBC 13.1 H (3.8-10.6) k/uL RBC 3.46 L (4.30-5.90) m/uL Hgb 11.1 L (13.0-17.5) gm/dL Hct 34.2 L (39.0-53.0) % Chloride 108 H (98-107) mmol/L BUN 33 H (9-20) mg/dL POC Glucose (mg/dL) 113 H (75-99) mg/dL Calcium 8.0 L (8.4-10.2) mg/dL Magnesium 2.5 H (1.6-2.3) mg/dL Microbiology - Last 24 Hours (Table) 06/23/21 09:07 Gram Stain - Final Sputum Sputum Culture - Final 06/22/21 05:00 Blood Culture - Preliminary Blood No Growth after 72 hours 06/22/21 04:45 Blood Culture - Preliminary Blood No Growth after 72 hours
[2021-06-25 11:40] LABS: Glucose,Whole Blood 108 mg/dL (75-99)
--- NOTE | 2021-06-25 12:35 | P.DS ---
Providers Date of admission: 06/22/21 04:40 Expected date of discharge: 06/25/21 Attending physician: Unruly Louie MD Consults: 06/23/21 03:11 Consult Physician Routine Consulting Provider: Steve Lacey Consult Reason/Comments: brief episodes of idioventricular rhythm during sleep ?3rd degree AVB Do you want consulting provider notified?: Yes, Notify in am 06/23/21 08:04 Consult Physician Routine Consulting Provider: Michael Gruber Consult Reason/Comments: x-ray showing small right side pneumothorax, pt reports hx of pneumothorax Do you want consulting provider notified?: Already Contacted Primary care physician: Sabrina Waters [facility] Course: HPI: Patient is a very pleasant 65-year-old male with a past medical history of hypertension, COPD, and previous brain aneurysm with repair in 2004. Patient presented to the emergency department with a chief complaint of chest pain and productive cough. In the emergency department, an EKG was completed showing sinus tachycardia with frequent PVCs at 130 bpm. Chest x-ray significant for left lower lobe pneumonia accompanied by scarring and atelectasis resulting from pulmonary emphysema. Patient positive for sepsis with temp of 101.4F, heart rate 134, respiratory rate of 22, WBC count of 23.3, and lactate of 3.4. LDH elevated at 727 with CRP of 23.2. Covid 19 PCR was negative. Patient was given bolus of IV fluids along with IV antibiotics followed by admission under our services. Upon physical examination at bedside, patient reports his symptoms of chest pain and productive cough began on and have been accompanied by body aches, chills, fever, shortness of breath, epigastric pain, and nausea. Patient reports receiving his Covid 19 vaccinations and denies being on any home oxygen. Patient denies anyone else being sick in the home or being exposed to any known ill contacts. Patient denies having any headache, lightheadedness, dizziness, changes in vision or hearing, palpitations, episodes of vomiting, diarrhea, noted skin rashes, or experiencing any numbness/tingling/w eakness/swelling in his extremities. Hospital course and treatment: Patient was admitted to the hospital with COPD exacerbation with shortness of breath. He was evaluated by pulmonology. He was also evaluated by cardiology for cardiac arrhythmia with narrow complex tachycardia. 2-D echo was obtained and was consistent with EF 50-55%. CT chest was negative for pulmonary embolism. Patient was found to have severe emphysema with attended pneumonia and was requiring 3-4 L of oxygen. He was treated with bronchodilators steroids and antibiotics. He has gradually improved and was cleared for discharge by neurology. He will be discharged home on home oxygen. Patient Condition at Discharge: Fair Plan - Discharge Summary Discharge Rx Participant: No New Discharge Prescriptions: New Levofloxacin [Levaquin] 500 mg PO DAILY 7 Days #1 tab Ipratropium-Albuterol Nebulize [Duoneb 0.5 mg-3 mg/3 ml Soln] 3 ml INHALATION QID 30 Days #5 pack predniSONE 0 mg PO DIRECTED 16 Days #40 tab Continue Docusate [Colace] 100 mg PO DAILY Albuterol Inhaler [Ventolin Hfa Inhaler] 2 puff INHALATION QID lisinopriL 20 mg PO DAILY buprenorphine HCL [Subutex] 8 mg SUBLINGUAL BID Mirtazapine [Remeron] 15 mg PO HS L.acidoph,Paracasei, B.lactis [Probiotic] 1 cap PO DAILY Discharge Medication List Albuterol Inhaler [Ventolin Hfa Inhaler] 2 puff INHALATION QID 06/14/20 [History] Docusate [Colace] 100 mg PO DAILY 06/14/20 [History] L.acidoph,Paracasei, B.lactis [Probiotic] 1 cap PO DAILY 06/22/21 [History] Mirtazapine [Remeron] 15 mg PO HS 06/22/21 [History] buprenorphine HCL [Subutex] 8 mg SUBLINGUAL BID 06/22/21 [History] lisinopriL 20 mg PO DAILY 06/22/21 [History] Ipratropium-Albuterol Nebulize [Duoneb 0.5 mg-3 mg/3 ml Soln] 3 ml INHALATION QID 30 Days #5 pack 06/25/21 [Rx] Levofloxacin [Levaquin] 500 mg PO DAILY 7 Days #1 tab 06/25/21 [Rx] predniSONE 0 mg PO DIRECTED 16 Days #40 tab 06/25/21 [Rx] Follow up Appointment(s)/Referral(s): Steve Lacey MD [STAFF PHYSICIAN] - 2 Weeks [facility],Equipment [NON-STAFF] - Michael Gruber DO [Doctor of Osteopathic Medicine] - 1 Week Sabrina Waters MD [Primary Care Provider] - 1-2 days Activity/Diet/Wound Care/Special Instructions: Patient requires home oxygen and nebulizer at discharge to manage COPD Discharge Disposition: HOME SELF-CARE
[2021-06-25 13:54] VITALS: BP 110/62; PULSE 76; TEMP 98.2
== END 2021-06-25 15:30 | disposition home or self-care (01) | DRG 871 ==
LOC: EC 03:31 → 3SCARD 04:40
PROVIDERS: ADMIT Internal Medicine; ATTEND Internal Medicine
PROC: 3E0F7SF Introduction of Other Gas into Respiratory Tract, Via Natural or Artificial Opening (ICD-10-PCS; principal; 2021-06-22)
DX: A41.9 Sepsis, unspecified organism (principal); J18.9 Pneumonia, unspecified organism; J96.01 Acute respiratory failure with hypoxia; K57.92 Diverticulitis of intestine, part unspecified, without perforation or abscess without bleeding; A04.72 Enterocolitis due to Clostridium difficile, not specified as recurrent; J98.11 Atelectasis; I44.2 Atrioventricular block, complete; J43.9 Emphysema, unspecified; D64.9 Anemia, unspecified; R00.1 Bradycardia, unspecified; I27.20 Pulmonary hypertension, unspecified; I45.9 Conduction disorder, unspecified; F17.210 Nicotine dependence, cigarettes, uncomplicated; R00.0 Tachycardia, unspecified; R65.20 Severe sepsis without septic shock; I10 Essential (primary) hypertension; E03.9 Hypothyroidism, unspecified; I67.1 Cerebral aneurysm, nonruptured; Z20.822 Contact with and (suspected) exposure to COVID-19; Z88.1 Allergy status to other antibiotic agents; Z79.899 Other long term (current) drug therapy; Z86.19 Personal history of other infectious and parasitic diseases; Z86.79 Personal history of other diseases of the circulatory system
CPT/HCPCS: 36415; 71045; 71260; 80048; 80053; 83605; 83615; 83690; 83735; 84100; 84439; 84443; 84484; 85025; 85027; 85610; 85730; 86140; 87040; 87070; 87205; 87635; 93005; 93306; 96361; 96365; 96367; 96375; 99285

== ENCOUNTER 2022-04-05 15:23 | Inpatient (IN) | payer MEDICARE ==
[2022-04-05] MEDS ORDERED: SODIUM CHLORIDE 0.9% 1,000 ML IV STA (16:02)
[2022-04-05] MEDS ORDERED: ONDANSETRON 4 MG/2 ML VIAL IVP STA (16:04)
[2022-04-05] MEDS ORDERED: KETOROLAC 15 MG/ML 1 ML VIAL IVP STA (16:24)
[2022-04-05 16:38] LABS: Basophils # (A) 0.1 k/uL (0-0.2); Basophils % (A) 1 %; Eosinophils % (A) 0 %; HCT 40.9 % (39.0-53.0); HGB 13.5 gm/dL (13.0-17.5); Lymphocytes # (A) 0.5 k/uL (1.0-4.8); Lymphocytes % (A) 3 %; MCH 32.3 pg (25.0-35.0); MCV 97.9 fL (80.0-100.0); Mean Platelet Volume 7.5; Monocytes # (A) 1.4 k/uL (0-1.0); Monocytes % (A) 8 %; Neutrophils # (A) 15.9 k/uL (1.3-7.7); Neutrophils % (A) 87 %; Platelet Count 259 k/uL (150-450); RBC 4.18 m/uL (4.30-5.90); RDW 12.7 % (11.5-15.5); WBC 18.4 k/uL (3.8-10.6)
--- NOTE | 2022-04-05 16:41 | XR ---
EXAMINATION TYPE: XR chest 2V DATE OF EXAM: 04/05/2022 COMPARISON: 06/23/2021 HISTORY: Difficulty breathing TECHNIQUE: 4 views FINDINGS: There is some patchy interstitial and airspace infiltrate in the left mid and upper lung fi eld. Right lung is fairly clear. Heart size is normal. There is pulmonary hyperinflation and flatteni ng of the diaphragm. There is lower thoracic kyphotic deformity. Mediastinum is normal. IMPRESSION: There is some infiltrate in the left upper lobe which is showing a changing pattern comp ared to old exam. Infiltrate on today's exam is more diffuse than old exam. Moderate emphysema.
[2022-04-05 16:48] LABS: ALT 14 U/L (4-49); AST 21 U/L (17-59); African American GFR (CKD) >90 (>60 ml/min/1.73 sqM); Albumin 3.8 g/dL (3.5-5.0); Alkaline Phosphatase 110 U/L (38-126); Anion Gap 9 mmol/L; Blood Urea Nitrogen 32 mg/dL (9-20); Calcium 8.7 mg/dL (8.4-10.2); Carbon Dioxide 26 mmol/L (22-30); Chloride 104 mmol/L (98-107); Glucose 114 mg/dL (74-99); Non-African American GFR(CKD) >90 (>60 ml/min/1.73 sqM); Potassium 3.8 mmol/L (3.5-5.1); Sodium 139 mmol/L (137-145); Total Bilirubin 0.4 mg/dL (0.2-1.3); Total Protein 6.5 g/dL (6.3-8.2)
[2022-04-05 16:53] LABS: Prothrombin Time 10.4 sec (9.0-12.0)
[2022-04-05] MEDS ORDERED: AZITHROMYCIN 250 MG TAB PO STA (16:56)
[2022-04-05] MEDS ORDERED: IPRATROPIUM-ALBUTEROL 3 ML NEB INHALATION STA (16:57)
[2022-04-05 17:01] LABS: Partial Thromboplastin Time 21.2 sec (22.0-30.0)
--- NOTE | 2022-04-05 17:11 | ED ---
General Adult HPI - General Chief complaint: Shortness of Breath Stated complaint: SOB Time Seen by Provider: 04/05/22 15:53 Source: patient, EMS Mode of arrival: EMS Limitations: no limitations - History of Present Illness Initial comments: Patient is a 66 year old male with a past medical history significant for COPD, hypertension, and pneumonia with sepsis who presents to the emergency department with a chief complaint of chest pain and shortness of breath. Patient states the symptoms started 5 days ago with worsening over the weekend. Describes the chest pain as left-sided with radiation to the left ribs, worse with inspiration. Patient states he feels very short of breath even at rest. States he sometimes uses 2 L of supplemental oxygen at home when he feels short of breath for due to his COPD. Also endorses wet cough, chills, and nausea. Denies back pain, abdominal pain, and vomiting. Cardiac history includes hypertension. Family history of cardiac disease includes his parents and 2 brothers who have hypertension. Patient states he quit smoking this past June. He previously smoked a pack a day for 50 years. - Related Data Home Medications Medication Instructions Recorded Confirmed Albuterol Inhaler [Ventolin Hfa 2 puff INHALATION QID 06/14/20 06/22/21 Inhaler] Docusate [Colace] 100 mg PO DAILY 06/14/20 06/22/21 L.acidoph,Paracasei, B.lactis 1 cap PO DAILY 06/22/21 06/22/21 [Probiotic] Mirtazapine [Remeron] 45 mg PO HS 04/05/22 04/05/22 buprenorphine HCL [Subutex] 8 mg SUBLINGUAL BID 04/05/22 04/05/22 lisinopriL [Zestril] 10 mg PO DAILY 04/05/22 04/05/22 Allergies Allergy/AdvReac Type Severity Reaction Status Date / Time Penicillins Allergy Anaphylaxis Verified 04/05/22 17:29 Review of Systems ROS Statement: Those systems with pertinent positive or pertinent negative responses have been documented in the HPI. ROS Other: All systems not noted in ROS Statement are negative. Past Medical History Past Medical History: COPD, Hypertension Additional Past Medical History / Comment(s): diverticulitis, hypothyroidism, C- diff, brain aneurysm History of Any Multi-Drug Resistant Organisms: C-DIFF Date of last positivie culture/infection: 09/23/14 MDRO Source:: stool Past Surgical History: No Surgical Hx Reported Additional Past Surgical History / Comment(s): brain surgery 2005 Past Anesthesia/Blood Transfusion Reactions: No Reported Reaction Past Psychological History: No Psychological Hx Reported Smoking Status: Current every day smoker Past Alcohol Use History: None Reported Past Drug Use History: None Reported - Past Family History Mother Additional Family Medical History / Comment(s): DIVERTICULITIS General Exam Limitations: no limitations General appearance: alert, in no apparent distress, cachectic Head exam: Present: atraumatic, normocephalic, normal inspection Eye exam: Present: normal appearance, PERRL, EOMI. Absent: scleral icterus, conjunctival injection, periorbital swelling Respiratory exam: Present: normal lung sounds bilaterally, rales (upper, left sided ), decreased breath sounds (left sided ). Absent: respiratory distress, wheezes, rhonchi, stridor, chest wall tenderness, accessory muscle use Cardiovascular Exam: Present: normal rhythm, tachycardia, normal heart sounds. Absent: systolic murmur, diastolic murmur, rubs, gallop, clicks GI/Abdominal exam: Present: soft, normal bowel sounds. Absent: distended, tenderness, guarding, rebound, rigid Neurological exam: Present: alert, oriented X3, CN II-XII intact Psychiatric exam: Present: normal affect, normal mood Skin exam: Present: warm, dry, intact, normal color. Absent: rash Course Vital Signs 04/05/22 04/05/22 04/05/22 15:31 15:41 15:54 Temperature 98.4 F Pulse Rate 99 Respiratory 18 Rate Blood Pressure 131/99 O2 Sat by Pulse 94 L 96 Oximetry 04/05/22 04/05/22 18:11 18:28 Temperature Pulse Rate 78 80 Respiratory Rate Blood Pressure O2 Sat by Pulse Oximetry EKG Findings - EKG Comments: EKG Findings:: EKG taken at 15:40. Sinus tachycardia with occasional ectopic premature complexes. Ventricular rate 103. MN interval 174. QRS duration 108. QTC 397 Medical Decision Making - Medical Decision Making This is a 66-year-old male who presents for evaluation of left-sided chest pain and shortness of breath. Thorough history and examination were performed. Patient is afebrile. Hypoxemic at 90% room air. He was put on 2 L of supplemental oxygen with good response. Patient has history of COPD and pneumonia with sepsis. He does appear sick. He is cachectic. States he has not had an appetite for the past week. Regular heart rhythm at tachycardic rate. No murmurs gallops or rubs are appreciated. Left-sided rales heard on lung auscultation. There is a suspicion for pneumonia. I will obtain laboratory studies and x-ray. Laboratory studies significant for elevated white blood cell count 18.4. Troponin is within normal limits. COVID-19 and influenza A/B are not detected. Chest x-ray shows infiltrate in the left upper lobe which is more diffuse compared to previous study. Also shows moderate emphysema. Blood cultures pending. Rocephin and Zithromax initiated. Patient received DuoNeb treatment. Case discussed with Teresa Camara NP. Patient will be admitted to her service with pulmonary consult for further evaluation and management of pneumonia with hypoxemia. Results discussed with patient. He verbalizes understanding and is agreeable to admission. Patient admitted in stable condition. Dr. Wong is my attending. - Lab Data Result diagrams: 04/05/22 16:17 04/05/22 16:17 Lab Results 04/05/22 04/05/22 04/05/22 Range/Units 16:17 16:17 16:17 WBC 18.4 H (3.8-10.6) k/uL RBC 4.18 L (4.30-5.90) m/uL Hgb 13.5 (13.0-17.5) gm/dL Hct 40.9 (39.0-53.0) % MCV 97.9 (80.0-100.0) fL MCH 32.3 (25.0-35.0) pg MCHC 33.0 (31.0-37.0) g/dL RDW 12.7 (11.5-15.5) % Plt Count 259 (150-450) k/uL MPV 7.5 Neutrophils % 87 % Lymphocytes % 3 % Monocytes % 8 % Eosinophils % 0 % Basophils % 1 % Neutrophils # 15.9 H (1.3-7.7) k/uL Lymphocytes # 0.5 L (1.0-4.8) k/uL Monocytes # 1.4 H (0-1.0) k/uL Eosinophils # 0.0 (0-0.7) k/uL Basophils # 0.1 (0-0.2) k/uL PT 10.4 (9.0-12.0) sec INR 1.0 (<1.2) APTT 21.2 L (22.0-30.0) sec Sodium 139 (137-145) mmol/L Potassium 3.8 (3.5-5.1) mmol/L Chloride 104 (98-107) mmol/L Carbon Dioxide 26 (22-30) mmol/L Anion Gap 9 mmol/L BUN 32 H (9-20) mg/dL Creatinine 0.77 (0.66-1.25) mg/dL Est GFR (CKD-EPI)AfAm >90 (>60 ml/min/1.73 sqM) Est GFR (CKD-EPI)NonAf >90 (>60 ml/min/1.73 sqM) Glucose 114 H (74-99) mg/dL Plasma Lactic Acid Gamal (0.7-2.0) mmol/L Calcium 8.7 (8.4-10.2) mg/dL Total Bilirubin 0.4 (0.2-1.3) mg/dL AST 21 (17-59) U/L ALT 14 (4-49) U/L Alkaline Phosphatase 110 (38-126) U/L Troponin I (0.000-0.034) ng/mL Total Protein 6.5 (6.3-8.2) g/dL Albumin 3.8 (3.5-5.0) g/dL Coronavirus (PCR) (Not Detectd) Influenza Type A RNA (Not Detectd) Influenza Type B (PCR) (Not Detectd) 04/05/22 04/05/22 04/05/22 Range/Units 16:17 16:17 16:17 WBC (3.8-10.6) k/uL RBC (4.30-5.90) m/uL Hgb (13.0-17.5) gm/dL Hct (39.0-53.0) % MCV (80.0-100.0) fL MCH (25.0-35.0) pg MCHC (31.0-37.0) g/dL RDW (11.5-15.5) % Plt Count (150-450) k/uL MPV Neutrophils % % Lymphocytes % % Monocytes % % Eosinophils % % Basophils % % Neutrophils # (1.3-7.7) k/uL Lymphocytes # (1.0-4.8) k/uL Monocytes # (0-1.0) k/uL Eosinophils # (0-0.7) k/uL Basophils # (0-0.2) k/uL PT (9.0-12.0) sec INR (<1.2) APTT (22.0-30.0) sec Sodium (137-145) mmol/L Potassium (3.5-5.1) mmol/L Chloride (98-107) mmol/L Carbon Dioxide (22-30) mmol/L Anion Gap mmol/L BUN (9-20) mg/dL Creatinine (0.66-1.25) mg/dL Est GFR (CKD-EPI)AfAm (>60 ml/min/1.73 sqM) Est GFR (CKD-EPI)NonAf (>60 ml/min/1.73 sqM) Glucose (74-99) mg/dL Plasma Lactic Acid Gamal 1.2 (0.7-2.0) mmol/L Calcium (8.4-10.2) mg/dL Total Bilirubin (0.2-1.3) mg/dL AST (17-59) U/L ALT (4-49) U/L Alkaline Phosphatase (38-126) U/L Troponin I <0.012 (0.000-0.034) ng/mL Total Protein (6.3-8.2) g/dL Albumin (3.5-5.0) g/dL Coronavirus (PCR) (Not Detectd) Influenza Type A RNA Not Detected (Not Detectd) Influenza Type B (PCR) Not Detected (Not Detectd) 04/05/22 Range/Units 16:17 WBC (3.8-10.6) k/uL RBC (4.30-5.90) m/uL Hgb (13.0-17.5) gm/dL Hct (39.0-53.0) % MCV (80.0-100.0) fL MCH (25.0-35.0) pg MCHC (31.0-37.0) g/dL RDW (11.5-15.5) % Plt Count (150-450) k/uL MPV Neutrophils % % Lymphocytes % % Monocytes % % Eosinophils % % Basophils % % Neutrophils # (1.3-7.7) k/uL Lymphocytes # (1.0-4.8) k/uL Monocytes # (0-1.0) k/uL Eosinophils # (0-0.7) k/uL Basophils # (0-0.2) k/uL PT (9.0-12.0) sec INR (<1.2) APTT (22.0-30.0) sec Sodium (137-145) mmol/L Potassium (3.5-5.1) mmol/L Chloride (98-107) mmol/L Carbon Dioxide (22-30) mmol/L Anion Gap mmol/L BUN (9-20) mg/dL Creatinine (0.66-1.25) mg/dL Est GFR (CKD-EPI)AfAm (>60 ml/min/1.73 sqM) Est GFR (CKD-EPI)NonAf (>60 ml/min/1.73 sqM) Glucose (74-99) mg/dL Plasma Lactic Acid Gamal (0.7-2.0) mmol/L Calcium (8.4-10.2) mg/dL Total Bilirubin (0.2-1.3) mg/dL AST (17-59) U/L ALT (4-49) U/L Alkaline Phosphatase (38-126) U/L Troponin I (0.000-0.034) ng/mL Total Protein (6.3-8.2) g/dL Albumin (3.5-5.0) g/dL Coronavirus (PCR) Not Detected (Not Detectd) Influenza Type A RNA (Not Detectd) Influenza Type B (PCR) (Not Detectd) Disposition Clinical Impression: Hypoxemia, COPD (chronic obstructive pulmonary disease), Pneumonia, Chest pain Disposition: ADMITTED IP TO THIS HOSP Condition: Fair Decision Time: 18:30
[2022-04-05] MEDS ORDERED: NALOXONE 0.4 MG/ML 1 ML VIAL IV PRN (17:12)
[2022-04-05] MEDS ORDERED: ONDANSETRON 4 MG/2 ML VIAL IVP PRN (17:12)
[2022-04-05] MEDS ORDERED: MORPHINE SULFATE 4 MG/ML SYRINGE IVP STA (18:20)
[2022-04-05] MEDS: SODIUM CHLORIDE 0.9% 1,000 ML IV SCH (18:58)
[2022-04-05] MEDS ORDERED: ALBUTEROL NEBULIZED 2.5 MG/3 ML INHALATION PRN (22:39)
[2022-04-05] MEDS ORDERED: CALCIUM CARBONATE 500 MG CHEWABLE PO PRN (23:04)
[2022-04-05] MEDS: DOCUSATE 100 MG CAP PO SCH (23:11)
[2022-04-05] MEDS: LACTOBACILLUS ACIDOPH & BULGAR 1 EACH PACKET PO SCH (23:11)
[2022-04-05] MEDS: MIRTAZAPINE 45 MG TABLET PO SCH (23:11)
[2022-04-06] MEDS: KETOROLAC 15 MG/ML 1 ML VIAL IVP PRN ×2 (02:13→07:28)
[2022-04-06] MEDS: LACTOBACILLUS ACIDOPH & BULGAR 1 EACH PACKET PO SCH (07:31)
[2022-04-06] MEDS: lisinopriL 10 MG TAB PO SCH (07:31)
[2022-04-06] MEDS: PANTOPRAZOLE 40 MG TABLET PO SCH (07:31)
[2022-04-06] MEDS: DOCUSATE 100 MG CAP PO SCH ×2 (07:31→22:33)
[2022-04-06] MEDS ORDERED: RX INFO: IV CONTRAST WAS GIVEN 1 EACH MISC MISCELLANE PRN (08:02)
[2022-04-06] MEDS ORDERED: ACETAMINOPHEN TAB 325 MG TAB PO PRN (08:29)
--- NOTE | 2022-04-06 08:35 | P.HPIM ---
History of Present Illness his is a pleasant 66 years old male with past medical history of COPD, Hypertension, diverticulitis, hypothyroidism, C-diff, brain aneurysm, nicotine dependence quit last June. Presents because of left-sided lateral chest pain states that was severe pain going on for 5-6 days, nonradiating felt like sharp increase by coughing and deep inspiration associated with some dyspnea and coughing would like clamp also for 5-6 days. Also patient has been vomiting each time he eats no much of an appetite issue as he states. No abdominal pain or diarrhea. Last bowel movement was yesterday and was normal. He has history of stomach problems and used to see Tita Calvillo, last time was about a year ago. Versus that he has history of lower GI bleed and ileus. Vitals his stable and patient is saturating 95% on room air. He is also febrile Labs show leukocytosis of 18.4, his previous leukocyte count was around 13k on 06/2021, risks of CBC is unremarkable. INR is 1.0. BMP, liver enzymes are unremarkable. Troponin is negative less than 0.012. covid and influenza virsus are not detected EKG shows sinus tachycardia at [address]-T changes and QTC 397 chest x-ray: Moderate emphysema There is some infiltrated in the left upper lobe which is showing a change in pattern compared to old exam. Infiltrate on today's exam is more diffuse than old exam Review of Systems Review of systems CONSTITUTIONAL: No fever, no malaise, no fatigue. HEENT: No recent visual problems or hearing problems. Denied any sore throat. CARDIOVASCULAR: No orthopnea, PND, no palpitations, no syncope. PULMONARY: No sneezing or upper respiratory symptoms, no hemoptysis. GASTROINTESTINAL: No diarrhea, no nausea, no vomiting, no abdominal pain. Normoactive bowel sounds. NEUROLOGICAL: No headaches, no weakness, no numbness. HEMATOLOGICAL: Denies any bleeding or petechiae. GENITOURINARY: Denies any burning micturition, frequency, or urgency. MUSCULOSKELETAL/RHEUMATOLOGICAL: Denies any joint pain, swelling, or any muscle pain. ENDOCRINE: Denies any polyuria or polydipsia. Past Medical History Past Medical History: COPD, Hypertension Additional Past Medical History / Comment(s): diverticulitis, hypothyroidism, C- diff, brain aneurysm History of Any Multi-Drug Resistant Organisms: C-DIFF Date of last positivie culture/infection: 09/23/14 MDRO Source:: stool Past Surgical History: No Surgical Hx Reported Additional Past Surgical History / Comment(s): brain surgery 2004 Past Anesthesia/Blood Transfusion Reactions: No Reported Reaction Past Psychological History: No Psychological Hx Reported Smoking Status: Current every day smoker Past Alcohol Use History: None Reported Past Drug Use History: None Reported - Past Family History Mother Additional Family Medical History / Comment(s): DIVERTICULITIS Medications and Allergies Home Medications Medication Instructions Recorded Confirmed Type RX: Albuterol Inhaler [Ventolin 2 puff INHALATION RT-Q6H PRN 06/14/20 04/05/22 History Hfa Inhaler] RX: Docusate [Colace] 100 mg PO BID 06/14/20 04/05/22 History RX: L.acidoph,Paracasei, B.lactis 1 cap PO DAILY 06/22/21 04/05/22 History [Probiotic] Mirtazapine [Remeron] 45 mg PO HS 04/05/22 04/05/22 History RX: lisinopriL [Zestril] 10 mg PO DAILY 04/05/22 04/05/22 History buprenorphine HCL [Subutex] 8 mg SUBLINGUAL BID 04/05/22 04/05/22 History Allergies Allergy/AdvReac Type Severity Reaction Status Date / Time Penicillins Allergy Anaphylaxis Verified 04/05/22 17:29 Physical Exam Vitals: Vital Signs Temp Pulse Resp BP Pulse Ox 04/05/22 22:24 77 22 108/80 95 04/05/22 18:28 80 04/05/22 18:11 78 04/05/22 15:54 96 04/05/22 15:41 99 94 L 04/05/22 15:31 98.4 F 18 131/99 Intake and Output 04/05/22 04/05/22 04/06/22 14:59 22:59 06:59 Other: Weight 58.06 kg -GENERAL: The patient is alert and oriented x3, not in any acute distress. Thin built HEENT: Pupils are round and equally reacting to light. EOMI. No scleral icterus. No conjunctival pallor. Normocephalic, atraumatic. No pharyngeal erythema. No thyromegaly. -CARDIOVASCULAR: S1 and S2 present. No murmurs, rubs, or gallops. Distant heart sounds -PULMONARY: Chest is clear to auscultation, no wheezing or crackles. Buccal chest ABDOMEN: Soft, nontender, nondistended, normoactive bowel sounds. No palpable organomegaly. MUSCULOSKELETAL: No joint swelling or deformity. EXTREMITIES: No cyanosis, clubbing, or pedal edema. NEUROLOGICAL: Gross neurological examination did not reveal any focal deficits. SKIN: No rashes. no petechiae. Results CBC & Chem 7: 04/05/22 16:17 04/05/22 16:17 Labs: Abnormal Lab Results - Last 24 Hours (Table) 04/05/22 04/05/22 04/05/22 Range/Units 16:17 16:17 16:17 WBC 18.4 H (3.8-10.6) k/uL RBC 4.18 L (4.30-5.90) m/uL Neutrophils # 15.9 H (1.3-7.7) k/uL Lymphocytes # 0.5 L (1.0-4.8) k/uL Monocytes # 1.4 H (0-1.0) k/uL APTT 21.2 L (22.0-30.0) sec BUN 32 H (9-20) mg/dL Glucose 114 H (74-99) mg/dL Assessment and Plan Assessment: Left upper lobe infiltrate is suspected. Rule out pneumonia, To rule out pulmonary embolism and follow-up CT of the chest already ordered COPD, not exacerbation chronic leukocytosis, currently slightly worse moderate calories and protein malnutrition Hypertension Hypothyroidism History of diverticulitis History of brain aneurysm Nicotine dependence Plan: This is a pleasant 66 years old male who presents with pneumonia Follow-up procalcitonin Pulmonary consult follow-up CT of the chest already ordered continue with gentle hydration dietary consult Pain management, patient is already on buprenorphine which is a home medication. Patient is asking for more pain medication Labs and medication were reviewed.. Continue same treatment. Continue with symptomatic treatment. Resume home medication. Monitor lytes and vitals. DVT and GI prophylaxis. Further recommendations as per clinical course of the patient DVT prophylaxis: Subcutaneous heparin GI Prophylaxis: Ppi PT/OT: Pending Prognosis is guarded
--- NOTE | 2022-04-06 08:45 | XR ---
KUB HISTORY: Nausea and vomiting Frontal KUB correlated to prior abdomen 06/18/2020 There are distended loops of small bowel. Scattered calcifications within the pelvis may be vascular. Patient is rotated. Bone mineralization is reduced. No evident pneumoperitoneum. IMPRESSION: Correlate for possible bowel obstruction, ileus or enteritis A Red level critical message alert has been initiated for Seun Dunlap MD via the [facility] Critical Results System on 04/06/2022 8:43 AM. This message alert has been sent to Seun Dunlap MD via the preferences provided by the clinician for the receipt of Radiology Critical Findings. Message ID [id number].
[2022-04-06] MEDS: HEPARIN SODIUM,PORCINE/PF 5,000 UNIT/0.5 ML SYRINGE SQ SCH ×2 (09:34→22:40)
[2022-04-06] MEDS: guaiFENesin-DM 100-10MG/5ML 10 ML CUP PO SCH ×3 (09:35→22:40)
[2022-04-06] MEDS: LIDOCAINE 5% PATCH TOPICAL SCH (09:35)
[2022-04-06] MEDS: NON FORMULARY DRUG (Buprenorphine Hcl [Subutex] 8 MG Tablet) SUBLINGUAL SCH ×2 (09:39→22:33)
[2022-04-06] MEDS: IOPAMIDOL CONTRAST (ORAL USE) VIAL PO PRN ×2 (10:21→11:18)
--- NOTE | 2022-04-06 10:53 | P.CNPUL ---
History of Present Illness Consult date: 04/06/22 Requesting physician: Seun Dunlap Reason for consult: dyspnea, cough, COPD, hypoxemia, pneumonia, abnormal CXR/CT Chief complaint: Shortness of breath, cough, chest pain. History of present illness: Pulmonary consult dated 04/06/2022. 66-year-old male with a history of COPD, and hypertension, who presents to the emergency department with complaint of chest pain, shortness of breath, and co ugh. The patient hasn't been feeling well for about 5 days prior to admission. When he takes a deep breath, he complains of a sharp pain in the left chest area. Almost slight pleurisy. He denies any trauma. He denies any fever or chills. He is coughing up a small amount of phlegm. He denies any nausea, vomiting, or diarrhea. He also denies any abdominal pain, and any genitourinary complaints. His chest x-ray shows some infiltrates in the left midlung area. White count 18.4, hemoglobin 13.5, hematocrit 40.9, and platelet count 259,000. Sodium, potassium, chloride, and CO2 are all normal. BUN 32, with a creatinine 0.77. Testing for clements virus was negative. The patient is currently on ceftriaxone, and azithromycin. Review of Systems REVIEW OF SYSTEMS: CONSTITUTIONAL: [Negative.] NEUROLOGIC: [ Negative.] HEENT: [ Negative.] CARDIAC: Pleuritic-like chest pain, left chest. PULMONARY: 5 days worth of increasing shortness of breath, chest tightness, cough, wheezing, and minimal phlegm production. GI: [Negative.] : [Negative.] RHEUMATOLOGIC: [ Negative.] IMMUNOLOGIC: [ Negative.] ENDOCRINE: [Negative. ] DERMATOLOGIC: [Negative.] Past Medical History Past Medical History: COPD, Hypertension Additional Past Medical History / Comment(s): diverticulitis, hypothyroidism, C- diff, brain aneurysm History of Any Multi-Drug Resistant Organisms: C-DIFF Date of last positivie culture/infection: 09/23/14 MDRO Source:: stool Past Surgical History: No Surgical Hx Reported Additional Past Surgical History / Comment(s): brain surgery 2004 Past Anesthesia/Blood Transfusion Reactions: No Reported Reaction Past Psychological History: No Psychological Hx Reported Smoking Status: Current every day smoker Past Alcohol Use History: None Reported Past Drug Use History: None Reported - Past Family History Mother Additional Family Medical History / Comment(s): DIVERTICULITIS Medications and Allergies Home Medications Medication Instructions Recorded Confirmed Type Albuterol Inhaler [Ventolin Hfa 2 puff INHALATION RT-Q6H PRN 06/14/20 04/05/22 History Inhaler] Docusate [Colace] 100 mg PO BID 06/14/20 04/05/22 History L.acidoph,Paracasei, B.lactis 1 cap PO DAILY 06/22/21 04/05/22 History [Probiotic] Mirtazapine [Remeron] 45 mg PO HS 04/05/22 04/05/22 History buprenorphine HCL [Subutex] 8 mg SUBLINGUAL BID 04/05/22 04/05/22 History lisinopriL [Zestril] 10 mg PO DAILY 04/05/22 04/05/22 History Allergies Allergy/AdvReac Type Severity Reaction Status Date / Time Penicillins Allergy Anaphylaxis Verified 04/05/22 17:29 Physical Exam Osteopathic Statement: *. No significant issues noted on an osteopathic structural exam other than those noted in the History and Physical/Consult. Vitals: Vital Signs Temp Pulse Pulse Resp BP BP Pulse Ox 04/06/22 07:16 98.3 F 85 14 134/75 93 L 04/05/22 22:24 77 22 108/80 95 04/05/22 18:28 80 04/05/22 18:11 78 04/05/22 15:54 96 04/05/22 15:41 99 94 L 04/05/22 15:31 98.4 F 18 131/99 Intake and Output 04/05/22 04/06/22 04/06/22 22:59 06:59 14:59 Other: Weight 58.06 kg 58.06 kg No acute distress, oriented 3. Nasal O2 in place. The patient looks much older than his stated age. HEENT examination is grossly unremarkable. Neck supple. Full range of motion. No adenopathy thyromegaly or neck vein distention. Cardiovascular examination reveals regular rhythm rate. S1-S2 normal. No S3 or S4. No discernible murmur noted. Heart rate 77 bpm. Lungs reveal scattered bilateral rhonchi. The patient does not take deep breaths. He winces when he does take a deep breath. No crackles. Breath sounds equal bilaterally. Saturations are in the low 90s. Abdomen soft bowel sounds are heard. No masses or tenderness. Extremities are intact. No cyanosis clubbing or edema. Skin is without rash or lesion. Neurologic examination is brief but nonfocal. Results - Laboratory Findings CBC and BMP: 04/05/22 16:17 04/05/22 16:17 PT/INR, D-dimer PT 10.4 sec (9.0-12.0) 04/05/22 16:17 INR 1.0 (<1.2) 04/05/22 16:17 Abnormal lab findings: Abnormal Labs 04/05/22 04/05/22 04/05/22 16:17 16:17 16:17 WBC 18.4 H RBC 4.18 L Neutrophils # 15.9 H Lymphocytes # 0.5 L Monocytes # 1.4 H APTT 21.2 L BUN 32 H Glucose 114 H - Diagnostic Findings Chest x-ray: image reviewed Assessment and Plan Assessment: Acute COPD exacerbation, complicated by left-sided pneumonia, and pleurisy. History of underlying COPD from heavy tobacco use. History of hypertension. History of diverticular disease. History of hypothyroidism. History of C. difficile colitis. Status post previous brain surgery for aneurysm 2004. Plan: Plan 04/06/2022. The patient should continue on azithromycin and Rocephin. In addition, the patient should be getting doing nebs 4 times a day and when necessary. Additional recommendations and suggestions are forthcoming. We will continue to follow make recommendations where appropriate. Prognosis is guarded. The patient is counseled about the importance of smoking cessation. Time with Patient: Greater than 30
--- NOTE | 2022-04-06 12:53 | P.GSCN ---
History of Present Illness Consult date: 04/06/22 History of present illness: CHIEF COMPLAINT: Shortness of breath left-sided chest pain and cough HISTORY OF PRESENT ILLNESS: This is a 66-year-old male who presented to the hospital with complaints of left-sided chest pain shortness of breath and cough for the last 5 days. Patient reports he has pain across left side when taking a deep breath. He does spend seen by pulmonary service and is currently being treated for COPD exacerbation, pneumonia and pleurisy. They've ordered a CTA of the chest. Patient had an episode of nausea and vomiting and a KUB x-ray was completed that stated correlate for possible bulb suction, ileus or enteritis. Patient does have a past history of c. diff colitis. He reports that his bowel movements have been normal his last one was yesterday. He also reports having flatus. Denies any abdominal pain. Denies any blood in his stool. He does report decrease in appetite. Patient reports the episode of vomiting that occurred yesterday was after a significant amount of coughing. Denies any fever. Computed tomography scan of the abdomen and pelvis with contrast is pending. He did have elevated white count on admission lactic acid normal. Patient seen and examined with Dr. lou PAST MEDICAL HISTORY: COPD, hypertension, diverticulitis, hypothyroidism, C. diff colitis, brain aneurysm PAST SURGICAL HISTORY: Brain surgery 2004 MEDICATIONS: See list. ALLERGIES: See list. SOCIAL HISTORY: No illicit drug use. Positive smoker REVIEW OF SYSTEMS: CONSTITUTIONAL: Denies fever or chills. HEENT: Denies blurred vision, vision changes, or eye pain. Denies hemoptysis CARDIOVASCULAR: Denies chest pain or pressure. RESPIRATORY: No shortness of breath. GASTROINTESTINAL: See HPI for pertinent findings HEMATOLOGIC: Denies bleeding disorders. GENITOURINARY: Denies any blood in urine or increased urinary frequency. SKIN: Denies pruitis. Denies rash. PHYSICAL EXAM: VITAL SIGNS: Reviewed GENERAL: Well-developed in no acute distress. HEENT: No sclera icterus. Extraocular movements grossly intact. Moist buccal mucosa. Head is atraumatic, normocephalic. No nasal drainage. ABDOMEN: Soft. Nondistended. Nontender NEUROLOGIC: Alert and oriented. Cranial nerves II through XII grossly intact. LABORATORY DATA: WBC is 18.4 hemoglobin 13.5 plt 259 na 139 potassium 3.8 and 0.77 Lactic acid 1.2 LFTs normal Covid and influenza screening negative IMAGING: KUB as stated above Computed tomography scan of abdomen and pelvis and CT chest pending ASSESSMENT: 1. Possible bowel obstruction, ileus or enteritis noted on KUB x-ray. No abdominal pain and having BMs and flatus 2. COPD exacerbation, left-sided pneumonia and pleurisy followed by pulmonary service PLAN: -Follow up on computed tomography scan of chest, abdomen and pelvis with contrast -Further recommendations forthcoming per surgeon -Continue supportive care -Continue heart healthy diet Physician C[employer] Farmer note has been reviewed by physician. Signing provider agrees with the documented findings, assessment, and plan of care. Past Medical History Past Medical History: COPD, Hypertension Additional Past Medical History / Comment(s): diverticulitis, hypothyroidism, C- diff, brain aneurysm History of Any Multi-Drug Resistant Organisms: C-DIFF Year Discovered:: 09/23/14 MDRO Source:: stool Past Surgical History: No Surgical Hx Reported Additional Past Surgical History / Comment(s): brain surgery 2004 Past Anesthesia/Blood Transfusion Reactions: No Reported Reaction Past Psychological History: No Psychological Hx Reported Smoking Status: Current every day smoker Past Alcohol Use History: None Reported Past Drug Use History: None Reported - Past Family History Mother Additional Family Medical History / Comment(s): DIVERTICULITIS Medications and Allergies Home Medications Medication Instructions Recorded Confirmed Type Albuterol Inhaler [Ventolin Hfa 2 puff INHALATION RT-Q6H PRN 06/14/20 04/05/22 History Inhaler] Docusate [Colace] 100 mg PO BID 06/14/20 04/05/22 History L.acidoph,Paracasei, B.lactis 1 cap PO DAILY 06/22/21 04/05/22 History [Probiotic] Mirtazapine [Remeron] 45 mg PO HS 04/05/22 04/05/22 History buprenorphine HCL [Subutex] 8 mg SUBLINGUAL BID 04/05/22 04/05/22 History lisinopriL [Zestril] 10 mg PO DAILY 04/05/22 04/05/22 History Allergies Allergy/AdvReac Type Severity Reaction Status Date / Time Penicillins Allergy Anaphylaxis Verified 04/05/22 17:29 Surgical - Exam Vital Signs Temp Resp BP 98.4 F 18 131/99 04/05/22 15:31 04/05/22 15:31 04/05/22 15:31 Results - Labs 04/05/22 16:17 04/05/22 16:17 Abnormal Lab Results - Last 24 Hours (Table) 04/05/22 04/05/22 04/05/22 Range/Units 16:17 16:17 16:17 WBC 18.4 H (3.8-10.6) k/uL RBC 4.18 L (4.30-5.90) m/uL Neutrophils # 15.9 H (1.3-7.7) k/uL Lymphocytes # 0.5 L (1.0-4.8) k/uL Monocytes # 1.4 H (0-1.0) k/uL APTT 21.2 L (22.0-30.0) sec BUN 32 H (9-20) mg/dL Glucose 114 H (74-99) mg/dL Procalcitonin (0.02-0.09) ng/mL 04/05/22 Range/Units 16:17 WBC (3.8-10.6) k/uL RBC (4.30-5.90) m/uL Neutrophils # (1.3-7.7) k/uL Lymphocytes # (1.0-4.8) k/uL Monocytes # (0-1.0) k/uL APTT (22.0-30.0) sec BUN (9-20) mg/dL Glucose (74-99) mg/dL Procalcitonin 1.02 H (0.02-0.09) ng/mL Diabetes panel 04/05/22 Range/Units 16:17 Sodium 139 (137-145) mmol/L Potassium 3.8 (3.5-5.1) mmol/L Chloride 104 (98-107) mmol/L Carbon Dioxide 26 (22-30) mmol/L BUN 32 H (9-20) mg/dL Creatinine 0.77 (0.66-1.25) mg/dL Glucose 114 H (74-99) mg/dL Calcium 8.7 (8.4-10.2) mg/dL AST 21 (17-59) U/L ALT 14 (4-49) U/L Alkaline Phosphatase 110 (38-126) U/L Total Protein 6.5 (6.3-8.2) g/dL Albumin 3.8 (3.5-5.0) g/dL Calcium panel 04/05/22 Range/Units 16:17 Calcium 8.7 (8.4-10.2) mg/dL Albumin 3.8 (3.5-5.0) g/dL Pituitary panel 04/05/22 Range/Units 16:17 Sodium 139 (137-145) mmol/L Potassium 3.8 (3.5-5.1) mmol/L Chloride 104 (98-107) mmol/L Carbon Dioxide 26 (22-30) mmol/L BUN 32 H (9-20) mg/dL Creatinine 0.77 (0.66-1.25) mg/dL Glucose 114 H (74-99) mg/dL Calcium 8.7 (8.4-10.2) mg/dL Adrenal panel 04/05/22 Range/Units 16:17 Sodium 139 (137-145) mmol/L Potassium 3.8 (3.5-5.1) mmol/L Chloride 104 (98-107) mmol/L Carbon Dioxide 26 (22-30) mmol/L BUN 32 H (9-20) mg/dL Creatinine 0.77 (0.66-1.25) mg/dL Glucose 114 H (74-99) mg/dL Calcium 8.7 (8.4-10.2) mg/dL Total Bilirubin 0.4 (0.2-1.3) mg/dL AST 21 (17-59) U/L ALT 14 (4-49) U/L Alkaline Phosphatase 110 (38-126) U/L Total Protein 6.5 (6.3-8.2) g/dL Albumin 3.8 (3.5-5.0) g/dL
--- NOTE | 2022-04-06 12:57 | CT ---
EXAMINATION TYPE: CT ChestAbdPelvis w con DATE OF EXAM: 04/06/2022 COMPARISON: CT dated 06/23/2021 HISTORY: Abdominal distention and Chest mass. Positive smoker CT DLP: 681.9 mGycm Automated exposure control for dose reduction was used. CONTRAST: CT scan of the chest, abdomen and pelvis is performed with Oral Contrast and with IV Contrast, patien t injected with 100 ml mL of Isovue 300. FINDINGS: LUNGS: Thick consolidation/infiltration is seen in the posterior and central aspects of the left uppe r lobe, progressed compared to the previous and could be related to acute inflammatory/infectious pro cess. Recommend clinical correlation and follow-up to complete resolution after proper treatment. Sev ere extensive COPD changes with lung parenchymal destruction and multiple air bubble, mainly involvin g the upper lobes. Newly seen consolidation at the posterior aspect of the right lower lobe. Multiple cystic changes and traction bronchiectasis are noted. Patent trachea and main bronchi. Small pleural effusions. MEDIASTINUM: Small pericardial effusion. No gross cardiomegaly. Coronary and arterial atherosclerotic calcifications. Subcentimeter mediastinal and hilar lymph nodes. No pathologically enlarged lymph no maciej in the chest. OTHER: Exaggerated lower dorsal kyphosis. No aggressive bone lesion. Osteopenia. LIVER/GB: No significant abnormality is appreciated. PANCREAS: No significant abnormality is seen. SPLEEN: No significant abnormality is seen. ADRENALS: No significant abnormality is seen. KIDNEYS: Right parapelvic renal cyst with other suspected scattered smaller bilateral renal cysts. Du plex left kidney with suspected multiple ureters. BOWEL: Fluid is seen in the esophagus which could be due to gastroesophageal reflux. Mild wall thick ening of the esophagus, esophagitis cannot be excluded. The stomach is not distended. Suboptimal asse ssment of the small and large bowel due to paucity of intra-abdominal fat. No evidence of acute small bowel obstruction. Significant fecal loading of the rectum and colon suggestive of constipation. Sca ttered segments of mild colonic wall thickening, nonspecific. It is not possible to exclude small or large bowel lesion or mild acute abnormality by this CT scan. Colonoscopy can be considered if clinic ally required. REPRODUCTIVE ORGANS: No gross abnormality seen. LYMPH NODES: No greater than 1 cm abdominal or pelvic lymph nodes are appreciated. OSSEOUS STRUCTURES: Osteopenia. OTHER: Extensive arterial atherosclerotic calcifications. No sizable ascites. IMPRESSION: 1. Suspected the left pulmonary acute inflammatory/infectious process like pneumonia. Recommend clini arpit correlation and follow-up to complete resolution after proper treatment. Underlying lesion cannot be excluded. Severe COPD changes as detailed above. 2. No evidence of acute high-grade small bowel obstruction. Suspected constipation. Segments of nonsp ecific colonic wall thickening, for correlation with colonoscopy results. Other findings as described above.
[2022-04-06 16:22] VITALS: BMI 15.5
[2022-04-06] MEDS ORDERED: PROMETHAZINE 25 MG TAB PO PRN (19:04)
[2022-04-06] MEDS: SODIUM CHLORIDE 0.9% 1,000 ML IV SCH (19:17)
[2022-04-07] MEDS: AZITHROMYCIN 500 MG in SODIUM CHLORIDE 0.9% 250 ML IVPB SCH ×2 (00:11→21:48)
[2022-04-07] MEDS: MIRTAZAPINE 45 MG TABLET PO SCH ×2 (00:30→20:17)
[2022-04-07] MEDS: guaiFENesin-DM 100-10MG/5ML 10 ML CUP PO SCH ×4 (03:13→20:16)
[2022-04-07] MEDS: SODIUM CHLORIDE 0.9% 1,000 ML IV SCH ×2 (03:14→08:00)
[2022-04-07] MEDS: PANTOPRAZOLE 40 MG TABLET PO SCH (07:46)
[2022-04-07] MEDS: HYDROcodone/APAP 7.5-325MG 1 EACH TAB PO PRN ×3 (08:04→20:26)
[2022-04-07 09:37] LABS: Basophils # (A) 0.02 X 10*3/uL (0.00-0.10); Basophils % (A) 0.2 %; Eosinophils # (A) 0.04 X 10*3/uL (0.04-0.35); Eosinophils % (A) 0.3 %; HCT 37.2 % (39.6-50.0); HGB 11.5 g/dL (13.0-17.0); Immature Grans, Automated 0.6 %; Lymphocytes # (A) 0.61 X 10*3/uL (0.90-5.00); MCH 29.9 pg (27.0-32.0); MCHC 30.9 g/dL (32.0-37.0); MCV 96.6 fL (80.0-97.0); Mean Platelet Volume 10.1 fL (9.5-12.2); Monocytes % (A) 10.6 %; NRBC Per 100 WBC 0 /100 WBCS (0.0-0.0); Neutrophils # (A) 10.22 X 10*3/uL (1.80-7.70); Neutrophils % (A) 83.3 %; Platelet Count 290 X 10*3/uL (140-440); RBC 3.85 X 10*6/uL (4.40-5.60); WBC 12.26 X 10*3/uL (4.50-10.00)
[2022-04-07 09:43] LABS: African American GFR (CKD) 123.1 (60.0-200.0); Anion Gap 10.6 mmol/L (10.00-18.00); BUN/Creat Ratio 44.33 Ratio (12.00-20.00); Blood Urea Nitrogen 26.6 mg/dL (9.0-27.0); Calcium 7.9 mg/dL (8.7-10.3); Carbon Dioxide 24.4 mmol/L (20.0-27.5); Magnesium 2.3 mg/dL (1.5-2.4); Non-African American GFR(CKD) 106.3 (60.0-200.0); Potassium 3.8 mmol/L (3.5-5.5)
[2022-04-07] MEDS: LACTOBACILLUS ACIDOPH & BULGAR 1 EACH PACKET PO SCH (09:45)
[2022-04-07] MEDS: lisinopriL 10 MG TAB PO SCH (09:47)
[2022-04-07] MEDS: LIDOCAINE 5% PATCH TOPICAL SCH (09:48)
[2022-04-07] MEDS: NON FORMULARY DRUG (Buprenorphine Hcl [Subutex] 8 MG Tablet) SUBLINGUAL SCH ×2 (09:50→20:13)
[2022-04-07] MEDS: HEPARIN SODIUM,PORCINE/PF 5,000 UNIT/0.5 ML SYRINGE SQ SCH ×2 (09:50→20:16)
[2022-04-07] MEDS: DOCUSATE 100 MG CAP PO SCH ×2 (09:51→20:17)
[2022-04-07] MEDS ORDERED: IPRATROPIUM-ALBUTEROL 3 ML NEB INHALATION PRN (10:16)
--- NOTE | 2022-04-07 10:17 | P.PN ---
Subjective Progress Note Date: 04/07/22 Principal diagnosis: COPD exacerbation, pneumonia. Pulmonary consult dated 04/06/2022. 66-year-old male with a history of COPD, and hypertension, who presents to the emergency department with complaint of chest pain, shortness of breath, and cough. The patient hasn't been feeling well for about 5 days prior to admission. When he takes a deep breath, he complains of a sharp pain in the left chest area. Almost slight pleurisy. He denies any trauma. He denies any fever or chills. He is coughing up a small amount of phlegm. He denies any nausea, vomiting, or diarrhea. He also denies any abdominal pain, and any genitourinary complaints. His chest x-ray shows some infiltrates in the left midlung area. White count 18.4, hemoglobin 13.5, hematocrit 40.9, and platelet count 259,000. Sodium, potassium, chloride, and CO2 are all normal. BUN 32, with a creatinine 0.77. Testing for clements virus was negative. The patient is currently on ceftriaxone, and azithromycin. Progress note dated 04/07/2022. 66-year-old male with history of severe bullous emphysema, and hypertension. He presented to the emergency department with complaints of chest pain, shortness of breath, and cough. He's currently on 3 L nasal cannula. He is getting saline at 75 mL an hour. The patient is feeling a bit better today. The computed tomography scan was reviewed. White count 12.6, hemoglobin 11.5, hematocrit 37.2, with a normal platelet count. Sodium 139, potassium 3.8, chl orides 104,, anion gap 11, BUN 27, and creatinine 0.6. The patient's pro- calcitonin level was elevated at 2.66. Testing for coronavirus was negative. Objective - Vital Signs Vital signs: Vital Signs Temp 98.3 F 04/07/22 08:00 Pulse 84 04/07/22 08:00 Resp 15 04/07/22 08:00 BP 165/77 04/07/22 08:00 Pulse Ox 96 04/07/22 08:00 FiO2 Intake & Output 04/06/22 04/07/22 04/07/22 18:59 06:59 18:59 Weight 58.06 kg Other: # Voids 2 # Bowel Movements 1 - Exam No acute distress, oriented 3. Nasal O2 in place. The patient looks much older than his stated age. No respiratory distress. HEENT examination is grossly unremarkable. Neck supple. Full range of motion. No adenopathy thyromegaly or neck vein distention. Cardiovascular examination reveals regular rhythm rate. S1-S2 normal. No S3 or S4. No discernible murmur noted. Heart rate 84 bpm. Lungs reveal scattered bilateral rhonchi. The patient does not take deep breaths. He winces when he does take a deep breath. No crackles. Breath sounds equal bilaterally. Saturations are in the mid 90s. Abdomen soft bowel sounds are heard. No masses or tenderness. Extremities are intact. No cyanosis clubbing or edema. Skin is without rash or lesion. Neurologic examination is brief but nonfocal. - Labs CBC & Chem 7: 04/07/22 04:41 04/07/22 04:41 Labs: Abnormal Lab Results - Last 24 Hours (Table) 04/05/22 04/06/22 04/07/22 Range/Units 16:17 11:24 04:41 WBC 12.26 H (4.50-10.00) X 10*3/uL RBC 3.85 L (4.40-5.60) X 10*6/uL Hgb 11.5 L (13.0-17.0) g/dL Hct 37.2 L (39.6-50.0) % MCHC 30.9 L (32.0-37.0) g/dL Immature Gran # 0.07 H (0.00-0.04) X 10*3/uL Neutrophils # 10.22 H (1.80-7.70) X 10*3/uL Lymphocytes # 0.61 L (0.90-5.00) X 10*3/uL Monocytes # 1.30 H (0.20-1.00) X 10*3/uL BUN/Creatinine Ratio (12.00-20.00) Ratio Glucose (70-110) mg/dL Calcium (8.7-10.3) mg/dL Procalcitonin 1.02 H 2.66 H (0.02-0.09) ng/mL 04/07/22 Range/Units 04:41 WBC (4.50-10.00) X 10*3/uL RBC (4.40-5.60) X 10*6/uL Hgb (13.0-17.0) g/dL Hct (39.6-50.0) % MCHC (32.0-37.0) g/dL Immature Gran # (0.00-0.04) X 10*3/uL Neutrophils # (1.80-7.70) X 10*3/uL Lymphocytes # (0.90-5.00) X 10*3/uL Monocytes # (0.20-1.00) X 10*3/uL BUN/Creatinine Ratio 44.33 H (12.00-20.00) Ratio Glucose 114 H (70-110) mg/dL Calcium 7.9 L (8.7-10.3) mg/dL Procalcitonin (0.02-0.09) ng/mL Microbiology - Last 24 Hours (Table) 04/05/22 18:27 Blood Culture - Preliminary Blood No Growth after 24 hours 04/05/22 18:42 Blood Culture - Preliminary Blood No Growth after 24 hours Assessment and Plan Assessment: Acute COPD exacerbation, complicated by left-sided pneumonia, and pleurisy. History of underlying COPD from heavy tobacco use. History of hypertension. History of diverticular disease. History of hypothyroidism. History of C. difficile colitis. Status post previous brain surgery for aneurysm 2004. Plan: Plan 04/06/2022. The patient should continue on azithromycin and Rocephin. In addition, the patient should be getting doing nebs 4 times a day and when necessary. Additional recommendations and suggestions are forthcoming. We will continue to follow make recommendations where appropriate. Prognosis is guarded. The patient is counseled about the importance of smoking cessation. Plan dated 04/07/2022. Labs, x-rays, and medications are reviewed. The patient remains on Rocephin and azithromycin. The patient is also getting albuterol updrafts. We'll continue to follow. Prognosis is guarded. We will add DuoNeb, and Symbicort. Albuterol will be discontinued. Results of the CAT scan are shared with the patient. We will continue to follow and make recommendations. The patient is counseled a bout the importance of smoking cessation. Time with Patient: Less than 30
[2022-04-07] MEDS: IPRATROPIUM-ALBUTEROL 3 ML NEB INHALATION SCH ×3 (11:45→19:24)
--- NOTE | 2022-04-07 13:22 | P.PN ---
Subjective Progress Note Date: 04/07/22 CHIEF COMPLAINT: Shortness of breath, left-sided chest pain and cough HISTORY OF PRESENT ILLNESS: Surgical service is following regards to patient's constipation. Patient did have a loose bowel movement and flatus. Denies any nausea vomiting. Denies any abdominal pain. Computed tomography scan chest abdomen and pelvis no evidence of acute high-grade small bowel section. Suspected constipation. Segments of nonspecific colonic wall thickening. Suspected left pulmonary acute inflammatory/infectious process likely pneumonia. Patient reports to have a cough. Afebrile. WBC 18.4 down to 12.26 hemoglobin 11.5 platelets 290 sodium is 139 potassium is 3.8 creatinine 0.6. Last colonoscopy was in 2016 with normal colon. Patient seen and examined with Dr. lou PHYSICAL EXAM: VITAL SIGNS: Reviewed. GENERAL: Well-developed in no acute distress. HEENT: No sclera icterus. Extraocular movements grossly intact. Moist buccal mucosa. Head is atraumatic, normocephalic. ABDOMEN: Soft. Nondistended. Nontender. NEUROLOGIC: Alert and oriented. Cranial nerves II through XII grossly intact. ASSESSMENT: 1. Constipation no evidence of bowel obstruction on CAT scan 2. COPD exacerbation, left-sided pneumonia and pleurisy followed by pulmonary service PLAN: -Continue Colace -Start full liquid diet and advance as tolerated -Continue supportive care Physician [employer] note has been reviewed by physician. Signing provider agrees with the documented findings, assessment, and plan of care. Objective - Vital Signs Vital signs: Vital Signs Temp 98.3 F 04/07/22 08:00 Pulse 92 04/07/22 11:55 Resp 15 04/07/22 08:00 BP 165/77 04/07/22 08:00 Pulse Ox 96 04/07/22 08:00 FiO2 Intake & Output 04/06/22 04/07/22 04/07/22 18:59 06:59 18:59 Weight 58.06 kg Other: Voiding Method Toilet # Voids 2 # Bowel Movements 1 - Labs CBC & Chem 7: 04/07/22 04:41 04/07/22 04:41 Labs: Abnormal Lab Results - Last 24 Hours (Table) 04/06/22 04/07/22 04/07/22 Range/Units 11:24 04:41 04:41 WBC 12.26 H (4.50-10.00) X 10*3/uL RBC 3.85 L (4.40-5.60) X 10*6/uL Hgb 11.5 L (13.0-17.0) g/dL Hct 37.2 L (39.6-50.0) % MCHC 30.9 L (32.0-37.0) g/dL Immature Gran # 0.07 H (0.00-0.04) X 10*3/uL Neutrophils # 10.22 H (1.80-7.70) X 10*3/uL Lymphocytes # 0.61 L (0.90-5.00) X 10*3/uL Monocytes # 1.30 H (0.20-1.00) X 10*3/uL BUN/Creatinine Ratio 44.33 H (12.00-20.00) Ratio Glucose 114 H (70-110) mg/dL Calcium 7.9 L (8.7-10.3) mg/dL Procalcitonin 2.66 H (0.02-0.09) ng/mL Microbiology - Last 24 Hours (Table) 04/05/22 18:27 Blood Culture - Preliminary Blood No Growth after 24 hours 04/05/22 18:42 Blood Culture - Preliminary Blood No Growth after 24 hours
[2022-04-07] MEDS: SYMBICORT 160-4.5 MCG INHALER INHALATION SCH (19:24)
--- NOTE | 2022-04-07 19:28 | P.PN ---
Subjective this is a pleasant 66 years old male with past medical history of COPD, Hypertension, diverticulitis, hypothyroidism, C-diff, brain aneurysm, nicotine dependence quit last June. Presents because of left-sided lateral chest pain states that was severe pain going on for 5-6 days, nonradiating felt like sharp increase by coughing and deep inspiration associated with some dyspnea and coughing would like clamp also for 5-6 days. Also patient has been vomiting each time he eats no much of an appetite issue as he states. No abdominal pain or diarrhea. Last bowel movement was yesterday and was normal. He has history of stomach problems and used to see Tita Calvillo, last time was about a year ago. Versus that he has history of lower GI bleed and ileus. Vitals his stable and patient is saturating 95% on room air. He is also febrile Labs show leukocytosis of 18.4, his previous leukocyte count was around 13k on 06/2021, risks of CBC is unremarkable. INR is 1.0. BMP, liver enzymes are unremarkable. Troponin is negative less than 0.012. covid and influenza virsus are not detected EKG shows sinus tachycardia at [address]-T changes and QTC 397 chest x-ray: Moderate emphysema There is some infiltrated in the left upper lobe which is showing a change in pattern compared to old exam. Infiltrate on today's exam is more diffuse than old exam 04/07/2012 Patient remains treated for his pneumonia, he is breathing quietly addressed and he is saturating 93% on 3 L. He remains on ceftriaxone and Zithromax. Patient himself does not look in distress. We will add Robitussin for help with his cough and his pleuritic pain related to his pneumonia. CTA of the chest is negative for PE. Also patient looks like has constipation or rather than bowel obstruction per CAT scan of the abdomen and pelvis. Colace is added by surgery team. Patient states that he had colonoscopy and EGD with Dr. Rodriguez about 1-2 years ago. Patient was instructed to follow up with her upon discharge and he agrees. Dietitian recommended ensure and advance diet when appropriate. Objective - Vital Signs Vital signs: Vital Signs Temp 98.3 F 04/07/22 08:00 Pulse 84 04/07/22 08:00 Resp 15 04/07/22 08:00 BP 165/77 04/07/22 08:00 Pulse Ox 96 04/07/22 08:00 FiO2 Intake & Output 04/06/22 04/07/22 04/07/22 18:59 06:59 18:59 Weight 58.06 kg Other: # Voids 2 # Bowel Movements 1 - Exam -GENERAL: The patient is alert and oriented x3, not in any acute distress. Thin built HEENT: Pupils are round and equally reacting to light. EOMI. No scleral icterus. No conjunctival pallor. Normocephalic, atraumatic. No pharyngeal erythema. No thyromegaly. -CARDIOVASCULAR: S1 and S2 present. No murmurs, rubs, or gallops. Distant heart sounds -PULMONARY: Chest is clear to auscultation, no wheezing or crackles. Buccal chest ABDOMEN: Soft, nontender, nondistended, normoactive bowel sounds. No palpable organomegaly. MUSCULOSKELETAL: No joint swelling or deformity. EXTREMITIES: No cyanosis, clubbing, or pedal edema. NEUROLOGICAL: Gross neurological examination did not reveal any focal deficits. SKIN: No rashes. no petechiae. - Labs CBC & Chem 7: 04/07/22 04:41 04/07/22 04:41 Labs: Abnormal Lab Results - Last 24 Hours (Table) 04/05/22 04/06/22 04/07/22 Range/Units 16:17 11:24 04:41 WBC 12.26 H (4.50-10.00) X 10*3/uL RBC 3.85 L (4.40-5.60) X 10*6/uL Hgb 11.5 L (13.0-17.0) g/dL Hct 37.2 L (39.6-50.0) % MCHC 30.9 L (32.0-37.0) g/dL Immature Gran # 0.07 H (0.00-0.04) X 10*3/uL Neutrophils # 10.22 H (1.80-7.70) X 10*3/uL Lymphocytes # 0.61 L (0.90-5.00) X 10*3/uL Monocytes # 1.30 H (0.20-1.00) X 10*3/uL BUN/Creatinine Ratio (12.00-20.00) Ratio Glucose (70-110) mg/dL Calcium (8.7-10.3) mg/dL Procalcitonin 1.02 H 2.66 H (0.02-0.09) ng/mL 04/07/22 Range/Units 04:41 WBC (4.50-10.00) X 10*3/uL RBC (4.40-5.60) X 10*6/uL Hgb (13.0-17.0) g/dL Hct (39.6-50.0) % MCHC (32.0-37.0) g/dL Immature Gran # (0.00-0.04) X 10*3/uL Neutrophils # (1.80-7.70) X 10*3/uL Lymphocytes # (0.90-5.00) X 10*3/uL Monocytes # (0.20-1.00) X 10*3/uL BUN/Creatinine Ratio 44.33 H (12.00-20.00) Ratio Glucose 114 H (70-110) mg/dL Calcium 7.9 L (8.7-10.3) mg/dL Procalcitonin (0.02-0.09) ng/mL Microbiology - Last 24 Hours (Table) 04/05/22 18:27 Blood Culture - Preliminary Blood No Growth after 24 hours 04/05/22 18:42 Blood Culture - Preliminary Blood No Growth after 24 hours Assessment and Plan Assessment: Left upper lobe infiltrate is suspected. Rule out pneumonia, To rule out pulmonary embolism and follow-up CT of the chest already ordered COPD, not exacerbation chronic leukocytosis, currently slightly worse moderate calories and protein malnutrition , related to his poor appetite and recurrent vomiting for the last 5 days prior to admission. Hypertension Hypothyroidism History of diverticulitis History of brain aneurysm Nicotine dependence Plan: This is a pleasant 66 years old male who presents with pneumonia Follow-up procalcitonin Pulmonary consult follow-up CT of the chest already ordered continue with gentle hydration dietary consult Pain management, patient is already on buprenorphine which is a home medication. Patient is asking for more pain medication Labs and medication were reviewed.. Continue same treatment. Continue with symptomatic treatment. Resume home medication. Monitor lytes and vitals. DVT and GI prophylaxis. Further recommendations as per clinical course of the patient DVT prophylaxis: Subcutaneous heparin GI Prophylaxis: Ppi PT/OT: Pending Prognosis is guarded
[2022-04-08] MEDS: MORPHINE SULFATE 4 MG/ML SYRINGE IVP PRN ×2 (04:56→20:48)
[2022-04-08] MEDS: guaiFENesin-DM 100-10MG/5ML 10 ML CUP PO SCH ×2 (04:57→08:39)
[2022-04-08] MEDS: SODIUM CHLORIDE 0.9% 1,000 ML IV SCH ×2 (05:01→11:26)
[2022-04-08] MEDS: IPRATROPIUM-ALBUTEROL 3 ML NEB INHALATION SCH ×4 (07:47→20:21)
[2022-04-08] MEDS: SYMBICORT 160-4.5 MCG INHALER INHALATION SCH ×2 (07:47→20:21)
[2022-04-08] MEDS: PANTOPRAZOLE 40 MG TABLET PO SCH (08:39)
[2022-04-08] MEDS: DOCUSATE 100 MG CAP PO SCH ×2 (08:39→20:51)
[2022-04-08] MEDS: lisinopriL 10 MG TAB PO SCH (08:39)
[2022-04-08] MEDS: LACTOBACILLUS ACIDOPH & BULGAR 1 EACH PACKET PO SCH (08:39)
[2022-04-08] MEDS: LIDOCAINE 5% PATCH TOPICAL SCH (08:39)
[2022-04-08] MEDS: HEPARIN SODIUM,PORCINE/PF 5,000 UNIT/0.5 ML SYRINGE SQ SCH ×2 (08:41→20:48)
[2022-04-08] MEDS: NON FORMULARY DRUG (Buprenorphine Hcl [Subutex] 8 MG Tablet) SUBLINGUAL SCH ×2 (08:46→20:55)
--- NOTE | 2022-04-08 09:37 | XR ---
EXAMINATION TYPE: XR chest 1V DATE OF EXAM: 04/08/2022 COMPARISON: 04/05/2022 HISTORY: Shortness of breath TECHNIQUE: Single frontal view of the chest is obtained. FINDINGS: Diffuse hyperinflation. Left-sided increasing consolidation in the left lobe. No pleural e ffusion or pneumothorax. Heart size stable. Patient is rotated which limits IMPRESSION: COPD with increasing consolidation in the left upper lobe correlate for pneumonia. Follo w-up to resolution to exclude underlying neoplasm.
[2022-04-08] MEDS: PIPERACILLIN-TAZOBACTAM 3.375 GM in SODIUM CHLORIDE 0.9% 100 ML IVPB SCH ×2 (11:26→20:11)
--- NOTE | 2022-04-08 14:34 | P.PN ---
Subjective Progress Note Date: 04/08/22 CHIEF COMPLAINT: Shortness of breath, left-sided chest pain and cough HISTORY OF PRESENT ILLNESS: Surgical service is following regards to patient's constipation. Patient reports having bowel movements. Denies any nausea vomiting. Tolerating regular diet. Afebrile no new labs Patient seen and examined with Dr. lou PHYSICAL EXAM: VITAL SIGNS: Reviewed. GENERAL: Well-developed in no acute distress. HEENT: No sclera icterus. Extraocular movements grossly intact. Moist buccal mucosa. Head is atraumatic, normocephalic. ABDOMEN: Soft. Nondistended. Nontender. NEUROLOGIC: Alert and oriented. Cranial nerves II through XII grossly intact. ASSESSMENT: 1. Constipation no evidence of bowel obstruction on CAT scan 2. COPD exacerbation, left-sided pneumonia and pleurisy followed by pulmonary service PLAN: -Continue Colace -Continue regular diet -Continue supportive care -Encouraged patient to increase activity level Physician [employer] note has been reviewed by physician. Signing provider agrees with the documented findings, assessment, and plan of care. Objective - Vital Signs Vital signs: Vital Signs Temp 98.4 F 04/08/22 14:00 Pulse 86 04/08/22 14:00 Resp 22 04/08/22 14:00 BP 166/85 04/08/22 14:00 Pulse Ox 92 L 04/08/22 14:00 FiO2 Intake & Output 04/07/22 04/08/22 04/08/22 18:59 06:59 18:59 Intake Total 1200 Balance 1200 Intake: Intake, IV Titration 1200 Amount Azithromycin 500 mg In 250 Sodium Chloride 0.9% 250 ml @ 250 mls/hr IVPB [facility] Rx#:[id number] Sodium Chloride 0.9% 1, 900 000 ml @ 75 mls/hr IV . [id number] [facility] Rx#:[id number] cefTRIAXone 1 gm In 50 Sodium Chloride 0.9% 50 ml @ 100 mls/hr IVPB [facility] Rx#:[id number] Other: Voiding Method Toilet Toilet Urinal # Voids 2 - Labs CBC & Chem 7: 04/07/22 04:41 04/07/22 04:41 Labs: Microbiology - Last 24 Hours (Table) 04/05/22 18:42 Blood Culture - Preliminary Blood No Growth after 48 hours 04/05/22 18:27 Blood Culture - Preliminary Blood No Growth after 48 hours
--- NOTE | 2022-04-08 15:07 | P.PN ---
Subjective Progress Note Date: 04/08/22 66-year-old male with a history of COPD, and hypertension, who presents to the emergency department with complaint of chest pain, shortness of breath, and cough. The patient hasn't been feeling well for about 5 days prior to admission. When he takes a deep breath, he complains of a sharp pain in the lef t chest area. Almost slight pleurisy. He denies any trauma. He denies any fever or chills. He is coughing up a small amount of phlegm. He denies any nausea, vomiting, or diarrhea. He also denies any abdominal pain, and any genitourinary complaints. His chest x-ray shows some infiltrates in the left midlung area. White count 18.4, hemoglobin 13.5, hematocrit 40.9, and platelet count 259,000. Sodium, potassium, chloride, and CO2 are all normal. BUN 32, with a creatinine 0.77. Testing for clements virus was negative. The patient is currently on ceftriaxone, and azithromycin. Progress note dated 04/07/2022. 66-year-old male with history of severe bullous emphysema, and hypertension. He presented to the emergency department with complaints of chest pain, shortness of breath, and cough. He's currently on 3 L nasal cannula. He is getting saline at 75 mL an hour. The patient is feeling a bit better today. The computed tomography scan was reviewed. White count 12.6, hemoglobin 11.5, hematocrit 37.2, with a normal platelet count. Sodium 139, potassium 3.8, chlorides 104,, anion gap 11, BUN 27, and creatinine 0.6. The patient's pro- calcitonin level was elevated at 2.66. Testing for coronavirus was negative. The patient is seen today 04/08/2022 in follow-up on the regular medical floor. He is currently resting comfortably in bed. Awake and alert in no acute distress. He is maintaining O2 saturations in the low 90s on 4 L/m per nasal cannula. He is afebrile. Follow-up chest x-ray reveals evidence of COPD with increasing consolidation in the left upper lobe. Blood cultures reveal no growth. No new labs today. He is continued on Symbicort, DuoNeb inhalations, Zosyn. Objective - Vital Signs Vital signs: Vital Signs Temp 98.4 F 04/08/22 14:00 Pulse 86 04/08/22 14:00 Resp 22 04/08/22 14:00 BP 166/85 04/08/22 14:00 Pulse Ox 92 L 04/08/22 14:00 FiO2 Intake & Output 04/07/22 04/08/22 04/08/22 18:59 06:59 18:59 Intake Total 1200 Balance 1200 Intake: Intake, IV Titration 1200 Amount Azithromycin 500 mg In 250 Sodium Chloride 0.9% 250 ml @ 250 mls/hr IVPB [facility] Rx#:[id number] Sodium Chloride 0.9% 1, 900 000 ml @ 75 mls/hr IV . [id number] [facility] Rx#:[id number] cefTRIAXone 1 gm In 50 Sodium Chloride 0.9% 50 ml @ 100 mls/hr IVPB [facility] Rx#:[id number] Other: Voiding Method Toilet Toilet Urinal # Voids 2 - Exam GENERAL EXAM: Alert, pleasant, cachectic 66-year-old male, on 4 L nasal cannula, comfortable in no apparent distress. HEAD: Normocephalic. EYES: Normal reaction of pupils, equal size. NOSE: Clear with pink turbinates. THROAT: No erythema or exudates. NECK: No masses, no JVD. CHEST: No chest wall deformity. LUNGS: Equal air entry with bilateral scattered rhonchi more so on the left. CVS: S1 and S2 normal with no audible murmur, regular rhythm. ABDOMEN: No hepatosplenomegaly, normal bowel sounds, no guarding or rigidity. SPINE: No scoliosis or deformity SKIN: No rashes CENTRAL NERVOUS SYSTEM: No focal deficits, tone is normal in all 4 extremities. EXTREMITIES: There is no peripheral edema. No clubbing, no cyanosis. Peripheral pulses are intact. - Labs CBC & Chem 7: 04/07/22 04:41 04/07/22 04:41 Labs: Microbiology - Last 24 Hours (Table) 04/05/22 18:42 Blood Culture - Preliminary Blood No Growth after 48 hours 04/05/22 18:27 Blood Culture - Preliminary Blood No Growth after 48 hours Assessment and Plan Assessment: Acute COPD exacerbation, complicated by left-sided pneumonia, and pleurisy. History of underlying COPD from heavy tobacco use. History of hypertension. History of diverticular disease. History of hypothyroidism. History of C. difficile colitis. Status post previous brain surgery for aneurysm 2004. Plan: The patient was seen and evaluated Chest x-ray, medications reviewed No new labs today He is continued on Symbicort, DuoNeb inhalations Continued on antibiotics in the form of Zosyn I have personally seen and examined the patient, performed the documentation and the assessment and plan as written. Number of minutes spent on the visit: 10.
--- NOTE | 2022-04-08 18:39 | P.PN ---
Subjective this is a pleasant 66 years old male with past medical history of COPD, Hypertension, diverticulitis, hypothyroidism, C-diff, brain aneurysm, nicotine dependence quit last June. Presents because of left-sided lateral chest pain states that was severe pain going on for 5-6 days, nonradiating felt like sharp increase by coughing and deep inspiration associated with some dyspnea and coughing would like clamp also for 5-6 days. Also patient has been vomiting each time he eats no much of an appetite issue as he states. No abdominal pain or diarrhea. Last bowel movement was yesterday and was normal. He has history of stomach problems and used to see Tita Calvillo, last time was about a year ago. Versus that he has history of lower GI bleed and ileus. Vitals his stable and patient is saturating 95% on room air. He is also febrile Labs show leukocytosis of 18.4, his previous leukocyte count was around 13k on 06/2021, risks of CBC is unremarkable. INR is 1.0. BMP, liver enzymes are unremarkable. Troponin is negative less than 0.012. covid and influenza virsus are not detected EKG shows sinus tachycardia at [address]-T changes and QTC 397 chest x-ray: Moderate emphysema There is some infiltrated in the left upper lobe which is showing a change in pattern compared to old exam. Infiltrate on today's exam is more diffuse than old exam 04/07/2012 Patient remains treated for his pneumonia, he is breathing quietly addressed and he is saturating 93% on 3 L. He remains on ceftriaxone and Zithromax. Patient himself does not look in distress. We will add Robitussin for help with his cough and his pleuritic pain related to his pneumonia. CTA of the chest is negative for PE. Also patient looks like has constipation or rather than bowel obstruction per CAT scan of the abdomen and pelvis. Colace is added by surgery team. Patient states that he had colonoscopy and EGD with Dr. Rodriguez about 1-2 years ago. Patient was instructed to follow up with her upon discharge and he agrees. Dietitian recommended ensure and advance diet when appropriate. 04/08/2022 Patient dyspnea is worse especially with exertion. Chest x-ray is also worse. His oxygen requirements went up to 4 L/m. Most likely the patient had aspiration pneumonia secondary to recurrent vomiting of from ileus We change antibiotics to Zosyn Pulmonary team input is appreciated Objective - Vital Signs Vital signs: Vital Signs Temp 98.3 F 04/08/22 07:45 Pulse 85 04/08/22 07:59 Resp 22 04/08/22 07:45 BP 146/89 04/08/22 07:45 Pulse Ox 92 L 04/08/22 07:45 FiO2 Intake & Output 04/07/22 04/08/22 04/08/22 18:59 06:59 18:59 Intake Total 1200 Balance 1200 Intake: Intake, IV Titration 1200 Amount Azithromycin 500 mg In 250 Sodium Chloride 0.9% 250 ml @ 250 mls/hr IVPB [facility] Rx#:[id number] Sodium Chloride 0.9% 1, 900 000 ml @ 75 mls/hr IV . [id number] [facility] Rx#:[id number] cefTRIAXone 1 gm In 50 Sodium Chloride 0.9% 50 ml @ 100 mls/hr IVPB [facility] Rx#:[id number] Other: Voiding Method Toilet Toilet Urinal # Voids 2 - Exam -GENERAL: The patient is alert and oriented x3, not in any acute distress. Thin built HEENT: Pupils are round and equally reacting to light. EOMI. No scleral icterus. No conjunctival pallor. Normocephalic, atraumatic. No pharyngeal erythema. No thyromegaly. -CARDIOVASCULAR: S1 and S2 present. No murmurs, rubs, or gallops. Distant heart sounds -PULMONARY: Chest is clear to auscultation, no wheezing or crackles. Buccal chest ABDOMEN: Soft, nontender, nondistended, normoactive bowel sounds. No palpable organomegaly. MUSCULOSKELETAL: No joint swelling or deformity. EXTREMITIES: No cyanosis, clubbing, or pedal edema. NEUROLOGICAL: Gross neurological examination did not reveal any focal deficits. SKIN: No rashes. no petechiae. - Labs CBC & Chem 7: 04/07/22 04:41 04/07/22 04:41 Labs: Microbiology - Last 24 Hours (Table) 04/05/22 18:42 Blood Culture - Preliminary Blood No Growth after 48 hours 04/05/22 18:27 Blood Culture - Preliminary Blood No Growth after 48 hours Assessment and Plan Assessment: Left upper lobe infiltrate is suspected. Rule out pneumonia, To rule out pulmonary embolism and follow-up CT of the chest already ordered COPD, not exacerbation chronic leukocytosis, currently slightly worse moderate calories and protein malnutrition , related to his poor appetite and recurrent vomiting for the last 5 days prior to admission. Hypertension Hypothyroidism History of diverticulitis History of brain aneurysm Nicotine dependence Plan: This is a pleasant 66 years old male who presents with pneumonia Continue with Zosyn Pulmonary consult Advance diet dietary consult Pain management, patient is already on buprenorphine which is a home medication. Labs and medication were reviewed.. Continue same treatment. Continue with symptomatic treatment. Resume home medication. Monitor lytes and vitals. DVT and GI prophylaxis. Further recommendations as per clinical course of the patient DVT prophylaxis: Subcutaneous heparin GI Prophylaxis: Ppi PT/OT: Pending Prognosis is guarded
[2022-04-08] MEDS: MIRTAZAPINE 45 MG TABLET PO SCH (20:48)
[2022-04-09] MEDS: SODIUM CHLORIDE 0.9% 1,000 ML IV SCH ×2 (03:48→17:55)
[2022-04-09] MEDS: PIPERACILLIN-TAZOBACTAM 3.375 GM in SODIUM CHLORIDE 0.9% 100 ML IVPB SCH ×3 (03:48→18:12)
[2022-04-09 06:36] LABS: Basophils # (A) 0.1 k/uL (0-0.2); Basophils % (A) 1 %; Eosinophils # (A) 0.1 k/uL (0-0.7); Eosinophils % (A) 1 %; HCT 34.7 % (39.0-53.0); HGB 11.1 gm/dL (13.0-17.5); Hypochromasia Slight; Lymphocytes # (A) 0.4 k/uL (1.0-4.8); Lymphocytes % (A) 4 %; MCH 31.6 pg (25.0-35.0); MCV 98.8 fL (80.0-100.0); Mean Platelet Volume 7.2; Monocytes # (A) 0.8 k/uL (0-1.0); Monocytes % (A) 9 %; Neutrophils # (A) 7.9 k/uL (1.3-7.7); Neutrophils % (A) 83 %; Platelet Count 343 k/uL (150-450); RBC 3.51 m/uL (4.30-5.90); RDW 12.7 % (11.5-15.5); WBC 9.5 k/uL (3.8-10.6)
[2022-04-09 06:48] LABS: African American GFR (CKD) >90 (>60 ml/min/1.73 sqM); Anion Gap 6 mmol/L; Blood Urea Nitrogen 18 mg/dL (9-20); Calcium 7.3 mg/dL (8.4-10.2); Carbon Dioxide 27 mmol/L (22-30); Chloride 106 mmol/L (98-107); Glucose 91 mg/dL (74-99); Magnesium 2.6 mg/dL (1.6-2.3); Non-African American GFR(CKD) >90 (>60 ml/min/1.73 sqM); Potassium 3.6 mmol/L (3.5-5.1); Sodium 139 mmol/L (137-145)
[2022-04-09] MEDS: MORPHINE SULFATE 4 MG/ML SYRINGE IVP PRN ×2 (08:05→21:22)
[2022-04-09] MEDS: SYMBICORT 160-4.5 MCG INHALER INHALATION SCH ×2 (08:21→20:35)
[2022-04-09] MEDS: IPRATROPIUM-ALBUTEROL 3 ML NEB INHALATION SCH ×4 (08:21→20:35)
[2022-04-09] MEDS: PANTOPRAZOLE 40 MG TABLET PO SCH (10:44)
[2022-04-09] MEDS: DOCUSATE 100 MG CAP PO SCH ×2 (10:45→21:19)
[2022-04-09] MEDS: lisinopriL 10 MG TAB PO SCH (10:45)
[2022-04-09] MEDS: LIDOCAINE 5% PATCH TOPICAL SCH (10:46)
[2022-04-09] MEDS: LACTOBACILLUS ACIDOPH & BULGAR 1 EACH PACKET PO SCH (10:49)
[2022-04-09] MEDS: NON FORMULARY DRUG (Buprenorphine Hcl [Subutex] 8 MG Tablet) SUBLINGUAL SCH ×2 (10:50→21:20)
[2022-04-09] MEDS: HEPARIN SODIUM,PORCINE/PF 5,000 UNIT/0.5 ML SYRINGE SQ SCH ×2 (10:50→21:20)
--- NOTE | 2022-04-09 11:54 | P.PN ---
Subjective Progress Note Date: 04/09/22 66-year-old male with a history of COPD, and hypertension, who presents to the emergency department with complaint of chest pain, shortness of breath, and cough. The patient hasn't been feeling well for about 5 days prior to admission. When he takes a deep breath, he complains of a sharp pain in the lef t chest area. Almost slight pleurisy. He denies any trauma. He denies any fever or chills. He is coughing up a small amount of phlegm. He denies any nausea, vomiting, or diarrhea. He also denies any abdominal pain, and any genitourinary complaints. His chest x-ray shows some infiltrates in the left midlung area. White count 18.4, hemoglobin 13.5, hematocrit 40.9, and platelet count 259,000. Sodium, potassium, chloride, and CO2 are all normal. BUN 32, with a creatinine 0.77. Testing for clements virus was negative. The patient is currently on ceftriaxone, and azithromycin. Progress note dated 04/07/2022. 66-year-old male with history of severe bullous emphysema, and hypertension. He presented to the emergency department with complaints of chest pain, shortness of breath, and cough. He's currently on 3 L nasal cannula. He is getting saline at 75 mL an hour. The patient is feeling a bit better today. The computed tomography scan was reviewed. White count 12.6, hemoglobin 11.5, hematocrit 37.2, with a normal platelet count. Sodium 139, potassium 3.8, chlorides 104,, anion gap 11, BUN 27, and creatinine 0.6. The patient's pro- calcitonin level was elevated at 2.66. Testing for coronavirus was negative. The patient is seen today 04/08/2022 in follow-up on the regular medical floor. He is currently resting comfortably in bed. Awake and alert in no acute distress. He is maintaining O2 saturations in the low 90s on 4 L/m per nasal cannula. He is afebrile. Follow-up chest x-ray reveals evidence of COPD with increasing consolidation in the left upper lobe. Blood cultures reveal no growth. No new labs today. He is continued on Symbicort, DuoNeb inhalations, Zosyn. The patient is seen today 04/09/2022 in follow-up on the regular medical floor. He is currently resting comfortably in bed. No acute distress. Maintaining O2 saturations in the low 90s on 4 L/m per nasal cannula. He's been afebrile. Hemodynamically stable. Blood cultures revealed no growth. White count 9.5. Hemoglobin 11.1. Platelets 343. Sodium 139. Potassium 3.6. BUN 18. Creatinine 0.55. He is continued on Symbicort, DuoNeb inhalations, Zosyn. Heparin for DVT prophylaxis. Objective - Vital Signs Vital signs: Vital Signs Temp 98.5 F 04/09/22 08:21 Pulse 77 04/09/22 08:21 Resp 16 04/09/22 08:21 BP 136/85 04/09/22 08:21 Pulse Ox 93 L 04/09/22 08:21 FiO2 Intake & Output 04/08/22 04/09/22 04/09/22 18:59 06:59 18:59 Intake Total 1080 Balance 1080 Intake: Oral 1080 Other: Voiding Method Toilet Urinal # Voids 2 - Exam GENERAL EXAM: Cachectic 66-year-old male, on 4 L nasal cannula, comfortable in no apparent distress. HEAD: Normocephalic. EYES: Normal reaction of pupils, equal size. NOSE: Clear with pink turbinates. THROAT: No erythema or exudates. NECK: No masses, no JVD. CHEST: No chest wall deformity. LUNGS: Equal air entry with bilateral scattered rhonchi more so on the left. CVS: S1 and S2 normal with no audible murmur, regular rhythm. ABDOMEN: No hepatosplenomegaly, normal bowel sounds, no guarding or rigidity. SPINE: No scoliosis or deformity SKIN: No rashes CENTRAL NERVOUS SYSTEM: No focal deficits, tone is normal in all 4 extremities. EXTREMITIES: There is no peripheral edema. No clubbing, no cyanosis. Peripheral pulses are intact. - Labs CBC & Chem 7: 04/09/22 05:43 04/09/22 05:43 Labs: Abnormal Lab Results - Last 24 Hours (Table) 04/09/22 04/09/22 Range/Units 05:43 05:43 RBC 3.51 L (4.30-5.90) m/uL Hgb 11.1 L (13.0-17.5) gm/dL Hct 34.7 L (39.0-53.0) % Neutrophils # 7.9 H (1.3-7.7) k/uL Lymphocytes # 0.4 L (1.0-4.8) k/uL Creatinine 0.55 L (0.66-1.25) mg/dL Calcium 7.3 L (8.4-10.2) mg/dL Magnesium 2.6 H (1.6-2.3) mg/dL Microbiology - Last 24 Hours (Table) 04/05/22 18:42 Blood Culture - Preliminary Blood No Growth after 72 hours 04/05/22 18:27 Blood Culture - Preliminary Blood No Growth after 72 hours Assessment and Plan Assessment: Acute COPD exacerbation, complicated by left-sided pneumonia, and pleurisy. History of underlying COPD from heavy tobacco use. History of hypertension. History of diverticular disease. History of hypothyroidism. History of C. difficile colitis. Status post previous brain surgery for aneurysm 2004. Plan: The patient was seen and evaluated Labs and medications reviewed He is continued on Symbicort, DuoNeb inhalations Continued on antibiotics in the form of Zosyn Follow-up chest x-ray in the a.m. We will continue to follow I have personally seen and examined the patient, performed the documentation and the assessment and plan as written. Number of minutes spent on the visit: 10.
--- NOTE | 2022-04-09 13:23 | P.PN ---
Subjective Progress Note Date: 04/09/22 CHIEF COMPLAINT: Shortness of breath, left-sided chest pain and cough HISTORY OF PRESENT ILLNESS: Surgical service is following regards to patient's constipation. Patient reports having bowel movements. Denies any nausea vomiting. He denies any abdominal pain. Tolerating regular diet. Afebrile. WBC 9.5 Hgb 11.1 patient reports his cough and left-sided chest pain is improving. Patient seen and examined with Dr. lou PHYSICAL EXAM: VITAL SIGNS: Reviewed. GENERAL: Well-developed in no acute distress. HEENT: No sclera icterus. Extraocular movements grossly intact. Moist buccal mucosa. Head is atraumatic, normocephalic. ABDOMEN: Soft. Nondistended. Nontender. NEUROLOGIC: Alert and oriented. Cranial nerves II through XII grossly intact. ASSESSMENT: 1. Constipation no evidence of bowel obstruction on CAT scan 2. COPD exacerbation, left-sided pneumonia and pleurisy followed by pulmonary service PLAN: -Continue Colace -Continue regular diet -Continue supportive care -Encouraged patient to increase activity level Physician [employer] note has been reviewed by physician. Signing provider agrees with the documented findings, assessment, and plan of care. Objective - Vital Signs Vital signs: Vital Signs Temp 98.5 F 04/09/22 08:21 Pulse 77 04/09/22 08:21 Resp 16 04/09/22 08:21 BP 136/85 04/09/22 08:21 Pulse Ox 93 L 04/09/22 08:21 FiO2 Intake & Output 04/08/22 04/09/22 04/09/22 18:59 06:59 18:59 Intake Total 1080 Balance 1080 Weight 58.06 kg Intake: Oral 1080 Other: Voiding Method Toilet Urinal # Voids 2 - Labs CBC & Chem 7: 04/09/22 05:43 04/09/22 05:43 Labs: Abnormal Lab Results - Last 24 Hours (Table) 04/09/22 04/09/22 Range/Units 05:43 05:43 RBC 3.51 L (4.30-5.90) m/uL Hgb 11.1 L (13.0-17.5) gm/dL Hct 34.7 L (39.0-53.0) % Neutrophils # 7.9 H (1.3-7.7) k/uL Lymphocytes # 0.4 L (1.0-4.8) k/uL Creatinine 0.55 L (0.66-1.25) mg/dL Calcium 7.3 L (8.4-10.2) mg/dL Magnesium 2.6 H (1.6-2.3) mg/dL Microbiology - Last 24 Hours (Table) 04/05/22 18:42 Blood Culture - Preliminary Blood No Growth after 72 hours 04/05/22 18:27 Blood Culture - Preliminary Blood No Growth after 72 hours
--- NOTE | 2022-04-09 19:57 | P.PN ---
Subjective this is a pleasant 66 years old male with past medical history of COPD, Hypertension, diverticulitis, hypothyroidism, C-diff, brain aneurysm, nicotine dependence quit last June. Presents because of left-sided lateral chest pain states that was severe pain going on for 5-6 days, nonradiating felt like sharp increase by coughing and deep inspiration associated with some dyspnea and coughing would like clamp also for 5-6 days. Also patient has been vomiting each time he eats no much of an appetite issue as he states. No abdominal pain or diarrhea. Last bowel movement was yesterday and was normal. He has history of stomach problems and used to see Tita Calvillo, last time was about a year ago. Versus that he has history of lower GI bleed and ileus. Vitals his stable and patient is saturating 95% on room air. He is also febrile Labs show leukocytosis of 18.4, his previous leukocyte count was around 13k on 06/2021, risks of CBC is unremarkable. INR is 1.0. BMP, liver enzymes are unremarkable. Troponin is negative less than 0.012. covid and influenza virsus are not detected EKG shows sinus tachycardia at [address]-T changes and QTC 397 chest x-ray: Moderate emphysema There is some infiltrated in the left upper lobe which is showing a change in pattern compared to old exam. Infiltrate on today's exam is more diffuse than old exam 04/07/2012 Patient remains treated for his pneumonia, he is breathing quietly addressed and he is saturating 93% on 3 L. He remains on ceftriaxone and Zithromax. Patient himself does not look in distress. We will add Robitussin for help with his cough and his pleuritic pain related to his pneumonia. CTA of the chest is negative for PE. Also patient looks like has constipation or rather than bowel obstruction per CAT scan of the abdomen and pelvis. Colace is added by surgery team. Patient states that he had colonoscopy and EGD with Dr. Rodriguez about 1-2 years ago. Patient was instructed to follow up with her upon discharge and he agrees. Dietitian recommended ensure and advance diet when appropriate. 04/08/2022 Patient dyspnea is worse especially with exertion. Chest x-ray is also worse. His oxygen requirements went up to 4 L/m. Most likely the patient had aspiration pneumonia secondary to recurrent vomiting of from ileus We change antibiotics to Zosyn Pulmonary team input is appreciated 04/09/2022 Patient still complaining from some coughing and mild dyspnea. No respiratory distress at rest. His oxygen saturation is acceptable. He remains on Zosyn. Repeat chest x-ray and CBC in the morning We ask for PT/OT evaluation Objective - Vital Signs Vital signs: Vital Signs Temp 98.5 F 04/09/22 08:21 Pulse 77 04/09/22 08:21 Resp 16 04/09/22 08:21 BP 136/85 04/09/22 08:21 Pulse Ox 93 L 04/09/22 08:21 FiO2 Intake & Output 04/08/22 04/09/22 04/09/22 18:59 06:59 18:59 Intake Total 1080 Balance 1080 Intake: Oral 1080 Other: Voiding Method Toilet Urinal # Voids 2 - Exam -GENERAL: The patient is alert and oriented x3, not in any acute distress. Thin built HEENT: Pupils are round and equally reacting to light. EOMI. No scleral icterus. No conjunctival pallor. Normocephalic, atraumatic. No pharyngeal erythema. No thyromegaly. -CARDIOVASCULAR: S1 and S2 present. No murmurs, rubs, or gallops. Distant heart sounds -PULMONARY: Chest is clear to auscultation, no wheezing or crackles. Buccal chest ABDOMEN: Soft, nontender, nondistended, normoactive bowel sounds. No palpable organomegaly. MUSCULOSKELETAL: No joint swelling or deformity. EXTREMITIES: No cyanosis, clubbing, or pedal edema. NEUROLOGICAL: Gross neurological examination did not reveal any focal deficits. SKIN: No rashes. no petechiae. - Labs CBC & Chem 7: 04/09/22 05:43 04/09/22 05:43 Labs: Abnormal Lab Results - Last 24 Hours (Table) 04/09/22 04/09/22 Range/Units 05:43 05:43 RBC 3.51 L (4.30-5.90) m/uL Hgb 11.1 L (13.0-17.5) gm/dL Hct 34.7 L (39.0-53.0) % Neutrophils # 7.9 H (1.3-7.7) k/uL Lymphocytes # 0.4 L (1.0-4.8) k/uL Creatinine 0.55 L (0.66-1.25) mg/dL Calcium 7.3 L (8.4-10.2) mg/dL Magnesium 2.6 H (1.6-2.3) mg/dL Microbiology - Last 24 Hours (Table) 04/05/22 18:42 Blood Culture - Preliminary Blood No Growth after 72 hours 04/05/22 18:27 Blood Culture - Preliminary Blood No Growth after 72 hours Assessment and Plan Assessment: Left upper lobe infiltrate is suspected. Rule out pneumonia, To rule out pulmonary embolism and follow-up CT of the chest already ordered COPD, not exacerbation chronic leukocytosis, currently slightly worse moderate calories and protein malnutrition , related to his poor appetite and recurrent vomiting for the last 5 days prior to admission. Hypertension Hypothyroidism History of diverticulitis History of brain aneurysm Nicotine dependence Plan: This is a pleasant 66 years old male who presents with pneumonia Continue with Zosyn Pulmonary consult Advance diet dietary consult Pain management, patient is already on buprenorphine which is a home medication. Labs and medication were reviewed.. Continue same treatment. Continue with symptomatic treatment. Resume home medication. Monitor lytes and vitals. DVT and GI prophylaxis. Further recommendations as per clinical course of the aysha ent DVT prophylaxis: Subcutaneous heparin GI Prophylaxis: Ppi PT/OT: Pending Prognosis is guarded
[2022-04-09 20:50] LABS: Glucose,Whole Blood 89 mg/dL (70-110)
[2022-04-09] MEDS: MIRTAZAPINE 45 MG TABLET PO SCH (21:19)
[2022-04-09] MEDS: guaiFENesin-DM 100-10MG/5ML 10 ML CUP PO SCH (21:20)
[2022-04-10] MEDS: guaiFENesin-DM 100-10MG/5ML 10 ML CUP PO SCH ×4 (01:11→17:59)
[2022-04-10] MEDS: PIPERACILLIN-TAZOBACTAM 3.375 GM in SODIUM CHLORIDE 0.9% 100 ML IVPB SCH ×3 (03:46→17:59)
[2022-04-10] MEDS: SODIUM CHLORIDE 0.9% 1,000 ML IV SCH ×2 (03:47→18:54)
[2022-04-10 07:13] LABS: Glucose,Whole Blood 110 mg/dL (70-110)
[2022-04-10] MEDS: MORPHINE SULFATE 4 MG/ML SYRINGE IVP PRN ×4 (08:18→22:42)
[2022-04-10] MEDS: PANTOPRAZOLE 40 MG TABLET PO SCH (08:19)
[2022-04-10] MEDS: lisinopriL 10 MG TAB PO SCH (08:19)
[2022-04-10] MEDS: DOCUSATE 100 MG CAP PO SCH ×2 (08:19→20:57)
[2022-04-10] MEDS: LACTOBACILLUS ACIDOPH & BULGAR 1 EACH PACKET PO SCH (08:19)
[2022-04-10] MEDS: LIDOCAINE 5% PATCH TOPICAL SCH (08:20)
[2022-04-10] MEDS: HEPARIN SODIUM,PORCINE/PF 5,000 UNIT/0.5 ML SYRINGE SQ SCH ×2 (08:21→20:57)
--- NOTE | 2022-04-10 08:33 | XR ---
EXAMINATION TYPE: XR chest 1V DATE OF EXAM: 04/10/2022 COMPARISON: Chest x-ray 04/08/2022 HISTORY: Shortness of breath TECHNIQUE: frontal view of the chest is obtained on 2 images. FINDINGS: Underlying emphysematous changes, hyperinflation again noted. There is underlying bullous disease. Some of the airspace disease appears somewhat less confluent as compared to prior exam the l eft lung. No evident pneumothorax or sizable pleural effusion. Cardiac mediastinal silhouette is like ly stable. Patient is likely detected. Contrast material present within the bowel. IMPRESSION: Suspect some improvement in aeration.
[2022-04-10 09:06] LABS: Basophils # (A) 0.02 X 10*3/uL (0.00-0.10); Basophils % (A) 0.2 %; Eosinophils % (A) 1.1 %; HGB 11.1 g/dL (13.0-17.0); Immature Grans, Automated 0.6 %; Lymphocytes # (A) 0.73 X 10*3/uL (0.90-5.00); Lymphocytes % (A) 8.2 %; MCH 30.9 pg (27.0-32.0); MCHC 32.6 g/dL (32.0-37.0); MCV 94.7 fL (80.0-97.0); Mean Platelet Volume 9.5 fL (9.5-12.2); Monocytes # (A) 0.87 X 10*3/uL (0.20-1.00); Monocytes % (A) 9.8 %; NRBC Per 100 WBC 0 /100 WBCS (0.0-0.0); Neutrophils # (A) 7.11 X 10*3/uL (1.80-7.70); Neutrophils % (A) 80.1 %; Platelet Count 355 X 10*3/uL (140-440); RBC 3.59 X 10*6/uL (4.40-5.60); RDW 13.1 % (11.5-14.5); WBC 8.88 X 10*3/uL (4.50-10.00)
[2022-04-10] MEDS: SYMBICORT 160-4.5 MCG INHALER INHALATION SCH ×2 (09:15→19:31)
[2022-04-10] MEDS: IPRATROPIUM-ALBUTEROL 3 ML NEB INHALATION SCH ×4 (09:15→19:32)
[2022-04-10 11:15] LABS: Glucose,Whole Blood 92 mg/dL (70-110)
[2022-04-10] MEDS: NON FORMULARY DRUG (Buprenorphine Hcl [Subutex] 8 MG Tablet) SUBLINGUAL SCH ×2 (11:30→21:11)
[2022-04-10] MEDS: HYDROcodone/APAP 7.5-325MG 1 EACH TAB PO PRN ×2 (12:10→20:57)
--- NOTE | 2022-04-10 12:53 | P.PN ---
Subjective Progress Note Date: 04/10/22 66-year-old male with a history of COPD, and hypertension, who presents to the emergency department with complaint of chest pain, shortness of breath, and cough. The patient hasn't been feeling well for about 5 days prior to admission. When he takes a deep breath, he complains of a sharp pain in the lef t chest area. Almost slight pleurisy. He denies any trauma. He denies any fever or chills. He is coughing up a small amount of phlegm. He denies any nausea, vomiting, or diarrhea. He also denies any abdominal pain, and any genitourinary complaints. His chest x-ray shows some infiltrates in the left midlung area. White count 18.4, hemoglobin 13.5, hematocrit 40.9, and platelet count 259,000. Sodium, potassium, chloride, and CO2 are all normal. BUN 32, with a creatinine 0.77. Testing for clements virus was negative. The patient is currently on ceftriaxone, and azithromycin. Progress note dated 04/07/2022. 66-year-old male with history of severe bullous emphysema, and hypertension. He presented to the emergency department with complaints of chest pain, shortness of breath, and cough. He's currently on 3 L nasal cannula. He is getting saline at 75 mL an hour. The patient is feeling a bit better today. The computed tomography scan was reviewed. White count 12.6, hemoglobin 11.5, hematocrit 37.2, with a normal platelet count. Sodium 139, potassium 3.8, chlorides 104,, anion gap 11, BUN 27, and creatinine 0.6. The patient's pro- calcitonin level was elevated at 2.66. Testing for coronavirus was negative. The patient is seen today 04/08/2022 in follow-up on the regular medical floor. He is currently resting comfortably in bed. Awake and alert in no acute distress. He is maintaining O2 saturations in the low 90s on 4 L/m per nasal cannula. He is afebrile. Follow-up chest x-ray reveals evidence of COPD with increasing consolidation in the left upper lobe. Blood cultures reveal no growth. No new labs today. He is continued on Symbicort, DuoNeb inhalations, Zosyn. The patient is seen today 04/09/2022 in follow-up on the regular medical floor. He is currently resting comfortably in bed. No acute distress. Maintaining O2 saturations in the low 90s on 4 L/m per nasal cannula. He's been afebrile. Hemodynamically stable. Blood cultures revealed no growth. White count 9.5. Hemoglobin 11.1. Platelets 343. Sodium 139. Potassium 3.6. BUN 18. Creatinine 0.55. He is continued on Symbicort, DuoNeb inhalations, Zosyn. Heparin for DVT prophylaxis. The patient is seen today 04/10/2022 in follow-up on the regular medical floor. He is currently sitting up in a chair at the bedside. Awake and alert in no acute distress. He is still having significant cough and congestion. Still weak and fatigued. Chest x-ray showing improved aeration in the left lung. Significant emphysematous changes and hyperinflation again noted. Underlying bullous disease. He remains on Zosyn. Continued on Symbicort, DuoNeb inhalations. Heparin for DVT prophylaxis. Blood cultures reveal no growth. White count 8.8. Hemoglobin 11.1. Objective - Vital Signs Vital signs: Vital Signs Temp 98.1 F 04/10/22 07:58 Pulse 68 04/10/22 09:26 Resp 18 04/10/22 07:58 BP 136/86 04/10/22 07:58 Pulse Ox 92 L 04/10/22 07:58 FiO2 Intake & Output 04/09/22 04/10/22 04/10/22 18:59 06:59 18:59 Intake Total 750 1100 Balance 750 1100 Weight 58.06 kg Intake: Intake, IV Titration 750 1000 Amount Piperacillin-Tazobactam 3 100 .375 gm In Sodium Chloride 0.9% 100 ml @ 25 mls/hr IVPB Q8H [facility] Rx#: [id number] Sodium Chloride 0.9% 1, 750 900 000 ml @ 75 mls/hr IV . [id number] [facility] Rx#:[id number] Oral 100 Other: Voiding Method Toilet Urinal # Voids 2 # Bowel Movements 1 - Exam GENERAL EXAM: Alert, pleasant, cachectic 66-year-old male, on 4 L nasal cannula, comfortable in no apparent distress. HEAD: Normocephalic. EYES: Normal reaction of pupils, equal size. NOSE: Clear with pink turbinates. THROAT: No erythema or exudates. NECK: No masses, no JVD. CHEST: No chest wall deformity. LUNGS: Equal air entry with bilateral scattered rhonchi more so on the left. CVS: S1 and S2 normal with no audible murmur, regular rhythm. ABDOMEN: No hepatosplenomegaly, normal bowel sounds, no guarding or rigidity. SPINE: No scoliosis or deformity SKIN: No rashes CENTRAL NERVOUS SYSTEM: No focal deficits, tone is normal in all 4 extremities. EXTREMITIES: There is no peripheral edema. No clubbing, no cyanosis. Peripheral pulses are intact. - Labs CBC & Chem 7: 04/10/22 06:33 04/09/22 05:43 Labs: Abnormal Lab Results - Last 24 Hours (Table) 04/10/22 Range/Units 06:33 RBC 3.59 L (4.40-5.60) X 10*6/uL Hgb 11.1 L (13.0-17.0) g/dL Hct 34.0 L (39.6-50.0) % Immature Gran # 0.05 H (0.00-0.04) X 10*3/uL Lymphocytes # 0.73 L (0.90-5.00) X 10*3/uL Microbiology - Last 24 Hours (Table) 04/05/22 18:27 Blood Culture - Preliminary Blood No Growth after 96 hours 04/05/22 18:42 Blood Culture - Preliminary Blood No Growth after 96 hours Assessment and Plan Assessment: Acute COPD exacerbation, complicated by left-sided pneumonia, and pleurisy. Chest x-ray today showing some improved aeration of the left lung opacities. History of underlying COPD from heavy tobacco use. Severe bullous emphysema History of hypertension. History of diverticular disease. History of hypothyroidism. History of C. difficile colitis. Status post previous brain surgery for aneurysm 2004. Plan: The patient was seen and evaluated Follow-up chest x-ray, labs and medications reviewed He is continued on Symbicort, DuoNeb inhalations Continued on antibiotics in the form of Zosyn Initiated on oral prednisone 30 mg daily Titrate down the FiO2 as tolerated We will continue to follow I have personally seen and examined the patient, performed the documentation and the assessment and plan as written. Number of minutes spent on the visit: 10.
--- NOTE | 2022-04-10 13:56 | P.PN ---
Subjective Progress Note Date: 04/10/22 CHIEF COMPLAINT: Shortness of breath, left-sided chest pain and cough HISTORY OF PRESENT ILLNESS: Surgical service is following regards to patient's constipation. Patient reports having bowel movements. Denies any nausea vomiting. He denies any abdominal pain. Tolerating regular diet. Patient complaining of shortness of breath and not feeling well today. On 4 L satting at 92%. Followed by pulmonary service. Sitting up at bedside chair. Afebrile. WBC 8.8HB 11.1 Patient seen and examined with Dr. lou PHYSICAL EXAM: VITAL SIGNS: Reviewed. GENERAL: Well-developed in no acute distress. HEENT: No sclera icterus. Extraocular movements grossly intact. Moist buccal mucosa. Head is atraumatic, normocephalic. ABDOMEN: Soft. Nondistended. Nontender. NEUROLOGIC: Alert and oriented. Cranial nerves II through XII grossly intact. ASSESSMENT: 1. Constipation no evidence of bowel obstruction on CAT scan 2. COPD exacerbation, left-sided pneumonia and pleurisy followed by pulmonary service PLAN: -Continue Colace -Continue regular diet -Continue supportive care -Encouraged patient to increase activity level Physician Voucher Examiner note has been reviewed by physician. Signing provider agrees with the documented findings, assessment, and plan of care. Objective - Vital Signs Vital signs: Vital Signs Temp 98.1 F 04/10/22 07:58 Pulse 68 04/10/22 09:26 Resp 18 04/10/22 07:58 BP 136/86 04/10/22 07:58 Pulse Ox 92 L 04/10/22 07:58 FiO2 Intake & Output 04/09/22 04/10/22 04/10/22 18:59 06:59 18:59 Intake Total 750 1100 Balance 750 1100 Weight 58.06 kg Intake: Intake, IV Titration 750 1000 Amount Piperacillin-Tazobactam 3 100 .375 gm In Sodium Chloride 0.9% 100 ml @ 25 mls/hr IVPB Q8H [facility] Rx#: [id number] Sodium Chloride 0.9% 1, 750 900 000 ml @ 75 mls/hr IV . [id number] [facility] Rx#:[id number] Oral 100 Other: Voiding Method Toilet Urinal # Voids 2 # Bowel Movements 1 - Labs CBC & Chem 7: 04/10/22 06:33 04/09/22 05:43 Labs: Abnormal Lab Results - Last 24 Hours (Table) 04/10/22 Range/Units 06:33 RBC 3.59 L (4.40-5.60) X 10*6/uL Hgb 11.1 L (13.0-17.0) g/dL Hct 34.0 L (39.6-50.0) % Immature Gran # 0.05 H (0.00-0.04) X 10*3/uL Lymphocytes # 0.73 L (0.90-5.00) X 10*3/uL Microbiology - Last 24 Hours (Table) 04/05/22 18:27 Blood Culture - Preliminary Blood No Growth after 96 hours 04/05/22 18:42 Blood Culture - Preliminary Blood No Growth after 96 hours
[2022-04-10] MEDS: predniSONE 10 MG TAB PO SCH (15:34)
[2022-04-10 16:23] LABS: Glucose,Whole Blood 111 mg/dL (70-110)
--- NOTE | 2022-04-10 19:15 | P.PN ---
Subjective this is a pleasant 66 years old male with past medical history of COPD, Hypertension, diverticulitis, hypothyroidism, C-diff, brain aneurysm, nicotine dependence quit last June. Presents because of left-sided lateral chest pain states that was severe pain going on for 5-6 days, nonradiating felt like sharp increase by coughing and deep inspiration associated with some dyspnea and coughing would like clamp also for 5-6 days. Also patient has been vomiting each time he eats no much of an appetite issue as he states. No abdominal pain or diarrhea. Last bowel movement was yesterday and was normal. He has history of stomach problems and used to see Tita Calvillo, last time was about a year ago. Versus that he has history of lower GI bleed and ileus. Vitals his stable and patient is saturating 95% on room air. He is also febrile Labs show leukocytosis of 18.4, his previous leukocyte count was around 13k on 06/2021, risks of CBC is unremarkable. INR is 1.0. BMP, liver enzymes are unremarkable. Troponin is negative less than 0.012. covid and influenza virsus are not detected EKG shows sinus tachycardia at [address]-T changes and QTC 397 chest x-ray: Moderate emphysema There is some infiltrated in the left upper lobe which is showing a change in pattern compared to old exam. Infiltrate on today's exam is more diffuse than old exam 04/07/2012 Patient remains treated for his pneumonia, he is breathing quietly addressed and he is saturating 93% on 3 L. He remains on ceftriaxone and Zithromax. Patient himself does not look in distress. We will add Robitussin for help with his cough and his pleuritic pain related to his pneumonia. CTA of the chest is negative for PE. Also patient looks like has constipation or rather than bowel obstruction per CAT scan of the abdomen and pelvis. Colace is added by surgery team. Patient states that he had colonoscopy and EGD with Dr. Rodriguez about 1-2 years ago. Patient was instructed to follow up with her upon discharge and he agrees. Dietitian recommended ensure and advance diet when appropriate. 04/08/2022 Patient dyspnea is worse especially with exertion. Chest x-ray is also worse. His oxygen requirements went up to 4 L/m. Most likely the patient had aspiration pneumonia secondary to recurrent vomiting of from ileus We change antibiotics to Zosyn Pulmonary team input is appreciated 04/09/2022 Patient still complaining from some coughing and mild dyspnea. No respiratory distress at rest. His oxygen saturation is acceptable. He remains on Zosyn. Repeat chest x-ray and CBC in the morning We ask for PT/OT evaluation 04/10/2022 Patient states he is receiving however as per meters are improving. His oxygen saturation improved to 96% on 4 L. He is less tachycardic with a rate around 68-70. He is not tachypneic and rate at 18-19. Per minute. Also his chest x-ray showed some improvement. He remains on Zosyn and IV fluid. Also he was started on a prednisone 30 mg today Objective - Vital Signs Vital signs: Vital Signs Temp 98.5 F 04/10/22 14:00 Pulse 56 L 04/10/22 14:00 Resp 19 04/10/22 14:00 BP 124/79 04/10/22 14:00 Pulse Ox 96 04/10/22 14:00 FiO2 Intake & Output 04/09/22 04/10/22 04/10/22 18:59 06:59 18:59 Intake Total 750 1100 Balance 750 1100 Weight 58.06 kg Intake: Intake, IV Titration 750 1000 Amount Piperacillin-Tazobactam 3 100 .375 gm In Sodium Chloride 0.9% 100 ml @ 25 mls/hr IVPB Q8H [facility] Rx#: [id number] Sodium Chloride 0.9% 1, 750 900 000 ml @ 75 mls/hr IV . [id number] [facility] Rx#:[id number] Oral 100 Other: Voiding Method Toilet Urinal # Voids 2 # Bowel Movements 1 - Exam -GENERAL: The patient is alert and oriented x3, not in any acute distress. Thin built HEENT: Pupils are round and equally reacting to light. EOMI. No scleral icterus. No conjunctival pallor. Normocephalic, atraumatic. No pharyngeal erythema. No thyromegaly. -CARDIOVASCULAR: S1 and S2 present. No murmurs, rubs, or gallops. Distant heart sounds -PULMONARY: Chest is clear to auscultation, no wheezing or crackles. Buccal chest ABDOMEN: Soft, nontender, nondistended, normoactive bowel sounds. No palpable organomegaly. MUSCULOSKELETAL: No joint swelling or deformity. EXTREMITIES: No cyanosis, clubbing, or pedal edema. NEUROLOGICAL: Gross neurological examination did not reveal any focal deficits. SKIN: No rashes. no petechiae. - Labs CBC & Chem 7: 04/10/22 06:33 04/09/22 05:43 Labs: Abnormal Lab Results - Last 24 Hours (Table) 04/10/22 04/10/22 Range/Units 06:33 16:21 RBC 3.59 L (4.40-5.60) X 10*6/uL Hgb 11.1 L (13.0-17.0) g/dL Hct 34.0 L (39.6-50.0) % Immature Gran # 0.05 H (0.00-0.04) X 10*3/uL Lymphocytes # 0.73 L (0.90-5.00) X 10*3/uL POC Glucose (mg/dL) 111 H (70-110) mg/dL Microbiology - Last 24 Hours (Table) 04/05/22 18:27 Blood Culture - Preliminary Blood No Growth after 96 hours 04/05/22 18:42 Blood Culture - Preliminary Blood No Growth after 96 hours Assessment and Plan Assessment: Left upper lobe infiltrate is suspected. Rule out pneumonia, To rule out pulmonary embolism and follow-up CT of the chest already ordered COPD, mild acute exacerbation chronic leukocytosis, currently slightly worse moderate calories and protein malnutrition , related to his poor appetite and recurrent vomiting for the last 5 days prior to admission. Hypertension Hypothyroidism History of diverticulitis History of brain aneurysm Nicotine dependence Plan: This is a pleasant 66 years old male who presents with pneumonia Continue with Zosyn Pulmonary consult prednisone Advance diet dietary consult Pain management, patient is already on buprenorphine which is a home medication. Labs and medication were reviewed.. Continue same treatment. Continue with symptomatic treatment. Resume home medication. Monitor lytes and vitals. DVT and GI prophylaxis. Further recommendations as per clinical course of the patient DVT prophylaxis: Subcutaneous heparin GI Prophylaxis: Ppi PT/OT: Pending Prognosis is guarded
[2022-04-10] MEDS: MIRTAZAPINE 45 MG TABLET PO SCH (20:57)
[2022-04-11] MEDS: guaiFENesin-DM 100-10MG/5ML 10 ML CUP PO SCH ×4 (01:25→17:19)
[2022-04-11] MEDS: PIPERACILLIN-TAZOBACTAM 3.375 GM in SODIUM CHLORIDE 0.9% 100 ML IVPB SCH ×3 (04:25→20:27)
[2022-04-11] MEDS: SODIUM CHLORIDE 0.9% 1,000 ML IV SCH ×2 (04:26→20:33)
[2022-04-11] MEDS: MORPHINE SULFATE 4 MG/ML SYRINGE IVP PRN ×4 (06:26→20:27)
[2022-04-11] MEDS: PANTOPRAZOLE 40 MG TABLET PO SCH (07:55)
[2022-04-11] MEDS: DOCUSATE 100 MG CAP PO SCH ×2 (07:55→20:28)
[2022-04-11] MEDS: lisinopriL 10 MG TAB PO SCH (07:55)
[2022-04-11] MEDS: predniSONE 10 MG TAB PO SCH (07:55)
[2022-04-11] MEDS: HEPARIN SODIUM,PORCINE/PF 5,000 UNIT/0.5 ML SYRINGE SQ SCH ×2 (07:56→20:27)
[2022-04-11] MEDS: IPRATROPIUM-ALBUTEROL 3 ML NEB INHALATION SCH ×4 (08:11→19:30)
[2022-04-11] MEDS: SYMBICORT 160-4.5 MCG INHALER INHALATION SCH ×2 (08:11→19:30)
[2022-04-11] MEDS: NON FORMULARY DRUG (Buprenorphine Hcl [Subutex] 8 MG Tablet) SUBLINGUAL SCH ×2 (10:15→20:28)
--- NOTE | 2022-04-11 10:37 | P.PN ---
Progress Note - Text Progress Note Date: 04/11/22 Patient's tolerating diet. On exam vital signs are stable. Abdomen soft. Resolving ileus. Patient will continue supportive care.
[2022-04-11] MEDS: LACTOBACILLUS ACIDOPH & BULGAR 1 EACH PACKET PO SCH (10:46)
[2022-04-11] MEDS: LIDOCAINE 5% PATCH TOPICAL SCH (10:46)
--- NOTE | 2022-04-11 12:59 | P.PN ---
Subjective Progress Note Date: 04/11/22 66-year-old male with a history of COPD, and hypertension, who presents to the emergency department with complaint of chest pain, shortness of breath, and cough. The patient hasn't been feeling well for about 5 days prior to admission. When he takes a deep breath, he complains of a sharp pain in the lef t chest area. Almost slight pleurisy. He denies any trauma. He denies any fever or chills. He is coughing up a small amount of phlegm. He denies any nausea, vomiting, or diarrhea. He also denies any abdominal pain, and any genitourinary complaints. His chest x-ray shows some infiltrates in the left midlung area. White count 18.4, hemoglobin 13.5, hematocrit 40.9, and platelet count 259,000. Sodium, potassium, chloride, and CO2 are all normal. BUN 32, with a creatinine 0.77. Testing for clements virus was negative. The patient is currently on ceftriaxone, and azithromycin. Progress note dated 04/07/2022. 66-year-old male with history of severe bullous emphysema, and hypertension. He presented to the emergency department with complaints of chest pain, shortness of breath, and cough. He's currently on 3 L nasal cannula. He is getting saline at 75 mL an hour. The patient is feeling a bit better today. The computed tomography scan was reviewed. White count 12.6, hemoglobin 11.5, hematocrit 37.2, with a normal platelet count. Sodium 139, potassium 3.8, chlorides 104,, anion gap 11, BUN 27, and creatinine 0.6. The patient's pro- calcitonin level was elevated at 2.66. Testing for coronavirus was negative. The patient is seen today 04/08/2022 in follow-up on the regular medical floor. He is currently resting comfortably in bed. Awake and alert in no acute distress. He is maintaining O2 saturations in the low 90s on 4 L/m per nasal cannula. He is afebrile. Follow-up chest x-ray reveals evidence of COPD with increasing consolidation in the left upper lobe. Blood cultures reveal no growth. No new labs today. He is continued on Symbicort, DuoNeb inhalations, Zosyn. The patient is seen today 04/09/2022 in follow-up on the regular medical floor. He is currently resting comfortably in bed. No acute distress. Maintaining O2 saturations in the low 90s on 4 L/m per nasal cannula. He's been afebrile. Hemodynamically stable. Blood cultures revealed no growth. White count 9.5. Hemoglobin 11.1. Platelets 343. Sodium 139. Potassium 3.6. BUN 18. Creatinine 0.55. He is continued on Symbicort, DuoNeb inhalations, Zosyn. Heparin for DVT prophylaxis. The patient is seen today 04/10/2022 in follow-up on the regular medical floor. He is currently sitting up in a chair at the bedside. Awake and alert in no acute distress. He is still having significant cough and congestion. Still weak and fatigued. Chest x-ray showing improved aeration in the left lung. Significant emphysematous changes and hyperinflation again noted. Underlying bullous disease. He remains on Zosyn. Continued on Symbicort, DuoNeb inhalations. Heparin for DVT prophylaxis. Blood cultures reveal no growth. White count 8.8. Hemoglobin 11.1. The patient is seen today 04/11/2022 in follow-up on the regular medical floor. Awake and alert in no acute distress. Sitting up in a chair at the bedside. Improving daily but slowly. He is still on 4 L nasal cannula to maintain O2 saturations in the 90s. Still with a loose nonproductive cough. No fever chills. Blood cultures revealed no growth. He remains on Zosyn, prednisone, Symbicort and bronchodilators. Heparin for DVT prophylaxis. Objective - Vital Signs Vital signs: Vital Signs Temp 97.9 F 04/11/22 08:00 Pulse 60 04/11/22 11:55 Resp 18 04/11/22 08:00 BP 155/83 04/11/22 08:00 Pulse Ox 93 L 04/11/22 08:00 FiO2 Intake & Output 04/10/22 04/11/22 04/11/22 18:59 06:59 18:59 Intake Total 2490 Output Total 725 Balance 1765 Intake: Intake, IV Titration 1100 Amount Piperacillin-Tazobactam 3 200 .375 gm In Sodium Chloride 0.9% 100 ml @ 25 mls/hr IVPB Q8H [facility] Rx#: [id number] Sodium Chloride 0.9% 1, 900 000 ml @ 75 mls/hr IV . [id number] [facility] Rx#:[id number] Oral 1390 Output: Urine 725 Other: # Voids 4 - Exam GENERAL EXAM: Alert, cachectic 66-year-old male, on 4 L nasal cannula, comfortable in no apparent distress. HEAD: Normocephalic. EYES: Normal reaction of pupils, equal size. NOSE: Clear with pink turbinates. THROAT: No erythema or exudates. NECK: No masses, no JVD. CHEST: No chest wall deformity. LUNGS: Equal air entry with bilateral scattered rhonchi more so on the left. CVS: S1 and S2 normal with no audible murmur, regular rhythm. ABDOMEN: No hepatosplenomegaly, normal bowel sounds, no guarding or rigidity. SPINE: No scoliosis or deformity SKIN: No rashes CENTRAL NERVOUS SYSTEM: No focal deficits, tone is normal in all 4 extremities. EXTREMITIES: There is no peripheral edema. No clubbing, no cyanosis. Peripheral pulses are intact. - Labs CBC & Chem 7: 04/10/22 06:33 04/09/22 05:43 Labs: Abnormal Lab Results - Last 24 Hours (Table) 04/10/22 Range/Units 16:21 POC Glucose (mg/dL) 111 H (70-110) mg/dL Microbiology - Last 24 Hours (Table) 04/05/22 18:42 Blood Culture - Preliminary Blood No Growth after 120 hours 04/05/22 18:27 Blood Culture - Preliminary Blood No Growth after 120 hours Assessment and Plan Assessment: Acute COPD exacerbation, complicated by left-sided pneumonia, and pleurisy. Chest x-ray today showing some improved aeration of the left lung opacities. History of underlying COPD from heavy tobacco use. Severe bullous emphysema History of hypertension. History of diverticular disease. History of hypothyroidism. History of C. difficile colitis. Status post previous brain surgery for aneurysm 2004. Plan: The patient was seen and evaluated Slow to progress but feeling better today He is continued on Symbicort, prednisone, DuoNeb inhalations Continued on antibiotics in the form of Zosyn Titrate down the FiO2 as tolerated Follow-up chest x-ray in a.m. We will continue to follow I have personally seen and examined the patient, performed the documentation and the assessment and plan as written. Number of minutes spent on the visit: 10.
[2022-04-11] MEDS: HYDROcodone/APAP 7.5-325MG 1 EACH TAB PO PRN ×2 (14:23→22:16)
[2022-04-11] MEDS: MIRTAZAPINE 45 MG TABLET PO SCH (20:32)
--- NOTE | 2022-04-11 22:23 | P.PN ---
Subjective this is a pleasant 66 years old male with past medical history of COPD, Hypertension, diverticulitis, hypothyroidism, C-diff, brain aneurysm, nicotine dependence quit last June. Presents because of left-sided lateral chest pain states that was severe pain going on for 5-6 days, nonradiating felt like sharp increase by coughing and deep inspiration associated with some dyspnea and coughing would like clamp also for 5-6 days. Also patient has been vomiting each time he eats no much of an appetite issue as he states. No abdominal pain or diarrhea. Last bowel movement was yesterday and was normal. He has history of stomach problems and used to see Tita Calvillo, last time was about a year ago. Versus that he has history of lower GI bleed and ileus. Vitals his stable and patient is saturating 95% on room air. He is also febrile Labs show leukocytosis of 18.4, his previous leukocyte count was around 13k on 06/2021, risks of CBC is unremarkable. INR is 1.0. BMP, liver enzymes are unremarkable. Troponin is negative less than 0.012. covid and influenza virsus are not detected EKG shows sinus tachycardia at [address]-T changes and QTC 397 chest x-ray: Moderate emphysema There is some infiltrated in the left upper lobe which is showing a change in pattern compared to old exam. Infiltrate on today's exam is more diffuse than old exam 04/07/2012 Patient remains treated for his pneumonia, he is breathing quietly addressed and he is saturating 93% on 3 L. He remains on ceftriaxone and Zithromax. Patient himself does not look in distress. We will add Robitussin for help with his cough and his pleuritic pain related to his pneumonia. CTA of the chest is negative for PE. Also patient looks like has constipation or rather than bowel obstruction per CAT scan of the abdomen and pelvis. Colace is added by surgery team. Patient states that he had colonoscopy and EGD with Dr. Rodriguez about 1-2 years ago. Patient was instructed to follow up with her upon discharge and he agrees. Dietitian recommended ensure and advance diet when appropriate. 04/08/2022 Patient dyspnea is worse especially with exertion. Chest x-ray is also worse. His oxygen requirements went up to 4 L/m. Most likely the patient had aspiration pneumonia secondary to recurrent vomiting of from ileus We change antibiotics to Zosyn Pulmonary team input is appreciated 04/09/2022 Patient still complaining from some coughing and mild dyspnea. No respiratory distress at rest. His oxygen saturation is acceptable. He remains on Zosyn. Repeat chest x-ray and CBC in the morning We ask for PT/OT evaluation 04/10/2022 Patient states he is receiving however as per meters are improving. His oxygen saturation improved to 96% on 4 L. He is less tachycardic with a rate around 68-70. He is not tachypneic and rate at 18-19. Per minute. Also his chest x-ray showed some improvement. He remains on Zosyn and IV fluid. Also he was started on a prednisone 30 mg today 04/11/2022 Patient start improving although address is still somewhat tachypneic at a rate of 20, however saturation and tachycardia are all improving. Extremities on prednisone on Zosyn Repeat chest x-ray in the morning Objective - Vital Signs Vital signs: Vital Signs Temp 97.9 F 04/11/22 08:00 Pulse 60 04/11/22 11:55 Resp 18 04/11/22 08:00 BP 155/83 04/11/22 08:00 Pulse Ox 93 L 04/11/22 08:00 FiO2 Intake & Output 04/10/22 04/11/22 04/11/22 18:59 06:59 18:59 Intake Total 2490 Output Total 725 Balance 1765 Intake: Intake, IV Titration 1100 Amount Piperacillin-Tazobactam 3 200 .375 gm In Sodium Chloride 0.9% 100 ml @ 25 mls/hr IVPB Q8H [facility] Rx#: [id number] Sodium Chloride 0.9% 1, 900 000 ml @ 75 mls/hr IV . [id number] [facility] Rx#:[id number] Oral 1390 Output: Urine 725 Other: # Voids 4 - Exam -GENERAL: The patient is alert and oriented x3, not in any acute distress. Thin built HEENT: Pupils are round and equally reacting to light. EOMI. No scleral icterus. No conjunctival pallor. Normocephalic, atraumatic. No pharyngeal erythema. No thyromegaly. -CARDIOVASCULAR: S1 and S2 present. No murmurs, rubs, or gallops. Distant heart sounds -PULMONARY: Chest is clear to auscultation, no wheezing or crackles. Buccal chest ABDOMEN: Soft, nontender, nondistended, normoactive bowel sounds. No palpable organomegaly. MUSCULOSKELETAL: No joint swelling or deformity. EXTREMITIES: No cyanosis, clubbing, or pedal edema. NEUROLOGICAL: Gross neurological examination did not reveal any focal deficits. SKIN: No rashes. no petechiae. - Labs CBC & Chem 7: 04/10/22 06:33 04/09/22 05:43 Labs: Abnormal Lab Results - Last 24 Hours (Table) 04/10/22 Range/Units 16:21 POC Glucose (mg/dL) 111 H (70-110) mg/dL Microbiology - Last 24 Hours (Table) 04/05/22 18:42 Blood Culture - Preliminary Blood No Growth after 120 hours 04/05/22 18:27 Blood Culture - Preliminary Blood No Growth after 120 hours Assessment and Plan Assessment: Left upper lobe infiltrate is suspected. Rule out pneumonia, To rule out pulmonary embolism and follow-up CT of the chest already ordered COPD, mild acute exacerbation chronic leukocytosis, currently slightly worse moderate calories and protein malnutrition , related to his poor appetite and recurrent vomiting for the last 5 days prior to admission. Hypertension Hypothyroidism History of diverticulitis History of brain aneurysm Nicotine dependence Plan: This is a pleasant 66 years old male who presents with pneumonia Continue with Zosyn Pulmonary consult prednisone Advance diet dietary consult Pain management, patient is already on buprenorphine which is a home medication. Labs and medication were reviewed.. Continue same treatment. Continue with symptomatic treatment. Resume home medication. Monitor lytes and vitals. DVT and GI prophylaxis. Further recommendations as per clinical course of the patient DVT prophylaxis: Subcutaneous heparin GI Prophylaxis: Ppi PT/OT: Pending Prognosis is guarded
[2022-04-12] MEDS: guaiFENesin-DM 100-10MG/5ML 10 ML CUP PO SCH ×4 (00:20→18:05)
[2022-04-12] MEDS: MORPHINE SULFATE 4 MG/ML SYRINGE IVP PRN ×5 (01:43→21:21)
[2022-04-12] MEDS: PIPERACILLIN-TAZOBACTAM 3.375 GM in SODIUM CHLORIDE 0.9% 100 ML IVPB SCH ×3 (03:49→18:05)
--- NOTE | 2022-04-12 07:39 | XR ---
EXAMINATION TYPE: XR chest 2V DATE OF EXAM: 04/12/2022 COMPARISON: 04/10/2022 HISTORY: Shortness of breath TECHNIQUE: Frontal and lateral views of the chest are obtained. FINDINGS: Scattered senescent parenchymal changes noted. Hyperinflation compatible with COPD. Left perihilar and left basilar infiltrate persists although appears to be slightly improved. Additio nal infiltrate right medial lung base. Heart size is stable. Mediastinal structures are stable and grossly unremarkable. No evidence for hilar prominence. Degenerative changes dorsal spine. IMPRESSION: 1. Left perihilar and left basilar infiltrate persists although appears to be slightly improved. Ab tional infiltrate right medial lung base.
[2022-04-12] MEDS: NON FORMULARY DRUG (Buprenorphine Hcl [Subutex] 8 MG Tablet) SUBLINGUAL SCH ×2 (08:14→19:18)
[2022-04-12] MEDS: LACTOBACILLUS ACIDOPH & BULGAR 1 EACH PACKET PO SCH (08:15)
[2022-04-12] MEDS: LIDOCAINE 5% PATCH TOPICAL SCH (08:15)
[2022-04-12] MEDS: predniSONE 10 MG TAB PO SCH (08:20)
[2022-04-12] MEDS: DOCUSATE 100 MG CAP PO SCH ×2 (08:20→19:18)
[2022-04-12] MEDS: HEPARIN SODIUM,PORCINE/PF 5,000 UNIT/0.5 ML SYRINGE SQ SCH ×2 (08:20→19:19)
[2022-04-12] MEDS: PANTOPRAZOLE 40 MG TABLET PO SCH (08:20)
[2022-04-12] MEDS: lisinopriL 10 MG TAB PO SCH (08:30)
[2022-04-12] MEDS: SYMBICORT 160-4.5 MCG INHALER INHALATION SCH ×2 (09:22→20:05)
[2022-04-12] MEDS: IPRATROPIUM-ALBUTEROL 3 ML NEB INHALATION SCH ×4 (09:22→20:04)
--- NOTE | 2022-04-12 09:27 | P.PN ---
Progress Note - Text Progress Note Date: 04/12/22 Patient is tolerating diet. He denies any abdominal pain. On exam vital signs are stable. Abdomen soft. Resolved constipation. Patient continue receive supportive care
[2022-04-12] MEDS: HYDROcodone/APAP 7.5-325MG 1 EACH TAB PO PRN ×2 (10:29→18:08)
[2022-04-12] MEDS: SODIUM CHLORIDE 0.9% 1,000 ML IV SCH (10:47)
--- NOTE | 2022-04-12 11:35 | P.PN ---
Subjective Progress Note Date: 04/12/22 66-year-old male with a history of COPD, and hypertension, who presents to the emergency department with complaint of chest pain, shortness of breath, and cough. The patient hasn't been feeling well for about 5 days prior to admission. When he takes a deep breath, he complains of a sharp pain in the lef t chest area. Almost slight pleurisy. He denies any trauma. He denies any fever or chills. He is coughing up a small amount of phlegm. He denies any nausea, vomiting, or diarrhea. He also denies any abdominal pain, and any genitourinary complaints. His chest x-ray shows some infiltrates in the left midlung area. White count 18.4, hemoglobin 13.5, hematocrit 40.9, and platelet count 259,000. Sodium, potassium, chloride, and CO2 are all normal. BUN 32, with a creatinine 0.77. Testing for clements virus was negative. The patient is currently on ceftriaxone, and azithromycin. Progress note dated 04/07/2022. 66-year-old male with history of severe bullous emphysema, and hypertension. He presented to the emergency department with complaints of chest pain, shortness of breath, and cough. He's currently on 3 L nasal cannula. He is getting saline at 75 mL an hour. The patient is feeling a bit better today. The computed tomography scan was reviewed. White count 12.6, hemoglobin 11.5, hematocrit 37.2, with a normal platelet count. Sodium 139, potassium 3.8, chlorides 104,, anion gap 11, BUN 27, and creatinine 0.6. The patient's pro- calcitonin level was elevated at 2.66. Testing for coronavirus was negative. The patient is seen today 04/08/2022 in follow-up on the regular medical floor. He is currently resting comfortably in bed. Awake and alert in no acute distress. He is maintaining O2 saturations in the low 90s on 4 L/m per nasal cannula. He is afebrile. Follow-up chest x-ray reveals evidence of COPD with increasing consolidation in the left upper lobe. Blood cultures reveal no growth. No new labs today. He is continued on Symbicort, DuoNeb inhalations, Zosyn. The patient is seen today 04/09/2022 in follow-up on the regular medical floor. He is currently resting comfortably in bed. No acute distress. Maintaining O2 saturations in the low 90s on 4 L/m per nasal cannula. He's been afebrile. Hemodynamically stable. Blood cultures revealed no growth. White count 9.5. Hemoglobin 11.1. Platelets 343. Sodium 139. Potassium 3.6. BUN 18. Creatinine 0.55. He is continued on Symbicort, DuoNeb inhalations, Zosyn. Heparin for DVT prophylaxis. The patient is seen today 04/10/2022 in follow-up on the regular medical floor. He is currently sitting up in a chair at the bedside. Awake and alert in no acute distress. He is still having significant cough and congestion. Still weak and fatigued. Chest x-ray showing improved aeration in the left lung. Significant emphysematous changes and hyperinflation again noted. Underlying bullous disease. He remains on Zosyn. Continued on Symbicort, DuoNeb inhalations. Heparin for DVT prophylaxis. Blood cultures reveal no growth. White count 8.8. Hemoglobin 11.1. The patient is seen today 04/11/2022 in follow-up on the regular medical floor. Awake and alert in no acute distress. Sitting up in a chair at the bedside. Improving daily but slowly. He is still on 4 L nasal cannula to maintain O2 saturations in the 90s. Still with a loose nonproductive cough. No fever chills. Blood cultures revealed no growth. He remains on Zosyn, prednisone, Symbicort and bronchodilators. Heparin for DVT prophylaxis. The patient is seen today 04/12/2022 in follow-up on the regular medical floor. He is currently sitting up in a chair at the bedside. Awake and alert in no acute distress. Continue on Symbicort, DuoNeb inhalations, prednisone and antibiotics in the form of Zosyn. Chest x-ray shows slight improvement in the left perihilar and left basilar infiltrates. Objective - Vital Signs Vital signs: Vital Signs Temp 98.3 F 04/12/22 07:14 Pulse 59 L 04/12/22 09:33 Resp 17 04/12/22 07:14 BP 135/81 04/12/22 07:14 Pulse Ox 92 L 04/12/22 07:14 FiO2 Intake & Output 04/11/22 04/12/22 04/12/22 18:59 06:59 18:59 Intake Total 480 Balance 480 Intake: Oral 480 Other: # Voids 2 1 - Exam GENERAL EXAM: Alert, cachectic pleasant 66-year-old male, on 4 L nasal cannula, comfortable in no apparent distress. HEAD: Normocephalic. EYES: Normal reaction of pupils, equal size. NOSE: Clear with pink turbinates. THROAT: No erythema or exudates. NECK: No masses, no JVD. CHEST: No chest wall deformity. LUNGS: Equal air entry with bilateral scattered rhonchi more so on the left. CVS: S1 and S2 normal with no audible murmur, regular rhythm. ABDOMEN: No hepatosplenomegaly, normal bowel sounds, no guarding or rigidity. SPINE: No scoliosis or deformity SKIN: No rashes CENTRAL NERVOUS SYSTEM: No focal deficits, tone is normal in all 4 extremities. EXTREMITIES: There is no peripheral edema. No clubbing, no cyanosis. Pe ripheral pulses are intact. - Labs CBC & Chem 7: 04/10/22 06:33 04/09/22 05:43 Labs: Microbiology - Last 24 Hours (Table) 04/05/22 18:42 Blood Culture - Final Blood No Growth after 144 hours 04/05/22 18:27 Blood Culture - Final Blood No Growth after 144 hours Assessment and Plan Assessment: Acute COPD exacerbation, complicated by left-sided pneumonia, and pleurisy. Chest x-ray today showing some improved aeration of the left lung opacities. History of underlying COPD from heavy tobacco use. Severe bullous emphysema History of hypertension. History of diverticular disease. History of hypothyroidism. History of C. difficile colitis. Status post previous brain surgery for aneurysm 2004. Plan: The patient was seen and evaluated Chest x-ray,medications reviewed He is continued on Symbicort, prednisone, DuoNeb inhalations Continued on antibiotics in the form of Zosyn Titrate down the FiO2 as tolerated Increase his activity as tolerated We will continue to follow I have personally seen and examined the patient, performed the documentation and the assessment and plan as written. Number of minutes spent on the visit: 10.
[2022-04-12] MEDS: MIRTAZAPINE 45 MG TABLET PO SCH (19:20)
--- NOTE | 2022-04-12 22:09 | P.PN ---
Subjective this is a pleasant 66 years old male with past medical history of COPD, Hypertension, diverticulitis, hypothyroidism, C-diff, brain aneurysm, nicotine dependence quit last June. Presents because of left-sided lateral chest pain states that was severe pain going on for 5-6 days, nonradiating felt like sharp increase by coughing and deep inspiration associated with some dyspnea and coughing would like clamp also for 5-6 days. Also patient has been vomiting each time he eats no much of an appetite issue as he states. No abdominal pain or diarrhea. Last bowel movement was yesterday and was normal. He has history of stomach problems and used to see Tita Calvillo, last time was about a year ago. Versus that he has history of lower GI bleed and ileus. Vitals his stable and patient is saturating 95% on room air. He is also febrile Labs show leukocytosis of 18.4, his previous leukocyte count was around 13k on 06/2021, risks of CBC is unremarkable. INR is 1.0. BMP, liver enzymes are unremarkable. Troponin is negative less than 0.012. covid and influenza virsus are not detected EKG shows sinus tachycardia at [address]-T changes and QTC 397 chest x-ray: Moderate emphysema There is some infiltrated in the left upper lobe which is showing a change in pattern compared to old exam. Infiltrate on today's exam is more diffuse than old exam 04/07/2012 Patient remains treated for his pneumonia, he is breathing quietly addressed and he is saturating 93% on 3 L. He remains on ceftriaxone and Zithromax. Patient himself does not look in distress. We will add Robitussin for help with his cough and his pleuritic pain related to his pneumonia. CTA of the chest is negative for PE. Also patient looks like has constipation or rather than bowel obstruction per CAT scan of the abdomen and pelvis. Colace is added by surgery team. Patient states that he had colonoscopy and EGD with Dr. Rodriguez about 1-2 years ago. Patient was instructed to follow up with her upon discharge and he agrees. Dietitian recommended ensure and advance diet when appropriate. 04/08/2022 Patient dyspnea is worse especially with exertion. Chest x-ray is also worse. His oxygen requirements went up to 4 L/m. Most likely the patient had aspiration pneumonia secondary to recurrent vomiting of from ileus We change antibiotics to Zosyn Pulmonary team input is appreciated 04/09/2022 Patient still complaining from some coughing and mild dyspnea. No respiratory distress at rest. His oxygen saturation is acceptable. He remains on Zosyn. Repeat chest x-ray and CBC in the morning We ask for PT/OT evaluation 04/10/2022 Patient states he is receiving however as per meters are improving. His oxygen saturation improved to 96% on 4 L. He is less tachycardic with a rate around 68-70. He is not tachypneic and rate at 18-19. Per minute. Also his chest x-ray showed some improvement. He remains on Zosyn and IV fluid. Also he was started on a prednisone 30 mg today 04/11/2022 Patient start improving although address is still somewhat tachypneic at a rate of 20, however saturation and tachycardia are all improving. Extremities on prednisone on Zosyn Repeat chest x-ray in the morning 04/12/2022 Patient still complained from dyspnea sitting is not improving December. Although his centimeters, vitals and labs showing improvement Chest x-ray showing persistent left sided infiltrate with mild improvement per radiologist, please refer to the report. Remains on prednisone 30 mg, Zosyn and normal saline at 75 mL/h Objective - Vital Signs Vital signs: Vital Signs Temp 98.1 F 04/12/22 14:00 Pulse 75 04/12/22 16:42 Resp 14 04/12/22 16:42 BP 134/75 04/12/22 14:00 Pulse Ox 94 L 04/12/22 16:28 FiO2 Intake & Output 04/12/22 04/12/22 04/13/22 06:59 18:59 06:59 Other: # Voids 1 2 - Exam -GENERAL: The patient is alert and oriented x3, not in any acute distress. Thin built HEENT: Pupils are round and equally reacting to light. EOMI. No scleral icterus. No conjunctival pallor. Normocephalic, atraumatic. No pharyngeal erythema. No thyromegaly. -CARDIOVASCULAR: S1 and S2 present. No murmurs, rubs, or gallops. Distant heart sounds -PULMONARY: Chest is clear to auscultation, no wheezing or crackles. Buccal chest ABDOMEN: Soft, nontender, nondistended, normoactive bowel sounds. No palpable organomegaly. MUSCULOSKELETAL: No joint swelling or deformity. EXTREMITIES: No cyanosis, clubbing, or pedal edema. NEUROLOGICAL: Gross neurological examination did not reveal any focal deficits. SKIN: No rashes. no petechiae. - Labs CBC & Chem 7: 04/10/22 06:33 04/09/22 05:43 Labs: Microbiology - Last 24 Hours (Table) 04/05/22 18:42 Blood Culture - Final Blood No Growth after 144 hours 04/05/22 18:27 Blood Culture - Final Blood No Growth after 144 hours Assessment and Plan Assessment: Left upper lobe infiltrate is suspected. Rule out pneumonia, To rule out pulmonary embolism and follow-up CT of the chest already ordered COPD, mild acute exacerbation chronic leukocytosis, currently slightly worse moderate calories and protein malnutrition , related to his poor appetite and recurrent vomiting for the last 5 days prior to admission. Hypertension Hypothyroidism History of diverticulitis History of brain aneurysm Nicotine dependence Plan: This is a pleasant 66 years old male who presents with pneumonia Continue with Zosyn Pulmonary consult prednisone Advance diet dietary consult Pain management, patient is already on buprenorphine which is a home medication. Labs and medication were reviewed.. Continue same treatment. Continue with symptomatic treatment. Resume home medication. Monitor lytes and vitals. DVT and GI prophylaxis. Further recommendations as per clinical course of the patient DVT prophylaxis: Subcutaneous heparin GI Prophylaxis: Ppi PT/OT: Pending Prognosis is guarded
[2022-04-13] MEDS: guaiFENesin-DM 100-10MG/5ML 10 ML CUP PO SCH ×4 (01:02→17:26)
[2022-04-13] MEDS: SODIUM CHLORIDE 0.9% 1,000 ML IV SCH ×2 (01:02→13:28)
[2022-04-13] MEDS: MORPHINE SULFATE 4 MG/ML SYRINGE IVP PRN ×5 (02:32→20:12)
[2022-04-13] MEDS: PIPERACILLIN-TAZOBACTAM 3.375 GM in SODIUM CHLORIDE 0.9% 100 ML IVPB SCH ×3 (02:33→20:12)
[2022-04-13] MEDS: HYDROcodone/APAP 7.5-325MG 1 EACH TAB PO PRN ×2 (06:07→13:27)
[2022-04-13 07:05] LABS: Glucose,Whole Blood 89 mg/dL (70-110)
[2022-04-13] MEDS: IPRATROPIUM-ALBUTEROL 3 ML NEB INHALATION SCH ×4 (09:11→20:25)
[2022-04-13] MEDS: SYMBICORT 160-4.5 MCG INHALER INHALATION SCH ×2 (09:11→20:25)
[2022-04-13 09:14] LABS: Basophils # (A) 0.02 X 10*3/uL (0.00-0.10); Basophils % (A) 0.3 %; Eosinophils # (A) 0.13 X 10*3/uL (0.04-0.35); Eosinophils % (A) 1.8 %; HCT 34.7 % (39.6-50.0); HGB 10.8 g/dL (13.0-17.0); Immature Grans, Automated 1.8 %; Lymphocytes # (A) 1.09 X 10*3/uL (0.90-5.00); Lymphocytes % (A) 14.9 %; MCHC 31.1 g/dL (32.0-37.0); MCV 96.4 fL (80.0-97.0); Mean Platelet Volume 9.4 fL (9.5-12.2); Monocytes # (A) 0.76 X 10*3/uL (0.20-1.00); Monocytes % (A) 10.4 %; NRBC Per 100 WBC 0 /100 WBCS (0.0-0.0); Neutrophils # (A) 5.18 X 10*3/uL (1.80-7.70); Neutrophils % (A) 70.8 %; Platelet Count 409 X 10*3/uL (140-440); RDW 13.3 % (11.5-14.5); WBC 7.31 X 10*3/uL (4.50-10.00)
[2022-04-13 09:35] LABS: African American GFR (CKD) 132.7 (60.0-200.0); Anion Gap 8.1 mmol/L (10.00-18.00); BUN/Creat Ratio 35.8 Ratio (12.00-20.00); Blood Urea Nitrogen 17.9 mg/dL (9.0-27.0); Calcium 7.9 mg/dL (8.7-10.3); Carbon Dioxide 25.9 mmol/L (20.0-27.5); Magnesium 2.3 mg/dL (1.5-2.4); Non-African American GFR(CKD) 114.5 (60.0-200.0); Potassium 3.7 mmol/L (3.5-5.5)
[2022-04-13] MEDS: LACTOBACILLUS ACIDOPH & BULGAR 1 EACH PACKET PO SCH (09:35)
[2022-04-13] MEDS: PANTOPRAZOLE 40 MG TABLET PO SCH (09:35)
[2022-04-13] MEDS: HEPARIN SODIUM,PORCINE/PF 5,000 UNIT/0.5 ML SYRINGE SQ SCH ×2 (09:35→20:11)
[2022-04-13] MEDS: predniSONE 10 MG TAB PO SCH (09:35)
[2022-04-13] MEDS: DOCUSATE 100 MG CAP PO SCH ×2 (09:35→20:11)
[2022-04-13] MEDS: LIDOCAINE 5% PATCH TOPICAL SCH ×2 (09:36→09:56)
[2022-04-13] MEDS: lisinopriL 10 MG TAB PO SCH (09:36)
[2022-04-13] MEDS: NON FORMULARY DRUG (Buprenorphine Hcl [Subutex] 8 MG Tablet) SUBLINGUAL SCH ×2 (09:39→20:12)
[2022-04-13 11:14] LABS: Glucose,Whole Blood 118 mg/dL (70-110)
--- NOTE | 2022-04-13 13:56 | P.PN ---
Subjective Progress Note Date: 04/13/22 CHIEF COMPLAINT: Shortness of breath, left-sided chest pain and cough HISTORY OF PRESENT ILLNESS: Surgical service is following regards to patient's constipation. Patient reports having bowel movements. Denies any nausea vomiting. He denies any abdominal pain. Tolerating regular diet. Denies any nausea or vomiting. Does report that he is able to drink his Ensure otherwise does have poor oral intake. Patient seen and examined with Dr. lou PHYSICAL EXAM: VITAL SIGNS: Reviewed. GENERAL: Well-developed in no acute distress. HEENT: No sclera icterus. Extraocular movements grossly intact. Moist buccal mucosa. Head is atraumatic, normocephalic. ABDOMEN: Soft. Nondistended. Nontender. NEUROLOGIC: Alert and oriented. Cranial nerves II through XII grossly intact. ASSESSMENT: 1. Constipation resolved 2. COPD exacerbation, left-sided pneumonia and pleurisy followed by pulmonary service PLAN: -Continue Colace -Continue regular diet -Continue supportive care -Encouraged patient to increase activity level Physician Roller Skater note has been reviewed by physician. Signing provider agrees with the documented findings, assessment, and plan of care. Objective - Vital Signs Vital signs: Vital Signs Temp 97.7 F 04/13/22 08:00 Pulse 68 04/13/22 13:06 Resp 16 04/13/22 08:00 BP 126/71 04/13/22 08:00 Pulse Ox 94 L 04/13/22 09:11 FiO2 Intake & Output 04/12/22 04/13/22 04/13/22 18:59 06:59 18:59 Intake Total 1100 Output Total 350 Balance 750 Intake: Intake, IV Titration 1000 Amount Piperacillin-Tazobactam 3 100 .375 gm In Sodium Chloride 0.9% 100 ml @ 25 mls/hr IVPB Q8H [facility] Rx#: [id number] Sodium Chloride 0.9% 1, 900 000 ml @ 75 mls/hr IV . [id number] [facility] Rx#:[id number] Oral 100 Output: Urine 350 Other: Voiding Method Toilet Toilet Urinal Urinal # Voids 2 1 - Labs CBC & Chem 7: 04/13/22 04:22 04/13/22 04:22 Labs: Abnormal Lab Results - Last 24 Hours (Table) 06/27/22 06/27/22 06/27/22 Range/Units 04:22 04:22 11:13 RBC 3.60 L (4.40-5.60) X 10*6/uL Hgb 10.8 L (13.0-17.0) g/dL Hct 34.7 L (39.6-50.0) % MCHC 31.1 L (32.0-37.0) g/dL MPV 9.4 L (9.5-12.2) fL Immature Gran # 0.13 H (0.00-0.04) X 10*3/uL Anion Gap 8.10 L (10.00-18.00) mmol/L Creatinine 0.5 L (0.6-1.5) mg/dL BUN/Creatinine Ratio 35.80 H (12.00-20.00) Ratio POC Glucose (mg/dL) 118 H (70-110) mg/dL Calcium 7.9 L (8.7-10.3) mg/dL
--- NOTE | 2022-04-13 15:23 | P.PN ---
Subjective Progress Note Date: 04/13/22 on 04/13/2022, the patient is being seen for a follow-up. The patient has advanced bullous emphysema and currently left breast for left lung pneumonia. He is quite cachectic and malnourished and he carries a body mass index of 50.6. Shortness of breath is gradually improving, although,the patient remains on Symbicort 2 puffs twice a day, DuoNeb nebulized treatments around the clock, IV Zosyn and the patient is currently on a prednisone burst taper starting with 30 mg by mouth daily. No nausea. No vomiting. Oral intake is minimal at the patient is unable to take big portions as the patient becomes quite full and distended and gets short of breath with increased meals.IV fluids are running at 75 mL an hour. The patient has a right sacral 7.3 with a hemoglobin of 10.8. The BUN is at 17 with a creatinine of 0.5 and a sodium level of 141. most recent chest x-ray from yesterday shows a left perihilar and left basilar infiltrate which is slightly improved compared to earlier films. Objective - Vital Signs Vital signs: Vital Signs Temp 97.7 F 04/13/22 08:00 Pulse 69 04/13/22 09:21 Resp 16 04/13/22 08:00 BP 126/71 04/13/22 08:00 Pulse Ox 94 L 04/13/22 09:11 FiO2 Intake & Output 04/12/22 04/13/22 04/13/22 18:59 06:59 18:59 Intake Total 1100 Output Total 350 Balance 750 Intake: Intake, IV Titration 1000 Amount Piperacillin-Tazobactam 3 100 .375 gm In Sodium Chloride 0.9% 100 ml @ 25 mls/hr IVPB Q8H [facility] Rx#: [id number] Sodium Chloride 0.9% 1, 900 000 ml @ 75 mls/hr IV . [id number] [facility] Rx#:[id number] Oral 100 Output: Urine 350 Other: Voiding Method Toilet Toilet Urinal Urinal # Voids 2 1 - Exam GENERAL EXAM: Alert, cachectic pleasant 66-year-old male, on 4 L nasal cannula, comfortable in no apparent distress. HEAD: Normocephalic. EYES: Normal reaction of pupils, equal size. NOSE: Clear with pink turbinates. THROAT: No erythema or exudates. NECK: No masses, no JVD. CHEST: No chest wall deformity. LUNGS: Equal air entry with bilateral scattered rhonchi more so on the left. CVS: S1 and S2 normal with no audible murmur, regular rhythm. ABDOMEN: No hepatosplenomegaly, normal bowel sounds, no guarding or rigidity. SPINE: No scoliosis or deformity SKIN: No rashes CENTRAL NERVOUS SYSTEM: No focal deficits, tone is normal in all 4 extremities. EXTREMITIES: There is no peripheral edema. No clubbing, no cyanosis. Peripheral pulses are intact. - Labs CBC & Chem 7: 04/13/22 04:22 04/13/22 04:22 Labs: Abnormal Lab Results - Last 24 Hours (Table) 04/13/22 04/13/22 04/13/22 Range/Units 04: 04:22 11:13 RBC 3.60 L (4.40-5.60) X 10*6/uL Hgb 10.8 L (13.0-17.0) g/dL Hct 34.7 L (39.6-50.0) % MCHC 31.1 L (32.0-37.0) g/dL MPV 9.4 L (9.5-12.2) fL Immature Gran # 0.13 H (0.00-0.04) X 10*3/uL Anion Gap 8.10 L (10.00-18.00) mmol/L Creatinine 0.5 L (0.6-1.5) mg/dL BUN/Creatinine Ratio 35.80 H (12.00-20.00) Ratio POC Glucose (mg/dL) 118 H (70-110) mg/dL Calcium 7.9 L (8.7-10.3) mg/dL Assessment and Plan Plan: Acute COPD exacerbation, complicated by left-sided pneumonia, and pleurisy. clinically improving slowly and the most recent chest x-ray from yesterday showed some slight improvement in left lung consolidation/capacity.all cultures are negative. The pro-calcitonin level from 04/06/2022 was 2.66 and this needs to be followed up to support ongoing improvement of his pneumonia/sepsis. The patient has extensive bullous emphysema with upper lobe predominance History of underlying COPD from heavy tobacco use. Severe bullous emphysema History of hypertension. History of diverticular disease. History of hypothyroidism. History of C. difficile colitis. Status post previous brain surgery for aneurysm 2004. 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
[2022-04-13 16:36] LABS: Glucose,Whole Blood 138 mg/dL (70-110)
[2022-04-13 20:08] LABS: Glucose,Whole Blood 124 mg/dL (70-110)
[2022-04-13] MEDS: MIRTAZAPINE 45 MG TABLET PO SCH (20:11)
--- NOTE | 2022-04-13 21:06 | P.PN ---
Subjective this is a pleasant 66 years old male with past medical history of COPD, Hypertension, diverticulitis, hypothyroidism, C-diff, brain aneurysm, nicotine dependence quit last June. Presents because of left-sided lateral chest pain states that was severe pain going on for 5-6 days, nonradiating felt like sharp increase by coughing and deep inspiration associated with some dyspnea and coughing would like clamp also for 5-6 days. Also patient has been vomiting each time he eats no much of an appetite issue as he states. No abdominal pain or diarrhea. Last bowel movement was yesterday and was normal. He has history of stomach problems and used to see Tita Calvillo, last time was about a year ago. Versus that he has history of lower GI bleed and ileus. Vitals his stable and patient is saturating 95% on room air. He is also febrile Labs show leukocytosis of 18.4, his previous leukocyte count was around 13k on 06/2021, risks of CBC is unremarkable. INR is 1.0. BMP, liver enzymes are unremarkable. Troponin is negative less than 0.012. covid and influenza virsus are not detected EKG shows sinus tachycardia at [address]-T changes and QTC 397 chest x-ray: Moderate emphysema There is some infiltrated in the left upper lobe which is showing a change in pattern compared to old exam. Infiltrate on today's exam is more diffuse than old exam 04/07/2012 Patient remains treated for his pneumonia, he is breathing quietly addressed and he is saturating 93% on 3 L. He remains on ceftriaxone and Zithromax. Patient himself does not look in distress. We will add Robitussin for help with his cough and his pleuritic pain related to his pneumonia. CTA of the chest is negative for PE. Also patient looks like has constipation or rather than bowel obstruction per CAT scan of the abdomen and pelvis. Colace is added by surgery team. Patient states that he had colonoscopy and EGD with Dr. Rodriguez about 1-2 years ago. Patient was instructed to follow up with her upon discharge and he agrees. Dietitian recommended ensure and advance diet when appropriate. 04/08/2022 Patient dyspnea is worse especially with exertion. Chest x-ray is also worse. His oxygen requirements went up to 4 L/m. Most likely the patient had aspiration pneumonia secondary to recurrent vomiting of from ileus We change antibiotics to Zosyn Pulmonary team input is appreciated 04/09/2022 Patient still complaining from some coughing and mild dyspnea. No respiratory distress at rest. His oxygen saturation is acceptable. He remains on Zosyn. Repeat chest x-ray and CBC in the morning We ask for PT/OT evaluation 04/10/2022 Patient states he is receiving however as per meters are improving. His oxygen saturation improved to 96% on 4 L. He is less tachycardic with a rate around 68-70. He is not tachypneic and rate at 18-19. Per minute. Also his chest x-ray showed some improvement. He remains on Zosyn and IV fluid. Also he was started on a prednisone 30 mg today 04/11/2022 Patient start improving although address is still somewhat tachypneic at a rate of 20, however saturation and tachycardia are all improving. Extremities on prednisone on Zosyn Repeat chest x-ray in the morning 04/12/2022 Patient still complained from dyspnea sitting is not improving December. Although his centimeters, vitals and labs showing improvement Chest x-ray showing persistent left sided infiltrate with mild improvement per radiologist, please refer to the report. Remains on prednisone 30 mg, Zosyn and normal saline at 75 mL/h 04/13/2022 Patient improving gradually and slowly. Procalcitonin is trending down Continue with Zosyn DC IV fluid Objective - Vital Signs Vital signs: Vital Signs Temp 97.7 F 04/13/22 08:00 Pulse 69 04/13/22 09:21 Resp 16 04/13/22 08:00 BP 126/71 04/13/22 08:00 Pulse Ox 94 L 04/13/22 09:11 FiO2 Intake & Output 04/12/22 04/13/22 04/13/22 18:59 06:59 18:59 Intake Total 1100 Output Total 350 Balance 750 Intake: Intake, IV Titration 1000 Amount Piperacillin-Tazobactam 3 100 .375 gm In Sodium Chloride 0.9% 100 ml @ 25 mls/hr IVPB Q8H [facility] Rx#: [id number] Sodium Chloride 0.9% 1, 900 000 ml @ 75 mls/hr IV . [id number] [facility] Rx#:[id number] Oral 100 Output: Urine 350 Other: Voiding Method Toilet Toilet Urinal Urinal # Voids 2 1 - Exam -GENERAL: The patient is alert and oriented x3, not in any acute distress. Thin built HEENT: Pupils are round and equally reacting to light. EOMI. No scleral icterus. No conjunctival pallor. Normocephalic, atraumatic. No pharyngeal erythema. No thyromegaly. -CARDIOVASCULAR: S1 and S2 present. No murmurs, rubs, or gallops. Distant heart sounds -PULMONARY: Chest is clear to auscultation, no wheezing or crackles. Buccal chest ABDOMEN: Soft, nontender, nondistended, normoactive bowel sounds. No palpable organomegaly. MUSCULOSKELETAL: No joint swelling or deformity. EXTREMITIES: No cyanosis, clubbing, or pedal edema. NEUROLOGICAL: Gross neurological examination did not reveal any focal deficits. SKIN: No rashes. no petechiae. - Labs CBC & Chem 7: 04/13/22 04:22 04/13/22 04:22 Labs: Abnormal Lab Results - Last 24 Hours (Table) 04/13/22 04/13/22 04/13/22 Range/Units 04:22 04:22 11:13 RBC 3.60 L (4.40-5.60) X 10*6/uL Hgb 10.8 L (13.0-17.0) g/dL Hct 34.7 L (39.6-50.0) % MCHC 31.1 L (32.0-37.0) g/dL MPV 9.4 L (9.5-12.2) fL Immature Gran # 0.13 H (0.00-0.04) X 10*3/uL Anion Gap 8.10 L (10.00-18.00) mmol/L Creatinine 0.5 L (0.6-1.5) mg/dL BUN/Creatinine Ratio 35.80 H (12.00-20.00) Ratio POC Glucose (mg/dL) 118 H (70-110) mg/dL Calcium 7.9 L (8.7-10.3) mg/dL Assessment and Plan Assessment: Left upper lobe infiltrate is suspected. Rule out pneumonia, To rule out pulmonary embolism and follow-up CT of the chest already ordered COPD, mild acute exacerbation chronic leukocytosis, currently slightly worse moderate calories and protein malnutrition , related to his poor appetite and recurrent vomiting for the last 5 days prior to admission. Hypertension Hypothyroidism History of diverticulitis History of brain aneurysm Nicotine dependence Plan: This is a pleasant 66 years old male who presents with pneumonia Continue with Zosyn Pulmonary consult prednisone Advance diet dietary consult Pain management, patient is already on buprenorphine which is a home medication. Labs and medication were reviewed.. Continue same treatment. Continue with symptomatic treatment. Resume home medication. Monitor lytes and vitals. DVT and GI prophylaxis. Further recommendations as per clinical course of the patient DVT prophylaxis: Subcutaneous heparin GI Prophylaxis: Ppi PT/OT: Pending Prognosis is guarded
[2022-04-14] MEDS: guaiFENesin-DM 100-10MG/5ML 10 ML CUP PO SCH ×3 (00:08→13:08)
[2022-04-14] MEDS: MORPHINE SULFATE 4 MG/ML SYRINGE IVP PRN ×4 (00:26→15:09)
[2022-04-14] MEDS: PIPERACILLIN-TAZOBACTAM 3.375 GM in SODIUM CHLORIDE 0.9% 100 ML IVPB SCH ×2 (03:14→10:36)
[2022-04-14 06:44] LABS: Glucose,Whole Blood 106 mg/dL (70-110)
[2022-04-14 07:51] VITALS: RESP 17
[2022-04-14] MEDS: IPRATROPIUM-ALBUTEROL 3 ML NEB INHALATION SCH ×3 (08:52→16:47)
[2022-04-14] MEDS: SYMBICORT 160-4.5 MCG INHALER INHALATION SCH (08:52)
[2022-04-14] MEDS: PANTOPRAZOLE 40 MG TABLET PO SCH (08:58)
[2022-04-14] MEDS: DOCUSATE 100 MG CAP PO SCH (08:58)
[2022-04-14] MEDS: HYDROcodone/APAP 7.5-325MG 1 EACH TAB PO PRN (08:59)
[2022-04-14] MEDS: predniSONE 10 MG TAB PO SCH (08:59)
[2022-04-14] MEDS: LACTOBACILLUS ACIDOPH & BULGAR 1 EACH PACKET PO SCH (08:59)
[2022-04-14] MEDS: lisinopriL 10 MG TAB PO SCH (08:59)
[2022-04-14] MEDS: HEPARIN SODIUM,PORCINE/PF 5,000 UNIT/0.5 ML SYRINGE SQ SCH (09:00)
[2022-04-14] MEDS: LIDOCAINE 5% PATCH TOPICAL SCH (09:00)
[2022-04-14] MEDS: NON FORMULARY DRUG (Buprenorphine Hcl [Subutex] 8 MG Tablet) SUBLINGUAL SCH (09:01)
--- NOTE | 2022-04-14 10:53 | P.PN ---
Subjective Progress Note Date: 04/14/22 on 04/13/2022, the patient is being seen for a follow-up. The patient has advanced bullous emphysema and currently left breast for left lung pneumonia. He is quite cachectic and malnourished and he carries a body mass index of 15 .6. Shortness of breath is gradually improving, although,the patient remains on Symbicort 2 puffs twice a day, DuoNeb nebulized treatments around the clock, IV Zosyn and the patient is currently on a prednisone burst taper starting with 30 mg by mouth daily. No nausea. No vomiting. Oral intake is minimal at the patient is unable to take big portions as the patient becomes quite full and distended and gets short of breath with increased meals.IV fluids are running at 75 mL an hour. The patient has a right sacral 7.3 with a hemoglobin of 10.8. The BUN is at 17 with a creatinine of 0.5 and a sodium level of 141. most recent chest x-ray from yesterday shows a left perihilar and left basilar infiltrate which is slightly improved compared to earlier films. 04/14/2022, the patient is feeling better. His condition is stable and he is less short of breath compared to yesterday. Note that the patient has severe bullous emphysema with a superinfection with a pneumonia. I kept on his IV fluids yesterday. I also ordered a repeat pro-calcitonin level at the level is down to 0.18 indicating positive improvement in terms of his underlying bacterial pneumonia. No other new complaints otherwise for now. His oral intake is minimal as the patient gets full with small portions. He has a short at the bedside. History of bronchodilators. He is on a prednisone burst taper. He remains on IV Zosyn. Objective - Vital Signs Vital signs: Vital Signs Temp 98.0 F 04/14/22 07:50 Pulse 67 04/14/22 09:01 Resp 17 04/14/22 07:50 BP 136/87 04/14/22 07:50 Pulse Ox 95 04/14/22 08:52 FiO2 Intake & Output 04/13/22 04/14/22 04/14/22 18:59 06:59 18:59 Intake Total 270 Balance 270 Weight 58.06 kg Intake: Intake, IV Titration 220 Amount Piperacillin-Tazobactam 3 100 .375 gm In Sodium Chloride 0.9% 100 ml @ 25 mls/hr IVPB Q8H [facility] Rx#: [id number] Sodium Chloride 0.9% 1, 120 000 ml @ 10 mls/hr IV . Q24H [facility] Rx#:[id number] Oral 50 Other: Voiding Method Toilet Toilet Toilet Urinal Urinal Urinal # Voids 3 1 # Bowel Movements 2 - Exam GENERAL EXAM: Alert, cachectic pleasant 66-year-old male, on 4 L nasal cannula, comfortable in no apparent distress. HEAD: Normocephalic. EYES: Normal reaction of pupils, equal size. NOSE: Clear with pink turbinates. THROAT: No erythema or exudates. NECK: No masses, no JVD. CHEST: No chest wall deformity. LUNGS: Equal air entry with bilateral scattered rhonchi more so on the left. CVS: S1 and S2 normal with no audible murmur, regular rhythm. ABDOMEN: No hepatosplenomegaly, normal bowel sounds, no guarding or rigidity. SPINE: No scoliosis or deformity SKIN: No rashes CENTRAL NERVOUS SYSTEM: No focal deficits, tone is normal in all 4 extremities. EXTREMITIES: There is no peripheral edema. No clubbing, no cyanosis. Peripheral pulses are intact. - Labs CBC & Chem 7: 04/13/22 04:22 04/13/22 04:22 Labs: Abnormal Lab Results - Last 24 Hours (Table) 04/13/22 04/13/22 04/13/22 Range/Units 04:22 11:13 16:34 POC Glucose (mg/dL) 118 H 138 H (70-110) mg/dL Procalcitonin 0.18 H (0.02-0.09) ng/mL 04/13/22 Range/Units 20:05 POC Glucose (mg/dL) 124 H (70-110) mg/dL Procalcitonin (0.02-0.09) ng/mL Assessment and Plan Plan: Acute COPD exacerbation, complicated by left-sided pneumonia, and pleurisy. clinically improving slowly and the most recent chest x-ray from yesterday showed some slight improvement in left lung consolidation/capacity.all cultures are negative. The pro-calcitonin level from 04/06/2022 was 2.66 the level is improving and is down to 0.18. The patient is that on IV Zosyn. Clinically stable and the patient's acute COPD exacerbation is improving. History of underlying COPD from heavy tobacco use. Severe bullous emphysema History of hypertension. History of diverticular disease. History of hypothyroidism. History of C. difficile colitis. Status post previous brain surgery for aneurysm 2004. 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 The patient has home O2 and nebulizer.
[2022-04-14 11:52] LABS: Glucose,Whole Blood 95 mg/dL (70-110)
[2022-04-14] MEDS: SODIUM CHLORIDE 0.9% 1,000 ML IV SCH (12:22)
--- NOTE | 2022-04-14 12:56 | P.PN ---
Subjective Progress Note Date: 04/14/22 CHIEF COMPLAINT: Shortness of breath, left-sided chest pain and cough HISTORY OF PRESENT ILLNESS: Surgical service is following regards to patient's constipation. Patient reports having bowel movements. Denies any nausea vomiting. He denies any abdominal pain. Tolerating regular diet. Denies any nausea or vomiting. Patient seen and examined with Dr. lou PHYSICAL EXAM: VITAL SIGNS: Reviewed. GENERAL: Well-developed in no acute distress. HEENT: No sclera icterus. Extraocular movements grossly intact. Moist buccal mucosa. Head is atraumatic, normocephalic. ABDOMEN: Soft. Nondistended. Nontender. NEUROLOGIC: Alert and oriented. Cranial nerves II through XII grossly intact. ASSESSMENT: 1. Constipation resolved 2. COPD exacerbation, left-sided pneumonia and pleurisy followed by pulmonary service PLAN: -Continue Colace -Continue regular diet -Continue supportive care -Encouraged patient to increase activity level Physician Slab Lifting Supervisor note has been reviewed by physician. Signing provider agrees with the documented findings, assessment, and plan of care. Objective - Vital Signs Vital signs: Vital Signs Temp 98.0 F 04/14/22 07:50 Pulse 67 04/14/22 09:01 Resp 17 04/14/22 07:50 BP 136/87 04/14/22 07:50 Pulse Ox 95 04/14/22 08:52 FiO2 Intake & Output 04/13/22 04/14/22 04/14/22 18:59 06:59 18:59 Intake Total 270 Balance 270 Weight 58.06 kg Intake: Intake, IV Titration 220 Amount Piperacillin-Tazobactam 3 100 .375 gm In Sodium Chloride 0.9% 100 ml @ 25 mls/hr IVPB Q8H [facility] Rx#: [id number] Sodium Chloride 0.9% 1, 120 000 ml @ 10 mls/hr IV . Q24H [facility] Rx#:[id number] Oral 50 Other: Voiding Method Toilet Toilet Toilet Urinal Urinal Urinal # Voids 3 1 # Bowel Movements 2 - Labs CBC & Chem 7: 04/13/22 04:22 04/13/22 04:22 Labs: Abnormal Lab Results - Last 24 Hours (Table) 04/13/22 04/13/22 04/13/22 Range/Units 04:22 16:34 20:05 POC Glucose (mg/dL) 138 H 124 H (70-110) mg/dL Procalcitonin 0.18 H (0.02-0.09) ng/mL
[2022-04-14 14:42] VITALS: BP 118/68; PULSE 83; TEMP 97.4
--- NOTE | 2022-04-15 00:39 | P.DS ---
Providers Date of admission: 04/05/22 17:47 Attending physician: Seun Dunlap MD Consults: 04/05/22 17:12 Consult Physician Routine Consulting Provider: Gem Saeed Consult Reason/Comments: pneumonia Do you want consulting provider notified?: Yes 04/06/22 09:01 Consult Physician Urgent Consulting Provider: Kumar Gonzalez Consult Reason/Comments: bowel obstruction Do you want consulting provider notified?: Yes Primary care physician: Stated None Hospital Course: Diagnoses: Left side aspiration pneumonia suspected Colitis with recurrent nausea vomiting, present on admission and resolved upon discharge COPD, mild acute exacerbation chronic leukocytosis, slightly worse on admission moderate calories and protein malnutrition , related to his poor appetite and recurrent vomiting for the last 5 days prior to admission. Hypertension Hypothyroidism History of diverticulitis History of brain aneurysm Nicotine dependence opioid dependence Hospital course: this is a pleasant 66 years old male with past medical history of COPD, Hypertension, diverticulitis, hypothyroidism, C-diff, brain aneurysm, nicotine dependence quit last June. Presents because of left-sided lateral chest pain for 5-6 days, patient was found to have left side aspiration pneumonia which got worse with Rocephin over the first 2 days, antibiotics was adjusted to Zosyn and he showed interval improvement in his leukocytosis, oxygen saturation and tachycardia as well as his symptoms. He had evidence of colitis upon admission which is resolved quickly within one to 2 days, he had recurrent vomiting which were contributed to his aspiration. Also has CAT scan showing significant bullous emphysema which delayed his healing and response to treatment. Patient has been followed closely by pulmonary and surgery team. On the day of discharge is fully awake and oriented, no chest pain or dyspnea. No nausea vomiting or diarrhea. No abdominal pain. No urinary complaints. No fever. Patient was cleared for discharge by both surgeon pulmonary teams Problems and management plan were discussed with the patient and he verbalized understanding and acceptance Patient was found stable and can be discharged home . Guarded. Prognosis however he needs follow-up as an outpatient. Patient was instructed to follow up with PCP Dr. Barney within one week and patient agrees Patient was instructed to follow up with cell tender Dr. Gruber in 2-3 weeks and also the surgeon Dr. Mtz in 2-3 weeks and he agrees to call and make appointments. Physical exam Gen: patient is a AAOx3, no distress CVS: S1-S2, RRR, no murmur Lungs: B/L CTA, no wheezing Abdomen: soft, no distention, no tenderness, positive bowel sounds Extremity: no leg edema or induration Time spent more than 35 minutes Patient Condition at Discharge: Fair Plan - Discharge Summary Discharge Rx Participant: No New Discharge Prescriptions: New Amoxic-Pot Clav 875-125Mg [Augmentin 875-125] 1 tab PO Q12HR 14 Days #28 tab predniSONE 0 mg PO DIRECTED #24 tab Lidocaine 5% Patch [Lidoderm 5% Patch] 1 patch TOPICAL DAILY #3 patch Pantoprazole [Protonix] 40 mg PO AC-BRKFST #30 tab Budesonide-Formot 160-4.5 Mcg [Symbicort 160-4.5 Mcg Inhaler] 2 puff INHALATION RT-BID #1 each Continue Docusate [Colace] 100 mg PO BID lisinopriL [Zestril] 10 mg PO DAILY L.acidoph,Paracasei, B.lactis [Probiotic] 1 cap PO DAILY Mirtazapine [Remeron] 45 mg PO HS buprenorphine HCL [Subutex] 8 mg SUBLINGUAL BID Albuterol Inhaler [Ventolin Hfa Inhaler] 2 puff INHALATION RT-Q6H PRN #1 each PRN Reason: Shortness Of Breath Discharge Medication List Docusate [Colace] 100 mg PO BID 06/14/20 [History] L.acidoph,Paracasei, B.lactis [Probiotic] 1 cap PO DAILY 06/22/21 [History] Mirtazapine [Remeron] 45 mg PO HS 04/05/22 [History] buprenorphine HCL [Subutex] 8 mg SUBLINGUAL BID 04/05/22 [History] lisinopriL [Zestril] 10 mg PO DAILY 04/05/22 [History] Albuterol Inhaler [Ventolin Hfa Inhaler] 2 puff INHALATION RT-Q6H PRN #1 each 04/14/22 [Rx] Amoxic-Pot Clav 875-125Mg [Augmentin 875-125] 1 tab PO Q12HR 14 Days #28 tab 04/14/22 [Rx] Budesonide-Formot 160-4.5 Mcg [Symbicort 160-4.5 Mcg Inhaler] 2 puff INHALATION RT-BID #1 each 04/14/22 [Rx] Lidocaine 5% Patch [Lidoderm 5% Patch] 1 patch TOPICAL DAILY #3 patch 04/14/22 [Rx] Pantoprazole [Protonix] 40 mg PO AC-BRKFST #30 tab 04/14/22 [Rx] predniSONE 0 mg PO DIRECTED #24 tab 04/14/22 [Rx] Follow up Appointment(s)/Referral(s): Gemma Shaikh MD [REFERRING] - 1 Week Michael Gruber DO [Doctor of Osteopathic Medicine] - 05/12/22 9:45 am (lung doctor ) [facility], [NON-STAFF] - ([facility] will contact you to arrange a visit) None,Stated [Primary Care Provider] - 1-2 days Kumar Gonzalez MD [STAFF PHYSICIAN] - 04/28/22 1:30 pm (surgeon ) Patient Instructions/Handouts: Viral Pneumonia (DC) Activity/Diet/Wound Care/Special Instructions: heart low sugar diet 1800 k arpit per day activity is restricted till you see your doctor Discharge Disposition: HOME WITH HOME HEALTH SERVICES
== END 2022-04-14 16:44 | disposition home health service (06) | DRG 178 ==
LOC: EC 15:23 → 4SSUR 17:47
PROVIDERS: ADMIT Internal Medicine; ATTEND Internal Medicine
DX: J69.0 Pneumonitis due to inhalation of food and vomit (principal); E44.0 Moderate protein-calorie malnutrition; R64 Cachexia; Z68.1 Body mass index [BMI] 19.9 or less, adult; F11.20 Opioid dependence, uncomplicated; J43.9 Emphysema, unspecified; Z20.822 Contact with and (suspected) exposure to COVID-19; R09.02 Hypoxemia; K52.9 Noninfective gastroenteritis and colitis, unspecified; I10 Essential (primary) hypertension; E03.9 Hypothyroidism, unspecified; K57.90 Diverticulosis of intestine, part unspecified, without perforation or abscess without bleeding; K59.00 Constipation, unspecified; F17.211 Nicotine dependence, cigarettes, in remission; Z71.6 Tobacco abuse counseling; Z79.899 Other long term (current) drug therapy; Z86.19 Personal history of other infectious and parasitic diseases; Z86.79 Personal history of other diseases of the circulatory system; Z71.3 Dietary counseling and surveillance; Z88.0 Allergy status to penicillin; Z82.49 Family history of ischemic heart disease and other diseases of the circulatory system; Z83.79 Family history of other diseases of the digestive system
CPT/HCPCS: 36415; 71045; 71046; 71260; 74018; 74177; 80048; 80053; 83605; 83735; 84145; 84484; 85025; 85610; 85730; 87040; 87502; 87635; 93005; 94640; 94760; 96361; 96365; 96366; 96375; 96376; 99285